=== PATIENT | male | born 1950 | race Caucasian/White ===

== ENCOUNTER → 2016-03-27 | Outpatient (CLI) | payer MEDICARE ==
[~2016-03-27] MED LIST: ASPI1TAB PO; ASPI32ECTA PO; BACL-67 PO; BENA20TA6 PO; BETA2500 PO; BRIM2OPD OU; CENT1TAB PO; CRES20TA PO; HYDR-3713 PO; LATA5OPD OU; LEVE1INJ5 SC; LYRI200C PO; METF750T PO; MIRA33504 PO; OXYC20TA21 PO; PLAV75TA38 PO; TIZA4CAP3 PO; TOUJ1.2I SC; VITA500C10 PO
--- NOTE | 2016-03-27 16:25 | REP ---
Chest x-ray: Two views: History: Hypertension. Comparison chest x-ray: 12/07/2013. Findings: The lungs are hyperinflated but free of infiltrate. Pleural angles are sharp. Heart is not enlarged. The aorta is calcific and slightly tortuous. There are degenerative changes in the thoracic spine. Impression: No active disease. Signed by Jose Luis Andre MD 03/27/2016 04:53 P
[2016-03-27 18:13] LABS: CALCIUM LEVEL 8.4 MG/DL (8.8-10.2); CREATININE FOR GFR 1.5 MG/DL (0.70-1.30); GLOMERULAR FILTRATION RATE 50.2 (>49); POTASSIUM SERUM 3.9 MEQ/L (3.5-5.1)
--- NOTE | 2016-03-28 01:15 | ECGEPIP ---
Stationary ECG Study [facility] Test Date: 2016-03-27 Pat Name: ELSI GONZALEZ Department: Room: - Gender: M Kitchen Porter: DANAE : 1950 Requested By: Saud Rich Order Number: [id number] Reading MD: Flavio Le Measurements Intervals [place] Rate: 68 P: 65 MN: 152 QRS: 24 QRSD: 80 T: 42 QT: 382 QTc: 407 Interpretive Statements SINUS RHYTHM ARTIFACT ON THE BASELINE IN THE LIMB LEADS NO PRIOR TRACING Electronically Signed On 03-28-2016 1:15:37 EST by Flavio Le
== END ==
LOC: M LAB 15:34
PROVIDERS: ATTEND Orthopaedic Surgery
DX: E11.9 Type 2 diabetes mellitus without complications (principal); I10 Essential (primary) hypertension

== ENCOUNTER → 2016-04-09 | Day surgery (SDC) | payer MEDICARE ==
[~2016-04-09] VITALS: Ht 170.2 cm; Wt 77.1 kg
[~2016-04-09] MED LIST changes: +LIDOCAINE 2% INJ 100 MG/5 ML SDV (FOR ANES.) As Ordered ONE; +LR 1,000 ML IV SCH; +METOCLOPRAMIDE INJ 10MG/2ML VIAL (J2765) As Ordered ONE; +MIDAZOLAM INJ 2 MG/2 ML VIAL (J2250) As Ordered ONE; +MORPHINE 4 MG/ML 1ML SYRINGE IV PRN; +NORCO, ANEXSIA 5/325MG TABLET (HYDROcodone/ACETAMINOPHEN) PO PRN; +ONDANSETRON 4MG/2ML VIAL (J2405) IV PRN; +PROPOFOL 200 MG/20 ML VIAL As Ordered ONE; +fentaNYL 100 MCG/2 ML INJECTION (J3010) As Ordered ONE; +fentaNYL 100 MCG/2 ML INJECTION (J3010) IV PRN
--- NOTE | 2016-04-09 12:23 | RO ---
DATE OF PROCEDURE: 04/09/2016 PREOPERATIVE DIAGNOSES: Left carpal tunnel syndrome. 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 POSTOPERATIVE DIAGNOSES: Left carpal tunnel syndrome. 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 PROCEDURE: Left carpal tunnel release. Left ulnar nerve decompression at the wrist. Left ulnar nerve transposition at the elbow. SURGEON: Dr. Saud Rich NIGHT COORDINATOR: Chai Abbasi. ANESTHESIA: General. ESTIMATED BLOOD LOSS: Less than 10. COMPLICATIONS: None. INDICATIONS: This is a 65-year-old gentleman with multiple medical problems who has had ongoing numbness in his hand. EMG nerve conduction study was consistent with carpal tunnel syndrome and ulnar nerve entrapment at the wrist and at the elbow. He had failed conservative management and wished to go ahead with surgical treatment. He understood the nature of the procedure and the risks of bleeding, infection, damage to nerves, vessels, persistent pain, persistent numbness, need for further surgery, recurrence, among others. PROCEDURE: The patient was taken to the operating room and placed in supine position after general anesthesia was induced. The left upper extremity was prepped and draped in the usual sterile fashion. A time-out was performed. I then began at the elbow, making a curvilinear incision along the medial aspect of the elbow and bluntly dissected down through subcutaneous tissue until I identified the ulnar nerve without too much difficulty. This was unroofed and freed up throughout the cubital tunnel and then I dissected around the nerve. I controlled hemostasis with the bipolar cautery and gradually dissected the nerve out of its groove. I created a flap anteriorly on the fascia and I did divide a little bit of the fascia just to take some of the pressure off of the nerve. I gradually transposed the nerve anteriorly. I did take out some of the inner muscular septum proximally and took care not to divide any of the muscular branches. The nerve was easily transposed anteriorly. I put the elbow through a range of motion and then protected the nerve by retracting it anteriorly with a Whitefish. I irrigated. I tacked down subcutaneous tissue to the medial epicondyle with two #2-0 Vicryl sutures and put the elbow through a range of motion. The ulnar nerve was under no tension throughout flexion and extension. Subcutaneous was closed with #2-0 Vicryl, skin with bel. Then I directed attention distally. Incision was made along the proximal ulnar palm. This was curved ulnarly and then along the ulnar aspect of the wrist over the ulnar nerve. Blunt dissection was carried down through subcutaneous tissue until the transverse carpal ligament was encountered. This was incised longitudinally with a 15 blade entering the ulnar border of the carpal tunnel, which I completed the dissection proximally and distally under direct visualization, protecting the median nerve with a Whitefish, and palpating to make sure that the nerve was freed up. The ulnar nerve was then identified through the more ulnar aspect of this incision and blunt dissection was carried down through subcutaneous tissue until the ulnar nerve was identified. I identified the neurovascular bundle proximally and worked my way distally freeing it up. It seemed to be a little bit tight around the midportion. Once I was satisfied with the release of this nerve and the release of the median nerve, I irrigated copiously and closed the skin with #5-0 nylon suture. A sterile dressing was applied. Tourniquet was deflated. I placed the arm in a long-arm posterior splint. Sling was applied. He was taken to recovery room in stable condition. There were no known complications. The plan be routine postoperative. Will take the splint off in about 12 days and take the stitches and bel out and start range of motion.
[2016-04-09 14:05] VITALS: BP 150/76
== END | disposition home or self-care (01) ==
LOC: M SDC 07:36
PROVIDERS: ATTEND Orthopaedic Surgery
DX: G56.02 Carpal tunnel syndrome, left upper limb (principal); G56.22 Lesion of ulnar nerve, left upper limb; G35 Multiple sclerosis; G89.29 Other chronic pain; M54.17 Radiculopathy, lumbosacral region; E11.9 Type 2 diabetes mellitus without complications; I12.9 Hypertensive chronic kidney disease with stage 1 through stage 4 chronic kidney disease, or unspecified chronic kidney disease; E78.00 Pure hypercholesterolemia, unspecified; N18.9 Chronic kidney disease, unspecified; F41.9 Anxiety disorder, unspecified; F32.9 Major depressive disorder, single episode, unspecified; H40.9 Unspecified glaucoma; E78.5 Hyperlipidemia, unspecified; T88.59XD Other complications of anesthesia, subsequent encounter; M12.9 Arthropathy, unspecified; Z79.899 Other long term (current) drug therapy; Z79.82 Long term (current) use of aspirin; Z72.0 Tobacco use
CPT/HCPCS: 64718; 64719; 64721; J0690; J2250; J2765; J3010

== ENCOUNTER 2018-01-06 14:26 | Inpatient (IN) | payer OTHER, MEDICARE ==
[2018-01-06] MEDS: NS 1,000 ML IV ×4 (15:47→23:02)
[2018-01-06 15:48] LABS: BASO # 0.1 10^3/uL (0.0-0.2); BASO % 0.9 % (0.0-1.0); EOS # 0.2 10^3/uL (0.0-0.50); EOS % 1.9 % (0.0-3.0); HEMATOCRIT 43.7 % (42.0-52.0); HEMOGLOBIN 14.2 g/dl (13.5-17.5); IMMATURE GRANULOCYTE % 0.3 % (0-3.0); LYMPH # 2.1 10^3/uL (1.5-4.5); LYMPH % 22.1 % (24.0-44.0); MEAN CORPUSCULAR HEMOGLOBIN 30.1 pg (27.0-33.0); MEAN CORPUSCULAR HGB CONC 32.5 g/dl (32.0-36.5); MEAN CORPUSCULAR VOLUME 92.6 fl (80.0-96.0); MONO # 0.7 10^3/uL (0.0-0.8); MONO % 7.9 % (0.0-5.0); NEUTROPHILS # 6.3 10^3/uL (1.8-7.7); NEUTROPHILS % 66.9 % (36.0-66.0); PLATELET COUNT, AUTOMATED 157 10^3/uL (150-450); RED BLOOD COUNT 4.72 10^6/uL (4.30-6.10); RED CELL DISTRIBUTION WIDTH 14.5 % (11.5-14.5); WHITE BLOOD COUNT 9.4 10^3/uL (4.0-10.0)
[2018-01-06 16:01] LABS: OSMOLALITY SERUM 310 MOSM/KG (280-301)
[2018-01-06 16:08] LABS: INR 1.07
[2018-01-06 16:10] LABS: ALBUMIN 3.5 GM/DL (3.2-5.2); ALBUMIN/GLOBULIN RATIO 1.06 (1.00-1.93); ALKALINE PHOSPHATASE 163 U/L (45-117); ALT/SGPT 22 U/L (12-78); ANION GAP 7 MEQ/L (8-16); AST/SGOT 13 U/L (7-37); BILIRUBIN,DIRECT 0.2 MG/DL (0.0-0.2); BILIRUBIN,TOTAL 0.5 MG/DL (0.2-1.0); BLOOD UREA NITROGEN 52 MG/DL (7-18); CALCIUM LEVEL 8.2 MG/DL (8.8-10.2); CARBON DIOXIDE LEVEL 23 MEQ/L (21-32); CHLORIDE LEVEL 113 MEQ/L (98-107); GLUCOSE, FASTING 111 MG/DL (70-100); LIPASE 354 U/L (73-393); POTASSIUM SERUM 3.5 MEQ/L (3.5-5.1); SODIUM LEVEL 143 MEQ/L (136-145); TOTAL PROTEIN 6.8 GM/DL (6.4-8.2)
[2018-01-06 17:51] LABS: MAGNESIUM LEVEL 3.4 MG/DL (1.8-2.4); PHOSPHORUS LEVEL 4.2 MG/DL (2.5-4.9)
[2018-01-06 18:08] LABS: OSMOLALITY URINE 570 MOSM/KG (500-800)
[2018-01-06 18:18] LABS: APPEARANCE, URINE CLEAR (CLEAR); BACTERIA, URINE AUTO NEGATIVE (NEGATIVE); BILIRUBIN, URINE AUTO NEGATIVE (NEGATIVE); BLOOD, URINE BLOOD NEGATIVE (NEGATIVE); COLOR, URINE YELLOW (YELLOW); GLUCOSE, URINE (UA) AUTO NEGATIVE (NEGATIVE); KETONE, URINE AUTO TRACE mg/dL (NEGATIVE); LEUKOCYTE ESTERASE, URINE AUTO NEGATIVE (NEGATIVE); MUCUS, URINE SMALL (NEGATIVE); NITRITE, URINE AUTO NEGATIVE (NEGATIVE); PROTEIN, URINE AUTO 2+ mg/dL (NEGATIVE); RBC, URINE AUTO 2 /HPF (0-3); SPECIFIC GRAVITY URINE AUTO 1.017 (1.002-1.035); SQUAMOUS EPITHELIAL CELL UR AU 0 /HPF (0-6); WBC, URINE AUTO 2 /HPF (0-3)
[2018-01-06 18:19] LABS: SODIUM,RANDOM URINE 55 MEQ/L
[2018-01-06] MEDS ORDERED: GLUCOSE 4 GM CHEW TABLET PO (19:30)
[2018-01-06] MEDS ORDERED: GLUCAGON FOR INJ 1 MG VIAL (J1610) SC (19:30)
[2018-01-06] MEDS ORDERED: DEXTROSE 50% 50 ML SYRINGE IV (19:30)
[2018-01-06 20:45] LABS: BEDSIDE GLUCOSE 110 MG/DL (80-115)
[2018-01-06] MEDS: HumaLOG INSULIN (NovoLOG) PER UNIT SC (21:00)
[2018-01-06] MEDS: rOPINIRole 1MG TAB PO (21:53)
[2018-01-06] MEDS: oxyCODONE 20 MG CR TAB PO (21:53)
[2018-01-06] MEDS: PREGABALIN 100 MG CAP (LYRICA) PO (21:54)
[2018-01-06] MEDS: HEPARIN SOD (PORCINE) 5000 UNITS/ML VIAL SC (21:54)
[2018-01-06] MEDS: CLOPIDOGREL 75 MG TAB PO (21:54)
[2018-01-07] MEDS: HEPARIN SOD (PORCINE) 5000 UNITS/ML VIAL SC ×3 (05:48→20:51)
[2018-01-07] MEDS: NS 1,000 ML IV ×2 (05:48→16:57)
[2018-01-07 05:56] LABS: HEMATOCRIT 37.7 % (42.0-52.0); MEAN CORPUSCULAR HEMOGLOBIN 29.7 pg (27.0-33.0); MEAN CORPUSCULAR HGB CONC 31.6 g/dl (32.0-36.5); PLATELET COUNT, AUTOMATED 122 10^3/uL (150-450); RED BLOOD COUNT 4.01 10^6/uL (4.30-6.10); RED CELL DISTRIBUTION WIDTH 14.5 % (11.5-14.5); WHITE BLOOD COUNT 6.7 10^3/uL (4.0-10.0)
[2018-01-07 06:13] LABS: ESTIMATED AVERAGE GLUCOSE 128 MG/DL (60-110); HEMOGLOBIN A1c 6.1 %
[2018-01-07 06:22] LABS: HEMOGLOBIN 11.9 g/dl (13.5-17.5)
[2018-01-07 06:36] LABS: ANION GAP 7 MEQ/L (8-16); BLOOD UREA NITROGEN 42 MG/DL (7-18); CALCIUM LEVEL 7.8 MG/DL (8.8-10.2); CARBON DIOXIDE LEVEL 21 MEQ/L (21-32); CHLORIDE LEVEL 118 MEQ/L (98-107); CREATININE FOR GFR 1.95 MG/DL (0.70-1.30); FREE T4 0.76 NG/DL (0.76-1.46); GLOMERULAR FILTRATION RATE 36.8 (>49); GLUCOSE, FASTING 75 MG/DL (70-100); MAGNESIUM LEVEL 3.1 MG/DL (1.8-2.4); POTASSIUM SERUM 3.8 MEQ/L (3.5-5.1); PSA SCREENING 1.02 NG/ML (< 4.0); SODIUM LEVEL 146 MEQ/L (136-145)
[2018-01-07] MEDS: HumaLOG INSULIN (NovoLOG) PER UNIT SC ×4 (07:25→20:31)
[2018-01-07] MEDS: PREGABALIN 100 MG CAP (LYRICA) PO ×2 (09:08→20:49)
[2018-01-07] MEDS: DULoxetine 30 MG CAP (CYMBALTA) PO (09:08)
[2018-01-07] MEDS: ASPIRIN 81 MG ENTERIC TAB PO (09:08)
[2018-01-07] MEDS: ATORVASTATIN 20 MG TAB PO (09:08)
[2018-01-07] MEDS: rOPINIRole 1MG TAB PO ×2 (09:08→20:49)
[2018-01-07] MEDS: oxyCODONE 20 MG CR TAB PO ×2 (09:09→20:50)
[2018-01-07 11:54] LABS: BEDSIDE GLUCOSE 86 MG/DL (80-115)
[2018-01-07 16:50] LABS: BEDSIDE GLUCOSE 180 MG/DL (80-115)
[2018-01-07 19:50] LABS: BEDSIDE GLUCOSE 117 MG/DL (80-115)
[2018-01-07] MEDS: CLOPIDOGREL 75 MG TAB PO (20:50)
[2018-01-08] MEDS: NS 1,000 ML IV ×2 (04:57→16:51)
[2018-01-08] MEDS: HEPARIN SOD (PORCINE) 5000 UNITS/ML VIAL SC ×4 (05:07→23:58)
[2018-01-08 06:30] LABS: HEMATOCRIT 38.2 % (42.0-52.0); HEMOGLOBIN 12.1 g/dl (13.5-17.5); MEAN CORPUSCULAR HEMOGLOBIN 30.4 pg (27.0-33.0); MEAN CORPUSCULAR HGB CONC 31.7 g/dl (32.0-36.5); PLATELET COUNT, AUTOMATED 107 10^3/uL (150-450); RED BLOOD COUNT 3.98 10^6/uL (4.30-6.10); RED CELL DISTRIBUTION WIDTH 14.4 % (11.5-14.5); WHITE BLOOD COUNT 9.3 10^3/uL (4.0-10.0)
[2018-01-08 06:45] LABS: ANION GAP 3 MEQ/L (8-16); BLOOD UREA NITROGEN 34 MG/DL (7-18); C REACTIVE PROTEIN QUANTITATIV 1.04 MG/DL (0.00-0.30); CALCIUM LEVEL 8.3 MG/DL (8.8-10.2); CARBON DIOXIDE LEVEL 24 MEQ/L (21-32); CHLORIDE LEVEL 117 MEQ/L (98-107); GLOMERULAR FILTRATION RATE 37.9 (>49); GLUCOSE, FASTING 89 MG/DL (70-100); MAGNESIUM LEVEL 2.8 MG/DL (1.8-2.4); POTASSIUM SERUM 4.6 MEQ/L (3.5-5.1); SODIUM LEVEL 144 MEQ/L (136-145)
[2018-01-08] MEDS: HumaLOG INSULIN (NovoLOG) PER UNIT SC ×4 (07:30→20:43)
[2018-01-08] MEDS: oxyCODONE 20 MG CR TAB PO ×2 (09:00→21:04)
[2018-01-08] MEDS: ASPIRIN 81 MG ENTERIC TAB PO (09:00)
[2018-01-08] MEDS: rOPINIRole 1MG TAB PO ×2 (09:00→21:04)
[2018-01-08] MEDS: ATORVASTATIN 20 MG TAB PO (09:01)
[2018-01-08] MEDS: DULoxetine 30 MG CAP (CYMBALTA) PO (09:01)
[2018-01-08] MEDS: PREGABALIN 100 MG CAP (LYRICA) PO ×2 (09:01→21:04)
[2018-01-08 12:04] LABS: BEDSIDE GLUCOSE 127 MG/DL (80-115)
[2018-01-08] MEDS: GOLYTELY SOLN 4000 ML BTL PO (13:21)
[2018-01-08 16:48] LABS: BEDSIDE GLUCOSE 118 MG/DL (80-115)
[2018-01-08 20:36] LABS: BEDSIDE GLUCOSE 126 MG/DL (80-115)
[2018-01-08] MEDS: CLOPIDOGREL 75 MG TAB PO (21:05)
[2018-01-09] MEDS: NS 1,000 ML IV ×2 (05:13→16:42)
[2018-01-09 07:07] LABS: HEMOGLOBIN 10.8 g/dl (13.5-17.5); MEAN CORPUSCULAR HEMOGLOBIN 29.8 pg (27.0-33.0); MEAN CORPUSCULAR HGB CONC 31.8 g/dl (32.0-36.5); MEAN CORPUSCULAR VOLUME 93.9 fl (80.0-96.0); RED BLOOD COUNT 3.62 10^6/uL (4.30-6.10); RED CELL DISTRIBUTION WIDTH 14.3 % (11.5-14.5); WHITE BLOOD COUNT 7.8 10^3/uL (4.0-10.0)
[2018-01-09 07:28] LABS: PLATELET COUNT, AUTOMATED 95 10^3/uL (150-450)
[2018-01-09 07:29] LABS: IMMATURE PLATELET FRACTION % 6.4 % (0.0-10.9)
[2018-01-09] MEDS: HumaLOG INSULIN (NovoLOG) PER UNIT SC ×4 (07:30→21:00)
[2018-01-09 07:31] LABS: ANION GAP 5 MEQ/L (8-16); BLOOD UREA NITROGEN 22 MG/DL (7-18); C REACTIVE PROTEIN QUANTITATIV 3.79 MG/DL (0.00-0.30); CALCIUM LEVEL 7.8 MG/DL (8.8-10.2); CARBON DIOXIDE LEVEL 21 MEQ/L (21-32); CHLORIDE LEVEL 119 MEQ/L (98-107); CREATININE FOR GFR 1.42 MG/DL (0.70-1.30); GLOMERULAR FILTRATION RATE 53.1 (>49); GLUCOSE, FASTING 84 MG/DL (70-100); MAGNESIUM LEVEL 2.3 MG/DL (1.8-2.4); POTASSIUM SERUM 4.1 MEQ/L (3.5-5.1); SODIUM LEVEL 145 MEQ/L (136-145)
[2018-01-09] MEDS: ATORVASTATIN 20 MG TAB PO (10:41)
[2018-01-09] MEDS: oxyCODONE 20 MG CR TAB PO ×2 (10:41→21:39)
[2018-01-09] MEDS: rOPINIRole 1MG TAB PO ×2 (10:42→21:39)
[2018-01-09] MEDS: PREGABALIN 100 MG CAP (LYRICA) PO ×2 (10:42→21:38)
[2018-01-09] MEDS: ASPIRIN 81 MG ENTERIC TAB PO (10:42)
[2018-01-09] MEDS: DULoxetine 30 MG CAP (CYMBALTA) PO (10:42)
[2018-01-09] MEDS ORDERED: PROPOFOL 200 MG/20 ML VIAL As Ordered (11:54)
[2018-01-09] MEDS ORDERED: LIDOCAINE 2% INJ 100 MG/5 ML SDV (FOR ANES.) As Ordered (11:54)
[2018-01-09] MEDS ORDERED: ONDANSETRON 4MG/2ML VIAL (J2405) IV (12:15)
[2018-01-09] MEDS: LR 1,000 ML IV (12:15)
[2018-01-09] MEDS: HEPARIN SOD (PORCINE) 5000 UNITS/ML VIAL SC ×2 (13:41→21:40)
[2018-01-09 17:00] LABS: BEDSIDE GLUCOSE 125 MG/DL (80-115)
[2018-01-09 20:18] LABS: BEDSIDE GLUCOSE 119 MG/DL (80-115)
[2018-01-09] MEDS: CLOPIDOGREL 75 MG TAB PO (21:38)
[2018-01-10] MEDS: HEPARIN SOD (PORCINE) 5000 UNITS/ML VIAL SC (05:19)
[2018-01-10 06:23] LABS: HEMATOCRIT 33.8 % (42.0-52.0); HEMOGLOBIN 10.7 g/dl (13.5-17.5); MEAN CORPUSCULAR HGB CONC 31.7 g/dl (32.0-36.5); MEAN CORPUSCULAR VOLUME 94.7 fl (80.0-96.0); RED BLOOD COUNT 3.57 10^6/uL (4.30-6.10); RED CELL DISTRIBUTION WIDTH 14.2 % (11.5-14.5); WHITE BLOOD COUNT 6.7 10^3/uL (4.0-10.0)
[2018-01-10 06:24] LABS: PLATELET COUNT, AUTOMATED 92 10^3/uL (150-450)
[2018-01-10 06:46] LABS: ANION GAP 5 MEQ/L (8-16); BLOOD UREA NITROGEN 21 MG/DL (7-18); C REACTIVE PROTEIN QUANTITATIV 5.33 MG/DL (0.00-0.30); CALCIUM LEVEL 7.6 MG/DL (8.8-10.2); CARBON DIOXIDE LEVEL 20 MEQ/L (21-32); CHLORIDE LEVEL 119 MEQ/L (98-107); CREATININE FOR GFR 1.51 MG/DL (0.70-1.30); GLOMERULAR FILTRATION RATE 49.5 (>49); GLUCOSE, FASTING 87 MG/DL (70-100); POTASSIUM SERUM 4.2 MEQ/L (3.5-5.1); SODIUM LEVEL 144 MEQ/L (136-145)
[2018-01-10] MEDS: HumaLOG INSULIN (NovoLOG) PER UNIT SC (07:30)
[2018-01-10] MEDS: rOPINIRole 1MG TAB PO (09:02)
[2018-01-10] MEDS: ATORVASTATIN 20 MG TAB PO (09:02)
[2018-01-10] MEDS: PREGABALIN 100 MG CAP (LYRICA) PO (09:02)
[2018-01-10] MEDS: oxyCODONE 20 MG CR TAB PO (09:02)
[2018-01-10] MEDS: ASPIRIN 81 MG ENTERIC TAB PO (09:02)
[2018-01-10] MEDS: DULoxetine 30 MG CAP (CYMBALTA) PO (09:02)
[2018-01-10 11:43] LABS: BEDSIDE GLUCOSE 95 MG/DL (80-115)
== END 2018-01-10 12:25 | disposition home or self-care (01) | DRG 394 ==
LOC: M ED 14:26 → M ED INP 18:28 → M MSPAV 20:10
PROC: 0DBK8ZX Excision of Ascending Colon, Via Natural or Artificial Opening Endoscopic, Diagnostic (ICD-10-PCS; principal; 2018-01-09 10:00)
DX: D12.2 Benign neoplasm of ascending colon (principal); N17.9 Acute kidney failure, unspecified; K56.7 Ileus, unspecified; G35 Multiple sclerosis; R63.4 Abnormal weight loss; N18.3 Chronic kidney disease, stage 3 (moderate); I12.9 Hypertensive chronic kidney disease with stage 1 through stage 4 chronic kidney disease, or unspecified chronic kidney disease; Z86.73 Personal history of transient ischemic attack (TIA), and cerebral infarction without residual deficits; E11.40 Type 2 diabetes mellitus with diabetic neuropathy, unspecified; Z79.82 Long term (current) use of aspirin; Z79.899 Other long term (current) drug therapy; E78.00 Pure hypercholesterolemia, unspecified; G25.81 Restless legs syndrome

== ENCOUNTER 2018-02-11 06:49 | Inpatient (IN) | payer OTHER ==
[2018-02-11] VITALS (7 sets, daily range): BP systolic 146–193; BP diastolic 56–81
[~2018-02-11] VITALS: Ht 170.2 cm; Wt 74.4 kg
[~2018-02-11 06:49] MED LIST changes: +ACET250T2; +ACET250T2 PO; +ASPI325T25 PO; -ASPI32ECTA PO; +ATOR1TAB21; +ATOR1TAB21 PO; -BACL-67 PO; +BACL1TAB9 PO; +CLOP75TA2 PO; +DULO1CAP2; +DULO1CAP2 PO; +HYDR-2808 PO; -LIDOCAINE 2% INJ 100 MG/5 ML SDV (FOR ANES.) As Ordered ONE; +LR 1,000 ML IV ONE; -LR 1,000 ML IV SCH; -METOCLOPRAMIDE INJ 10MG/2ML VIAL (J2765) As Ordered ONE; -MIDAZOLAM INJ 2 MG/2 ML VIAL (J2250) As Ordered ONE; -MORPHINE 4 MG/ML 1ML SYRINGE IV PRN; -NORCO, ANEXSIA 5/325MG TABLET (HYDROcodone/ACETAMINOPHEN) PO PRN; -ONDANSETRON 4MG/2ML VIAL (J2405) IV PRN; -OXYC20TA21 PO; +OXYC20TA40 PO; +PLAV1TAB2 PO; -PLAV75TA38 PO; -PROPOFOL 200 MG/20 ML VIAL As Ordered ONE; +RANI150T PO; +ROPI2TAB; +ROPI2TAB PO; +TIZA-208 PO; +TIZA4CAP PO; -TIZA4CAP3 PO; +TRES1INJ SC; +cefoTEtan DISODIUM 2 GM in D5W MINI-BAG PLUS 50 ML IV ONE; -fentaNYL 100 MCG/2 ML INJECTION (J3010) As Ordered ONE; -fentaNYL 100 MCG/2 ML INJECTION (J3010) IV PRN
[2018-02-11] MEDS ORDERED: BUPIVACAINE/EPIN 0.25% 30 ML VIAL As Ordered ONE (07:57)
[2018-02-11] MEDS ORDERED: ROCURONIUM BROMIDE 50 MG/5 ML VIAL As Ordered ONE ×2 (08:00→08:07)
[2018-02-11] MEDS ORDERED: PROPOFOL 200 MG/20 ML VIAL As Ordered ONE ×2 (08:00→08:07)
[2018-02-11] MEDS ORDERED: dexameTHASONE 4 MG/ML 1ML VIAL (J1100) As Ordered ONE (08:00)
[2018-02-11] MEDS ORDERED: ONDANSETRON 4MG/2ML VIAL (J2405) As Ordered ONE (08:00)
[2018-02-11] MEDS ORDERED: LIDOCAINE 2% INJ 100 MG/5 ML SDV (FOR ANES.) As Ordered ONE (08:00)
[2018-02-11] MEDS ORDERED: fentaNYL 250 MCG/5 ML INJECTION (J3010) As Ordered ONE (08:01)
[2018-02-11] MEDS ORDERED: MIDAZOLAM INJ 2 MG/2 ML VIAL (J2250) As Ordered ONE (08:02)
[2018-02-11] MEDS ORDERED: ALBUTEROL SULFATE 2.5 MG/0.5 ML INH NEB SOLN As Ordered ONE (08:21)
[2018-02-11] MEDS ORDERED: ALBUTEROL SULFATE 2.5 MG/0.5 ML INH NEB SOLN NEB ONE (08:45)
[2018-02-11] MEDS ORDERED: NEOSTIGMINE 10 MG/10 ML VIAL (J2710) As Ordered ONE (10:03)
[2018-02-11] MEDS ORDERED: GLYCOPYRROLATE INJ 0.2 MG/ML 2 ML VIAL As Ordered ONE (10:03)
[2018-02-11] MEDS ORDERED: METOCLOPRAMIDE INJ 10MG/2ML VIAL (J2765) As Ordered ONE (10:04)
[2018-02-11] MEDS ORDERED: HYDROmorphone HCL 2 MG/ML 1ML VIAL (J1170) As Ordered ONE (10:04)
[2018-02-11] MEDS ORDERED: LABETALOL HCL 100 MG/20 ML VIAL As Ordered ONE (10:11)
[2018-02-11] MEDS ORDERED: hydrALAZINE INJ 20 MG/ML VIAL As Ordered ONE (11:16)
[2018-02-11] MEDS ORDERED: METOCLOPRAMIDE INJ 10MG/2ML VIAL (J2765) IV PRN (13:00)
[2018-02-11] MEDS ORDERED: NORCO, ANEXSIA 5/325MG TABLET (HYDROcodone/ACETAMINOPHEN) PO PRN (13:00)
[2018-02-11] MEDS ORDERED: MORPHINE 4 MG/ML 1ML VIAL/SYRINGE (J2270) IV PRN (13:00)
[2018-02-11] MEDS ORDERED: MORPHINE 10 MG/ML 1ML VIAL (J2270) IV PRN (13:00)
[2018-02-11] MEDS ORDERED: ONDANSETRON 4MG/2ML VIAL (J2405) IV PRN ×2 (13:00)
[2018-02-11] MEDS ORDERED: KETOROLAC 30 MG/ML VIAL (J1885) IV PRN (13:00)
[2018-02-11] MEDS ORDERED: ACETAMINOPHEN TAB 650MG DOSE (2X325MG) PO PRN (13:00)
[2018-02-11] MEDS ORDERED: PERCOCET 5MG/325MG TAB PO PRN (13:00)
[2018-02-11] MEDS ORDERED: fentaNYL 100 MCG/2 ML INJECTION (J3010) IV PRN (13:00)
[2018-02-11] MEDS ORDERED: LR 1,000 ML IV SCH (13:00)
[2018-02-11] MEDS: KCL 20MEQ IN D5/0.45NS 1000ML 1,000 ML IV SCH ×2 (14:39→23:57)
[2018-02-11] MEDS: ENALAPRIL MALEATE 10 MG TAB PO SCH (14:39)
[2018-02-11] MEDS ORDERED: GLUCOSE 4 GM CHEW TABLET PO PRN (15:15)
[2018-02-11] MEDS ORDERED: GLUCAGON FOR INJ 1 MG VIAL (J1610) SC PRN (15:15)
[2018-02-11] MEDS ORDERED: DEXTROSE 50% 50 ML SYRINGE IV PRN (15:15)
[2018-02-11] MEDS: HumaLOG INSULIN (NovoLOG) PER UNIT SC SCH ×2 (18:25→20:46)
--- NOTE | 2018-02-11 18:50 | RO ---
DATE OF PROCEDURE: 02/11/2018 PREOPERATIVE DIAGNOSIS: Right colon mass. POSTOPERATIVE DIAGNOSIS: Right colon mass. PROCEDURE: Robotic right hemicolectomy. SURGEON: Dr. Amauri Van GEOCHEMICAL MANAGER: Dr. Mas, assisted with retraction of the colon as well as reanastomosis. ANESTHESIA: General. ESTIMATED BLOOD LOSS: 50 mL. COMPLICATIONS: None. INDICATIONS FOR PROCEDURE: The patient is a 67-year-old male who presented to the ER with unexplained weight loss. 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 However, his CEA levels are high and this mass is circumferential, so recommendation was to proceed with colon resection. Risks and benefits of the procedure not limited to but including bleeding, infection, hernia formation, damage to surrounding structures, anastomotic leak and need for further surgery were discussed in detail with the patient. Informed consent was obtained and procedure was planned. DESCRIPTION OF PROCEDURE: The patient was brought back to operating room seven after sufficient sedation, the abdomen was sterilely prepped and draped and a Ahumada catheter was placed. Next, a time-out was done to confirm proper patient, proper procedure. Following that, an 8 mm supraumbilical midline incision was made and the Veress needle was used to gain access to the abdomen. Once the abdomen was entered and was filled to 15 mmHg, the Veress needle was then removed and a 12 mm Optiview port was used to gain access. Two 8 mm robotic ports were then placed, one subxiphoid, one in the lower mid abdomen, and another 15 mm robotic port was placed in the left upper quadrant. The colon was examined. The mass was able to be palpated with graspers near the hepatic flexure and then was able to move the small bowel out of the way and then the robot was docked to the ports. After docking to the ports, the colon was grasped with a third arm, mobilized medially. The lateral peritoneal connections to the colon were taken down using the vessel sealer and scissors. Once this was completed, the colon was mobilized around the hepatic flexure to the proximal transverse colon and the colon continued to be mobilized inferiorly and medially until it was completely dissected free and free from the duodenum. Once this was all completed, the terminal ileum was identified, elevated up in the air and the mesentery of the terminal ileum was opened up and green load of the stapler was used to transect. The mesentery was then dissected through the terminal ileum and into the cecal mesentery until the ileocolic artery was identified. It was then continued to be mobilized proximally, the vessel was then skeletonized and then was able to be clamped and ligated using the vessel sealer. Once the rest of the mesentery was freed up and the entire right colon was free, the robot was undocked, the supraumbilical incision was widened to about 5 cm, and the Klever wound protector was placed. The two ends of the colon were brought out, a [id number] anastomosis was created between the terminal ileum and the proximal transverse colon using a JACKY 75 stapler and a blue load. Once this was completed, I over sewed the corners with #3-0 silk sutures, placed some Tisseel over the anastomosis, tucked it back inside the abdomen. The fascia at the supraumbilical site was then closed with a running #1 Vicryl suture. Subcutaneous tissues were reapproximated with #3-0 Vicryl sutures and then bel. The left upper quadrant 15 mm port site, fascia was then closed with a [id number] #0 Vicryl suture. The rest of the skin incisions were closed with #4-0 Vicryl subcuticular sutures. The abdomen was cleaned and dried. Steri-Strips, 4x4, and tape were applied, thus ending procedure. YAKOV
[2018-02-11] MEDS: cefoTEtan DISODIUM 1 GM in D5W MINI-BAG PLUS 50 ML IV SCH (20:24)
[2018-02-11] MEDS: PREGABALIN 100 MG CAP (LYRICA) PO SCH (20:24)
[2018-02-11] MEDS: CLOPIDOGREL 75 MG TAB PO SCH (20:25)
[2018-02-11] MEDS: ATORVASTATIN 20 MG TAB PO SCH (20:25)
[2018-02-11] MEDS: rOPINIRole 1MG TAB PO SCH (20:25)
[2018-02-11] MEDS: SENOKOT S TAB PO SCH (20:25)
[2018-02-12] VITALS (11 sets, daily range): BP systolic 84–168; BP diastolic 52–84
[2018-02-12] MEDS: KCL 20MEQ IN D5/0.45NS 1000ML 1,000 ML IV SCH ×2 (07:48→15:00)
[2018-02-12] MEDS: HumaLOG INSULIN (NovoLOG) PER UNIT SC SCH ×4 (07:48→21:00)
[2018-02-12] MEDS: cefoTEtan DISODIUM 1 GM in D5W MINI-BAG PLUS 50 ML IV SCH (07:49)
[2018-02-12] MEDS: SENOKOT S TAB PO SCH ×2 (09:27→21:15)
[2018-02-12] MEDS: rOPINIRole 1MG TAB PO SCH ×2 (09:27→21:15)
[2018-02-12] MEDS: PANTOPRAZOLE 40MG TAB (PROTONIX) PO SCH (09:28)
[2018-02-12] MEDS: DULoxetine 30 MG CAP (CYMBALTA) PO SCH (09:28)
[2018-02-12] MEDS: PREGABALIN 100 MG CAP (LYRICA) PO SCH ×2 (09:28→21:15)
[2018-02-12] MEDS: ENALAPRIL MALEATE 10 MG TAB PO SCH (09:31)
[2018-02-12] MEDS: CLOPIDOGREL 75 MG TAB PO SCH (21:15)
[2018-02-12] MEDS: ATORVASTATIN 20 MG TAB PO SCH (21:15)
[2018-02-12 23:02] LABS: BASO # 0.1 10^3/uL (0.0-0.2); BASO % 0.3 % (0.0-1.0); EOS # 0.1 10^3/uL (0.0-0.50); EOS % 0.7 % (0.0-3.0); HEMATOCRIT 27.8 % (42.0-52.0); LYMPH # 2.4 10^3/uL (1.5-4.5); LYMPH % 15.1 % (24.0-44.0); MEAN CORPUSCULAR HEMOGLOBIN 30.9 pg (27.0-33.0); MEAN CORPUSCULAR HGB CONC 32.4 g/dl (32.0-36.5); MEAN CORPUSCULAR VOLUME 95.5 fl (80.0-96.0); MONO # 1.3 10^3/uL (0.0-0.8); MONO % 7.8 % (0.0-5.0); NEUTROPHILS # 12.2 10^3/uL (1.8-7.7); NEUTROPHILS % 75.4 % (36.0-66.0); PLATELET COUNT, AUTOMATED 157 10^3/uL (150-450); RED BLOOD COUNT 2.91 10^6/uL (4.30-6.10); WHITE BLOOD COUNT 16.1 10^3/uL (4.0-10.0)
--- NOTE | 2018-02-12 23:11 | IPNPDOC ---
Subjective Date Seen The patient was seen on 02/12/18. Subjective Chief Complaint/HPI RAPID ASSESSMENT General: Reports: Fatigue Constitutional: Reports: Weakness Pulmonary: Denies: Dyspnea, Cough Cardiovascular: Reports: Lt Headedness; Denies: Chest Pain, Palpitations Gastrointestinal: Denies: Nausea, Vomiting Neurological: Reports: Weakness Objective Physical Examination General Exam: Positive: Alert, Cooperative, Moderate Distress Chest Exam: Positive: Diminished; Negative: Rales, Rhonchi, Wheezing Heart Exam: Positive: Rate Normal, Normal S1, Normal S2; Negative: Gallops, Murmurs Abdomen Exam: Positive: Normal bowel sounds, Soft; Negative: Tenderness Extremity Exam: Negative: Edema Neuro Exam: Positive: Normal Speech Other physical findings david red blood per rectum Assessment /Plan Assessment Rapid assessment called overnight for patient- he was on bedside commode and slipped off, found by nursing staff on the floor of his room with david red blood per rectum on the floor and on his legs-RAT was initiated. The patient upon arrival was awake and laying on the floor but with profound generalized weakness, he denied chest pain nor difficulty breathing nor abdomen pain. Found to be hypotensive and bradycardic as well. Stated when he was using the bathroom commode he became very weak and could not hold himself up and therefore slid off onto the floor, unsure if he hit his head on the way down, did not complain of any extremity pain. Bedside BS was checked and found to be in 170's, upon physical exam he did have david red blood per his rectum on his legs and on the floor around him. He had to be lifted by 3 nurses to be put back into bed, with extreme generalized weakness. Stat CBC and BMP was ordered. STAT CT head pending. Given 1 L fluid bolus with improvement in BP and HR. Will transfer him to ICU for closer monitoring, Dr Alfonso of general surgery was made aware of situation by Dr Reagan, agreed with plan of care by medicine team. If Hg should be less than 8, we will transfuse. Otherwise will maintain his BP with IVF, monitor closely and let day team know of patients events overnight. Plan/VTE VTE Prophylaxis Ordered?: Yes VS, I&O, 24H, Fishbone Vital Signs/I&O Vital Signs Date Time Temp Pulse Resp B/P (MAP) Pulse Ox O2 Delivery O2 Flow Rate FiO2 02/12/18 22:00 98.7 57 18 113/57 (75) 94 Room Air 02/11/18 22:00 2.0 I&O- Last 24 Hours up to 6 AM 02/12/18 06:00 Intake Total 1980 ml Output Total 550 ml Balance 1430 ml Laboratory Data 24H LABS Laboratory Tests 2 02/12/18 07:38: Bedside Glucose (Misc Panel) 218H 02/12/18 11:37: Bedside Glucose (Misc Panel) 119H 02/12/18 16:33: Bedside Glucose (Misc Panel) 108 02/12/18 20:20: Bedside Glucose (Misc Panel) 123H 02/12/18 22:44: Bedside Glucose (Misc Panel) 178H 02/12/18 22:57: CBC/BMP Laboratory Tests 02/12/18 22:57 Red Blood Count 2.91 L, Mean Corpuscular Volume 95.5, Mean Corpuscular Hemoglobin 30.9, Mean Corpuscular Hemoglobin Concent 32.4, Red Cell Distribution Width 15.1 H, Neutrophils (%) (Auto) 75.4 H, Lymphocytes (%) (Auto) 15.1 L, Monocytes (%) (Auto) 7.8 H, Eosinophils (%) (Auto) 0.7, Basophils (%) (Auto) 0.3, Neutrophils # (Auto) 12.2 H, Lymphocytes # (Auto) 2.4, Monocytes # (Auto) 1.3 H, Eosinophils # (Auto) 0.1, Basophils # (Auto) 0.1 GME ATTESTATION GME ATTESTATION My faculty preceptor for this patient encounter was physically present during the encounter and was fully available. All aspects of the patient interview, examination, medical decision making process, and medical care plan development were reviewed and approved by the faculty preceptor. The faculty preceptor is aware and concurs with the plan as stated in the body of this note and will attest to such by his/her cosignature. MAO VOGT DO Feb 12, 2018 23:11
[2018-02-12 23:27] LABS: CALCIUM LEVEL 7.3 MG/DL (8.8-10.2); CREATININE FOR GFR 2.2 MG/DL (0.70-1.30); POTASSIUM SERUM 3.9 MEQ/L (3.5-5.1)
[2018-02-13] VITALS (15 sets, daily range): BP systolic 110–182; BP diastolic 55–92
[2018-02-13] MEDS: KCL 20MEQ IN D5/0.45NS 1000ML 1,000 ML IV SCH ×3 (00:34→16:07)
[2018-02-13] MEDS ORDERED: NS 1,000 ML IV ONE (03:15)
[2018-02-13 05:50] LABS: BASO % 0.3 % (0.0-1.0); EOS # 0.1 10^3/uL (0.0-0.50); EOS % 0.8 % (0.0-3.0); HEMATOCRIT 25.9 % (42.0-52.0); HEMOGLOBIN 8.3 g/dl (13.5-17.5); LYMPH # 1.7 10^3/uL (1.5-4.5); LYMPH % 14.5 % (24.0-44.0); MEAN CORPUSCULAR HEMOGLOBIN 30.4 pg (27.0-33.0); MEAN CORPUSCULAR VOLUME 94.9 fl (80.0-96.0); MONO # 0.8 10^3/uL (0.0-0.8); MONO % 6.9 % (0.0-5.0); NEUTROPHILS # 9.2 10^3/uL (1.8-7.7); NEUTROPHILS % 77.1 % (36.0-66.0); PLATELET COUNT, AUTOMATED 145 10^3/uL (150-450); RED BLOOD COUNT 2.73 10^6/uL (4.30-6.10)
[2018-02-13 06:07] LABS: CALCIUM LEVEL 7.3 MG/DL (8.8-10.2); CREATININE FOR GFR 1.94 MG/DL (0.70-1.30); POTASSIUM SERUM 4.3 MEQ/L (3.5-5.1)
--- NOTE | 2018-02-13 07:42 | REP ---
Emergency noncontrast brain CT: History: Altered mental status. Findings: Preliminary digital intelligence group supervisor radiograph is unremarkable. Bone window settings demonstrate an intact bony calvarium. There is mucosal thickening in the apex of the left maxillary sinus, within the left ethmoid air cells, and in the sphenoid and left frontal sinus consistent with left-sided paranasal sinusitis. No intraorbital abnormality is seen. Vascular calcification is noted. There is mild diffuse atrophy. Quinteros-white differentiation pattern is normal above and below the tentorium. There are small vessel atherosclerotic changes in the periventricular white matter. There is no evidence of hemorrhage. No infarct, mass or midline shift is seen. Impression: Mild diffuse atrophy and vascular calcification. Small vessel changes. No acute intracranial lesion. Electronically Signed by Jose Luis Andre MD 02/13/2018 10:07 A
[2018-02-13] MEDS: HumaLOG INSULIN (NovoLOG) PER UNIT SC SCH ×4 (08:06→20:22)
[2018-02-13] MEDS: PREGABALIN 100 MG CAP (LYRICA) PO SCH ×2 (08:07→20:20)
[2018-02-13] MEDS: PANTOPRAZOLE 40MG TAB (PROTONIX) PO SCH (08:07)
[2018-02-13] MEDS: DULoxetine 30 MG CAP (CYMBALTA) PO SCH (08:07)
[2018-02-13] MEDS: ENALAPRIL MALEATE 10 MG TAB PO SCH (08:07)
[2018-02-13] MEDS: SENOKOT S TAB PO SCH ×2 (08:07→20:22)
[2018-02-13] MEDS: rOPINIRole 1MG TAB PO SCH ×2 (08:07→20:19)
--- NOTE | 2018-02-13 10:58 | IPN ---
DATE OF SERVICE: 02/13/2018 Patient was seen last night after he had his GI bleeding issue and he had stopped and had been stopped for about an hour after he had been transferred to the ICU. His hematocrit was not significantly diminished at that time and he had no further GI bleeding. He was not tachycardiac and overall was not complaining of any significant abnormalities. No shortness of breath. He had what sounds as a vagal response in the bathroom with a bloody bowel movement and now presents for additional evaluation/treatment monitoring here in the ICU. Otherwise his abdomen is soft, mildly tender at the incision but otherwise not significantly tender at this point. I stopped his Toradol last night given he had an elevated creatinine and with some BUN elevation as well. His creatinine is coming down a little bit today. He has been afebrile. His input and output show that he has had some minimal urine output and I anticipate he has been relatively dry. Part of this might of been the bleeding that he had. But fortunately given his improvement of his BUN and he has been voiding, I anticipate this is probably turning around slowly with our resuscitation fluid. Otherwise on his abdominal exam it is otherwise benign. No evidence of erythema, no drainage. No evidence of infection. IMPRESSION AND PLAN: 1. GI bleeding seems to have stabilized. No bleeding since that time last night. It is probably related to Plavix that was restarted on him and since will discontinue that Plavix and unfortunately will take the higher risk of clotting associated with not having Plavix on board, but with his recent bleed and the potential need for reoperative intervention should he ever bleed again, I do feel that that is a risk that we can take at this point. From the standpoint of overall he feels well, he is not having any complaints, he is hungry, I do feel that we can advance his diet. I would like to keep his IV fluids going at this point and recheck his blood work this afternoon to make sure he does not have ongoing bleeding issues. If he has a decreasing hematocrit this afternoon, it may warrant a couple units of blood helping his dehydration issue as well as helping his bleeding (from the anastomosis, probable).
[2018-02-13] MEDS ORDERED: TAMSULOSIN 0.4 MG CAP PO ONE (11:00)
[2018-02-13 15:01] LABS: HEMATOCRIT 27.4 % (42.0-52.0); HEMOGLOBIN 8.8 g/dl (13.5-17.5); MEAN CORPUSCULAR HEMOGLOBIN 30.4 pg (27.0-33.0); MEAN CORPUSCULAR HGB CONC 32.1 g/dl (32.0-36.5); MEAN CORPUSCULAR VOLUME 94.8 fl (80.0-96.0); PLATELET COUNT, AUTOMATED 144 10^3/uL (150-450); RED BLOOD COUNT 2.89 10^6/uL (4.30-6.10); WHITE BLOOD COUNT 13.4 10^3/uL (4.0-10.0)
[2018-02-13 15:21] LABS: CALCIUM LEVEL 7.4 MG/DL (8.8-10.2); CREATININE FOR GFR 1.71 MG/DL (0.70-1.30); GLOMERULAR FILTRATION RATE 42.9 (>49); POTASSIUM SERUM 3.9 MEQ/L (3.5-5.1)
[2018-02-13] MEDS ORDERED: NITROGLYCERIN 2% OINT 1 GM *U/D* PKT TOP ONE (16:45)
[2018-02-13] MEDS: ATORVASTATIN 20 MG TAB PO SCH (20:20)
[2018-02-14] VITALS (14 sets, daily range): BP systolic 113–190; BP diastolic 56–96
[2018-02-14] MEDS: KCL 20MEQ IN D5/0.45NS 1000ML 1,000 ML IV SCH (00:14)
[2018-02-14 04:14] LABS: CREATININE FOR GFR 1.54 MG/DL (0.70-1.30); GLOMERULAR FILTRATION RATE 48.4 (>49); HEMATOCRIT 22.8 % (42.0-52.0); HEMOGLOBIN 7.3 g/dl (13.5-17.5); MEAN CORPUSCULAR HEMOGLOBIN 30.9 pg (27.0-33.0); MEAN CORPUSCULAR VOLUME 96.6 fl (80.0-96.0); PLATELET COUNT, AUTOMATED 125 10^3/uL (150-450); RED BLOOD COUNT 2.36 10^6/uL (4.30-6.10); WHITE BLOOD COUNT 8.7 10^3/uL (4.0-10.0)
[2018-02-14] MEDS: HumaLOG INSULIN (NovoLOG) PER UNIT SC SCH ×4 (07:51→20:07)
[2018-02-14] MEDS: NITROGLYCERIN 2% OINT 1 GM *U/D* PKT TOP SCH ×5 (08:08→23:22)
[2018-02-14] MEDS: PANTOPRAZOLE 40MG TAB (PROTONIX) PO SCH (08:08)
[2018-02-14] MEDS: DULoxetine 30 MG CAP (CYMBALTA) PO SCH (08:08)
[2018-02-14] MEDS: TAMSULOSIN 0.4 MG CAP PO SCH (08:09)
[2018-02-14] MEDS: rOPINIRole 1MG TAB PO SCH ×2 (08:09→20:07)
[2018-02-14] MEDS: PREGABALIN 100 MG CAP (LYRICA) PO SCH ×2 (08:09→20:07)
[2018-02-14] MEDS: ENALAPRIL MALEATE 10 MG TAB PO SCH (08:09)
[2018-02-14] MEDS: SENOKOT S TAB PO SCH ×2 (09:00→20:07)
--- NOTE | 2018-02-14 16:33 | IPN ---
DATE: 02/14/2018 The patient overall states that he is doing relatively well. Still had some bloody bowel movements overnight and his hematocrit is down again this morning. He do feel that he has some symptomatic orthostasis with this decreased hematocrit, although it sounds as though it slowed down if not stopped. I do feel that with this being symptomatic he would benefit for some transfusions at this point. We have had a discussion about transfusions with the patient. He understands and would like to proceed with this. He has been afebrile. His white count is back down to normal at this point. His urine output has been adequate from his description; however when ever he has a bowel movement, he has some diarrhea. He also urinates at the same time and is not "keeping this." His BUN has been relatively stable. His creatinine continues to come down each day. He has been tolerating a regular diet and has no nausea with this, has had no other complaints from a gastrointestinal (GI) standpoint and his pain control has been relatively good at this point with minimal by mouth pain meds. On his physical exam, incisions healing nicely without any erythema, drainage or discharge. He has lungs which are clear to auscultation without crackles, wheezes or rhonchi. IMPRESSION AND PLAN: The patient had a right colectomy. He had some postoperative bleeding most likely secondary to anticoagulation; and at this point, I do feel that we need to keep him off this anticoagulation for now and I would like to see how he is doing over the next 24 hours given that he does have some orthostatic hypotension. Orthostatic symptoms, specifically becoming dizzy when he stands up, etc., I do feel that it is reasonable to give him a couple units of blood. We may need to diurese him later on today depending on how his urine output is, but he seems to be making some good progress at this time. It is also reasonable to get him to a lower level of care, does not need the intensive care unit (ICU) at this point.
[2018-02-14] MEDS: ATORVASTATIN 20 MG TAB PO SCH (20:07)
[2018-02-14 20:15] LABS: HEMATOCRIT 27.2 % (42.0-52.0); HEMOGLOBIN 8.8 g/dl (13.5-17.5); MEAN CORPUSCULAR HEMOGLOBIN 30.8 pg (27.0-33.0); MEAN CORPUSCULAR HGB CONC 32.4 g/dl (32.0-36.5); MEAN CORPUSCULAR VOLUME 95.1 fl (80.0-96.0); PLATELET COUNT, AUTOMATED 109 10^3/uL (150-450); RED BLOOD COUNT 2.86 10^6/uL (4.30-6.10); WHITE BLOOD COUNT 8.3 10^3/uL (4.0-10.0)
[2018-02-15] VITALS (7 sets, daily range): BP systolic 130–190; BP diastolic 62–92
[2018-02-15] MEDS: KCL 20MEQ IN D5/0.45NS 1000ML 1,000 ML IV SCH (02:42)
[2018-02-15 04:02] LABS: HEMATOCRIT 27.6 % (42.0-52.0); HEMOGLOBIN 8.9 g/dl (13.5-17.5); MEAN CORPUSCULAR HEMOGLOBIN 30.3 pg (27.0-33.0); MEAN CORPUSCULAR HGB CONC 32.2 g/dl (32.0-36.5); MEAN CORPUSCULAR VOLUME 93.9 fl (80.0-96.0); PLATELET COUNT, AUTOMATED 100 10^3/uL (150-450); RED BLOOD COUNT 2.94 10^6/uL (4.30-6.10); WHITE BLOOD COUNT 8.5 10^3/uL (4.0-10.0)
[2018-02-15 04:38] LABS: CALCIUM LEVEL 7.5 MG/DL (8.8-10.2); CREATININE FOR GFR 1.48 MG/DL (0.70-1.30); GLOMERULAR FILTRATION RATE 50.6 (>49); POTASSIUM SERUM 4.7 MEQ/L (3.5-5.1)
[2018-02-15] MEDS: NITROGLYCERIN 2% OINT 1 GM *U/D* PKT TOP SCH ×3 (06:20→17:39)
[2018-02-15] MEDS: SENOKOT S TAB PO SCH ×2 (07:56→21:05)
[2018-02-15] MEDS: HumaLOG INSULIN (NovoLOG) PER UNIT SC SCH ×4 (08:20→20:45)
[2018-02-15] MEDS: TAMSULOSIN 0.4 MG CAP PO SCH (08:20)
[2018-02-15] MEDS: PANTOPRAZOLE 40MG TAB (PROTONIX) PO SCH (08:21)
[2018-02-15] MEDS: ENALAPRIL MALEATE 10 MG TAB PO SCH (08:21)
[2018-02-15] MEDS: DULoxetine 30 MG CAP (CYMBALTA) PO SCH (08:21)
[2018-02-15] MEDS: PREGABALIN 100 MG CAP (LYRICA) PO SCH ×2 (08:21→21:05)
[2018-02-15] MEDS: rOPINIRole 1MG TAB PO SCH ×2 (10:37→21:05)
[2018-02-15] MEDS: ATORVASTATIN 20 MG TAB PO SCH (21:05)
[2018-02-16] VITALS: BP 170/60
[2018-02-16] MEDS: NITROGLYCERIN 2% OINT 1 GM *U/D* PKT TOP SCH ×2 (00:07→05:49)
[2018-02-16 06:00] VITALS: BP 160/96
[2018-02-16] MEDS: SENOKOT S TAB PO SCH (08:01)
[2018-02-16 08:02] VITALS: BP 160/96
[2018-02-16] MEDS: DULoxetine 30 MG CAP (CYMBALTA) PO SCH (08:02)
[2018-02-16] MEDS: ENALAPRIL MALEATE 10 MG TAB PO SCH (08:02)
[2018-02-16] MEDS: rOPINIRole 1MG TAB PO SCH (08:02)
[2018-02-16] MEDS: TAMSULOSIN 0.4 MG CAP PO SCH (08:02)
[2018-02-16] MEDS: PANTOPRAZOLE 40MG TAB (PROTONIX) PO SCH (08:02)
[2018-02-16] MEDS: PREGABALIN 100 MG CAP (LYRICA) PO SCH (08:02)
[2018-02-16] MEDS: HumaLOG INSULIN (NovoLOG) PER UNIT SC SCH (08:03)
--- NOTE | 2018-03-11 09:11 | DSES ---
DATE OF ADMISSION: 02/11/2018 DATE OF DISCHARGE: 02/16/2018 ADMISSION DIAGNOSIS: Right colon cancer. DISCHARGE DIAGNOSIS: Right colon cancer. HOSPITAL COURSE: The patient is a 67-year-old male who presented for an elective robotic right hemicolectomy. Surgery was uneventful. Postoperatively, he did have some problems with some bloody bowel movements and weakness. He was transferred to the progressive care unit (PCU) to be monitored and was transfused a couple units of blood. Following that, his symptoms all stabilized and he recovered well from there. No problems with fevers during the stay. He had return of bowel function within the first 48 hours. No problems with any nausea or vomiting. Tolerating a diet. On discharge, his pain was controlled. Incisions were clean, dry and intact. He was tolerating diet. No nausea or vomiting. He was up ambulating in the halls. He was safe and comfortable being discharged home. He was discharged home to follow up me in 2 weeks. No lifting, pushing, or pulling more than20 pounds for 2 weeks. No baths for 5 days and okay to shower. All of his questions were answered. He was discharged home with pain medication and will call the office with any questions.
== END 2018-02-16 10:30 | disposition home or self-care (01) | DRG 330 ==
LOC: M OR 06:49 → M MS5PR 13:55 → M ICU 02-12 23:08 → M MS4PR 02-15 11:00
PROVIDERS: ADMIT Surgery; ATTEND Surgery
PROC: 8E0W4CZ Robotic Assisted Procedure of Trunk Region, Percutaneous Endoscopic Approach (ICD-10-PCS; 2018-02-11)
PROC: 0DTK4ZZ Resection of Ascending Colon, Percutaneous Endoscopic Approach (ICD-10-PCS; principal; 2018-02-11 08:30)
DX: C18.2 Malignant neoplasm of ascending colon (principal); K92.2 Gastrointestinal hemorrhage, unspecified; D68.32 Hemorrhagic disorder due to extrinsic circulating anticoagulants; J44.9 Chronic obstructive pulmonary disease, unspecified; G35 Multiple sclerosis; M54.5 Low back pain; E11.319 Type 2 diabetes mellitus with unspecified diabetic retinopathy without macular edema; H35.30 Unspecified macular degeneration; H40.9 Unspecified glaucoma; M19.90 Unspecified osteoarthritis, unspecified site; F32.9 Major depressive disorder, single episode, unspecified; E78.5 Hyperlipidemia, unspecified; I10 Essential (primary) hypertension; F41.9 Anxiety disorder, unspecified; Z86.73 Personal history of transient ischemic attack (TIA), and cerebral infarction without residual deficits

== ENCOUNTER → 2018-06-22 | Outpatient (REF) | payer MEDICARE ==
[~2018-06-22] MED LIST changes: +ASPI-255 PO; -ASPI1TAB PO; -ASPI325T25 PO; +ASPI81TA26 PO; -CRES20TA PO; +CRES20TA2 PO; +LATA0.0013 OU; -LATA5OPD OU; -LR 1,000 ML IV ONE; -TIZA-208 PO; +TIZA4TAB4 PO; +TOUJ300I2 SC; -cefoTEtan DISODIUM 2 GM in D5W MINI-BAG PLUS 50 ML IV ONE
== END ==
LOC: M LAB REF 13:51
PROVIDERS: ATTEND Podiatrist
DX: L03.031 Cellulitis of right toe (principal); M79.674 Pain in right toe(s)

== ENCOUNTER 2018-11-12 07:45 | Day surgery (SDC) | payer MEDICARE ==
[~2018-11-12] VITALS: Ht 167.6 cm; Wt 59.0 kg
[~2018-11-12 07:45] MED LIST changes: -DULO1CAP2; -DULO1CAP2 PO; +DULO1CAP5; +DULO1CAP5 PO; -METF750T PO; +METF750T36 PO; +NS 1,000 ML IV ONE; +REME15TA2 PO; +VITA500C24 PO
[2018-11-12] MEDS ORDERED: PROPOFOL 200 MG/20 ML VIAL As Ordered ONE ×2 (08:43→09:36)
[2018-11-12] MEDS ORDERED: LIDOCAINE 2% INJ 100 MG/5 ML SDV (FOR ANES.) As Ordered ONE (08:43)
--- NOTE | 2018-11-12 10:14 | ROOR ---
Patient Name: Wolfgang Gomez Procedure Date: 11/12/2018 9:06 AM Date of : 1950 Age: 68 Room: [facility] Gender: Male Note Status: Finalized Procedure: Colonoscopy Indications: Weight loss Providers: Orestes Vigil MD Referring MD: TISHA AMADO DO Requesting Provider: Medicines: Monitored Anesthesia Care Complications: No immediate complications. Procedure: Pre-Anesthesia Assessment: - Prior to the procedure, a History and Physical was performed, and patient medications and allergies were reviewed. The patient is competent. The risks and benefits of the procedure and the sedation options and risks were discussed with the patient. All questions were answered and informed consent was obtained. Patient identification and proposed procedure were verified by the physician, the nurse and the anesthesiologist in the procedure room. Mental Status Examination: alert and oriented. Airway Examination: normal oropharyngeal airway and neck mobility. Respiratory Examination: clear to auscultation. CV Examination: normal. Prophylactic Antibiotics: The patient does not require prophylactic antibiotics. Prior Anticoagulants: The patient has taken Plavix (clopidogrel), last dose was 7 days prior to procedure. ASA Grade Assessment: III - A patient with severe systemic disease. After reviewing the risks and benefits, the patient was deemed in satisfactory condition to undergo the procedure. The anesthesia plan was to use monitored anesthesia care (MAC). Immediately prior to administration of medications, the patient was re-assessed for adequacy to receive sedatives. The heart rate, respiratory rate, oxygen saturations, blood pressure, adequacy of pulmonary ventilation, and response to care were monitored throughout the procedure. The physical status of the patient was re-assessed after the procedure. The Colonoscope was introduced through the anus and advanced to the ileocolonic anastomosis. The colonoscopy was performed without difficulty. The patient tolerated the procedure well. The quality of the bowel preparation was good. The terminal ileum, the appendiceal orifice and the rectum were photographed. Scope insertion time was 3 minutes. Scope withdrawal time was 10 minutes. The total duration of the procedure was 14 minutes. Findings: The perianal and digital rectal examinations were normal. The starla-terminal ileum appeared normal. There was evidence of a prior functional end-to-end ileo-colonic anastomosis in the ascending colon. This was patent and was characterized by healthy appearing mucosa. A localized area of moderately erythematous mucosa was found at the anastomosis. This was biopsied with a cold forceps for histology. Verification of patient identification for the specimen was done by the physician and nurse using the patient's name, date and medical record number. Estimated blood loss was minimal. Three sessile polyps were found in the recto-sigmoid colon. The polyps were 5 to 10 mm in size. These polyps were removed with a cold snare. Resection and retrieval were complete. Verification of patient identification for the specimen was done by the physician and nurse using the patient's name, date and medical record number. Non-bleeding external and internal hemorrhoids were found during retroflexion. The hemorrhoids were medium-sized. Impression: - The examined portion of the ileum was normal. - Patent functional end-to-end ileo-colonic anastomosis, characterized by healthy appearing mucosa. - Erythematous mucosa at the colonic anastomosis. Biopsied. - Three 5 to 10 mm polyps at the recto-sigmoid colon, removed with a cold snare. Resected and retrieved. - Non-bleeding external and internal hemorrhoids. Recommendation: - Patient has a contact number available for emergencies. The signs and symptoms of potential delayed complications were discussed with the patient. Return to normal activities tomorrow. Written discharge instructions were provided to the patient. - Resume Plavix (clopidogrel) at prior dose tomorrow. Refer to primary physician for further adjustment of therapy. - High fiber diet. - Continue present medications. - Await pathology results. - Repeat colonoscopy in 3 years for surveillance based on pathology results. - Telephone GI clinic for pathology results in 2 weeks. - Return to primary care physician. Orestes Vigil MD Orestes Vigil MD 11/12/2018 10:14:28 AM Electronically signed by Orestes Vigil MD Number of Addenda: 0 Note Initiated On: 11/12/2018 9:06 AM Estimated Blood Loss: Estimated blood loss was minimal.
[2018-11-12 10:49] VITALS: BP 168/80
--- NOTE | 2018-11-12 10:52 | ROOR ---
Patient Name: Wolfgang Gomez Procedure Date: 11/12/2018 9:05 AM Date of : 1950 Age: 68 Room: [facility] Gender: Male Note Status: Finalized Procedure: Upper GI endoscopy Indications: Weight loss Providers: Orestes Vigil MD Referring MD: TISHA AMADO DO Requesting Provider: Medicines: Monitored Anesthesia Care Complications: No immediate complications. Procedure: Pre-Anesthesia Assessment: - Prior to the procedure, a History and Physical was performed, and patient medications and allergies were reviewed. The patient is competent. The risks and benefits of the procedure and the sedation options and risks were discussed with the patient. All questions were answered and informed consent was obtained. Patient identification and proposed procedure were verified by the physician, the nurse and the anesthesiologist in the procedure room. Mental Status Examination: normal. Airway Examination: normal oropharyngeal airway and neck mobility. Respiratory Examination: clear to auscultation. CV Examination: normal. Prophylactic Antibiotics: The patient does not require prophylactic antibiotics. Prior Anticoagulants: The patient has taken no previous anticoagulant or antiplatelet agents. ASA Grade Assessment: III - A patient with severe systemic disease. After reviewing the risks and benefits, the patient was deemed in satisfactory condition to undergo the procedure. The anesthesia plan was to use monitored anesthesia care (MAC). Immediately prior to administration of medications, the patient was re-assessed for adequacy to receive sedatives. The heart rate, respiratory rate, oxygen saturations, blood pressure, adequacy of pulmonary ventilation, and response to care were monitored throughout the procedure. The physical status of the patient was re-assessed after the procedure. The Endoscope was introduced through the mouth, and advanced to the second part of duodenum. The upper GI endoscopy was accomplished without difficulty. The patient tolerated the procedure well. Findings: A moderate-sized area of extrinsic compression was found in the upper third of the esophagus. The Z-line was regular and was found in the distal esophagus. Diffuse moderate inflammation characterized by congestion (edema), erythema, friability and granularity was found in the cardia, in the gastric fundus and in the gastric body. Two biopsies were obtained with cold forceps for histology in the gastric fundus, as well as four biopsies in the gastric body. Biopsies were taken with a cold forceps for Helicobacter pylori testing. Verification of patient identification for the specimen was done by the physician and nurse using the patient's name, date and medical record number. Estimated blood loss was minimal. The duodenal bulb and second portion of the duodenum were normal. Biopsies for histology were taken with a cold forceps for evaluation of celiac disease. Impression: - Extrinsic compression in the upper third of the esophagus. - Z-line regular, in the distal esophagus. - Gastritis. Biopsied. - Normal duodenal bulb and second portion of the duodenum. Biopsied. - Biopsies performed in the gastric fundus and in the gastric body. Recommendation: - Patient has a contact number available for emergencies. The signs and symptoms of potential delayed complications were discussed with the patient. Return to normal activities tomorrow. Written discharge instructions were provided to the patient. - Resume previous diet. - Continue present medications. - Await pathology results. - Perform a barium swallow using barium in liquid and tablet form at appointment to be scheduled. - Perform an esophagram at appointment to be scheduled. - Telephone GI clinic for pathology results in 2 weeks. - Return to primary care physician. Orestes Vigil MD Orestes Vigil MD 11/12/2018 10:52:17 AM Electronically signed by Orestes Vigil MD Number of Addenda: 0 Note Initiated On: 11/12/2018 9:05 AM Estimated Blood Loss: Estimated blood loss was minimal.
== END 2018-11-12 10:52 | disposition home or self-care (01) ==
LOC: M OPP 07:45
PROVIDERS: ATTEND Internal Medicine Gastroenterology
DX: K64.8 Other hemorrhoids (principal); Z98.0 Intestinal bypass and anastomosis status; K63.89 Other specified diseases of intestine; D12.7 Benign neoplasm of rectosigmoid junction; R63.4 Abnormal weight loss; K22.2 Esophageal obstruction; K29.70 Gastritis, unspecified, without bleeding; E11.9 Type 2 diabetes mellitus without complications; F17.210 Nicotine dependence, cigarettes, uncomplicated; Z80.0 Family history of malignant neoplasm of digestive organs; Z79.4 Long term (current) use of insulin; Z79.82 Long term (current) use of aspirin; Z79.891 Long term (current) use of opiate analgesic; Z79.899 Other long term (current) drug therapy

== ENCOUNTER → 2019-11-04 | Outpatient (CLI) | payer MEDICARE ==
[~2019-11-04] MED LIST changes: -BETA2500 PO; +BETA250027 PO; +BRIM1OPD; -HYDR-2808 PO; +HYDR-4429 PO; +HYDR-4571 PO; -NS 1,000 ML IV ONE; +OMEP-221 PO; -ROPI2TAB; -ROPI2TAB PO; +ROPI2TAB3; +ROPI2TAB3 PO
[2019-11-04 13:41] LABS: CREATININE FOR GFR 1.61 MG/DL (0.70-1.30); GLOMERULAR FILTRATION RATE 45.7 (>49)
== END ==
LOC: M LAB 11:10
PROVIDERS: ATTEND Psychiatry & Neurology Neurology
DX: I10 Essential (primary) hypertension (principal)

== ENCOUNTER 2019-12-08 14:44 | Emergency (ER) | payer MEDICARE ==
[~2019-12-08] VITALS: Ht 170.2 cm; Wt 64.5 kg
[2019-12-08] MEDS ORDERED: ROPI2TAB3 (14:53)
--- NOTE | 2019-12-08 16:04 | REPVR ---
PROCEDURE INFORMATION: Exam: XR Right Elbow Exam date and time: 12/08/2019 3:29 PM Age: 69 years old Clinical indication: Pain and injury or trauma; Fall; Sprain or strain; Right; Injury details: Best images possible PT unable to straighten out arm and PT states he fell on posterior elbow TECHNIQUE: Imaging protocol: XR Right elbow. Views: 3 or more views. COMPARISON: No relevant prior studies available. FINDINGS: Bones/joints: There appears to be a fracture through ulnar enthesophyte which likely has associated attachment of the triceps tendon. This likely represents an intra-articular fracture. The remainder of the ulna, humerus and radius appear intact. Soft tissues: Moderate to large joint effusion. IMPRESSION: There is a large enthesophyte of the proximal ulna with a fracture through the space which is likely intra-articular with an associated moderate to large joint effusion. Electronically signed by: Sarah Beth Barney On 12/08/2019 16:04:36 PM
[2019-12-08] MEDS ORDERED: NORCO, ANEXSIA 5/325MG TABLET (HYDROcodone/ACETAMINOPHEN) PO ONE (16:15)
[2019-12-08] MEDS ORDERED: BENA20TA6 PO (16:59)
[2019-12-08 17:02] VITALS: BP 210/90
== END 2019-12-08 17:10 | disposition home or self-care (01) ==
LOC: M ED 14:44
DX: S52.001A Unspecified fracture of upper end of right ulna, initial encounter for closed fracture (principal); W19.XXXA Unspecified fall, initial encounter; Y92.099 Unspecified place in other non-institutional residence as the place of occurrence of the external cause; Y93.9 Activity, unspecified; Y99.9 Unspecified external cause status; M77.9 Enthesopathy, unspecified; M25.421 Effusion, right elbow; E11.9 Type 2 diabetes mellitus without complications; I10 Essential (primary) hypertension; G35 Multiple sclerosis; F17.200 Nicotine dependence, unspecified, uncomplicated; Z79.4 Long term (current) use of insulin; Z79.899 Other long term (current) drug therapy

== ENCOUNTER → 2019-12-21 | Outpatient (CLI) | payer MEDICARE ==
--- NOTE | 2019-12-21 10:33 | REPVR ---
PROCEDURE INFORMATION: Exam: CT Maxillofacial Without Contrast, Sinus Exam date and time: 12/21/2019 10:21 AM Age: 69 years old Clinical indication: Nose pain; Additional info: Polyp of nasal cavity TECHNIQUE: Imaging protocol: CT Maxillofacial without contrast. Focus on the sinuses. Radiation optimization: All CT scans at this facility use at least one of these dose optimization techniques: automated exposure control; mA and/or kV adjustment per patient size (includes targeted exams where dose is matched to clinical indication); or iterative reconstruction. COMPARISON: No relevant prior studies available. FINDINGS: Frontal sinuses: There is opacification of the left frontal sinus. Ethmoid air cells: There is opacification of left anterior ethmoid air cells. Sphenoid sinuses: Normal. No air-fluid levels. Maxillary sinuses: Polypoid soft tissue projects over the left maxillary sinus infundibulum and extends into the left nasal cavity. Nasal cavity/Septum: There is polypoid soft tissue within the left nasal cavity. There is rightward nasal septal deviation with a spur. There is hypertrophy of the nasal turbinates. Orbital cavity: Orbits are normal. Globes are unremarkable. Bones/joints: Unremarkable. Soft tissues: Unremarkable. IMPRESSION: Findings worrisome for left-sided sinonasal polyposis. Electronically signed by: Latrice Mendoza On 12/21/2019 10:33:11 AM
== END ==
LOC: M RAD 10:14
PROVIDERS: ATTEND Specialist
DX: J33.0 Polyp of nasal cavity (principal)

== ENCOUNTER → 2019-12-26 | Outpatient (REF) | payer MEDICARE | LOC: M LAB REF 09:13 | PROVIDERS: ATTEND Specialist | DX: J33.0 Polyp of nasal cavity (principal) ==

== ENCOUNTER → 2020-05-02 | Outpatient (CLI) | payer MEDICARE, OTHER ==
[~2020-05-02] MED LIST changes: -BRIM1OPD; +BRIM1OPD OU; +BYST5TAB2 PO
== END ==
LOC: M LABSMTC 12:34
PROVIDERS: ATTEND Anesthesiology
DX: Z01.812 Encounter for preprocedural laboratory examination (principal); Z20.822 Contact with and (suspected) exposure to COVID-19

== ENCOUNTER → 2020-05-07 | Day surgery (SDC) | payer MEDICARE ==
[~2020-05-07] VITALS: Ht 170.2 cm; Wt 61.2 kg
[~2020-05-07] MED LIST changes: +ACETAMINOPHEN 1000MG 100ML IV BTL (OFIRMEV) (J0131 PER 10MG) As Ordered ONE; +EPINEPHrine 1MG/ML INJ 30ML MD-VIAL As Ordered ONE; +IBUPROFEN 800 MG TAB PO PRN; +LIDOCAINE 2% 100MG/5ML SDV (FOR ANES.) As Ordered ONE; +LIDOCAINE W/EPINEPHRINE 1% 20ML VIAL As Ordered ONE; +LR 1,000 ML IV ONE; +LR 1,000 ML IV SCH; +METHYLENE BLUE 0.5% (5MG/ML) 10 ML AMP (PROVAYBLUE) As Ordered ONE; +METOCLOPRAMIDE INJ 10MG/2ML VIAL (J2765 PER 1) IV PRN; +MIDAZOLAM INJ 2MG/2ML VIAL (J2250 PER 1MG) As Ordered ONE; +ONDANSETRON 4MG/2ML VIAL As Ordered ONE; +ONDANSETRON 4MG/2ML VIAL IV PRN; +OXYMETAZOLINE 0.05% NASAL SPRAY (AFRIN) As Ordered ONE; +PERCOCET 5MG/325MG TAB PO PRN; +PHENYLephrine 500MCG 5ML (100MCG/ML) SYRINGE As Ordered ONE; +ROCURONIUM BROMIDE 50 MG/5 ML VIAL As Ordered ONE; +SUGAMMADEX SODIUM 500 MG/5 ML VIAL (BRIDION) As Ordered ONE; +dexameTHASONE 4 MG/ML 1ML VIAL (J1100 PER 1MG) As Ordered ONE; +ePHEDrine SULFATE 25 MG/5 ML(5MG/ML) SYRINGE As Ordered ONE; +fentaNYL 100 MCG/2 ML INJECTION (J3010) As Ordered ONE; +fentaNYL 100 MCG/2 ML INJECTION (J3010) IV PRN; +propofoL 200 MG/20 ML VIAL As Ordered ONE
--- NOTE | 2020-05-07 12:25 | RO ---
OPERATIVE NOTE DATE OF OPERATION: 05/07/2020 PREOPERATIVE DIAGNOSIS: Left maxillary sinusitis and ethmoiditis with nasal polyposis. POSTOPERATIVE DIAGNOSIS: Left maxillary sinusitis and ethmoiditis with nasal polyposis. PROCEDURE: Left-sided endoscopic nasal polypectomy, ethmoidectomy and maxillary antrostomy. SURGEON: Elías Arnold MD MANAGER PHILOSOPHY: ANESTHESIA: INDICATIONS: This is a 69-year-old who presents with left-sided nasal obstruction, polyp disease filling the left middle meatus into the nasal cavity. DESCRIPTION OF PROCEDURE: Satisfactory general endotracheal anesthesia was administered, oropharyngeal pack placed, nose prepared for surgery by placing Cottonoid pledgets with Afrin solution in nasal cavities bilaterally mostly on the left side. They were removed from the right. Examination revealed teardrop polyp emerging from the middle meatus falling anteriorly and obstructing the nose. 1% Xylocaine with 1:100,000 Epinephrine was used to inject the nasal polyp as well as the lateral nasal wall. 0-degree telescope and micro debrider was the primary instrument, the gross polyp disease was resected away back to the landmarks of the middle turbinate and lateral nasal wall which were quite identifiable. The uncinate process was then resected with micro debrider, the ethmoidal bulla was identified and then entered and resected away resecting more polyp disease here. The ground lamella was resected and entered in medial inferior quadrant and posterior ethmoid cells entered and working posteriorly to anteriorly the lamella bone and hyperplastic mucosa was resected. Superiorly the nasofrontal recess, uncinate processes down, the superior ethmoid cell was opened and large polyp mass was pulled from the nasofrontal recess. Finally natural maxillary sinus ostia was identified, it was enlarged using combination of side-biting and upbiting forceps and polyp disease was resected from the area of the natural sinus ostia. Adrenalin pledgets were placed for 2 minutes and removed with no significant bleeding. Sinu-Foam was placed in nasal cavity. The patient was awakened after throat pack was removed and sent to recovery in satisfactory condition.
[2020-05-07 13:15] VITALS: BP 179/63
== END | disposition home or self-care (01) ==
LOC: M SDC 08:54
PROVIDERS: ATTEND Specialist
DX: J32.2 Chronic ethmoidal sinusitis (principal); J33.9 Nasal polyp, unspecified; I12.9 Hypertensive chronic kidney disease with stage 1 through stage 4 chronic kidney disease, or unspecified chronic kidney disease; E11.40 Type 2 diabetes mellitus with diabetic neuropathy, unspecified; J44.9 Chronic obstructive pulmonary disease, unspecified; K21.9 Gastro-esophageal reflux disease without esophagitis; G35 Multiple sclerosis; Z86.73 Personal history of transient ischemic attack (TIA), and cerebral infarction without residual deficits; Z79.4 Long term (current) use of insulin; Z85.038 Personal history of other malignant neoplasm of large intestine; N18.30 Chronic kidney disease, stage 3 unspecified; Z79.02 Long term (current) use of antithrombotics/antiplatelets; Z79.899 Other long term (current) drug therapy; F17.218 Nicotine dependence, cigarettes, with other nicotine-induced disorders; F41.9 Anxiety disorder, unspecified; F32.9 Major depressive disorder, single episode, unspecified
CPT/HCPCS: 31237; 88304; J0131; J1100; J2250; J2370; J2405; J3010; Q9968

== ENCOUNTER → 2020-06-13 | Outpatient (REF) | payer MEDICARE ==
[~2020-06-13] MED LIST changes: -ACETAMINOPHEN 1000MG 100ML IV BTL (OFIRMEV) (J0131 PER 10MG) As Ordered ONE; -EPINEPHrine 1MG/ML INJ 30ML MD-VIAL As Ordered ONE; -IBUPROFEN 800 MG TAB PO PRN; -LIDOCAINE 2% 100MG/5ML SDV (FOR ANES.) As Ordered ONE; -LIDOCAINE W/EPINEPHRINE 1% 20ML VIAL As Ordered ONE; -LR 1,000 ML IV ONE; -LR 1,000 ML IV SCH; -METHYLENE BLUE 0.5% (5MG/ML) 10 ML AMP (PROVAYBLUE) As Ordered ONE; -METOCLOPRAMIDE INJ 10MG/2ML VIAL (J2765 PER 1) IV PRN; -MIDAZOLAM INJ 2MG/2ML VIAL (J2250 PER 1MG) As Ordered ONE; -ONDANSETRON 4MG/2ML VIAL As Ordered ONE; -ONDANSETRON 4MG/2ML VIAL IV PRN; -OXYMETAZOLINE 0.05% NASAL SPRAY (AFRIN) As Ordered ONE; -PERCOCET 5MG/325MG TAB PO PRN; -PHENYLephrine 500MCG 5ML (100MCG/ML) SYRINGE As Ordered ONE; -ROCURONIUM BROMIDE 50 MG/5 ML VIAL As Ordered ONE; -SUGAMMADEX SODIUM 500 MG/5 ML VIAL (BRIDION) As Ordered ONE; -dexameTHASONE 4 MG/ML 1ML VIAL (J1100 PER 1MG) As Ordered ONE; -ePHEDrine SULFATE 25 MG/5 ML(5MG/ML) SYRINGE As Ordered ONE; -fentaNYL 100 MCG/2 ML INJECTION (J3010) As Ordered ONE; -fentaNYL 100 MCG/2 ML INJECTION (J3010) IV PRN; -propofoL 200 MG/20 ML VIAL As Ordered ONE
[2020-06-13 19:43] LABS: TOTAL PROTEIN,RANDOM URINE 317.1 MG/DL (0.0-12.0)
[2020-06-14 07:45] LABS: COMPLEMENT C3 86 MG/DL (90-180); COMPLEMENT C4 25 MG/DL (10-40); FERRITIN 116 NG/ML (26-388); IRON (FE) 60 UG/DL (65-175); PERCENT SATURATION 31.9 % (19.7-50.0); TOTAL IRON BINDING CAPACITY 188 UG/DL (250-450); TOTAL PROTEIN 6.1 GM/DL (6.4-8.2)
[2020-06-14 10:37] LABS: ALBUMIN % 57.4 % (55.8-66.1); ALPHA-1-GLOBULIN % 5.1 % (2.9-4.9); ALPHA-1-GLOBULINS 0.31 GM/DL (0.17-0.41); ALPHA-2-GLOBULINS % 11.4 % (7.1-11.8); BETA-1-GLOBULINS 0.42 GM/DL (0.28-0.60); BETA-1-GLOBULINS % 6.9 % (4.7-7.2); BETA-2-GLOBULINS 0.46 GM/DL (0.19-0.55)
[2020-06-14 10:38] LABS: BETA-2-GLOBULINS % 7.6 % (3.2-6.5); GAMMA GLOBULIN % 11.6 % (11.1-18.8); GAMMA GLOBULINS 0.71 GM/DL (0.65-1.58)
[2020-06-14 13:22] LABS: FOLATE 6.9 NG/ML; HEPATITIS B SURFACE ANTIBODY NEGATIVE (POSITIVE); VITAMIN B12 LEVEL 321 PG/ML
[2020-06-14 13:32] LABS: HEPATITIS B SURFACE ANTIGEN NEGATIVE (NEGATIVE)
[2020-06-14 14:01] LABS: HEPATITIS B CORE ANTIBODY IGM NEGATIVE (NEGATIVE); HEPATITIS C VIRUS ABY INDEX < 0.0 INDEX (<0.8)
[2020-06-18 16:11] LABS: ANCA-ATYPICAL <1:20 titer (Neg:<1:20); ANTI DS-DNA AB Negative (Negative); ANTINUCLEAR ANTIBODIES DIRECT Negative (Negative); CYTOPLASMIC NEUTROP AB ANCA-C <1:20 titer (Neg:<1:20); FREE KAPPA LIGHT CHAINS SERUM 66.9 mg/L (3.3-19.4); FREE LAMBDA LIGHT CHAINS SERUM 53.3 mg/L (5.7-26.3); KAPPA/LAMBDA RATIO SERUM 1.26 (0.26-1.65); PERINUCLEAR AB ANCA-P <1:20 titer (Neg:<1:20); SJOGREN'S ANTI SS-A <0.2 AI (0.0-0.9); SJOGREN'S ANTI SS-B <0.2 AI (0.0-0.9)
== END ==
LOC: M LAB REF 17:18
PROVIDERS: ATTEND Internal Medicine Nephrology
DX: D64.9 Anemia, unspecified (principal); R80.9 Proteinuria, unspecified

== ENCOUNTER → 2020-12-12 | Outpatient (REF) | payer MEDICARE, OTHER | LOC: M LAB REF 11:16 | PROVIDERS: ATTEND Internal Medicine Gastroenterology | DX: A04.8 Other specified bacterial intestinal infections (principal); B96.81 Helicobacter pylori [H. pylori] as the cause of diseases classified elsewhere ==

== ENCOUNTER → 2021-01-11 | Outpatient (REF) | payer MEDICARE, OTHER ==
[2021-01-11 20:28] LABS: TOTAL PROTEIN 24 HOUR URINE 2277.8 MG/24HR (50-150); URINE TOTAL PROTEIN 276.1 MG/DL (0-12)
== END ==
LOC: M LAB REF 12:29
PROVIDERS: ATTEND Nurse Practitioner Family
DX: R80.9 Proteinuria, unspecified (principal); N18.32 Chronic kidney disease, stage 3b

== ENCOUNTER → 2021-01-28 | Outpatient (CLI) | payer MEDICARE ==
[~2021-01-28] MED LIST changes: +AMLO25TA PO; +BRIM1OPD OP; +FERA1TAB PO; -OMEP-221 PO; +OMEP40CA5 PO; +TIZA10TA PO; -TIZA4TAB4 PO
== END ==
LOC: M RAD 08:13
PROVIDERS: ATTEND Nurse Practitioner Family
DX: N18.32 Chronic kidney disease, stage 3b (principal); I12.9 Hypertensive chronic kidney disease with stage 1 through stage 4 chronic kidney disease, or unspecified chronic kidney disease; R33.9 Retention of urine, unspecified; R39.198 Other difficulties with micturition

== ENCOUNTER 2021-02-08 19:04 | Emergency (ER) | payer MEDICARE ==
[~2021-02-08] VITALS: Ht 170.2 cm; Wt 63.6 kg
[~2021-02-08 19:04] MED LIST changes: -AMLO25TA PO; -BRIM1OPD OP; -FERA1TAB PO; +OMEP-221 PO; -OMEP40CA5 PO; -TIZA10TA PO; +TIZA4TAB4 PO
[2021-02-08 19:05] VITALS: BP 183/91
--- OUTSIDE RECORDS SUMMARY | 2021-02-08 19:12 | CCD | Continuity of Care Document ---
Author Author Wolfgang DAVIS DPM Organization Unknown Address [address] [place] [address], [facility] [address] [place] [address] Phone [phone] Care Team Providers Care Vice President Sales Name Role Phone Nba Rich M.D. [phone] Problems Active Problems Provider Date Hammer toe Ricco Davis DPM Onset: 12/15/2019 Type 2 diabetes mellitus with diabetic polyneuropathy Ricco Davis DPM Onset: 12/15/2019 Onychomycosis Ricco Davis DPM Onset: 12/15/2019 Corns and callosities Ricco Davis DPM Onset: 12/15/2019 Plantar fascial fibromatosis Ricco Davis DPM Onset: Social History Type Date Description Comments Sex Unknown ETOH Use Denies alcohol use Tobacco Use Start: Unknown Patient is a current smoker, smo kes every day smokes 1ppd for 42 years Allergies and adverse reactions Description No Known Drug Allergies Medications Active Medications SIG Qnty Indications Ordering Provide r Date Ammonium Lactate 12% Cream apply to feet daily 140gm Ricco Davis DPM 05/09/2020 Oxycontin 20mg Tab ER 12H Abuse-Det Unknown Acetazolamide 250mg Tablets Unknown Omeprazole 40mg Capsules DR Hilario Gatica, [place] Hydrocodone-Acetaminophen 5-325mg Tablets Unknown Ropinirole HCL 2mg Tablets Hilario Gatica, Nba Alphagan P 0.1% Solution Unknown Clopidogrel Bisulfate 75mg Tablets Hilario Gatica, Nba Onetouch Delica Plus Lancets Extra Fine 33G Plus 33G Misc U Utd bid Unknown Duloxetine HCL 30mg Caps DR Kirt Rich M.D., [place] Atorvastatin Calcium 20mg Tablets Hilario Gatica, [place] Brimonidine Tartrate 0.2% Solution Unknown Ranitidine HCL 150mg Tablets Hilario Gatica, [place] Mirtazapine 15mg Tablets Lauren Barker Immunizations Description No Information Available Vital Signs Date Vital Result Comment 12/05/2019 10:21am Height 67 inches 5'7" Weight 140.00 lb BP Systolic 180 mmHg BP Diastolic 82 mmHg Heart Rate 51 /min BMI (Body Mass Index) 21.9 kg/m2 Results Description No Information Available Procedures Date Code Description Status 10/19/2020 82525 Debridement 6-10 Nails Electric Completed 07/17/2020 24796 Debridement 6-10 Nails Electric Completed Medical Devices Description No Information Available Encounters Description No Information Available Assessments Date Code Description Provider 11/28/2020 E11.42 Type 2 diabetes mellitus with di abetic polyneuropathy Ricco Davis DPM 10/19/2020 B35.1 Tinea unguium Ricco Davis DPM 10/19/2020 E11.42 Type 2 diabetes mellitus with di abetic polyneuropathy Ricco Davis DPM 07/17/2020 B35.1 Tinea unguium Ricco Davis DPM 07/17/2020 E11.42 Type 2 diabetes mellitus with di abetic polyneuropathy Ricco Davis DPM Plan of Treatment Future Appointment(s):* 12/28/2020 2:45 pm - Ricco Davis DPM at [place] [facility] Functional Status Description No Information Available Mental Status Description No Information Available Referrals Description No Information Available
--- OUTSIDE RECORDS SUMMARY | 2021-02-08 19:12 | CCD | Continuity of Care Document ---
Author Author Wolfgang DAVIS DPM Organization Unknown Address [address] [place] [address], [facility] [address] [place] [address] Phone [phone] Care Team Providers Care Research Center Director Name Role Phone Nba Rich M.D. [phone] Problems Active Problems Provider Date Hammer toe [...] HCL 30mg Caps DR Kirt Rich M.D., [place] Atorvastatin Calcium 20mg Tablets Hilario Gatica, N[place] Brimonidine Tartrate 0.2% Solution Unknown Ranitidine HCL 150mg Tablets Hilario Gatica, [place] Mirtazapine 15mg Tablets Lauren Barker Immunizations Description No Information Available Vital Signs Date Vital Result Comment 12/05/2019 10:21am Height 67 inches 5'7" Weight 140.00 lb BP Systolic 180 mmHg BP Diastolic 82 mmHg Heart Rate 51 /min BMI (Body Mass Index) 21.9 kg/m2 Results Description No Information Available Procedures Date Code Description Status 10/19/2020 37528 Debridement 6-10 Nails [employer] Completed 07/17/2020 25674 Debridement 6-10 Nails Electric Completed Medical Devices [...] Davis DPM Plan of Treatment Future Appointment(s):* 03/15/2021 2:45 pm - Ricco Davis DPM at [place] [facility] Functional Status Description No Information Available Mental Status Description No Information Available Referrals Description No Information Available
--- OUTSIDE RECORDS SUMMARY | 2021-02-08 19:12 | CCD ---
Continuity of Care Document (CCD) Created on: 01/01/2021 Wolfgang Gomez External Reference #: [id number] : 1950 Sex: Male Author Author Wolgfang DAVIS DPM Organization Unknown Address [address] [place] [address], [facility] [address] [place] [address] Phone [phone] Care Team Providers Care Database Administrator Name Role Phone Nba Rich M.D. [phone] Problems Active Problems Provider Date Hammer toe [...] HCL 30mg Caps DR Kirt Rich M.D., [place] Atorvastatin Calcium 20mg Tablets Hilario Gatica, [place] Brimonidine Tartrate 0.2% Solution Unknown Ranitidine HCL 150mg Tablets Hilario Gatica, [place] Mirtazapine 15mg Tablets Lauren Barker Immunizations Description No Information Available Vital Signs Date Vital Result Comment 12/05/2019 10:21am Height 67 inches 5'7" Weight 140.00 lb BP Systolic 180 mmHg BP Diastolic 82 mmHg Heart Rate 51 /min BMI (Body Mass Index) 21.9 kg/m2 Results Description No Information Available Procedures Date Code Description Status 12/28/2020 57649 Debridement 6-10 Nails Electric Completed 10/19/2020 73835 Debridement 6-10 Nails Electric Completed 07/17/2020 06467 Debridement 6-10 Nails Electric Completed Medical Devices Description No Information Available Encounters Description No Information Available Assessments Date Code Description Provider 12/28/2020 B35.1 Tinea unguium Ricco Davis, [place] 12/28/2020 E11.42 Type 2 diabetes mellitus with di abetic polyneuropathy Ricco Davis, MARY 11/28/2020 E11.42 Type 2 diabetes mellitus with di abetic polyneuropathy Ricco Davis, FORREST 10/19/2020 B35.1 Tinea unguium Ricco Davis, FORREST 10/19/2020 E11.42 Type 2 diabetes mellitus with di abetic polyneuropathy Ricco Davis, MARY 07/17/2020 B35.1 Tinea unguium Ricco Davis, FORREST 07/17/2020 E11.42 Type 2 diabetes mellitus with di abetic polyneuropathy Ricco Davis DPM Plan of Treatment Future Appointment(s):* 03/15/2021 2:45 pm - Ricco Davis DPM at [place] [facility] Functional Status Description No Information Available Mental Status Description No Information Available Referrals Description No Information Available
--- OUTSIDE RECORDS SUMMARY | 2021-02-08 19:12 | CCD ---
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 Active confirmed 663078817 Stable in his brace, using a cane Problem Intervertebral disc disease M51.9 Active confirmed 59530905 We will continue his pain medications without change (oxycodone and hydrocodone, Lyrica, tizanidine) Problem 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 Acti ve confirmed 408376361 Problem Multiple sclerosis G35 Active confirmed 2 1266866 Problem Controlled type 2 diabetes m ellitus without complication, without long- term current use of insulin E11.9 Active confirmed 31 3422754 Problem Mixed hyperlipidemia E78.2 Active confirmed 139113932 Problem Bilateral carotid artery stenosis I65.23 Active confirmed 56216658 Problem Current use of snf anticoagulation Z79.01 Active confirmed 268447371 Problem Essential hypertension I10 Active confirmed 59483304 Problem Smoker F17.200 Active confirmed 42154763 ALLERGIES No Known Allergies ENCOUNTERS from 1950 to 2020-12-07 Encounter Location Date Provider Diagnosis [facility] [address] [place] [address] [place] [address] 08 Nov, 2020 Vasquez Klein Left peroneal nerve palsy G5 7.32 IMMUNIZATIONS No Information SOCIAL HISTORY Tobacco Use: Social History Observation Description Date Details (start date - stop date) Current Smoker Sex Assigned At : Social History Observation Description Sex Assigned At Unknown Congregation: Question Answer Notes Congregation No cheondoism beliefs that would impact health care. Alcohol Screening: Question Answer Notes Did you have a drink containing alcohol in the past year? No Points 0 Interpretation Negative Tobacco Use: Question Answer Notes Are you a: current smoker started smoking at [age] years old Patient counseled on the dangers of tobacco use and urged to quit: 06/28/2020 How many cigarettes a day do you smoke? 11-20 Are you interested in quitting? Not ready to quit Counseled the patient on smoking effects, education provided 06/28/2020 REASON FOR REFERRAL No Information VITAL SIGNS No information MEDICATIONS Medication SIG (Take, Route, Frequency, Duration) Notes Start Da te End Date Status Atorvastatin Calcium 20 MG 1 tablet Orally Once a day Active Omeprazole 40 MG 1 capsule 30 minutes before morning meal Orally Once a day for 30 day(s) Active Brace as directed for left lower leg, dx=G57.32 daily for 99 months May, Active Mirtazapine 15 MG 1 tablet Orally for Worker's Comp Once a day at bedtime for 30 days Aug, Active HYDROcodone-Acetaminophen 5-325 MG 1 tablet as needed Orally Every 8 hours, mdd=3 for 30 Days Please do not fill until 06/18/2020 Nov, Active rOPINIRole HCl 2 MG 1 tablet before bedtime Orally twice a day Active Toujeo SoloStar 300 UNIT/ML 40 units Subcutaneous once a day Active acetaZOLAMIDE 250 MG 1/2 tablet Orally twice a day one in AM and on e in PM Active Alphagan P 0.1 % 1 drop into affected eye Ophthalmic every 8 hrs Active Clopidogrel Bisulfate 75 MG 1 tablet Orally Once a day Active tiZANidine HCl 4 1 tablet as needed Orally Three times a day Active iron Active DULoxetine HCl 30 MG 1 capsule Orally Once a day Active HYDROcodone-Acetaminophen 5-325 MG 1 tablet as needed, Worker's Compensation Orally 3 times a day, mdd=3 for 30 Days Jul, Active oxyCODONE HCl ER 20 MG 1 tablet Orally every 12 hrs, mdd=2 f or 30 Days Please do not fill until due Nov, Active PROCEDURES No Information RESULTS No Results REASON FOR VISIT meds refill MEDICAL (GENERAL) HISTORY Type Description Date Medical History Multiple sclerosis Medical History Hypertension Medical History Hyperlipidemia Medical History Diabetes Medical History posterior carotid stenosis Medical History multiple TIAs Medical History snf anticoagulation Medical History smoker Medical History lumbar intervertebral disc disease (Work er's Compensation) Surgical History 2 lipomas removed 01/[address] Orta, Lumbar spinal surgery - ?discs 01/2003 Surgical History Left carpal tunnel release, ulnar releas e 04/2016 Surgical History colectomy of ascending colon due to canc er 01/2018 Surgical History cataracts both eyes & 12/28/19 Hospitalization History surgeries as above Goals Section No Information Health Concerns No Information MEDICAL EQUIPMENT No Information MENTAL STATUS No Information FUNCTIONAL STATUS No Information ASSESSMENTS Encounter Date Diagnosis Assessment Notes Treatment Notes Treatm ent Clinical Notes Nov, Left peroneal nerve palsy (ICD-10 - G57.32) PLAN OF TREATMENT Medication Medication Name Sig Start Date Stop Date HYDROcodone-Acetaminophen 5-325 MG 1 tablet as needed, Worker's Compensation Orally 3 times a day, mdd=3 for 30 Days Jul, HYDROcodone-Acetaminophen 5-325 MG 1 tablet as needed Orally Every 8 hours, mdd=3 for 30 Days Nov, oxyCODONE HCl ER 20 MG 1 tablet Orally every 12 hrs, mdd=2 f or 30 Days Nov, Next Appt Details Provider Name:Lauren Clarke, 2020-10-2 8 02:00:00 PM, [address] [facility], , [place], [address], Insurance Providers Payer Name Payer Address Payer Phone Insured Name Patient Relati onship to Insured Coverage Start Date Coverage End Date [facility] [address] [place] [id number] [phone] ELSI GONZALEZ self
--- OUTSIDE RECORDS SUMMARY | 2021-02-08 19:13 | CCD | Continuity of Care Document ---
Author Author Wolfgang DAVIS DPM Organization Unknown Address [address] [place] [address], [facility] 2 [place] [address] Phone [phone] Care Team Providers Care Registered Safety Engineer Name Role Phone Nba Rich M.D. [phone] Problems Active Problems Provider Date Hammer toe Ricco Davis DPM Onset: 12/15/2019 Type 2 diabetes mellitus with diabetic polyneuropathy Ricco Davis DPM Onset: 12/15/2019 Onychomycosis iRcco Davis DPM Onset: 12/15/2019 Corns and callosities [...] HCL 30mg Caps DR Kirt Rich M.D., [place] Atorvastatin Calcium 20mg Tablets Hilario Gatica, [place] Brimonidine Tartrate 0.2% Solution Unknown Ranitidine HCL 150mg Tablets Hilario Gatica, [place] Mirtazapine 15mg Tablets Lauren Barker Immunizations Description No Information Available Vital Signs Date Vital Result Comment 12/05/2019 10:21am Height 67 inches 5'7" Weight 140.00 lb BP Systolic 180 mmHg BP Diastolic 82 mmHg Heart Rate 51 /min BMI (Body Mass Index) 21.9 kg/m2 Results Description No Information Available Procedures Date Code Description Status 10/19/2020 72157 Debridement 6-10 Nails Electric Completed 07/17/2020 23323 Debridement 6-10 Nails Electric Completed Medical Devices Description No Information Available Encounters Description No Information Available Assessments Date Code Description Provider 10/19/2020 B35.1 Tinea unguium Ricco Davis, MARY 10/19/2020 E11.42 Type 2 diabetes mellitus with di abetic polyneuropathy Ricco Davis DPM 07/17/2020 B35.1 Tinea unguium Ricco Davis, MARY 07/17/2020 E11.42 Type 2 diabetes mellitus with di abetic polyneuropathy Ricco Davis DPM Plan of Treatment Future Appointment(s):* 12/28/2020 2:45 pm - Ricco Davis DPM at [place] [facility] Functional Status Description No Information Available Mental Status Description No Information Available Referrals Description No Information Available
--- OUTSIDE RECORDS SUMMARY | 2021-02-08 19:13 | CCD | Continuity of Care Document ---
Author Author Wolfgang MCGOVERN M.D. Organization Unknown Address [address] [facility] [address], [address] [place] [address] Phone [phone] Care Team Providers Care Studio Sales Associate Name Role Phone Nba Rich Melany Coates AUTM [phone] Martita Royal AUTM [phone] [facility] So - Medical Records AUTM Noam Lazcano AUTM [phone] AUTM Unavailable Central Scheduling AUTM [phone] Sdio AUTM [phone] Problems Active Problems Provider Date Chronic nasopharyngitis Mega Lugo MD Onset: 5 Deviated nasal septum Mega Lugo MD Onset: 04/19/2014 Head and neck swelling Mega Lugo MD Onset: 07/11/2014 Essential hypertension Michelle Morocho M.D. Onset: 04/25/2015 Social History Type Date Description Comments Sex Unknown Smokeless Tobacco Never Used Smokeless Tobacco ETOH Use Denies alcohol use Tobacco Use Start: Unknown Smokes 1 Pack A Day 51 YEAR HX O F SMOKING Recreational Drug Use Denies Drug Use Allergies, Adverse Reactions, Alerts Description No Known Drug Allergies Medications Active Medications SIG Qnty Indications Ordering Provide r Date Benazepril HCL/Hydrochlorothiazide 20-12.5mg Tablets 1t/d Unknown Oxycontin 20mg Tab ER 12H Abuse-De t 1t/q12h Unknown Atorvastatin Calcium 20mg Tablets 1t/d Unknown Clopidogrel Bisulfate 75mg Tablets 1t/d Unknown Duloxetine HCL 30mg Caps DR Part 1t/d Unknown Ropinirole HCL 2mg Tablets 1t /bid Unknown Amlodipine Besylate 2.5mg Tablets 1t/d Unknown Bioastin 12MG-OTC 1t/d Unknown 000 Calcium 600MG-Vit D3 10mcg 1t/d Unknown Ferate 240(27Fe) mg Tablets 1 t/d Unknown Omeprazole 40mg Capsules DR 1 t/d Unknown Hydrocodone Bitartrate/Acetaminophen 5-325mg Tablets 1t/tid Unknown Alphagan P 0.1% Solution bid Unknown Insulin Glaring Injection 40u/prn Unknown Immunizations Description No Information Available Vital Signs Date Vital Result Comment 11/27/2020 11:23am BP Systolic 136 mmHg BP Diastolic 74 mmHg Height 67 inches 5'7" Weight 145.00 lb BMI (Body Mass Index) 22.7 kg/m2 Stephan Body Weight 148 lb Weight 65.772 kg BSA (Body Surface Area) 1.76 m2 05/24/2020 9:56am Height 67 inches 5'7" Weight 140.00 lb BMI (Body Mass Index) 21.9 kg/m2 Stephan Body Weight 148 lb Weight 63.504 kg BSA (Body Surface Area) 1.74 m2 Results Description No Information Available Procedures Date Code Description Status 11/27/2020 00848 Office/Outpatient Established Mo d MDM 30-39 Min Completed Medical Devices Description No Information Available Encounters Type Date Location Provider Dx Diagnosis Office Visit 11/27/2020 10:30a [facility] Gastroenterology [facility] Orestes Mcgovern M.D. 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 pylori] as the cause of diseases classified elsewhere Orestes Mcgovern M.D. 11/27/2020 K63.5 Polyp of colon Orestes Lopez ala, M.D. 11/27/2020 D37.4 Neoplasm of uncertain behavior o f colon Orestes Mcgovern M.D. 11/27/2020 K59.00 Constipation, unspecified Melaniaita chelsie Mcgovern M.D. Plan of Treatment No Information Available Functional Status Description No Information Available Mental Status Description No Information Available Referrals Refer to Dr Reason for Referral Status Appt Date Orestes Mcgovern M.D. COLO SCREEN Scheduled 11/23 [facility] [address], [address] [address] [phone]
--- OUTSIDE RECORDS SUMMARY | 2021-02-08 19:13 | CCD ---
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 Active confirmed 606706494 Stable in his brace, using a cane Problem Intervertebral disc disease M51.9 Active confirmed 83657546 We will continue his pain medications without change (oxycodone and hydrocodone, Lyrica, tizanidine) Problem 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 Acti ve confirmed [id number] Problem Multiple sclerosis G35 Active confirmed 2 0260370 Problem Controlled type 2 diabetes m ellitus without complication, without long- term current use of insulin E11.9 Active confirmed 31 2354163 Problem Mixed hyperlipidemia E78.2 Active confirmed 317860268 Problem Bilateral carotid artery stenosis I65.23 Active confirmed 80366673 Problem Current use of usp anticoagulation Z79.01 Active confirmed 605836505 Problem Essential hypertension I10 Active confirmed 05869505 Problem Smoker F17.200 Active confirmed 03339148 ALLERGIES No Known Allergies ENCOUNTERS from 1950 to 2020-11-09 Encounter Location Date Provider Diagnosis [facility] [address] [facility] [facility] [facility] [phone] [place] [address] Oct, Lauren Clarke Left peroneal nerve palsy G5 7.32 IMMUNIZATIONS No Information SOCIAL HISTORY Tobacco Use: Social History Observation Description Date Details (start date - stop date) Current Smoker Sex Assigned At : Social History Observation Description Sex Assigned At Unknown Latter-Day: Question Answer Notes Latter-Day No baptist beliefs that would impact health care. Alcohol [...] Notes Start Da te End Date Status HYDROcodone-Acetaminophen 5-325 MG 1 tablet as needed Orally Every 8 hours, mdd=3 for 30 Days Please do not fill until 06/18/2020 Oct, Active Omeprazole 40 MG 1 capsule 30 minutes before morning meal Orally Once a day for 30 day(s) Active Brace as directed for left lower leg, dx=G57.32 daily for 99 months May, Active Mirtazapine 15 MG 1 tablet Orally for Worker's Comp Once a day at bedtime for 30 days Aug, Active oxyCODONE HCl ER 20 MG 1 tablet Orally every 12 hrs, mdd=2 f or 30 Days Please do not fill until due Oct, Active rOPINIRole HCl 2 MG 1 tablet [...] day, mdd=3 for 30 Days Jul, Active Atorvastatin Calcium 20 MG 1 tablet Orally Once a day Active PROCEDURES No Information RESULTS No Results REASON FOR VISIT med refills MEDICAL (GENERAL) HISTORY Type Description Date Medical History Multiple sclerosis Medical History Hypertension Medical History Hyperlipidemia Medical History Diabetes Medical History posterior carotid stenosis Medical History multiple 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 Medical History smoker Medical History lumbar [...] Notes Treatment Notes Treatm ent Clinical Notes Oct, Left peroneal nerve palsy (ICD-10 - G57.32) PLAN OF TREATMENT Medication Medication Name Sig Start Date Stop Date HYDROcodone-Acetaminophen 5-325 MG 1 tablet as needed, Worker's Compensation Orally 3 times a day, mdd=3 for 30 Days Jul, oxyCODONE HCl ER 20 MG 1 tablet Orally every 12 hrs, mdd=2 f or 30 Days Oct, HYDROcodone-Acetaminophen 5-325 MG 1 tablet as needed Orally Every 8 hours, mdd=3 for 30 Days Oct, Next Appt Details Provider Name:Lauren Clarke, 2020-10-2 8 02:00:00 PM, [address] [facility] [facility], , [place], [address], Insurance Providers Payer Name Payer Address Payer Phone Insured Name Patient Relati onship to Insured Coverage Start Date Coverage End Date [facility] [address] [place] [phone] ELSI GONZALEZ self
--- OUTSIDE RECORDS SUMMARY | 2021-02-08 19:13 | CCD | Continuity of Care Document ---
Author Author Wolfgang MCGOVERN M.D. Organization Unknown Address [address], [address] [place] [address] Phone [phone] Care Team Providers Care Pathology Laboratory Aide Name Role Phone Nba Rich Melany Coates AUTM [phone] Martita Royal AUTM [phone] [facility] AUTM Noam Lazcano AUTM [phone] AUTM Unavailable Central Scheduling AUTM [phone] Sdio AUTM [phone] Problems Active Problems Provider Date Chronic nasopharyngitis [...] Signs Date Vital Result Comment 11/27/2020 11:23am Height 67 inches 5'7" 05/24/2020 9:56am Height 67 inches 5'7" Weight 140.00 lb BMI (Body Mass Index) 21.9 kg/m2 [place] Body Weight 148 lb Weight 63.504 kg BSA (Body Surface Area) 1.74 m2 Results Description No Information Available Procedures Description No Information Available Medical Devices Description No Information Available Encounters Description No Information Available Assessments Date Code Description Provider 11/27/2020 B96.81 Helicobacter pylori [H. pylori] as the cause of diseases classified elsewhere Orestes Mcgovern M.D. 11/27/2020 K63.5 Polyp of colon Orestes Lopez ala, M.D. 11/27/2020 D37.4 Neoplasm of uncertain behavior o f colon Orestes Mcgovern M.D. 11/27/2020 K59.00 Constipation, unspecified Mer Mcgovern M.D. Plan of Treatment No Information Available Functional Status Description No Information Available Mental Status Description No Information Available Referrals Refer to Reason for Referral Status Appt Date Orestes Mcgovern M.D. COLO SCREEN Scheduled 11/23 [facility] [address], [address] [place] [address] [phone]
--- OUTSIDE RECORDS SUMMARY | 2021-02-08 19:14 | CCD ---
Author Author [facility] Organization [facility] Address Unknown Phone Unavailable Care Team Providers Care Crester Name Role Phone Pollo Arnold MD Unavailable Unavailable Abriss B Elías PERAZA Unavailable Unavailable Abriss B Elías PERAZA Unavailable Unavailable AbrissPollo MD Unavailable Unavailable Abriss B Elías PERAZA Unavailable Unavailable Abriss B Elías PERAZA Unavailable Unavailable AbrissPollo MD Unavailable Unavailable Abriss B Elías PERAZA Unavailable Unavailable Abriss B Elías PERAZA Unavailable Unavailable Abriss B Elías PERAZA Unavailable Unavailable Abriss B Elías PERAZA Unavailable Unavailable Abriss B Elías PERAZA Unavailable Unavailable Abriss B Elías PERAZA Unavailable Unavailable Abriss B Elías PERAZA Unavailable Unavailable Abriss B Elías PERAZA Unavailable Unavailable Abriss B Elías PERAZA Unavailable Unavailable Abrdejah B Elías PERAZA Unavailable Unavailable AbrPollo pond MD Unavailable Unavailable Abrdejah B Elías PERAZA Unavailable Unavailable Shannon Burnett MD Unavailable Unavailable Shannon Burnett MD Unavailable Unavailable Shannon Burnett MD Unavailable Unavailable Koloms, Shannon MD Unavailable Unavailable Koloms, Shannon MD Unavailable Unavailable Koloms, Shannon MD Unavailable Unavailable Koloms, Shannon MD Unavailable Unavailable Koloms, Shannon MD Unavailable Unavailable Koloms, Shannon MD Unavailable Unavailable Koloms, Shannon MD Unavailable Unavailable Koloms, Shannon MD Unavailable Unavailable Koloms, Shannon MD Unavailable Unavailable Koloms, Shannon MD Unavailable Unavailable Koloms, Shannon MD Unavailable Unavailable Koloms, Shannon MD Unavailable Unavailable Koloms, Shannon MD Unavailable Unavailable Koloms, Shannon MD Unavailable Unavailable Koloms, Shannon MD Unavailable Unavailable Koloms, Shannon MD Unavailable Unavailable Koloms, Shannon MD Unavailable Unavailable Koloms, Shannon MD Unavailable Unavailable Koloms, Shannon MD Unavailable Unavailable Koloms, Shannon MD Unavailable Unavailable Koloms, Shannon MD Unavailable Unavailable Koloms, Shannon MD Unavailable Unavailable Koloms, Shannon MD Unavailable Unavailable Koloms, Shannon MD Unavailable Unavailable Koloms, Shannon MD Unavailable Unavailable Koloms, Shannon MD Unavailable Unavailable Koloms, Shannon MD Unavailable Unavailable Koloms, Shannon MD Unavailable Unavailable Koloms, Shannon MD Unavailable Unavailable Koloms, Shannon MD Unavailable Unavailable Barraclough, M Jud PA Unavailable Unavailable Barraclough, M Jud PA Unavailable Unavailable Barraclough, M Jud PA Unavailable Unavailable Barraclough, M Jud PA Unavailable Unavailable Barraclough, M Jud PA Unavailable Unavailable Barraclough, M Jud PA Unavailable Unavailable Barraclough, M Jud PA Unavailable Unavailable Lilly, D Mega PA Unavailable Unavailable Lilly, D Mega PA Unavailable Unavailable Lilly, D Mega PA Unavailable Unavailable Lilly, D Mega PA Unavailable Unavailable Lilly, D Mega PA Unavailable Unavailable Lilly, D Mega PA Unavailable Unavailable Lilly, D Mega PA Unavailable Unavailable Lilly, D Mega PA Unavailable Unavailable Lilly, D Mega PA Unavailable Unavailable Lilly, D Mega PA Unavailable Unavailable Lilly, D Mega PA Unavailable Unavailable Lilly, D Mega PA Unavailable Unavailable Lilly, D Mega PA Unavailable Unavailable Lilly, D Mega PA Unavailable Unavailable Lilly, D Mega PA Unavailable Unavailable Lilly, D Mega PA Unavailable Unavailable Lilly, D Mega PA Unavailable Unavailable Lilly, D Mega PA Unavailable Unavailable Lilly, D Mega PA Unavailable Unavailable Lilly, D Mega PA Unavailable Unavailable Lilly, D Mega PA Unavailable Unavailable Lilly, D Mega PA Unavailable Unavailable Lilly, D Mega PA Unavailable Unavailable Lilly, D Mega PA Unavailable Unavailable Lilly, D Mega PA Unavailable Unavailable Lilly, D Mega PA Unavailable Unavailable Lilly, D Mega PA Unavailable Unavailable Lilly, D Mega PA Unavailable Unavailable Lilly, D Mega PA Unavailable Unavailable Lilly, D Mega PA Unavailable Unavailable Lilly, D Mega PA Unavailable Unavailable Lilly, D Mega PA Unavailable Unavailable Lilly, D Mega PA Unavailable Unavailable Lilly, D Mega PA Unavailable Unavailable Lilly, D Mega PA Unavailable Unavailable Lilly, D Mega PA Unavailable Unavailable Lilly, D Mega PA Unavailable Unavailable Lilly, D Mega PA Unavailable Unavailable Lilly, D Mega PA Unavailable Unavailable Lilly, D Mega PA Unavailable Unavailable Lilly, D Mega PA Unavailable Unavailable Lilly, D Mega PA Unavailable Unavailable Lilly, D Mega PA Unavailable Unavailable Lilly, D Mega PA Unavailable Unavailable Lilly, D Mega PA Unavailable Unavailable Lilly, D Mega PA Unavailable Unavailable Lilly, D Mega PA Unavailable Unavailable Lilly, D Mega PA Unavailable Unavailable Lilly, D Mega PA Unavailable Unavailable Lilly, D Mega PA Unavailable Unavailable Lilly, D Mega PA Unavailable Unavailable Lilly, D Mega PA Unavailable Unavailable Lilly, D Mega PA Unavailable Unavailable Lilly, D Mega PA Unavailable Unavailable Lilly, D Mega PA Unavailable Unavailable Lilly, D Mega PA Unavailable Unavailable Lilly, D Mega PA Unavailable Unavailable Lilly, D Mega PA Unavailable Unavailable Lilly, D Mega PA Unavailable Unavailable Lilly, D Mega PA Unavailable Unavailable Lilly, D Mega PA Unavailable Unavailable Lilly, D Mega PA Unavailable Unavailable Lilly, D Mega PA Unavailable Unavailable Lilly, D Mega PA Unavailable Unavailable Lilly, D Mega PA Unavailable Unavailable Lilly, D Mega PA Unavailable Unavailable Lilly, D Mega PA Unavailable Unavailable Lilly, D Mega PA Unavailable Unavailable Taisha DAVIS DPM Unavailable Unavailable Taisha DAVIS DPM Unavailable Unavailable Taisha DAVIS DPM Unavailable Unavailable Taisha DAVIS DPM Unavailable Unavailable Taisha DAVIS DPM Unavailable Unavailable Taisha DAVIS DPM Unavailable Unavailable Taisha DAVIS DPM Unavailable Unavailable MAJAK, R CIRO DPM Unavailable Unavailable MAJAK, R CIRO DPM Unavailable Unavailable MAJAK, R CIRO DPM Unavailable Unavailable MAJAK, R CIRO DPM Unavailable Unavailable MAJAK, R CIRO DPM Unavailable Unavailable MAJAK, R CIRO DPM Unavailable Unavailable MAJAK, R CIRO DPM Unavailable Unavailable MAJAK, R CIRO DPM Unavailable Unavailable MAJAK, R CIRO DPM Unavailable Unavailable MAJAK, R CIRO DPM Unavailable Unavailable MAJAK, R CIRO DPM Unavailable Unavailable MAJAK, R CIRO DPM Unavailable Unavailable MAJAK, R CIRO DPM Unavailable Unavailable MAJAK, R CIRO DPM Unavailable Unavailable MAJAK, R CIOR DPM Unavailable Unavailable MAJAK, R CIRO DPM Unavailable Unavailable MAJAK, R CIRO DPM Unavailable Unavailable MAJAK, R CIRO DPM Unavailable Unavailable MAJAK, R CIRO DPM Unavailable Unavailable MAJAK, R CIRO DPM Unavailable Unavailable MAJAK, R CIRO DPM Unavailable Unavailable MAJAK, R CIRO DPM Unavailable Unavailable MAJAK, R CIRO DPM Unavailable Unavailable MAJAK, R CIRO DPM Unavailable Unavailable MAJAK, R CIRO DPM Unavailable Unavailable MAJAK, R CIRO DPM Unavailable Unavailable Fish, J Tisha Unavailable Unavailable Fish, J Tisha Unavailable Unavailable Fish, J Tisha Unavailable Unavailable Fish, J Tisha Unavailable Unavailable Fish, J Tisha Unavailable Unavailable Fish, J Tisha Unavailable Unavailable Fish, J Tisha Unavailable Unavailable Fish, J Tisha Unavailable Unavailable Fish, J Tisha Unavailable Unavailable Fish, J Tisha Unavailable Unavailable Fish, J Tisha Unavailable Unavailable Fish, J Tisha Unavailable Unavailable Fish, J Tisha Unavailable Unavailable Fish, J Tisha Unavailable Unavailable Fish, J Tisha Unavailable Unavailable Fish, J Tisha Unavailable Unavailable Fish, J Tisha Unavailable Unavailable Fish, J Tisha Unavailable Unavailable Fish, J Tisha Unavailable Unavailable Fish, J Tisha Unavailable Unavailable Fish, J Tisha Unavailable Unavailable Fish, J Tisha Unavailable Unavailable Fish, J Tisha Unavailable Unavailable Fish, J Tisha Unavailable Unavailable Fish, J Tisha Unavailable Unavailable Fish, J Tisha Unavailable Unavailable Fish, J Tisha Unavailable Unavailable Fish, J Tisha Unavailable Unavailable Fish, J Tisha Unavailable Unavailable Fish, J Tisha Unavailable Unavailable Fish, J Tisha Unavailable Unavailable Fish, J Tisha Unavailable Unavailable Fish, J Tisha Unavailable Unavailable Fish, J Tisha Unavailable Unavailable Fish, J Tisha Unavailable Unavailable Fish, J Tisha Unavailable Unavailable Fish, J Tisha Unavailable Unavailable Fish, J Tisha Unavailable Unavailable Fish, J Tisha Unavailable Unavailable Fish, J Tisha Unavailable Unavailable Fish, J Tisha Unavailable Unavailable Fish, J Tisha Unavailable Unavailable Fish, J Tisha Unavailable Unavailable Fish, J Tisha Unavailable Unavailable Fish, J Tisha Unavailable Unavailable Fish, J Tisha Unavailable Unavailable Fish, J Tisha Unavailable Unavailable Fish, J Tisha Unavailable Unavailable Fish, J Tisha Unavailable Unavailable Fish, J Tisha Unavailable Unavailable Fish, J Tisha Unavailable Unavailable Fish, J Tisha Unavailable Unavailable Fish, J Tisha Unavailable Unavailable Fish, J Tisha Unavailable Unavailable Fish, J Tisha Unavailable Unavailable Fish, J Tisha Unavailable Unavailable Fish, J Tisha Unavailable Unavailable Fish, J Tisha Unavailable Unavailable Fish, J Tisha Unavailable Unavailable Fish, J Tisha Unavailable Unavailable Fish, J Tisha Unavailable Unavailable Fish, J Tisha Unavailable Unavailable Fish, J Tisha Unavailable Unavailable Fish, J Tisha Unavailable Unavailable Fish, J Tisha Unavailable Unavailable Fish, J Tisha Unavailable Unavailable Fish, J Tisha Unavailable Unavailable Fish, J Tisha Unavailable Unavailable Fish, J Tisha Unavailable Unavailable Fish, J Tisha Unavailable Unavailable Fish, J Tisha Unavailable Unavailable Fish, J Tisha Unavailable Unavailable Fish, J Tisha Unavailable Unavailable Fish, J Tisha Unavailable Unavailable Fish, J Tisha Unavailable Unavailable Fish, J Tisha Unavailable Unavailable Fish, J Tisha Unavailable Unavailable Fish, J Tisha Unavailable Unavailable Fish, J Tisha Unavailable Unavailable Fish, J Tisha Unavailable Unavailable Fish, J Tisha Unavailable Unavailable Fish, J Tisha Unavailable Unavailable Fish, J Tisha Unavailable Unavailable Fish, J Tisha Unavailable Unavailable Fish, J Tisha Unavailable Unavailable Fish, J Tisha Unavailable Unavailable Lilly, D Mega PA Unavailable Unavailable Lilly, D Mega PA Unavailable Unavailable Lilly, D Mega PA Unavailable Unavailable Lilly, D Mega PA Unavailable Unavailable Lilly, D Mega PA Unavailable Unavailable Lilly, D Mega PA Unavailable Unavailable Lilly, D Mega PA Unavailable Unavailable Lilly, D Mega PA Unavailable Unavailable Lilly, D Mega PA Unavailable Unavailable Lilly, D Mega PA Unavailable Unavailable Lilly, D Mega PA Unavailable Unavailable Lilly, D Mega PA Unavailable Unavailable Lilly, D Mega PA Unavailable Unavailable Lilly, D Mega PA Unavailable Unavailable Lilly, D Mega PA Unavailable Unavailable Lilly, D Mega PA Unavailable Unavailable Lilly, D Mega PA Unavailable Unavailable Lilly, D Mega PA Unavailable Unavailable Lilly, D Mega PA Unavailable Unavailable Lilly, D Mega PA Unavailable Unavailable Lilly, D Mega PA Unavailable Unavailable Lilly, D Mega PA Unavailable Unavailable Lilly, D Mega PA Unavailable Unavailable Lilly, D Mega PA Unavailable Unavailable Lilly, D Mega PA Unavailable Unavailable Lilly, D Mega PA Unavailable Unavailable Lilly, D Mega PA Unavailable Unavailable Lilly, D Mega PA Unavailable Unavailable Lilly, D Mega PA Unavailable Unavailable Lilly, D Mega PA Unavailable Unavailable Lilly, D Mega PA Unavailable Unavailable Lilly, D Mega PA Unavailable Unavailable Lilly, D Mega PA Unavailable Unavailable Lilly, D Mega PA Unavailable Unavailable Lilly, D Mega PA Unavailable Unavailable Lilly, D Mega PA Unavailable Unavailable Lilly, D Mega PA Unavailable Unavailable Lilly, D Mega PA Unavailable Unavailable Lilly, D Mega PA Unavailable Unavailable Lilly, D Mega PA Unavailable Unavailable Lilly, D Mega PA Unavailable Unavailable Lilly, D Mega PA Unavailable Unavailable Lilly, D Mega PA Unavailable Unavailable Lilly, D Mega PA Unavailable Unavailable Lilly, D Mega PA Unavailable Unavailable Lilly, D Mega PA Unavailable Unavailable Lilly, D Mega PA Unavailable Unavailable Lilly, D Mega PA Unavailable Unavailable Lilly, D Mega PA Unavailable Unavailable Lilly, D Mega PA Unavailable Unavailable Lilly, D Mega PA Unavailable Unavailable Lilly, D Mega PA Unavailable Unavailable Lilly, D Mega PA Unavailable Unavailable Lilly, D Mega PA Unavailable Unavailable Lilly, D Mega PA Unavailable Unavailable Lilly, D Mega PA Unavailable Unavailable Lilly, D Mega PA Unavailable Unavailable Lilly, D Mega PA Unavailable Unavailable Lilly, D Mega PA Unavailable Unavailable Lilly, D Mega PA Unavailable Unavailable Lilly, D Mega PA Unavailable Unavailable Lilly, D Mega PA Unavailable Unavailable Lilly, D Mega PA Unavailable Unavailable Lilly, D Mega PA Unavailable Unavailable Lilly, D Mega PA Unavailable Unavailable Lilly, D Mega PA Unavailable Unavailable Lilly, D Mega PA Unavailable Unavailable Lilly, D Mega PA Unavailable Unavailable DRAZEK, I ARIANA PA Unavailable Unavailable DRAZEK, I ARIANA PA Unavailable Unavailable DRAZEK, I ARIANA PA Unavailable Unavailable DRAZEK, I ARIANA PA Unavailable Unavailable DRAZEK, I ARIANA PA Unavailable Unavailable DRAZEK, I ARIANA PA Unavailable Unavailable DRAZEK, I ARIANA PA Unavailable Unavailable DRAZEK, I ARIANA PA Unavailable Unavailable DRAZEK, I ARIANA PA Unavailable Unavailable DRAZEK, I ARIANA PA Unavailable Unavailable DRAZEK, I ARIANA PA Unavailable Unavailable DRAZEK, I ARIANA PA Unavailable Unavailable DRAZEK, I ARIANA PA Unavailable Unavailable DRAZEK, I ARIANA PA Unavailable Unavailable DRAZEK, I ARIANA PA Unavailable Unavailable DRAZEK, I ARIANA PA Unavailable Unavailable DRAZEK, I ARIANA PA Unavailable Unavailable DRAZEK, I ARIANA PA Unavailable Unavailable DRAZEK, I ARIANA PA Unavailable Unavailable DRAZEK, I ARIANA PA Unavailable Unavailable DRAZEK, I ARIANA PA Unavailable Unavailable DRAZEK, I ARIANA PA Unavailable Unavailable DRAZEK, I ARIANA PA Unavailable Unavailable DRAZEK, I ARIANA PA Unavailable Unavailable DRAZEK, I ARIANA PA Unavailable Unavailable DRAZEK, I ARIANA PA Unavailable Unavailable DRAZEK, I ARIANA PA Unavailable Unavailable DRAZEK, I ARIANA PA Unavailable Unavailable DRAZEK, I ARIANA PA Unavailable Unavailable DRAZEK, I ARIANA PA Unavailable Unavailable Mateo MCGOVERN MD Unavailable Unavailable Mateo MCGOVERN MD Unavailable Unavailable Mateo MCGOVERN MD Unavailable Unavailable Mateo MCGOVERN MD Unavailable Unavailable Mateo MCGOVERN MD Unavailable Unavailable Mateo MCGOVERN MD Unavailable Unavailable Mateo MCGOVERN MD Unavailable Unavailable Mateo MCGOVERN MD Unavailable Unavailable Mateo MCGOVERN MD Unavailable Unavailable Mateo MCGOVERN MD Unavailable Unavailable Mateo MCGOVERN MD Unavailable Unavailable Mateo MCGOVERN MD Unavailable Unavailable Mateo MCGOVERN MD Unavailable Unavailable Mateo MCGOVERN MD Unavailable Unavailable Mateo MCGOVERN MD Unavailable Unavailable Mateo MCGOVERN MD Unavailable Unavailable Mateo MCGOVERN MD Unavailable Unavailable Mateo MCGOVERN MD Unavailable Unavailable Mateo MCGOVERN MD Unavailable Unavailable Mateo MCGOVERN MD Unavailable Unavailable Mateo MCGOVERN MD Unavailable Unavailable Mateo MCGOVERN MD Unavailable Unavailable Mateo MCGOVERN MD Unavailable Unavailable Mateo MCGOVERN MD Unavailable Unavailable Mateo MCGOVERN MD Unavailable Unavailable Mateo MCGOVERN MD Unavailable Unavailable Mateo MCGOVERN MD Unavailable Unavailable Mateo MCGOVERN MD Unavailable Unavailable Mateo MCGOVERN MD Unavailable Unavailable Mateo MCGOVERN MD Unavailable Unavailable Mateo MCGOVERN MD Unavailable Unavailable Mateo MCGOVERN MD Unavailable Unavailable Mateo MCGOVERN MD Unavailable Unavailable Mateo MCGOVERN MD Unavailable Unavailable Fish, J Tisha Unavailable Unavailable Fish, J Tisha Unavailable Unavailable Fish, J Tisha Unavailable Unavailable Fish, J Tisha Unavailable Unavailable Fish, J Tisha Unavailable Unavailable Fish, J Tisha Unavailable Unavailable Fish, J Tisha Unavailable Unavailable Fish, J Tisha Unavailable Unavailable Fish, J Tisha Unavailable Unavailable Fish, J Tisha Unavailable Unavailable Fish, J Tisha Unavailable Unavailable Fish, J Tisha Unavailable Unavailable Fish, J Tisha Unavailable Unavailable Fish, J Tisha Unavailable Unavailable Fish, J Tisha Unavailable Unavailable Fish, J Tisha Unavailable Unavailable Fish, J Tisha Unavailable Unavailable Fish, J Tisha Unavailable Unavailable Fish, J Tisha Unavailable Unavailable Fish, J Tisha Unavailable Unavailable Fish, J Tisha Unavailable Unavailable Fish, J Tisha Unavailable Unavailable Fish, J Tisha Unavailable Unavailable Fish, J Tisha Unavailable Unavailable Fish, J Tisha Unavailable Unavailable Fish, J Tisha Unavailable Unavailable Fish, J Tisha Unavailable Unavailable Fish, J Tisha Unavailable Unavailable Fish, J Tisha Unavailable Unavailable Fish, J Tisha Unavailable Unavailable Fish, J Tisha Unavailable Unavailable Fish, J Tisha Unavailable Unavailable Fish, J Tisha Unavailable Unavailable Fish, J Tisha Unavailable Unavailable Fish, J Tisha Unavailable Unavailable Fish, J Tisha Unavailable Unavailable Fish, J Tisha Unavailable Unavailable Fish, J Tisha Unavailable Unavailable Fish, J Tisha Unavailable Unavailable Fish, J Tisha Unavailable Unavailable Fish, J Tisha Unavailable Unavailable Fish, J Tisha Unavailable Unavailable Fish, J Tisha Unavailable Unavailable Fish, J Tisha Unavailable Unavailable Fish, J Tisha Unavailable Unavailable Fish, J Tisha Unavailable Unavailable Fish, J Tisha Unavailable Unavailable Fish, J Tisha Unavailable Unavailable Fish, J Tisha Unavailable Unavailable Fish, J Tisha Unavailable Unavailable Fish, J Tisha Unavailable Unavailable Fish, J Tisha Unavailable Unavailable Fish, J Tisha Unavailable Unavailable Fish, J Tisha Unavailable Unavailable Fish, J Tisha Unavailable Unavailable Fish, J Tisha Unavailable Unavailable Fish, J Tisha Unavailable Unavailable Fish, J Tisha Unavailable Unavailable Fish, J Tisha Unavailable Unavailable Fish, J Tisha Unavailable Unavailable Fish, J Tisha Unavailable Unavailable Fish, J Tisha Unavailable Unavailable Fish, J Tisha Unavailable Unavailable Fish, J Tisha Unavailable Unavailable Fish, J Tisha Unavailable Unavailable Fish, J Tisha Unavailable Unavailable Fish, J Tisha Unavailable Unavailable Fish, J Tisha Unavailable Unavailable Fish, J Tisha Unavailable Unavailable Fish, J Tisha Unavailable Unavailable Fish, J Tisha Unavailable Unavailable Fish, J Tisha Unavailable Unavailable Fish, J Tisha Unavailable Unavailable Fish, J Tisha Unavailable Unavailable Fish, J Tisha Unavailable Unavailable Fish, J Tisha Unavailable Unavailable Fish, J Tisha Unavailable Unavailable Fish, J Tisha Unavailable Unavailable Fish, J Tisha Unavailable Unavailable Fish, J Tisha Unavailable Unavailable Fish, J Tisha Unavailable Unavailable Fish, J Tisha Unavailable Unavailable Fish, J Tisha Unavailable Unavailable Fish, J Tisha Unavailable Unavailable Fish, J Tisha Unavailable Unavailable Fish, J Tisha Unavailable Unavailable Re-disclosure Warning The records that you are about to access may contain information from federally-assisted alcohol or drug abuse programs. If such information is present, then the following federally mandated warning applies: This information has been disclosed to you from records protected by federal confidentiality rules (42 CFR part 2). The federal rules prohibit you from making any further disclosure of this information unless further disclosure is expressly permitted by the written consent of the person to whom it pertains or as otherwise permitted by 42 CFR part 2. A general authorization for the release of medical or other information is NOT sufficient for this purpose. The Federal rules restrict any use of the information to criminally investigate or prosecute any alcohol or drug abuse patient.The records that you are about to access may contain highly sensitive health information, the redisclosure of which is protected by Article 27-F of the [facility] Public Health law. If you continue you may have access to information: Regarding HIV / AIDS; Provided by facilities licensed or operated by the [facility] of Mental Health; or Provided by the [facility] for People With Developmental Disabilities. If such information is present, then the following [facility] mandated warning applies: This information has been disclosed to you from confidential records which are protected by state law. State law prohibits you from making any further disclosure of this information without the specific written consent of the person to whom it pertains, or as otherwise permitted by law. Any unauthorized further disclosure in violation of state law may result in a fine or prison sentence or both. A general authorization for the release of medical or other information is NOT sufficient authorization for further disc losure. Allergies and Adverse Reactions Type Description Substance Reaction Status Data Source(s ) No Known Environmental Allergies No Known Environmental Al lergies [facility] No Known Food Allergies No Known Food Allergies [facility] Propensity to adverse reactions NSAID NSAID [facility] No Known Drug Allergies No Known Drug Allergies [facility] Family History Family Member Name Family Member Gender Family Member Status Date o f Status Description Data Source(s) Unknown Unknown Problem MEDENT ([facility] grandmother Unknown Male Problem MED[facility] ([facility] Unknown Unknown Problem MEDENT ([facility] Unknown Female Problem MEDENT ([facility]) Unknown Female Problem MED[facility] ([facility]) Unknown Female Problem MEDENT ([facility]) Encounters Encounter Providers Location Date Indications Data Source(s ) [place] [address] [facility] [facility] [address] 02/05/2021 12:00:00 AM EST eCW1 ([facility]) [place] [address] [facility] [address] 12/27/2020 12:00:00 AM EDT eCW1 ([facility]) Unknown [address] [facility] [place] [address] 12/07/2020 12:00:00 AM EDT eCW1 ([facility]) Outpatient Attender: SHERRON Banks/Dora/Oneil jara/Jose 11/27/2020 10:30:00 AM EDT MEDENT ([facility]) [place] [address] [facility] [address] 11/08/2020 12:00:00 AM EDT eCW1 [facility] Outpatient Attender: [facility] 11/01/2020 01:30:0 0 PM EDT MEDENT ([facility] [place] [address] [facility] [place] [address] 10/10/2020 12:00:00 AM EDT eCW1 ([facility] [place] [address] [facility] [address] 09/04/2020 12:00:00 AM EDT eCW1 ([facility]) Unknown [address] [facility] [place] [address] 08/15/2020 12:00:00 AM EDT eCW1 ([facility]) Unknown [address] [facility] [place] [address] 08/06/2020 12:00:00 AM EDT eCW1 ([facility] [place] [address] [facility] [address] 08/06/2020 12:00:00 AM EDT eCW1 ([facility] Unknown [address] [facility] [place] [address] 08/02/2020 12:00:00 AM EDT eCW1 ([facility] Outpatient Attender: [facility] 07/26/2020 01:30:0 0 PM EDT MED[facility] ([facility] [place] [address] [facility] [address] 07/17/2020 12:00:00 AM EDT [facility] [place] [address] [facility] [address] 06/28/2020 12:00:00 AM EDT eCW1 ([facility]) Unknown [address] [facility] [address] 06/27/2020 12:00:00 AM EDT [facility]CW1 [facility] [place] [address] [facility] [address] 06/13/2020 12:00:00 AM EDT eCW1 ([facility]) Outpatient Attender: Elías Banks/Dora/Parish/Re indl 05/24/2020 10:00:00 AM EDT MEDENT ([facility] [place] [address] [facility] [address] 05/16/2020 12:00:00 AM EDT [facility]CW1 [facility] Outpatient Attender: Elías Banks/Dora/Parish/Re indl 05/14/2020 03:00:00 PM EDT MEDENT ([facility]) Outpatient Attender: CIRO DAVIS [facility] Office 04/30 09:00:00 AM EST MEDENT ([facility] Outpatient Attender: Mega Carr PAConsultant: Tisha laws 05/02/2020 07:19:00 AM EST - 05/02/2020 08:19:00 AM EST [facility] Patient discharged. Unknown [address] [facility] [address] 05/02/2020 12:00:00 AM EST [facility]CW1 [facility] Outpatient Attender: Mega Carr [facility] Office 04/2020 10:15:00 AM EST MEDENT ([facility] Outpatient Attender: Elías Banks/Dora/Parish/Re indl 04/27/2020 12:00:00 PM EST MEDENT ([facility]) Unknown [address] [facility] [address] 04/20/2020 12:00:00 AM EST eCW1 [facility] Unknown [address] [facility] [place] [address] 04/20/2020 12:00:00 AM EST [facility]CW1 [facility] Outpatient Attender: [facility] Office 04/19/2020 12:15:0 0 PM EST MEDENT ([facility] Unknown [address] [facility] [place] [address] 04/18/2020 12:00:00 AM EST [facility]CW1 [facility] Outpatient [address] [facility] [place] [address] 04/05/2020 12:00:00 AM EST eCW1 [facility] Unknown [address] [facility] [place] [address] 04/04/2020 12:00:00 AM EST [facility]CW1 [facility] Outpatient Attender: [facility] Office 03/22/2020 01:00:0 0 PM EST MEDENT ([facility] Unknown [address] [facility] [place] [address] 03/19/2020 12:00:00 AM EST eCW1 [facility] Unknown [address] [facility] [place] [address] 03/15/2020 12:00:00 AM EST eCW1 [facility] Unknown [address] [facility] [place] [address] 03/12/2020 12:00:00 AM EST eCW1 [facility]) Outpatient Attender: Elías Banks/Dora/Parish/Re indl 03/06/2020 12:00:00 PM EST MEDENT ([facility] Unknown [address] [facility] [address] 03/01/2020 12:00:00 AM EST eCW1 ([facility]) Unknown [address] [facility] [address] 02/09/2020 12:00:00 AM EST eCW1 ([facility]) Unknown [address] [facility] [address] 01/30/2020 12:00:00 AM EST eCW1 ([facility]) Outpatient Attender: Tisha Rich [place] Office 01/12/2020 02:20:0 0 PM EST MEDENT ([facility] Outpatient Attender: ARIANA WATKINS Physical [facility] 01/11/2020 0 3:30:00 PM EST MEDENT ([facility]) Outpatient [address] [facility] [place] [address] 01/05/2020 12:00:00 AM EST eCW1 ([facility]) Office Visit Attender: Elías Banks/Dora/Parish/Re indl 01/04/2020 10:15:00 AM EST MEDENT ([facility] Unknown [address] [facility] [address] 12/30/2019 12:00:00 AM EDT eCW1 ([facility]) Outpatient Attender: ARIANA WATKINS Physical Therapy 12/29/2019 0 5:15:00 PM EDT MEDENT ([facility]) Outpatient Attender: Shannon Burnett MDConsultant: Tisha [facility] 12/28/2019 08:00:00 AM EDT - 12/28/2019 11:58:00 AM EDT [facility] Patient discharged. Outpatient Attender: Jud WATKINS [place] [facility] 12/27/2019 11:15:00 AM EDT MEDENT ([facility] Outpatient Attender: Elías Banks/Dora/Parish/Re indl 12/23/2019 11:15:00 AM EDT MEDENT ([facility]) Outpatient Attender: Shannon Burnett MDConsultant: Tisha [facility] 12/14/2019 06:45:00 AM EDT - 12/14/2019 09:44:00 AM EDT [facility] Patient discharged. Unknown [address] [facility] [address] 12/13/2019 12:00:00 AM EDT eCW1 ([facility]) OFFICE OUTPATIENT NEW 30 MINUTES Attender: ARIANA WATKINS Physic al Therapy 12/12/2019 11:15:00 AM EDT MEDENT ([facility]) Immunizations Vaccine Date Status Description Data Source(s) New in 2012. IIV4 11/01/2020 01:32:00 PM EDT completed MEDENT ([facility] COVID-19 VACCINE, MRNA-1273, LNP-S (MODERNA)/PF 05/26/2020 1 2:00:00 AM EDT completed [facility] COVID-19 VACCINE Moderna 05/22/2020 12:00:00 AM EDT completed [facility] Vaccine Series Complete: YESThis Data wa s Submitted to [facility] Via [employer]. COVID-19 VACCINE Moderna 04/27/2020 12:00:00 AM EST completed [facility] Vaccine Series Complete: NOThis Data was Submitted to [facility] Via [employer]. COVID-19 VACCINE, MRNA-1273, LNP-S (MODERNA)/PF 04/27/2020 1 2:00:00 AM EST completed [facility] Medications Medication Brand Name Start Date Product Form Dose Route Admi nistrative Instructions Pharmacy Instructions Status Indications Reaction Description Data Source(s) oxyCODONE HCl ER 20 MG oxyCODONE HCl ER 20 MG 02/07/2021 12:00:00 A M EST 1.0 {tablet} active oxyCODONE HCl ER 20 MG eCW1 ([facility]) Acetaminophen 325 MG / Hydrocodone Kalia trate 5 MG Oral Tablet HYDROcodone- Acetaminophen 5-325 MG HYDROcodone-Acetaminophen 5-325 MG 02/07/2021 12:00:00 AM EST 1.0 {tablet_as_needed} active HYDROcodone-Acetaminophen 5-325 MG eCW1 ([facility]) Acetaminophen 325 MG / Hydrocodone Kalia trate 5 MG Oral Tablet HYDROcodone- Acetaminophen 5-325 MG HYDROcodone-Acetaminophen 5-325 MG 12/27/2020 12:00:00 AM EDT 1.0 {tablet_as_needed} active HYDROcodone-Acetaminophen 5-325 MG eCW1 ([facility]) oxyCODONE HCl ER 20 MG oxyCODONE HCl ER 20 MG 12/27/2020 12:00:00 A M EDT 1.0 {tablet} active oxyCODONE HCl ER 20 MG eCW1 ([facility]) oxyCODONE HCl ER 20 MG oxyCODONE HCl ER 20 MG 12/07/2020 12:00:00 A M EDT 1.0 {tablet} active oxyCODONE HCl ER 20 MG eCW1 ([facility]) Acetaminophen 325 MG / Hydrocodone Kalia trate 5 MG Oral Tablet HYDROcodone- Acetaminophen 5-325 MG HYDROcodone-Acetaminophen 5-325 MG 12/07/2020 12:00:00 AM EDT 1.0 {tablet_as_needed} active HYDROcodone-Acetaminophen 5-325 MG eCW1 ([facility]) oxyCODONE HCl ER 20 MG oxyCODONE HCl ER 20 MG 11/09/2020 12:00:00 A M EDT 1.0 {tablet} active oxyCODONE HCl ER 20 MG eCW1 ([facility]) Acetaminophen 325 MG / Hydrocodone Kalia trate 5 MG Oral Tablet HYDROcodone- Acetaminophen 5-325 MG HYDROcodone-Acetaminophen 5-325 MG 11/09/2020 12:00:00 AM EDT 1.0 {tablet_as_needed} active HYDROcodone-Acetaminophen 5-325 MG eCW1 ([facility]) oxyCODONE HCl ER 20 MG oxyCODONE HCl ER 20 MG 10/11/2020 12:00:00 A M EDT 1.0 {tablet} active oxyCODONE HCl ER 20 MG eCW1 ([facility]) Acetaminophen 325 MG / Hydrocodone Kalia trate 5 MG Oral Tablet HYDROcodone- Acetaminophen 5-325 MG HYDROcodone-Acetaminophen 5-325 MG 10/11/2020 12:00:00 AM EDT 1.0 {tablet_as_needed} active HYDROcodone-Acetaminophen 5-325 MG eCW1 ([facility]) Benazepril hydrochloride 20 MG / Hydrochlorothiazide 1 2.5 MG Oral Tablet Benazepril HCL/Hydrochlorothiazide 09/13/2020 12:00:00 AM EDT active MEDENT ([facility] oxyCODONE HCl ER 20 MG oxyCODONE HCl ER 20 MG 09/06/2020 12:00:00 A M EDT 1.0 {tablet} active oxyCODONE HCl ER 20 MG eCW1 ([facility]) Acetaminophen 325 MG / Hydrocodone Kalia trate 5 MG Oral Tablet HYDROcodone- Acetaminophen 5-325 MG HYDROcodone-Acetaminophen 5-325 MG 09/06/2020 12:00:00 AM EDT 1.0 {tablet_as_needed} active HYDROcodone-Acetaminophen 5-325 MG eCW1 ([facility]) Acetaminophen 325 MG / Hydrocodone Kalia trate 5 MG Oral Tablet HYDROcodone- Acetaminophen 5-325 MG HYDROcodone-Acetaminophen 5-325 MG 08/16/2020 12:00:00 AM EDT 1.0 {tablet_as_needed} active HYDROcodone-Acetaminophen 5-325 MG eCW1 ([facility]) Acetaminophen 325 MG / Hydrocodone Kalia trate 5 MG Oral Tablet Hydrocodone- Acetaminophen 5-325 MG Hydrocodone-Acetaminophen 5-325 MG 08/06/2020 12:00:00 AM EDT active Hydrocodone-Aceta minophen 5-325 MG eCW1 ([facility]) Acetaminophen 325 MG / Hydrocodone Kalia trate 5 MG Oral Tablet HYDROcodone- Acetaminophen 5-325 MG HYDROcodone-Acetaminophen 5-325 MG 08/06/2020 12:00:00 AM EDT active HYDROcodone-Aceta minophen 5-325 MG eCW1 ([facility]) Acetaminophen 325 MG / Hydrocodone Kalia trate 5 MG Oral Tablet HYDROcodone- Acetaminophen 5-325 MG HYDROcodone-Acetaminophen 5-325 MG 08/06/2020 12:00:00 AM EDT active HYDROcodone-Aceta minophen 5-325 MG eCW1 ([facility]) oxyCODONE HCl ER 20 MG oxyCODONE HCl ER 20 MG 08/06/2020 12:00:00 A M EDT 1.0 {tablet} active oxyCODONE HCl ER 20 MG eCW1 ([facility]) Acetaminophen 325 MG / Hydrocodone Kalia trate 5 MG Oral Tablet HYDROcodone- Acetaminophen 5-325 MG HYDROcodone-Acetaminophen 5-325 MG 08/06/2020 12:00:00 AM EDT active HYDROcodone-Aceta minophen 5-325 MG eCW1 ([facility]) OxyCODONE HCl ER 20 MG OxyCODONE HCl ER 20 MG 08/06/2020 12:00:00 A M EDT 1.0 {tablet} active OxyCODONE HCl ER 20 MG eCW1 ([facility]) Acetaminophen 325 MG / Hydrocodone Kalia trate 5 MG Oral Tablet HYDROcodone- Acetaminophen 5-325 MG HYDROcodone-Acetaminophen 5-325 MG 08/06/2020 12:00:00 AM EDT active HYDROcodone-Aceta minophen 5-325 MG eCW1 ([facility]) Acetaminophen 325 MG / Hydrocodone Kalia trate 5 MG Oral Tablet Hydrocodone- Acetaminophen 5-325 MG Hydrocodone-Acetaminophen 5-325 MG 08/06/2020 12:00:00 AM EDT active Hydrocodone-Aceta minophen 5-325 MG eCW1 ([facility]) OxyCODONE HCl ER 20 MG OxyCODONE HCl ER 20 MG 08/06/2020 12:00:00 A M EDT 1.0 {tablet} active OxyCODONE HCl ER 20 MG eCW1 ([facility]) Acetaminophen 325 MG / Hydrocodone Kalia trate 5 MG Oral Tablet Hydrocodone- Acetaminophen 5-325 MG Hydrocodone-Acetaminophen 5-325 MG 08/06/2020 12:00:00 AM EDT active Hydrocodone-Aceta minophen 5-325 MG eCW1 ([facility]) Acetaminophen 325 MG / Hydrocodone Kalia trate 5 MG Oral Tablet HYDROcodone- Acetaminophen 5-325 MG HYDROcodone-Acetaminophen 5-325 MG 08/06/2020 12:00:00 AM EDT active HYDROcodone-Aceta minophen 5-325 MG eCW1 ([facility]) OxyCODONE HCl ER 20 MG OxyCODONE HCl ER 20 MG 08/06/2020 12:00:00 A M EDT 1.0 {tablet} active OxyCODONE HCl ER 20 MG eCW1 ([facility]) Acetaminophen 325 MG / Hydrocodone Kalia trate 5 MG Oral Tablet Hydrocodone- Acetaminophen 5-325 MG Hydrocodone-Acetaminophen 5-325 MG 07/17/2020 12:00:00 AM EDT 1.0 {tablet_as_needed} active Hydrocodone-Acetaminophen 5-325 MG eCW1 ([facility]) Acetaminophen 325 MG / Hydrocodone Kalia trate 5 MG Oral Tablet Hydrocodone- Acetaminophen 5-325 MG Hydrocodone-Acetaminophen 5-325 MG 07/17/2020 12:00:00 AM EDT 1.0 {tablet_as_needed} active Hydrocodone-Acetaminophen 5-325 MG eCW1 ([facility]) Acetaminophen 325 MG / Hydrocodone Kalia trate 5 MG Oral Tablet Hydrocodone- Acetaminophen 5-325 MG Hydrocodone-Acetaminophen 5-325 MG 07/17/2020 12:00:00 AM EDT 1.0 {tablet_as_needed} active eCW1 ([facility]) Acetaminophen 325 MG / Hydrocodone Kalia trate 5 MG Oral Tablet Hydrocodone- Acetaminophen 5-325 MG Hydrocodone-Acetaminophen 5-325 MG 07/17/2020 12:00:00 AM EDT 1.0 {tablet_as_needed} active Hydrocodone-Acetaminophen 5-325 MG eCW1 ([facility]) OxyCODONE HCl ER 20 MG OxyCODONE HCl ER 20 MG 06/28/2020 12:00:00 A M EDT 1.0 {tablet} active eCW1 ([facility]) OxyCODONE HCl ER 20 MG OxyCODONE HCl ER 20 MG 06/28/2020 12:00:00 A M EDT 1.0 {tablet} active OxyCODONE HCl ER 20 MG eCW1 ([facility]) OxyCODONE HCl ER 20 MG OxyCODONE HCl ER 20 MG 06/28/2020 12:00:00 A M EDT 1.0 {tablet} active OxyCODONE HCl ER 20 MG eCW1 ([facility]) Acetaminophen 325 MG / Hydrocodone Kalia trate 5 MG Oral Tablet Hydrocodone- Acetaminophen 5-325 MG Hydrocodone-Acetaminophen 5-325 MG 06/13/2020 12:00:00 AM EDT 1.0 {tablet_as_needed} active Hydrocodone-Acetaminophen 5-325 MG eCW1 ([facility]) Acetaminophen 325 MG / Hydrocodone Kalia trate 5 MG Oral Tablet Hydrocodone- Acetaminophen 5-325 MG Hydrocodone-Acetaminophen 5-325 MG 06/13/2020 12:00:00 AM EDT 1.0 {tablet_as_needed} active Hydrocodone-Acetaminophen 5-325 MG eCW1 ([facility]) Acetaminophen 325 MG / Hydrocodone Kalia trate 5 MG Oral Tablet Hydrocodone- Acetaminophen 5-325 MG Hydrocodone-Acetaminophen 5-325 MG 06/13/2020 12:00:00 AM EDT 1.0 {tablet_as_needed} active Hydrocodone-Acetaminophen 5-325 MG eCW1 ([facility]) OxyCODONE HCl ER 20 MG OxyCODONE HCl ER 20 MG 05/31/2020 12:00:00 A M EDT 1.0 {tablet} active OxyCODONE HCl ER 20 MG eCW1 ([facility]) Acetaminophen 325 MG / Hydrocodone Kalia trate 5 MG Oral Tablet Hydrocodone- Acetaminophen 5-325 MG Hydrocodone-Acetaminophen 5-325 MG 05/16/2020 12:00:00 AM EDT 1.0 {tablet_as_needed} active Hydrocodone-Acetaminophen 5-325 MG eCW1 ([facility]) ammonium lactate 120 MG/ML Topical Cream Ammonium Lactate 05/09/2020 12:00:00 AM EST active MEDENT ([facility] Doxycycline Monohydrate 100 MG Oral Capsule Doxycycline [place] hydrate 05/07/2020 12:00:00 AM EST ORAL active M EDENT ([facility], ) Ibuprofen 800 MG Oral Tablet [Ibu] Ibu 05/07/2020 12:00:00 AM EST ORAL active MEDENT ([facility], ) OxyCODONE HCl ER 20 MG OxyCODONE HCl ER 20 MG 05/02/2020 12:00:00 A M EST 1.0 {tablet} active OxyCODONE HCl ER 20 MG eCW1 ([facility]) OxyCODONE HCl ER 20 MG OxyCODONE HCl ER 20 MG 05/02/2020 12:00:00 A M EST 1.0 {tablet} active OxyCODONE HCl ER 20 MG eCW1 ([facility]) Acetaminophen 325 MG / Hydrocodone Kalia trate 5 MG Oral Tablet Hydrocodone- Acetaminophen 5-325 MG Hydrocodone-Acetaminophen 5-325 MG 04/20/2020 12:00:00 AM EST 1.0 {tablet_as_needed} active Hydrocodone-Acetaminophen 5-325 MG eCW1 ([facility]) [place] 5-325 MG UNK 04/20/2020 12:00:00 AM EST active [place] 5-325 MG eCW1 ([facility]) [place] 5-325 MG UNK 04/20/2020 12:00:00 AM EST active [place] 5-325 MG eCW1 ([facility]) [place] 5-325 MG UNK 04/20/2020 12:00:00 AM EST active [place] 5-325 MG eCW1 ([facility]) [place] 5-325 MG UNK 04/20/2020 12:00:00 AM EST active [place] 5-325 MG eCW1 ([facility]) Acetaminophen 325 MG / Hydrocodone Kalia trate 5 MG Oral Tablet Hydrocodone- Acetaminophen 5-325 MG Hydrocodone-Acetaminophen 5-325 MG 04/20/2020 12:00:00 AM EST 1.0 {tablet_as_needed} active Hydrocodone-Acetaminophen 5-325 MG eCW1 ([facility]) Acetaminophen 325 MG / Hydrocodone Kalia trate 5 MG Oral Tablet Hydrocodone- Acetaminophen 5-325 MG Hydrocodone-Acetaminophen 5-325 MG 04/20/2020 12:00:00 AM EST 1.0 {tablet_as_needed} active Hydrocodone-Acetaminophen 5-325 MG eCW1 ([facility]) [place] 5-325 MG UNK 04/20/2020 12:00:00 AM EST active [place] 5-325 MG eCW1 ([facility]) [place] 5-325 MG UNK 04/20/2020 12:00:00 AM EST act carlita eCW1 ([facility]) [place] 5-325 MG UNK 04/20/2020 12:00:00 AM EST active [place] 5-325 MG eCW1 ([facility]) Acetaminophen 325 MG / Hydrocodone Kalia trate 5 MG Oral Tablet Hydrocodone- Acetaminophen 5-325 MG Hydrocodone-Acetaminophen 5-325 MG 04/20/2020 12:00:00 AM EST 1.0 {tablet_as_needed} active Hydrocodone-Acetaminophen 5-325 MG eCW1 ([facility]) [place] 5-325 MG UNK 04/20/2020 12:00:00 AM EST active [place] 5-325 MG eCW1 ([facility]) [place] 5-325 MG UNK 04/20/2020 12:00:00 AM EST active [place] 5-325 MG eCW1 ([facility]) OxyCODONE HCl ER 20 MG OxyCODONE HCl ER 20 MG 04/19/2020 12:00:00 A M EST 1.0 {tablet} active OxyCODONE HCl ER 20 MG eCW1 ([facility]) OxyCODONE HCl ER 20 MG OxyCODONE HCl ER 20 MG 04/19/2020 12:00:00 A M EST 1.0 {tablet} active OxyCODONE HCl ER 20 MG eCW1 ([facility]) OxyCODONE HCl ER 20 MG OxyCODONE HCl ER 20 MG 04/19/2020 12:00:00 A M EST 1.0 {tablet} active OxyCODONE HCl ER 20 MG eCW1 ([facility]) OxyCODONE HCl ER 20 MG OxyCODONE HCl ER 20 MG 04/04/2020 12:00:00 A M EST 1.0 {tablet} active OxyCODONE HCl ER 20 MG eCW1 ([facility]) OxyCODONE HCl ER 20 MG OxyCODONE HCl ER 20 MG 04/04/2020 12:00:00 A M EST 1.0 {tablet} active OxyCODONE HCl ER 20 MG eCW1 ([facility]) Acetaminophen 325 MG / Hydrocodone Kalia trate 5 MG Oral Tablet [[place]] [place] 5- 325 MG [place] 5-325 MG 03/19/2020 12:00:00 AM EST a ctive [place] 5- 325 MG eCW1 ([facility]) Acetaminophen 325 MG / Hydrocodone Kalia trate 5 MG Oral Tablet [[place]] [place] 5- 325 MG [place] 5-325 MG 03/19/2020 12:00:00 AM EST a ctive [place] 5- 325 MG eCW1 ([facility]) Acetaminophen 325 MG / Hydrocodone Kalia trate 5 MG Oral Tablet [[place]] [place] 5- 325 MG [place] 5-325 MG 03/19/2020 12:00:00 AM EST a ctive [place] 5- 325 MG eCW1 ([facility]) OxyCODONE HCl ER 20 MG OxyCODONE HCl ER 20 MG 03/16/2020 12:00:00 A M EST 1.0 {tablet} active OxyCODONE HCl ER 20 MG eCW1 ([facility]) OxyCODONE HCl ER 20 MG OxyCODONE HCl ER 20 MG 03/16/2020 12:00:00 A M EST 1.0 {tablet} active OxyCODONE HCl ER 20 MG eCW1 ([facility]) OxyCODONE HCl ER 20 MG OxyCODONE HCl ER 20 MG 03/01/2020 12:00:00 A M EST 1.0 {tablet} active OxyCODONE HCl ER 20 MG eCW1 ([facility]) OxyCODONE HCl ER 20 MG OxyCODONE HCl ER 20 MG 03/01/2020 12:00:00 A M EST 1.0 {tablet} active OxyCODONE HCl ER 20 MG eCW1 ([facility]) Acetaminophen 325 MG / Hydrocodone Kalia trate 5 MG Oral Tablet [[place]] [place] 5- 325 MG [place] 5-325 MG 02/10/2020 12:00:00 AM EST a ctive [place] 5- 325 MG eCW1 ([facility]) Acetaminophen 325 MG / Hydrocodone Kalia trate 5 MG Oral Tablet [[place]] [place] 5- 325 MG [place] 5-325 MG 02/10/2020 12:00:00 AM EST a ctive [place] 5- 325 MG eCW1 ([facility]) Acetaminophen 325 MG / Hydrocodone Kalia trate 5 MG Oral Tablet [[place]] [place] 5- 325 MG [place] 5-325 MG 02/10/2020 12:00:00 AM EST a ctive [place] 5- 325 MG eCW1 ([facility]) Acetaminophen 325 MG / Hydrocodone Kalia trate 5 MG Oral Tablet [[place]] [place] 5- 325 MG [place] 5-325 MG 02/10/2020 12:00:00 AM EST a ctive [place] 5- 325 MG eCW1 ([facility]) OxyCODONE HCl ER 20 MG OxyCODONE HCl ER 20 MG 01/31/2020 12:00:00 A M EST 1.0 {tablet} active OxyCODONE HCl ER 20 MG eCW1 ([facility]) OxyCODONE HCl ER 20 MG OxyCODONE HCl ER 20 MG 01/31/2020 12:00:00 A M EST 1.0 {tablet} active OxyCODONE HCl ER 20 MG eCW1 ([facility]) Acetaminophen 325 MG / Hydrocodone Kalia trate 5 MG Oral Tablet [[place]] [place] 5- 325 MG [place] 5-325 MG 01/05/2020 12:00:00 AM EST a ctive [place] 5- 325 MG eCW1 ([facility]) Acetaminophen 325 MG / Hydrocodone Kalia trate 5 MG Oral Tablet [[place]] [place] 5- 325 MG [place] 5-325 MG 01/05/2020 12:00:00 AM EST a ctive [place] 5- 325 MG eCW1 ([facility]) OxyCODONE HCl ER 20 MG OxyCODONE HCl ER 20 MG 12/30/2019 12:00:00 A M EDT 1.0 {tablet} active OxyCODONE HCl ER 20 MG eCW1 ([facility]) Cephalexin 500 MG Oral Capsule [Keflex] Keflex 12/29/2019 12:00:0 0 AM EDT ORAL active [facility] ([facility] Benazepril hydrochloride 20 MG / Hydrochlorothiazide 1 2.5 MG Oral Tablet Benazepril Hydrochloride/Hydrochlorothiazide 12/27/2019 12:00:00 AM EDT ORAL active MEDENT ([facility] Acetaminophen 325 MG / Hydrocodone Kalia trate 5 MG Oral Tablet [[place]] [place] 5- 325 MG [place] 5-325 MG 12/13/2019 12:00:00 AM EDT a ctive [place] 5- 325 MG eCW1 ([facility]) Acetaminophen 325 MG / Hydrocodone Kalia trate 5 MG Oral Tablet [[place]] [place] 5- 325 MG [place] 5-325 MG 12/13/2019 12:00:00 AM EDT a ctive [place] 5- 325 MG eCW1 ([facility]) Insurance Providers Payer name Policy type / Coverage type Policy ID Covered green party ID Covered green party's relationship to pickering Policy Pickering Plan Information [employer] Compensation [id number] Self [employer] [id number] Self [id number] Medicare Medicare Primary [id number] Self [id number] MEDICARE COMPLETE [id number] SP [id number] MEDICARE [id number] SP [id number] A MEDICARE [id number] Domonique [id number] A [employer] [id number] Self [id number] Medicare [place] Med[place] Part B [id number] Self 1 [id number] Medicare [place] Med[place]ap Part [id number] Self Medicare [place] Med[place]ap [place] B [id number] Self 1 [id number] [facility] Commercial [id number] Self [id number] [facility]) Commercial [id number] Self [facility]) Commercial [id number] Self [id number] [employer] Commercial [id number] Se lf [id number] COMMERCIAL GENERIC [id number] Self [id number] TODAYS OPTIONS [id number] SP [id number] [employer]LLCARE MEDICARE HMO G [id number] Self [id number] [employer] Medical[employer] MEDICARE HMO G [id number] Self [id number] [employer] Commercial [id number] Self [id number] ANSI-Not a Secondary Insurance [id number] ANSI-Not a Secondary Insurance [id number] ANSI-Not a Secondary Insurance [id number] [employer] Commercial [id number] Self [id number] ANSI-Not a Secondary Insurance [id number] [employer] Medicare Commercial [id number] Self [id number] ANSI-Not a Secondary Insurance [id number] cxe34ht [id number] ANSI-Not a Secondary Insurance [id number]-[id number]-[id number] 5j1l77c [id number]-[id number]-l5aa-[id number] ANSI-Not a Secondary Insurance [id number] [id number] [id number]-[id number] ANSI-Not a Secondary Insurance [id number]-[id number] w7ya3p0 [id number] ANSI-Not a Secondary Insurance [id number]-[id number] [id number] [id number]-[id number] Today[employer] Options Medicare Commercial [id number] Self [id number] [facility] [id number] ANSI-Not a Secondary Insurance [id number] ANSI-Not a Secondary Insurance [id number]-[id number]-8m3q3 [id number] [id number]-f8n9-5w0m-[id number] ANSI-Not a Secondary Insurance [id number]-b36f2 m42xmv7 [id number] Today[employer] Options Ppo Commercial [id number] Self [id number] Today's Options Ppo Commercial [id number] Self [id number] Today's Options Medicare Commercial [id number] Self [id number] TODAYS OPTION -O/P [id number] 18 [id number] ANSI-Not a Secondary Insurance [id number] ANSI-Not a Secondary Insurance [id number] Today's Options Commercial [id number] Self [id number] ANSI-Not a Secondary Insurance [id number] [facility] [id number] ANSI-Not a Secondary Insurance [id number] AETNA MEDICARE -O/P [id number] ANSI-Not a Secondary Insurance [id number] ANSI-Not a Secondary Insurance [id number] ANSI-Not a Secondary Insurance [id number] AETNA -O/P [id number] MEDICARE PART A-O/P [id number] 18 [id number] MEDICARE PART A-O/P [id number] 18 [id number] [employer] [id number] Self 1 [id number] [employer] Compensation [id number] Self 1 [id number] [employer] [id number] Self MEDICARE COMPLETE-[facility] O [id number] S [id number] MEDICARE COMPLETE-[facility] O [id number] S [id number] MEDICARE C [id number] S [id number] A Medicare Medicare Primary [id number] Self ONE CALL CARE MANAGEMENT O [id number] S [id number] MEDICARE -O/P [id number] 18 [id number] ANSI-Not a Secondary Insurance [id number] WELLCARE [id number] SP [id number] WELLCARE [id number] SP [id number] [facility] [employer] [id number] SP [id number] [employer] [id number] SP [id number] WELLCARE [id number] SP [id number] WELLCARE -O/P [id number] 18 [id number] WELLCARE [id number] SP [id number] WELLCARE -O/P [id number] 18 [id number] MEDICARE [id number] SP [id number] TODAYS OPTIONS [id number] SP [id number] ANSI-Not a Secondary Insurance [id number] ANSI-Not a Secondary Insurance [id number] ANSI-Not a Secondary Insurance [id number] ANSI-Not a Secondary Insurance [id number] ANSI-Not a Secondary Insurance [id number] ANSI-Not a Secondary Insurance [id number] ANSI-Not a Secondary Insurance [id number] ANSI-Not a Secondary Insurance [id number] Problems, Conditions, and Diagnoses Code Display Name Description Problem Type Effective Dates Data Source(s) U27152 Abdominal aortic ectasia Abdominal aortic ectasia Diag nosis 05/02/2020 07:19:00 AM EST [facility] H2511 Age-related nuclear cataract, right eye Age-related nuclear cataract, right eye Diagnosis 12/28/2019 08:00:00 AM EDT [facility] H2512 Age-related nuclear cataract, left eye A ge-related nuclear cataract, left eye Diagnosis 12/14/2019 06:45:00 AM EDT [facility] M72.2 Plantar fascial fibromatosis Plantar fascial fibromato sis Problem 05/21/2020 12:00:00 AM EDT [facility] ([facility] I73.9 Peripheral vascular disease Peripheral vascular diseas e Problem 05/01/2020 12:00:00 AM EST [facility] ([facility] ) Z79.4 Long-term current use of insulin Long-term current use of insulin Problem 05/01/2020 12:00:00 AM EST [facility] ([facility] ) [id number] Chronic kidney disease stage 3 Chronic kidney disease stage 3 Problem 04/01/2020 12:00:00 AM EST [facility] ([facility] 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 Problem 12/15/2019 12:00:00 AM EDT [facility] ([facility] M20.40 Hammer toe Hammer toe Problem 12/15/2019 12:00:00 AM ED T [facility] ([facility] Surgeries/Procedures Procedure Description Date Indications Data Source(s) DEBRIDEMENT NAIL ANY METHOD 6/> 12/28/2020 12:00:00 AM EDT [facility] ([facility] OFFICE OUTPATIENT VISIT 25 MINUTES 11/27/2020 12:00:00 AM EDT [facility] ([facility]) OFFICE OUTPATIENT VISIT 25 MINUTES 11/01/2020 12:00:00 AM EDT [facility] ([facility] DEBRIDEMENT NAIL ANY METHOD 10/19/2020 12:00:00 AM EDT [facility] ([facility] OFFICE OUTPATIENT VISIT 25 MINUTES 07/26/2020 12:00:00 AM EDT [facility] ([facility] DEBRIDEMENT NAIL ANY METHOD 07/17/2020 12:00:00 AM EDT [facility] ([facility] OFFICE OUTPATIENT VISIT 15 MINUTES 05/24/2020 12:00:00 AM EDT [facility] ([facility]) OFFICE OUTPATIENT VISIT 10 MINUTES 05/14/2020 12:00:00 AM EDT [facility] ([facility]) PARING/CUTTING BENIGN HYPERKERATOTIC LESION 2-4 2020 12:00:00 AM EST [facility] ([facility] DEBRIDEMENT NAIL ANY METHOD 05/09/2020 12:00:00 AM EST [facility] ([facility] OFFICE OUTPATIENT VISIT 15 MINUTES 05/09/2020 12:00:00 AM EST [facility] ([facility] Endoscopy Nasal/Sinus Surgical W/ Ethmoidectomy Total 05/07/2020 12:00:00 AM EST [facility] ([facility]) Endoscopy Nasal/Sinus Surgical Remove Tissue From Maxillary Sinus 05/07/2020 12:00:00 AM EST [facility] ([facility]) Electrocardiogram Complete 03/22/2020 12:00:00 AM EST [facility] ([facility] DEBRIDEMENT NAIL ANY METHOD 6/> 03/06/2020 12:00:00 AM EST [facility] ([facility] EXCISION NASAL POLYP SIMPLE 12/26/2019 12:00:00 AM EDT [facility] ([facility] ) MRI Upper Extremity Any Joint 12/16/2019 12:00:00 AM E DT [facility] ([facility] ) MRI Upper Extremity Any Joint 12/16/2019 12:00:00 AM E DT [facility] ([facility] ) FX Ulna Proximal End (eg:Olecranon or Coronoid Proc) W/O Man ipula 12/12/2019 12:00:00 AM EDT [facility] ([facility] ) Results ID Date Data Source [id number] 10/05/2020 10:14:00 AM EDT [facility] ([facility]) Name Value Range Interpretation Code Description Data Tammi rce(s) Supporting Document(s) Uric Acid 5.6 2.6-6 [facility]) ID Date Data Source [id number] 10/05/2020 10:14:00 AM EDT [facility] ([facility]) Name Value Range Interpretation Code Description Data Tammi rce(s) Supporting Document(s) White Blood Count 8.1 5.0-10.0 [facility] ([facility]) Platelets 159 172-450 [facility] ([facility]) Red Blood Count 4.09 4.70-6.10 [facility] ([facility]) Hemoglobin 13.3 14.0-18.0 [facility] ([facility]) Hematocrit 39.2 42.0-52.0 [facility] ([facility]) ID Date Data Source [id number] 10/05/2020 10:14:00 AM EDT [facility] ([facility]) Name Value Range Interpretation Code Description Data Tammi rce(s) Supporting Document(s) Glucose 165 70-106 [facility] ([facility]) Blood Urea Nitrogen 30.1 7-18 [facility] ([facility]) Creatinine 1.6 0.55-1.3 [facility] Sodium 139.5 135-145 [facility] Glomerular filtration rate/1.73 sq M.pre dicted [Volume Rate/Area] in Serum or Plasma by Creatinine-based formula (MDRD) 43 [facility] ([facility]) Chloride 109.3 94-110 [facility] [place] Potassium 4.04 3.5-5.5 [facility] [place] Calcium 8.1 8.5-10.1 [facility] [place] Carbon Dioxide 28.0 21-32 [facility] ([facility]) Phosphorus 3.3 2.5-4.9 [facility] ([facility]) Albumin 3.4 3.2-5.2 [facility] [place] ID Date Data Source [id number] 07/24/2020 10:40:00 AM EDT [facility] ([facility]) Name Value Range Interpretation Code Description Data Tammi rce(s) Supporting Document(s) Magnesium Level 2.02 1.6-2.6 [facility] ID Date Data Source [id number] 07/24/2020 10:40:00 AM EDT [facility] ([facility]) Name Value Range Interpretation Code Description Data Tammi rce(s) Supporting Document(s) White Blood Count 7.9 5.0-10.0 [facility] Red Blood Count 3.61 4.70-6.10 [facility] [place] Hemoglobin 11.7 14.0-18.0 [facility] ([facility]) Platelets 168 172-450 [facility] [place] Hematocrit 35.6 42.0-52.0 [facility] ([facility]) ID Date Data Source [id number] 07/24/2020 10:40:00 AM EDT [facility] ([facility]) Name Value Range Interpretation Code Description Data Tammi rce(s) Supporting Document(s) Glucose 157 70-106 [facility] [place] Creatinine 1.8 0.55-1.3 [facility] ([facility]) Blood Urea Nitrogen 23.5 7-18 [facility] ([facility]) Sodium 145.3 135-145 [facility] [place] Glomerular filtration rate/1.73 sq M.pre dicted [Volume Rate/Area] in Serum or Plasma by Creatinine-based formula (MDRD) 38 [facility] ([facility]) Chloride 110.2 94-110 [facility]) Potassium 4.44 3.5-5.3 [facility] ([facility]) Carbon Dioxide 24.3 20-32 [facility] ([facility]) Phosphorus 3.6 [facility] ([facility]) Calcium 8.3 8.5-10.1 [facility] ([facility]) Albumin 3.4 3.2-5.2 [facility] ([facility]) ID Date Data Source [id number] 06/13/2020 01:04:00 PM EDT [facility] ([facility]) Name Value Range Interpretation Code Description Data Tammi rce(s) Supporting Document(s) Magnesium Level 2.00 [facility] ([facility]) ID Date Data Source [id number] 06/13/2020 01:04:00 PM EDT [facility] ([facility]) Name Value Range Interpretation Code Description Data Tammi rce(s) Supporting Document(s) White Blood Count 10.1 4.3-10.9 [facility] ([facility]) Platelets 215 130-400 [facility]) Red Blood Count 3.95 4.70-6.20 [facility] ([facility]) Hemoglobin 12.9 13.0-17.0 [facility] ([facility]) Hematocrit 39.0 39.0-50.0 [facility] ([facility]) ID Date Data Source [id number] 06/13/2020 01:04:00 PM EDT [facility] ([facility]) Name Value Range Interpretation Code Description Data Tammi rce(s) Supporting Document(s) Blood Urea Nitrogen 27.0 5-21 [facility] ([facility] [place] Glucose 129 70-100 [facility] [place] Glomerular filtration rate/1.73 sq M.pre dicted [Volume Rate/Area] in Serum or Plasma by Creatinine-based formula (MDRD) 50 [facility] ([facility]) Creatinine 1.4 0.6-1.5 [facility] ([facility]) Sodium 138.6 136-146 [facility] [place] Potassium 4.28 3.5-5.3 [facility] [place] Carbon Dioxide 29.1 20-32 [facility] [place] Chloride 106.2 98-110 [facility] [place] Phosphorus 3.4 [facility] ([facility]) Calcium 8.3 8.4-10.4 [facility] [place] Albumin 3.6 3.5-4.7 [facility] [place] ID Date Data Source [id number] 05/08/2020 11:33:00 AM [facility] [address] [place] [address] PHONE: [phone] FAX: [phone] Name .................. : LISA Stanford Acct Number.................. : [id number] ROOM. ................. : Number ................... : [id number] Stay type ............. : O/P Discharge Date......... ... : 05/02/20 Admit Date ....... .. : 05/02/20 Admit Phys .................... : [facility] Date of ....... : 1950 Family Phys ................... : INGRIS THOMSON Phone .................. : [phone] Age ................................ : 69 Film# .................. .:[id number] Sex ................................. : M Unsigned transcriptions are preliminary reports and do not represent a medical or legal document US ABD COMPLETE [id number] COMPLETE:05/02/20 07:59 KNB 5457 (REASON FOR ABDOMEN: Abdominal aortic ectasia, check kidneys as well ABDOMINAL ULTRASOUND, 05/02/20: FINDINGS: Cystic foci are noted in bilateral kidneys measuring up to 1.2 cm. Solid renal mass, hydronephrosis, or calculus is not identified. The right and left kidneys measure 9.5 cm and 10.0 cm, respectively. The proximal most abdominal aorta was obscured by bowel gas. The visualized mid and distal abdominal aorta are normal in caliber with maximal diameter of 2.2 cm. The spleen is homogeneous and not enlarged measuring 10.0 x 5.9 x 10.5 cm. Hepatic mass, intrahepatic biliary dilatation, or fatty infiltrate of the liver is not seen. The common bile duct has a maximal diameter of 6.7 mm, which is along the upper limits of normal. Gallstone, gallbladder, sludge, gallbladder wall thickening, or pericholecystic fluid is not seen. There is no ascites. Evaluation of the pancreas is limited by underlying bowel gas. Pancreatic pathology is not identified. IMPRESSION: Incomplete visualization of the abdominal aorta due to underlying bowel gas. Vi sualized aorta is normal in caliber. Aortic aneurysm not seen, but not definitively excluded based on current examination. Small cystic foci bilateral kidneys. Otherwise, unremarkable examination. _ Electronically Reviewed and Signed By Liz Nice MD , 05/08/20 11:33, MIRELLA Transcribe Initials: SSR, Transcribe Date: 05/02/20 10:47, Dictation Date: Copy for: LILLY JACQUES via fax [address] [facility] [address] [place] [address] PHONE: [phone] FAX: [phone] Name .................. : LISA Stanford Acct Number.................. : [id number] ROOM. ................. : MR Number ................... : [id number] Stay type ............. : O/P Discharge Date......... ... : 05/02/20 Admit Date ......... : 05/02/20 Admit Phys .................... : [facility] Date of ....... : 1950 Family Phys ................... : INGRIS JONESKHALIF Phone .................. : [phone] Age .... ............................ : 69 Film# .................. .:[id number] Sex ................................. : M Unsigned transcriptions are preliminary reports and do not represent a medical or legal document US ABD COMPLETE [id number] COMPLETE:05/02/20 07:59 KNB 5457 (REASON FOR ABDOMEN: Abdominal aortic ectasia, check kidneys as well Copy for: INGRIS TISHA via fax Copy for: 710 MED REC Page 2 of 2 Name Value Range Interpretation Code Description Data Tammi rce(s) Supporting Document(s) ID Date Data Source [id number] 05/07/2020 12:15:00 PM EST [facility] ([facility] Name Value Range Interpretation Code Description Data Tammi rce(s) Supporting Document(s) Glucose [Mass/volume] in Capillary blood by Glucometer 97 mg/dL 80-115 Normal (applies to non-numeric results) [facility] ID Date Data Source [id number] 05/07/2020 12:15:00 PM EST [facility] ([facility]) Name Value Range Interpretation Code Description Data Tammi rce(s) Supporting Document(s) Glucose [Mass/volume] in Capillary blood by Glucometer 97 mg/dL 80-115 Normal (applies to non-numeric results) [facility] ID Date Data Source [id number] 05/07/2020 11:52:00 AM EST [facility] ([facility]) Name Value Range Interpretation Code Description Data Tammi rce(s) Supporting Document(s) Surgical pathology study Laboratory test result [facility] ([facility]) FINAL DIAGNOSIS Submitted as "ethmoid polyp", excision: Inflamed edematous sinonasal mucosa with plasma cells, lymphocytes, neutrophils and fragments of bone. Negative for malignancy. 05/08/2020 - 1017 CLINICAL DIAGNOSIS Chronic sinusitis 05/07/2020 - 1513 GROSS DIAGNOSIS Received in formalin labeled "ethmoid polyp" and consists of fragments of tissue, 4 x 3 x 1 cm in aggregate. Percussion Tuner sections submitted in one. -OA 05/08/2020 - 1017 Signed ÁLVARO MILES MD 05/08/2020 1018 ID Date Data Source [id number] 05/07/2020 09:25:00 AM EST [facility] ([facility] Name Value Range Interpretation Code Description Data Tammi rce(s) Supporting Document(s) Glucose [Mass/volume] in Capillary blood by Glucometer 94 mg/dL 80-115 Normal (applies to non-numeric results) [facility] ID Date Data Source [id number] 05/07/2020 09:25:00 AM EST [facility] Name Value Range Interpretation Code Description Data Tammi rce(s) Supporting Document(s) Glucose [Mass/volume] in Capillary blood by Glucometer 94 mg/dL 80-115 Normal (applies to non-numeric results) [facility] ([facility], ) ID Date Data Source [id number] 05/02/2020 02:00:00 PM EST [facility] Name Value Range Interpretation Code Description Data Tammi rce(s) Supporting Document(s) SARS coronavirus 2 RNA Not Detected [facility] [place] This lab was ordered by [facility] and reported by [facility]. ID Date Data Source [id number] 04/19/2020 01:43:00 PM EST [facility] Name Value Range Interpretation Code Description Data Tammi rce(s) Supporting Document(s) Hemoglobin A1c/Hemoglobin.total in Blood 6.3 % 4.50-6.20 Above high normal [facility] ([facility] ID Date Data Source [id number] 04/19/2020 01:43:00 PM EST [facility] ([facility] Name Value Range Interpretation Code Description Data Tammi rce(s) Supporting Document(s) BUN 30 mg/dL 8-23 Above high normal [facility] ([facility] CHRONIC KIDNEY DISEASE STAGING PER NKF: MALE GFR INTERPRETATION: 20-49 YRS: >60 mL/min Normal 50-59 YRS: >56 mL/min Normal 60-69 YRS: >49 mL/min Normal 70-79 YRS: >42 mL/min Normal 80 and above >35 mL/min Normal FEMALE GRF INTERPRETATION: 20-39 YRS: >60 mL/min Normal 40-49 YRS: >58 mL/min Normal 50-59 YRS: >51 mL/min Normal 60-69 YRS: >45 mL/min Normal 70-79 YRS: >39 mL/min Normal 80 and above >32 mL/min NormalCLASSIFICATION CHOLESTEROL FOR ADULTS CHILDREN/ADOLESCENTS* DESIRABLE: <200 MG/DL <170 MG/DL BORDER-LINE HIGH RISK: 200-239 MG/DL 170-199 MG/DL HIGH RISK: >240 MG/DL >200 MG/DL CLASS. FOR PRIMARY LDL CHOL PREVENTION: LDL CHOL-CHILD/ADOLESCENTS* DESIRABLE: <130 MG/DL <110 MG/DL BORDERLINE-HIGH RISK: 130- 159 MG/DL 110-129 MG/DL HIGH RISK: >160 MG/DL >130 MG/DL *CHILDREN AND ADOLESCENTS REPRESENTS INDIVIDUALA AGED 2-19 YEARS EXCLUSIVE. Glu 113 mg/dL 70-110 Above high normal [facility] ([facility] CHRONIC KIDNEY DISEASE STAGING PER NKF: MALE GFR INTERPRETATION: 20-49 YRS: >60 mL/min Normal 50-59 YRS: >56 mL/min Normal 60-69 YRS: >49 mL/min Normal 70-79 YRS: >42 mL/min Normal 80 and above >35 mL/min Normal FEMALE GRF INTERPRETATION: 20-39 YRS: >60 mL/min Normal 40-49 YRS: >58 mL/min Normal 50-59 YRS: >51 mL/min Normal 60-69 YRS: >45 mL/min Normal 70-79 YRS: >39 mL/min Normal 80 and above >32 mL/min NormalCLASSIFICATION CHOLESTEROL FOR ADULTS CHILDREN/ADOLESCENTS* DESIRABLE: <200 MG/DL <170 MG/DL BORDER-LINE HIGH RISK: 200-239 MG/DL 170-199 MG/DL HIGH RISK: >240 MG/DL >200 MG/DL CLASS. FOR PRIMARY LDL CHOL PREVENTION: LDL CHOL-CHILD/ADOLESCENTS* DESIRABLE: <130 MG/DL <110 MG/DL BORDERLINE-HIGH RISK: 130- 159 MG/DL 110-129 MG/DL HIGH RISK: >160 MG/DL >130 MG/DL *CHILDREN AND ADOLESCENTS REPRESENTS INDIVIDUALA AGED 2-19 YEARS EXCLUSIVE. Creat 2.0 mg/dL 0.7-1.2 Above high normal [facility] ([facility] CHRONIC KIDNEY DISEASE STAGING PER NKF: MALE GFR INTERPRETATION: 20-49 YRS: >60 mL/min Normal 50-59 YRS: >56 mL/min Normal 60-69 YRS: >49 mL/min Normal 70-79 YRS: >42 mL/min Normal 80 and above >35 mL/min Normal FEMALE GRF INTERPRETATION: 20-39 YRS: >60 mL/min Normal 40-49 YRS: >58 mL/min Normal 50-59 YRS: >51 mL/min Normal 60-69 YRS: >45 mL/min Normal 70-79 YRS: >39 mL/min Normal 80 and above >32 mL/min NormalCLASSIFICATION CHOLESTEROL FOR ADULTS CHILDREN/ADOLESCENTS* DESIRABLE: <200 MG/DL <170 MG/DL BORDER-LINE HIGH RISK: 200-239 MG/DL 170-199 MG/DL HIGH RISK: >240 MG/DL >200 MG/DL CLASS. FOR PRIMARY LDL CHOL PREVENTION: LDL CHOL-CHILD/ADOLESCENTS* DESIRABLE: <130 MG/DL <110 MG/DL BORDERLINE-HIGH RISK: 130- 159 MG/DL 110-129 MG/DL HIGH RISK: >160 MG/DL >130 MG/DL *CHILDREN AND ADOLESCENTS REPRESENTS INDIVIDUALA AGED 2-19 YEARS EXCLUSIVE. BUN/Creatinine Ratio 14.7 CALC [facility] ([facility] CHRONIC KIDNEY DISEASE STAGING PER NKF: MALE GFR INTERPRETATION: 20-49 YRS: >60 mL/min Normal 50-59 YRS: >56 mL/min Normal 60-69 YRS: >49 mL/min Normal 70-79 YRS: >42 mL/min Normal 80 and above >35 mL/min Normal FEMALE GRF INTERPRETATION: 20-39 YRS: >60 mL/min Normal 40-49 YRS: >58 mL/min Normal 50-59 YRS: >51 mL/min Normal 60-69 YRS: >45 mL/min Normal 70-79 YRS: >39 mL/min Normal 80 and above >32 mL/min NormalCLASSIFICATION CHOLESTEROL FOR ADULTS CHILDREN/ADOLESCENTS* DESIRABLE: <200 MG/DL <170 MG/DL BORDER-LINE HIGH RISK: 200-239 MG/DL 170-199 MG/DL HIGH RISK: >240 MG/DL >200 MG/DL CLASS. FOR PRIMARY LDL CHOL PREVENTION: LDL CHOL-CHILD/ADOLESCENTS* DESIRABLE: <130 MG/DL <110 MG/DL BORDERLINE-HIGH RISK: 130- 159 MG/DL 110-129 MG/DL HIGH RISK: >160 MG/DL >130 MG/DL *CHILDREN AND ADOLESCENTS REPRESENTS INDIVIDUALA AGED 2-19 YEARS EXCLUSIVE. Co2 19.7 mmol/L 22.0-29.0 Below low normal [facility] ([facility] CHRONIC KIDNEY DISEASE STAGING PER NKF: MALE GFR INTERPRETATION: 20-49 YRS: >60 mL/min Normal 50-59 YRS: >56 mL/min Normal 60-69 YRS: >49 mL/min Normal 70-79 YRS: >42 mL/min Normal 80 and above >35 mL/min Normal FEMALE GRF INTERPRETATION: 20-39 YRS: >60 mL/min Normal 40-49 YRS: >58 mL/min Normal 50-59 YRS: >51 mL/min Normal 60-69 YRS: >45 mL/min Normal 70-79 YRS: >39 mL/min Normal 80 and above >32 mL/min NormalCLASSIFICATION CHOLESTEROL FOR ADULTS CHILDREN/ADOLESCENTS* DESIRABLE: <200 MG/DL <170 MG/DL BORDER-LINE HIGH RISK: 200-239 MG/DL 170-199 MG/DL HIGH RISK: >240 MG/DL >200 MG/DL CLASS. FOR PRIMARY LDL CHOL PREVENTION: LDL CHOL-CHILD/ADOLESCENTS* DESIRABLE: <130 MG/DL <110 MG/DL BORDERLINE-HIGH RISK: 130- 159 MG/DL 110-129 MG/DL HIGH RISK: >160 MG/DL >130 MG/DL *CHILDREN AND ADOLESCENTS REPRESENTS INDIVIDUALA AGED 2-19 YEARS EXCLUSIVE. CA 8.7 mg/dL 8.6-10.2 [facility] ([facility] CHRONIC KIDNEY DISEASE STAGING PER NKF: MALE GFR INTERPRETATION: 20-49 YRS: >60 mL/min Normal 50-59 YRS: >56 mL/min Normal 60-69 YRS: >49 mL/min Normal 70-79 YRS: >42 mL/min Normal 80 and above >35 mL/min Normal FEMALE GRF INTERPRETATION: 20-39 YRS: >60 mL/min Normal 40-49 YRS: >58 mL/min Normal 50-59 YRS: >51 mL/min Normal 60-69 YRS: >45 mL/min Normal 70-79 YRS: >39 mL/min Normal 80 and above >32 mL/min NormalCLASSIFICATION CHOLESTEROL FOR ADULTS CHILDREN/ADOLESCENTS* DESIRABLE: <200 MG/DL <170 MG/DL BORDER-LINE HIGH RISK: 200-239 MG/DL 170-199 MG/DL HIGH RISK: >240 MG/DL >200 MG/DL CLASS. FOR PRIMARY LDL CHOL PREVENTION: LDL CHOL-CHILD/ADOLESCENTS* DESIRABLE: <130 MG/DL <110 MG/DL BORDERLINE-HIGH RISK: 130- 159 MG/DL 110-129 MG/DL HIGH RISK: >160 MG/DL >130 MG/DL *CHILDREN AND ADOLESCENTS REPRESENTS INDIVIDUALA AGED 2-19 YEARS EXCLUSIVE. Na 142 mmol/L 136-145 [facility] ([facility] CHRONIC KIDNEY DISEASE STAGING PER NKF: MALE GFR INTERPRETATION: 20-49 YRS: >60 mL/min Normal 50-59 YRS: >56 mL/min Normal 60-69 YRS: >49 mL/min Normal 70-79 YRS: >42 mL/min Normal 80 and above >35 mL/min Normal FEMALE GRF INTERPRETATION: 20-39 YRS: >60 mL/min Normal 40-49 YRS: >58 mL/min Normal 50-59 YRS: >51 mL/min Normal 60-69 YRS: >45 mL/min Normal 70-79 YRS: >39 mL/min Normal 80 and above >32 mL/min NormalCLASSIFICATION CHOLESTEROL FOR ADULTS CHILDREN/ADOLESCENTS* DESIRABLE: <200 MG/DL <170 MG/DL BORDER-LINE HIGH RISK: 200-239 MG/DL 170-199 MG/DL HIGH RISK: >240 MG/DL >200 MG/DL CLASS. FOR PRIMARY LDL CHOL PREVENTION: LDL CHOL-CHILD/ADOLESCENTS* DESIRABLE: <130 MG/DL <110 MG/DL BORDERLINE-HIGH RISK: 130- 159 MG/DL 110-129 MG/DL HIGH RISK: >160 MG/DL >130 MG/DL *CHILDREN AND ADOLESCENTS REPRESENTS INDIVIDUALA AGED 2-19 YEARS EXCLUSIVE. CL 110.9 mmol/L 98.0-107.0 Above high normal [facility] ([facility] CHRONIC KIDNEY DISEASE STAGING PER NKF: MALE GFR INTERPRETATION: 20-49 YRS: >60 mL/min Normal 50-59 YRS: >56 mL/min Normal 60-69 YRS: >49 mL/min Normal 70-79 YRS: >42 mL/min Normal 80 and above >35 mL/min Normal FEMALE GRF INTERPRETATION: 20-39 YRS: >60 mL/min Normal 40-49 YRS: >58 mL/min Normal 50-59 YRS: >51 mL/min Normal 60-69 YRS: >45 mL/min Normal 70-79 YRS: >39 mL/min Normal 80 and above >32 mL/min NormalCLASSIFICATION CHOLESTEROL FOR ADULTS CHILDREN/ADOLESCENTS* DESIRABLE: <200 MG/DL <170 MG/DL BORDER-LINE HIGH RISK: 200-239 MG/DL 170-199 MG/DL HIGH RISK: >240 MG/DL >200 MG/DL CLASS. FOR PRIMARY LDL CHOL PREVENTION: LDL CHOL-CHILD/ADOLESCENTS* DESIRABLE: <130 MG/DL <110 MG/DL BORDERLINE-HIGH RISK: 130- 159 MG/DL 110-129 MG/DL HIGH RISK: >160 MG/DL >130 MG/DL *CHILDREN AND ADOLESCENTS REPRESENTS INDIVIDUALA AGED 2-19 YEARS EXCLUSIVE. Anion Gap 14 mmol/L [facility] CHRONIC KIDNEY DISEASE STAGING PER NKF: MALE GFR INTERPRETATION: 20-49 YRS: >60 mL/min Normal 50-59 YRS: >56 mL/min Normal 60-69 YRS: >49 mL/min Normal 70-79 YRS: >42 mL/min Normal 80 and above >35 mL/min Normal FEMALE GRF INTERPRETATION: 20-39 YRS: >60 mL/min Normal 40-49 YRS: >58 mL/min Normal 50-59 YRS: >51 mL/min Normal 60-69 YRS: >45 mL/min Normal 70-79 YRS: >39 mL/min Normal 80 and above >32 mL/min NormalCLASSIFICATION CHOLESTEROL FOR ADULTS CHILDREN/ADOLESCENTS* DESIRABLE: <200 MG/DL <170 MG/DL BORDER-LINE HIGH RISK: 200-239 MG/DL 170-199 MG/DL HIGH RISK: >240 MG/DL >200 MG/DL CLASS. FOR PRIMARY LDL CHOL PREVENTION: LDL CHOL-CHILD/ADOLESCENTS* DESIRABLE: <130 MG/DL <110 MG/DL BORDERLINE-HIGH RISK: 130- 159 MG/DL 110-129 MG/DL HIGH RISK: >160 MG/DL >130 MG/DL *CHILDREN AND ADOLESCENTS REPRESENTS INDIVIDUALA AGED 2-19 YEARS EXCLUSIVE. K 3.6 mmol/L 3.5-5.1 [facility] ([facility] CHRONIC KIDNEY DISEASE STAGING PER NKF: MALE GFR INTERPRETATION: 20-49 YRS: >60 mL/min Normal 50-59 YRS: >56 mL/min Normal 60-69 YRS: >49 mL/min Normal 70-79 YRS: >42 mL/min Normal 80 and above >35 mL/min Normal FEMALE GRF INTERPRETATION: 20-39 YRS: >60 mL/min Normal 40-49 YRS: >58 mL/min Normal 50-59 YRS: >51 mL/min Normal 60-69 YRS: >45 mL/min Normal 70-79 YRS: >39 mL/min Normal 80 and above >32 mL/min NormalCLASSIFICATION CHOLESTEROL FOR ADULTS CHILDREN/ADOLESCENTS* DESIRABLE: <200 MG/DL <170 MG/DL BORDER-LINE HIGH RISK: 200-239 MG/DL 170-199 MG/DL HIGH RISK: >240 MG/DL >200 MG/DL CLASS. FOR PRIMARY LDL CHOL PREVENTION: LDL CHOL-CHILD/ADOLESCENTS* DESIRABLE: <130 MG/DL <110 MG/DL BORDERLINE-HIGH RISK: 130- 159 MG/DL 110-129 MG/DL HIGH RISK: >160 MG/DL >130 MG/DL *CHILDREN AND ADOLESCENTS REPRESENTS INDIVIDUALA AGED 2-19 YEARS EXCLUSIVE. eGFR Non-Afr. Romanian 33 # [facility] ([facility] CHRONIC KIDNEY DISEASE STAGING PER NKF: MALE GFR INTERPRETATION: 20-49 YRS: >60 mL/min Normal 50-59 YRS: >56 mL/min Normal 60-69 YRS: >49 mL/min Normal 70-79 YRS: >42 mL/min Normal 80 and above >35 mL/min Normal FEMALE GRF INTERPRETATION: 20-39 YRS: >60 mL/min Normal 40-49 YRS: >58 mL/min Normal 50-59 YRS: >51 mL/min Normal 60-69 YRS: >45 mL/min Normal 70-79 YRS: >39 mL/min Normal 80 and above >32 mL/min NormalCLASSIFICATION CHOLESTEROL FOR ADULTS CHILDREN/ADOLESCENTS* DESIRABLE: <200 MG/DL <170 MG/DL BORDER-LINE HIGH RISK: 200-239 MG/DL 170-199 MG/DL HIGH RISK: >240 MG/DL >200 MG/DL CLASS. FOR PRIMARY LDL CHOL PREVENTION: LDL CHOL-CHILD/ADOLESCENTS* DESIRABLE: <130 MG/DL <110 MG/DL BORDERLINE-HIGH RISK: 130- 159 MG/DL 110-129 MG/DL HIGH RISK: >160 MG/DL >130 MG/DL *CHILDREN AND ADOLESCENTS REPRESENTS INDIVIDUALA AGED 2-19 YEARS EXCLUSIVE. eGFR 38 # [facility] ( [facility] CHRONIC KIDNEY DISEASE STAGING PER NKF: MALE GFR INTERPRETATION: 20-49 YRS: >60 mL/min Normal 50-59 YRS: >56 mL/min Normal 60-69 YRS: >49 mL/min Normal 70-79 YRS: >42 mL/min Normal 80 and above >35 mL/min Normal FEMALE GRF INTERPRETATION: 20-39 YRS: >60 mL/min Normal 40-49 YRS: >58 mL/min Normal 50-59 YRS: >51 mL/min Normal 60-69 YRS: >45 mL/min Normal 70-79 YRS: >39 mL/min Normal 80 and above >32 mL/min NormalCLASSIFICATION CHOLESTEROL FOR ADULTS CHILDREN/ADOLESCENTS* DESIRABLE: <200 MG/DL <170 MG/DL BORDER-LINE HIGH RISK: 200-239 MG/DL 170-199 MG/DL HIGH RISK: >240 MG/DL >200 MG/DL CLASS. FOR PRIMARY LDL CHOL PREVENTION: LDL CHOL-CHILD/ADOLESCENTS* DESIRABLE: <130 MG/DL <110 MG/DL BORDERLINE-HIGH RISK: 130- 159 MG/DL 110-129 MG/DL HIGH RISK: >160 MG/DL >130 MG/DL *CHILDREN AND ADOLESCENTS REPRESENTS INDIVIDUALA AGED 2-19 YEARS EXCLUSIVE. ID Date Data Source [id number] 04/19/2020 01:43:00 PM EST [facility] ([facility] Name Value Range Interpretation Code Description Data Tammi rce(s) Supporting Document(s) Chol 116 mg/dL 0-200 [facility] ([facility] CHRONIC KIDNEY DISEASE STAGING PER NKF: MALE GFR INTERPRETATION: 20-49 YRS: >60 mL/min Normal 50-59 YRS: >56 mL/min Normal 60-69 YRS: >49 mL/min Normal 70-79 YRS: >42 mL/min Normal 80 and above >35 mL/min Normal FEMALE GRF INTERPRETATION: 20-39 YRS: >60 mL/min Normal 40-49 YRS: >58 mL/min Normal 50-59 YRS: >51 mL/min Normal 60-69 YRS: >45 mL/min Normal 70-79 YRS: >39 mL/min Normal 80 and above >32 mL/min NormalCLASSIFICATION CHOLESTEROL FOR ADULTS CHILDREN/ADOLESCENTS* DESIRABLE: <200 MG/DL <170 MG/DL BORDER-LINE HIGH RISK: 200-239 MG/DL 170-199 MG/DL HIGH RISK: >240 MG/DL >200 MG/DL CLASS. FOR PRIMARY LDL CHOL PREVENTION: LDL CHOL-CHILD/ADOLESCENTS* DESIRABLE: <130 MG/DL <110 MG/DL BORDERLINE-HIGH RISK: 130- 159 MG/DL 110-129 MG/DL HIGH RISK: >160 MG/DL >130 MG/DL *CHILDREN AND ADOLESCENTS REPRESENTS INDIVIDUALA AGED 2-19 YEARS EXCLUSIVE. Trig 140 mg/dL 35-200 [facility] ([facility] CHRONIC KIDNEY DISEASE STAGING PER NKF: MALE GFR INTERPRETATION: 20-49 YRS: >60 mL/min Normal 50-59 YRS: >56 mL/min Normal 60-69 YRS: >49 mL/min Normal 70-79 YRS: >42 mL/min Normal 80 and above >35 mL/min Normal FEMALE GRF INTERPRETATION: 20-39 YRS: >60 mL/min Normal 40-49 YRS: >58 mL/min Normal 50-59 YRS: >51 mL/min Normal 60-69 YRS: >45 mL/min Normal 70-79 YRS: >39 mL/min Normal 80 and above >32 mL/min NormalCLASSIFICATION CHOLESTEROL FOR ADULTS CHILDREN/ADOLESCENTS* DESIRABLE: <200 MG/DL <170 MG/DL BORDER-LINE HIGH RISK: 200-239 MG/DL 170-199 MG/DL HIGH RISK: >240 MG/DL >200 MG/DL CLASS. FOR PRIMARY LDL CHOL PREVENTION: LDL CHOL-CHILD/ADOLESCENTS* DESIRABLE: <130 MG/DL <110 MG/DL BORDERLINE-HIGH RISK: 130- 159 MG/DL 110-129 MG/DL HIGH RISK: >160 MG/DL >130 MG/DL *CHILDREN AND ADOLESCENTS REPRESENTS INDIVIDUALA AGED 2-19 YEARS EXCLUSIVE. Cho/HDL Ratio 3.0 CALC [facility] ([facility] CHRONIC KIDNEY DISEASE STAGING PER NKF: MALE GFR INTERPRETATION: 20-49 YRS: >60 mL/min Normal 50-59 YRS: >56 mL/min Normal 60-69 YRS: >49 mL/min Normal 70-79 YRS: >42 mL/min Normal 80 and above >35 mL/min Normal FEMALE GRF INTERPRETATION: 20-39 YRS: >60 mL/min Normal 40-49 YRS: >58 mL/min Normal 50-59 YRS: >51 mL/min Normal 60-69 YRS: >45 mL/min Normal 70-79 YRS: >39 mL/min Normal 80 and above >32 mL/min NormalCLASSIFICATION CHOLESTEROL FOR ADULTS CHILDREN/ADOLESCENTS* DESIRABLE: <200 MG/DL <170 MG/DL BORDER-LINE HIGH RISK: 200-239 MG/DL 170-199 MG/DL HIGH RISK: >240 MG/DL >200 MG/DL CLASS. FOR PRIMARY LDL CHOL PREVENTION: LDL CHOL-CHILD/ADOLESCENTS* DESIRABLE: <130 MG/DL <110 MG/DL BORDERLINE-HIGH RISK: 130- 159 MG/DL 110-129 MG/DL HIGH RISK: >160 MG/DL >130 MG/DL *CHILDREN AND ADOLESCENTS REPRESENTS INDIVIDUALA AGED 2-19 YEARS EXCLUSIVE. LDL_C 49 Calc 75-129 Below low normal [facility] ( [facility] CHRONIC KIDNEY DISEASE STAGING PER NKF: MALE GFR INTERPRETATION: 20-49 YRS: >60 mL/min Normal 50-59 YRS: >56 mL/min Normal 60-69 YRS: >49 mL/min Normal 70-79 YRS: >42 mL/min Normal 80 and above >35 mL/min Normal FEMALE GRF INTERPRETATION: 20-39 YRS: >60 mL/min Normal 40-49 YRS: >58 mL/min Normal 50-59 YRS: >51 mL/min Normal 60-69 YRS: >45 mL/min Normal 70-79 YRS: >39 mL/min Normal 80 and above >32 mL/min NormalCLASSIFICATION CHOLESTEROL FOR ADULTS CHILDREN/ADOLESCENTS* DESIRABLE: <200 MG/DL <170 MG/DL BORDER-LINE HIGH RISK: 200-239 MG/DL 170-199 MG/DL HIGH RISK: >240 MG/DL >200 MG/DL CLASS. FOR PRIMARY LDL CHOL PREVENTION: LDL CHOL-CHILD/ADOLESCENTS* DESIRABLE: <130 MG/DL <110 MG/DL BORDERLINE-HIGH RISK: 130- 159 MG/DL 110-129 MG/DL HIGH RISK: >160 MG/DL >130 MG/DL *CHILDREN AND ADOLESCENTS REPRESENTS INDIVIDUALA AGED 2-19 YEARS EXCLUSIVE. Cholesterol in HDL [Mass/volume] in Serum or Plasma 39 mg/dL 35-55 [facility] ([facility] CHRONIC KIDNEY DISEASE STAGING PER NKF: MALE GFR INTERPRETATION: 20-49 YRS: >60 mL/min Normal 50-59 YRS: >56 mL/min Normal 60-69 YRS: >49 mL/min Normal 70-79 YRS: >42 mL/min Normal 80 and above >35 mL/min Normal FEMALE GRF INTERPRETATION: 20-39 YRS: >60 mL/min Normal 40-49 YRS: >58 mL/min Normal 50-59 YRS: >51 mL/min Normal 60-69 YRS: >45 mL/min Normal 70-79 YRS: >39 mL/min Normal 80 and above >32 mL/min NormalCLASSIFICATION CHOLESTEROL FOR ADULTS CHILDREN/ADOLESCENTS* DESIRABLE: <200 MG/DL <170 MG/DL BORDER-LINE HIGH RISK: 200-239 MG/DL 170-199 MG/DL HIGH RISK: >240 MG/DL >200 MG/DL CLASS. FOR PRIMARY LDL CHOL PREVENTION: LDL CHOL-CHILD/ADOLESCENTS* DESIRABLE: <130 MG/DL <110 MG/DL BORDERLINE-HIGH RISK: 130- 159 MG/DL 110-129 MG/DL HIGH RISK: >160 MG/DL >130 MG/DL *CHILDREN AND ADOLESCENTS REPRESENTS INDIVIDUALA AGED 2-19 YEARS EXCLUSIVE. ID Date Data Source [id number] 03/22/2020 02:40:00 PM EST [facility] ([facility] Name Value Range Interpretation Code Description Data Tammi rce(s) Supporting Document(s) Glu 160 mg/dL 70-110 Above high normal [facility] ([facility] NORMAL RANGES Age WBC RBC HGB HCT MCV PLT Adult M 4.1-10.9 4.20-6.30 12.0-18.0 37.0-51.0 80-97 140-440 Adult F 4.1-10.9 4.04-5.48 12.0-18.0 37.0-51.0 80-97 140-440 0 -1 Yr 5.0-20.0 3.9-5.9 15-18 MV: 44 MV: 91 MV: 277 2-9 Yr. 6.0-17.0 3.8-5.4 11-13 MV: 37 MV: 78 MV: 300 10 Yrs. 5.0-13.0 3.8-5.4 12-15 MV: 39 MV: 80 MV: 250 NOTE: * FOR ADULT BLACK MALES AND FEMALES, NORMAL WBC IS 2.9-7.7 K/ML * FOR ADULT BLACK MALES AND FEMALES, NORMAL RBC,HGB, AND HCT IS 5% LESS SOURCE FOR DATA: [employer] 1800 OPERATION MANUAL( AUTOMATED BLOOD COUNTS AND DIFF.) APPENDIX B-3 CHRONIC KIDNEY DISEASE STAGING PER NKF: MALE GFR INTERPRETATION: 20-49 YRS: >60 mL/min Normal 50-59 YRS: >56 mL/min Normal 60-69 YRS: >49 mL/min Normal 70-79 YRS: >42 mL/min Normal 80 and above >35 mL/min Normal FEMALE GRF INTERPRETATION: 20-39 YRS: >60 mL/min Normal 40-49 YRS: >58 mL/min Normal 50-59 YRS: >51 mL/min Normal 60-69 YRS: >45 mL/min Normal 70-79 YRS: >39 mL/min Normal 80 and above >32 mL/min Normal BUN/Creatinine Ratio 19.6 Calc [facility] NORMAL RANGES Age WBC RBC HGB HCT MCV PLT Adult M 4.1-10.9 4.20-6.30 12.0-18.0 37.0-51.0 80-97 140-440 Adult F 4.1-10.9 4.04-5.48 12.0-18.0 37.0-51.0 80-97 140-440 0 -1 Yr 5.0-20.0 3.9-5.9 15-18 MV: 44 MV: 91 MV: 277 2-9 Yr. 6.0-17.0 3.8-5.4 11-13 MV: 37 MV: 78 MV: 300 10 Yrs. 5.0-13.0 3.8-5.4 12-15 MV: 39 MV: 80 MV: 250 NOTE: * FOR ADULT BLACK MALES AND FEMALES, NORMAL WBC IS 2.9-7.7 K/ML * FOR ADULT BLACK MALES AND FEMALES, NORMAL RBC,HGB, AND HCT IS 5% LESS SOURCE FOR DATA: [employer] 1800 OPERATION MANUAL( AUTOMATED BLOOD COUNTS AND DIFF.) APPENDIX B-3 CHRONIC KIDNEY DISEASE STAGING PER NKF: MALE GFR INTERPRETATION: 20-49 YRS: >60 mL/min Normal 50-59 YRS: >56 mL/min Normal 60-69 YRS: >49 mL/min Normal 70-79 YRS: >42 mL/min Normal 80 and above >35 mL/min Normal FEMALE GRF INTERPRETATION: 20-39 YRS: >60 mL/min Normal 40-49 YRS: >58 mL/min Normal 50-59 YRS: >51 mL/min Normal 60-69 YRS: >45 mL/min Normal 70-79 YRS: >39 mL/min Normal 80 and above >32 mL/min Normal BUN 41 mg/dL 8-23 Above high normal [facility] NORMAL RANGES Age WBC RBC HGB HCT MCV PLT Adult M 4.1-10.9 4.20-6.30 12.0-18.0 37.0-51.0 80-97 140-440 Adult F 4.1-10.9 4.04-5.48 12.0-18.0 37.0-51.0 80-97 140-440 0 -1 Yr 5.0-20.0 3.9-5.9 15-18 MV: 44 MV: 91 MV: 277 2-9 Yr. 6.0-17.0 3.8-5.4 11-13 MV: 37 MV: 78 MV: 300 10 Yrs. 5.0-13.0 3.8-5.4 12-15 MV: 39 MV: 80 MV: 250 NOTE: * FOR ADULT BLACK MALES AND FEMALES, NORMAL WBC IS 2.9-7.7 K/ML * FOR ADULT BLACK MALES AND FEMALES, NORMAL RBC,HGB, AND HCT IS 5% LESS SOURCE FOR DATA: [employer] 1800 OPERATION MANUAL( AUTOMATED BLOOD COUNTS AND DIFF.) APPENDIX B-3 CHRONIC KIDNEY DISEASE STAGING PER NKF: MALE GFR INTERPRETATION: 20-49 YRS: >60 mL/min Normal 50-59 YRS: >56 mL/min Normal 60-69 YRS: >49 mL/min Normal 70-79 YRS: >42 mL/min Normal 80 and above >35 mL/min Normal FEMALE GRF INTERPRETATION: 20-39 YRS: >60 mL/min Normal 40-49 YRS: >58 mL/min Normal 50-59 YRS: >51 mL/min Normal 60-69 YRS: >45 mL/min Normal 70-79 YRS: >39 mL/min Normal 80 and above >32 mL/min Normal Creat 2.1 mg/dL 0.7-1.2 Above high normal [facility] ([facility] NORMAL RANGES Age WBC RBC HGB HCT MCV PLT Adult M 4.1-10.9 4.20-6.30 12.0-18.0 37.0-51.0 80-97 140-440 Adult F 4.1-10.9 4.04-5.48 12.0-18.0 37.0-51.0 80-97 140-440 0 -1 Yr 5.0-20.0 3.9-5.9 15-18 MV: 44 MV: 91 MV: 277 2-9 Yr. 6.0-17.0 3.8-5.4 11-13 MV: 37 MV: 78 MV: 300 10 Yrs. 5.0-13.0 3.8-5.4 12-15 MV: 39 MV: 80 MV: 250 NOTE: * FOR ADULT BLACK MALES AND FEMALES, NORMAL WBC IS 2.9-7.7 K/ML * FOR ADULT BLACK MALES AND FEMALES, NORMAL RBC,HGB, AND HCT IS 5% LESS SOURCE FOR DATA: [employer] 1800 OPERATION MANUAL( AUTOMATED BLOOD COUNTS AND DIFF.) APPENDIX B-3 CHRONIC KIDNEY DISEASE STAGING PER NKF: MALE GFR INTERPRETATION: 20-49 YRS: >60 mL/min Normal 50-59 YRS: >56 mL/min Normal 60-69 YRS: >49 mL/min Normal 70-79 YRS: >42 mL/min Normal 80 and above >35 mL/min Normal FEMALE GRF INTERPRETATION: 20-39 YRS: >60 mL/min Normal 40-49 YRS: >58 mL/min Normal 50-59 YRS: >51 mL/min Normal 60-69 YRS: >45 mL/min Normal 70-79 YRS: >39 mL/min Normal 80 and above >32 mL/min Normal Na 140 mmol/L 136-145 [facility] ([facility] NORMAL RANGES Age WBC RBC HGB HCT MCV PLT Adult M 4.1-10.9 4.20-6.30 12.0-18.0 37.0-51.0 80-97 140-440 Adult F 4.1-10.9 4.04-5.48 12.0-18.0 37.0-51.0 80-97 140-440 0 -1 Yr 5.0-20.0 3.9-5.9 15-18 MV: 44 MV: 91 MV: 277 2-9 Yr. 6.0-17.0 3.8-5.4 11-13 MV: 37 MV: 78 MV: 300 10 Yrs. 5.0-13.0 3.8-5.4 12-15 MV: 39 MV: 80 MV: 250 NOTE: * FOR ADULT BLACK MALES AND FEMALES, NORMAL WBC IS 2.9-7.7 K/ML * FOR ADULT BLACK MALES AND FEMALES, NORMAL RBC,HGB, AND HCT IS 5% LESS SOURCE FOR DATA: [employer] 1800 OPERATION MANUAL( AUTOMATED BLOOD COUNTS AND DIFF.) APPENDIX B-3 CHRONIC KIDNEY DISEASE STAGING PER NKF: MALE GFR INTERPRETATION: 20-49 YRS: >60 mL/min Normal 50-59 YRS: >56 mL/min Normal 60-69 YRS: >49 mL/min Normal 70-79 YRS: >42 mL/min Normal 80 and above >35 mL/min Normal FEMALE GRF INTERPRETATION: 20-39 YRS: >60 mL/min Normal 40-49 YRS: >58 mL/min Normal 50-59 YRS: >51 mL/min Normal 60-69 YRS: >45 mL/min Normal 70-79 YRS: >39 mL/min Normal 80 and above >32 mL/min Normal K 4.0 mmol/L 3.5-5.1 [facility] NORMAL RANGES Age WBC RBC HGB HCT MCV PLT Adult M 4.1-10.9 4.20-6.30 12.0-18.0 37.0-51.0 80-97 140-440 Adult F 4.1-10.9 4.04-5.48 12.0-18.0 37.0-51.0 80-97 140-440 0 -1 Yr 5.0-20.0 3.9-5.9 15-18 MV: 44 MV: 91 MV: 277 2-9 Yr. 6.0-17.0 3.8-5.4 11-13 MV: 37 MV: 78 MV: 300 10 Yrs. 5.0-13.0 3.8-5.4 12-15 MV: 39 MV: 80 MV: 250 NOTE: * FOR ADULT BLACK MALES AND FEMALES, NORMAL WBC IS 2.9-7.7 K/ML * FOR ADULT BLACK MALES AND FEMALES, NORMAL RBC,HGB, AND HCT IS 5% LESS SOURCE FOR DATA: [employer] 1800 OPERATION MANUAL( AUTOMATED BLOOD COUNTS AND DIFF.) APPENDIX B-3 CHRONIC KIDNEY DISEASE STAGING PER NKF: MALE GFR INTERPRETATION: 20-49 YRS: >60 mL/min Normal 50-59 YRS: >56 mL/min Normal 60-69 YRS: >49 mL/min Normal 70-79 YRS: >42 mL/min Normal 80 and above >35 mL/min Normal FEMALE GRF INTERPRETATION: 20-39 YRS: >60 mL/min Normal 40-49 YRS: >58 mL/min Normal 50-59 YRS: >51 mL/min Normal 60-69 YRS: >45 mL/min Normal 70-79 YRS: >39 mL/min Normal 80 and above >32 mL/min Normal Co2 15.9 mmol/L 22.0-29.0 Below low normal [facility] NORMAL RANGES Age WBC RBC HGB HCT MCV PLT Adult M 4.1-10.9 4.20-6.30 12.0-18.0 37.0-51.0 80-97 140-440 Adult F 4.1-10.9 4.04-5.48 12.0-18.0 37.0-51.0 80-97 140-440 0 -1 Yr 5.0-20.0 3.9-5.9 15-18 MV: 44 MV: 91 MV: 277 2-9 Yr. 6.0-17.0 3.8-5.4 11-13 MV: 37 MV: 78 MV: 300 10 Yrs. 5.0-13.0 3.8-5.4 12-15 MV: 39 MV: 80 MV: 250 NOTE: * FOR ADULT BLACK MALES AND FEMALES, NORMAL WBC IS 2.9-7.7 K/ML * FOR ADULT BLACK MALES AND FEMALES, NORMAL RBC,HGB, AND HCT IS 5% LESS SOURCE FOR DATA: [employer] 1800 OPERATION MANUAL( AUTOMATED BLOOD COUNTS AND DIFF.) APPENDIX B-3 CHRONIC KIDNEY DISEASE STAGING PER NKF: MALE GFR INTERPRETATION: 20-49 YRS: >60 mL/min Normal 50-59 YRS: >56 mL/min Normal 60-69 YRS: >49 mL/min Normal 70-79 YRS: >42 mL/min Normal 80 and above >35 mL/min Normal FEMALE GRF INTERPRETATION: 20-39 YRS: >60 mL/min Normal 40-49 YRS: >58 mL/min Normal 50-59 YRS: >51 mL/min Normal 60-69 YRS: >45 mL/min Normal 70-79 YRS: >39 mL/min Normal 80 and above >32 mL/min Normal CL 114.0 mmol/L 98.0-107.0 Above high normal [facility] ([facility] NORMAL RANGES Age WBC RBC HGB HCT MCV PLT Adult M 4.1-10.9 4.20-6.30 12.0-18.0 37.0-51.0 80-97 140-440 Adult F 4.1-10.9 4.04-5.48 12.0-18.0 37.0-51.0 80-97 140-440 0 -1 Yr 5.0-20.0 3.9-5.9 15-18 MV: 44 MV: 91 MV: 277 2-9 Yr. 6.0-17.0 3.8-5.4 11-13 MV: 37 MV: 78 MV: 300 10 Yrs. 5.0-13.0 3.8-5.4 12-15 MV: 39 MV: 80 MV: 250 NOTE: * FOR ADULT BLACK MALES AND FEMALES, NORMAL WBC IS 2.9-7.7 K/ML * FOR ADULT BLACK MALES AND FEMALES, NORMAL RBC,HGB, AND HCT IS 5% LESS SOURCE FOR DATA: [employer] 1800 OPERATION MANUAL( AUTOMATED BLOOD COUNTS AND DIFF.) APPENDIX B-3 CHRONIC KIDNEY DISEASE STAGING PER NKF: MALE GFR INTERPRETATION: 20-49 YRS: >60 mL/min Normal 50-59 YRS: >56 mL/min Normal 60-69 YRS: >49 mL/min Normal 70-79 YRS: >42 mL/min Normal 80 and above >35 mL/min Normal FEMALE GRF INTERPRETATION: 20-39 YRS: >60 mL/min Normal 40-49 YRS: >58 mL/min Normal 50-59 YRS: >51 mL/min Normal 60-69 YRS: >45 mL/min Normal 70-79 YRS: >39 mL/min Normal 80 and above >32 mL/min Normal CA 8.8 mg/dL 8.6-10.2 [facility] NORMAL RANGES Age WBC RBC HGB HCT MCV PLT Adult M 4.1-10.9 4.20-6.30 12.0-18.0 37.0-51.0 80-97 140-440 Adult F 4.1-10.9 4.04-5.48 12.0-18.0 37.0-51.0 80-97 140-440 0 -1 Yr 5.0-20.0 3.9-5.9 15-18 MV: 44 MV: 91 MV: 277 2-9 Yr. 6.0-17.0 3.8-5.4 11-13 MV: 37 MV: 78 MV: 300 10 Yrs. 5.0-13.0 3.8-5.4 12-15 MV: 39 MV: 80 MV: 250 NOTE: * FOR ADULT BLACK MALES AND FEMALES, NORMAL WBC IS 2.9-7.7 K/ML * FOR ADULT BLACK MALES AND FEMALES, NORMAL RBC,HGB, AND HCT IS 5% LESS SOURCE FOR DATA: [employer] 1800 OPERATION MANUAL( AUTOMATED BLOOD COUNTS AND DIFF.) APPENDIX B-3 CHRONIC KIDNEY DISEASE STAGING PER NKF: MALE GFR INTERPRETATION: 20-49 YRS: >60 mL/min Normal 50-59 YRS: >56 mL/min Normal 60-69 YRS: >49 mL/min Normal 70-79 YRS: >42 mL/min Normal 80 and above >35 mL/min Normal FEMALE GRF INTERPRETATION: 20-39 YRS: >60 mL/min Normal 40-49 YRS: >58 mL/min Normal 50-59 YRS: >51 mL/min Normal 60-69 YRS: >45 mL/min Normal 70-79 YRS: >39 mL/min Normal 80 and above >32 mL/min Normal TP 6.1 g/dL 6.6-8.7 Below low normal [facility] ( [facility] NORMAL RANGES Age WBC RBC HGB HCT MCV PLT Adult M 4.1-10.9 4.20-6.30 12.0-18.0 37.0-51.0 80-97 140-440 Adult F 4.1-10.9 4.04-5.48 12.0-18.0 37.0-51.0 80-97 140-440 0 -1 Yr 5.0-20.0 3.9-5.9 15-18 MV: 44 MV: 91 MV: 277 2-9 Yr. 6.0-17.0 3.8-5.4 11-13 MV: 37 MV: 78 MV: 300 10 Yrs. 5.0-13.0 3.8-5.4 12-15 MV: 39 MV: 80 MV: 250 NOTE: * FOR ADULT BLACK MALES AND FEMALES, NORMAL WBC IS 2.9-7.7 K/ML * FOR ADULT BLACK MALES AND FEMALES, NORMAL RBC,HGB, AND HCT IS 5% LESS SOURCE FOR DATA: [employer] 1800 OPERATION MANUAL( AUTOMATED BLOOD COUNTS AND DIFF.) APPENDIX B-3 CHRONIC KIDNEY DISEASE STAGING PER NKF: MALE GFR INTERPRETATION: 20-49 YRS: >60 mL/min Normal 50-59 YRS: >56 mL/min Normal 60-69 YRS: >49 mL/min Normal 70-79 YRS: >42 mL/min Normal 80 and above >35 mL/min Normal FEMALE GRF INTERPRETATION: 20-39 YRS: >60 mL/min Normal 40-49 YRS: >58 mL/min Normal 50-59 YRS: >51 mL/min Normal 60-69 YRS: >45 mL/min Normal 70-79 YRS: >39 mL/min Normal 80 and above >32 mL/min Normal Alb 4.0 g/dL 3.5-5.2 [facility] ([facility] NORMAL RANGES Age WBC RBC HGB HCT MCV PLT Adult M 4.1-10.9 4.20-6.30 12.0-18.0 37.0-51.0 80-97 140-440 Adult F 4.1-10.9 4.04-5.48 12.0-18.0 37.0-51.0 80-97 140-440 0 -1 Yr 5.0-20.0 3.9-5.9 15-18 MV: 44 MV: 91 MV: 277 2-9 Yr. 6.0-17.0 3.8-5.4 11-13 MV: 37 MV: 78 MV: 300 10 Yrs. 5.0-13.0 3.8-5.4 12-15 MV: 39 MV: 80 MV: 250 NOTE: * FOR ADULT BLACK MALES AND FEMALES, NORMAL WBC IS 2.9-7.7 K/ML * FOR ADULT BLACK MALES AND FEMALES, NORMAL RBC,HGB, AND HCT IS 5% LESS SOURCE FOR DATA: [employer] 1800 OPERATION MANUAL( AUTOMATED BLOOD COUNTS AND DIFF.) APPENDIX B-3 CHRONIC KIDNEY DISEASE STAGING PER NKF: MALE GFR INTERPRETATION: 20-49 YRS: >60 mL/min Normal 50-59 YRS: >56 mL/min Normal 60-69 YRS: >49 mL/min Normal 70-79 YRS: >42 mL/min Normal 80 and above >35 mL/min Normal FEMALE GRF INTERPRETATION: 20-39 YRS: >60 mL/min Normal 40-49 YRS: >58 mL/min Normal 50-59 YRS: >51 mL/min Normal 60-69 YRS: >45 mL/min Normal 70-79 YRS: >39 mL/min Normal 80 and above >32 mL/min Normal A/G Ratio 1.9 Calc [facility] ([facility] NORMAL RANGES Age WBC RBC HGB HCT MCV PLT Adult M 4.1-10.9 4.20-6.30 12.0-18.0 37.0-51.0 80-97 140-440 Adult F 4.1-10.9 4.04-5.48 12.0-18.0 37.0-51.0 80-97 140-440 0 -1 Yr 5.0-20.0 3.9-5.9 15-18 MV: 44 MV: 91 MV: 277 2-9 Yr. 6.0-17.0 3.8-5.4 11-13 MV: 37 MV: 78 MV: 300 10 Yrs. 5.0-13.0 3.8-5.4 12-15 MV: 39 MV: 80 MV: 250 NOTE: * FOR ADULT BLACK MALES AND FEMALES, NORMAL WBC IS 2.9-7.7 K/ML * FOR ADULT BLACK MALES AND FEMALES, NORMAL RBC,HGB, AND HCT IS 5% LESS SOURCE FOR DATA: [employer] 1800 OPERATION MANUAL( AUTOMATED BLOOD COUNTS AND DIFF.) APPENDIX B-3 CHRONIC KIDNEY DISEASE STAGING PER NKF: MALE GFR INTERPRETATION: 20-49 YRS: >60 mL/min Normal 50-59 YRS: >56 mL/min Normal 60-69 YRS: >49 mL/min Normal 70-79 YRS: >42 mL/min Normal 80 and above >35 mL/min Normal FEMALE GRF INTERPRETATION: 20-39 YRS: >60 mL/min Normal 40-49 YRS: >58 mL/min Normal 50-59 YRS: >51 mL/min Normal 60-69 YRS: >45 mL/min Normal 70-79 YRS: >39 mL/min Normal 80 and above >32 mL/min Normal Alp 112.6 U/L 40-129 [facility] NORMAL RANGES Age WBC RBC HGB HCT MCV PLT Adult M 4.1-10.9 4.20-6.30 12.0-18.0 37.0-51.0 80-97 140-440 Adult F 4.1-10.9 4.04-5.48 12.0-18.0 37.0-51.0 80-97 140-440 0 -1 Yr 5.0-20.0 3.9-5.9 15-18 MV: 44 MV: 91 MV: 277 2-9 Yr. 6.0-17.0 3.8-5.4 11-13 MV: 37 MV: 78 MV: 300 10 Yrs. 5.0-13.0 3.8-5.4 12-15 MV: 39 MV: 80 MV: 250 NOTE: * FOR ADULT BLACK MALES AND FEMALES, NORMAL WBC IS 2.9-7.7 K/ML * FOR ADULT BLACK MALES AND FEMALES, NORMAL RBC,HGB, AND HCT IS 5% LESS SOURCE FOR DATA: [employer] 1800 OPERATION MANUAL( AUTOMATED BLOOD COUNTS AND DIFF.) APPENDIX B-3 CHRONIC KIDNEY DISEASE STAGING PER NKF: MALE GFR INTERPRETATION: 20-49 YRS: >60 mL/min Normal 50-59 YRS: >56 mL/min Normal 60-69 YRS: >49 mL/min Normal 70-79 YRS: >42 mL/min Normal 80 and above >35 mL/min Normal FEMALE GRF INTERPRETATION: 20-39 YRS: >60 mL/min Normal 40-49 YRS: >58 mL/min Normal 50-59 YRS: >51 mL/min Normal 60-69 YRS: >45 mL/min Normal 70-79 YRS: >39 mL/min Normal 80 and above >32 mL/min Normal Globulin 2.1 Calc [facility] ([facility] NORMAL RANGES Age WBC RBC HGB HCT MCV PLT Adult M 4.1-10.9 4.20-6.30 12.0-18.0 37.0-51.0 80-97 140-440 Adult F 4.1-10.9 4.04-5.48 12.0-18.0 37.0-51.0 80-97 140-440 0 -1 Yr 5.0-20.0 3.9-5.9 15-18 MV: 44 MV: 91 MV: 277 2-9 Yr. 6.0-17.0 3.8-5.4 11-13 MV: 37 MV: 78 MV: 300 10 Yrs. 5.0-13.0 3.8-5.4 12-15 MV: 39 MV: 80 MV: 250 NOTE: * FOR ADULT BLACK MALES AND FEMALES, NORMAL WBC IS 2.9-7.7 K/ML * FOR ADULT BLACK MALES AND FEMALES, NORMAL RBC,HGB, AND HCT IS 5% LESS SOURCE FOR DATA: [employer] 1800 OPERATION MANUAL( AUTOMATED BLOOD COUNTS AND DIFF.) APPENDIX B-3 CHRONIC KIDNEY DISEASE STAGING PER NKF: MALE GFR INTERPRETATION: 20-49 YRS: >60 mL/min Normal 50-59 YRS: >56 mL/min Normal 60-69 YRS: >49 mL/min Normal 70-79 YRS: >42 mL/min Normal 80 and above >35 mL/min Normal FEMALE GRF INTERPRETATION: 20-39 YRS: >60 mL/min Normal 40-49 YRS: >58 mL/min Normal 50-59 YRS: >51 mL/min Normal 60-69 YRS: >45 mL/min Normal 70-79 YRS: >39 mL/min Normal 80 and above >32 mL/min Normal Alt (SGPT) 10 U/L 0-41 [facility] NORMAL RANGES Age WBC RBC HGB HCT MCV PLT Adult M 4.1-10.9 4.20-6.30 12.0-18.0 37.0-51.0 80-97 140-440 Adult F 4.1-10.9 4.04-5.48 12.0-18.0 37.0-51.0 80-97 140-440 0 -1 Yr 5.0-20.0 3.9-5.9 15-18 MV: 44 MV: 91 MV: 277 2-9 Yr. 6.0-17.0 3.8-5.4 11-13 MV: 37 MV: 78 MV: 300 10 Yrs. 5.0-13.0 3.8-5.4 12-15 MV: 39 MV: 80 MV: 250 NOTE: * FOR ADULT BLACK MALES AND FEMALES, NORMAL WBC IS 2.9-7.7 K/ML * FOR ADULT BLACK MALES AND FEMALES, NORMAL RBC,HGB, AND HCT IS 5% LESS SOURCE FOR DATA: [employer] 1800 OPERATION MANUAL( AUTOMATED BLOOD COUNTS AND DIFF.) APPENDIX B-3 CHRONIC KIDNEY DISEASE STAGING PER NKF: MALE GFR INTERPRETATION: 20-49 YRS: >60 mL/min Normal 50-59 YRS: >56 mL/min Normal 60-69 YRS: >49 mL/min Normal 70-79 YRS: >42 mL/min Normal 80 and above >35 mL/min Normal FEMALE GRF INTERPRETATION: 20-39 YRS: >60 mL/min Normal 40-49 YRS: >58 mL/min Normal 50-59 YRS: >51 mL/min Normal 60-69 YRS: >45 mL/min Normal 70-79 YRS: >39 mL/min Normal 80 and above >32 mL/min Normal Ast (Sgot) 10 U/L 0-40 [facility] NORMAL RANGES Age WBC RBC HGB HCT MCV PLT Adult M 4.1-10.9 4.20-6.30 12.0-18.0 37.0-51.0 80-97 140-440 Adult F 4.1-10.9 4.04-5.48 12.0-18.0 37.0-51.0 80-97 140-440 0 -1 Yr 5.0-20.0 3.9-5.9 15-18 MV: 44 MV: 91 MV: 277 2-9 Yr. 6.0-17.0 3.8-5.4 11-13 MV: 37 MV: 78 MV: 300 10 Yrs. 5.0-13.0 3.8-5.4 12-15 MV: 39 MV: 80 MV: 250 NOTE: * FOR ADULT BLACK MALES AND FEMALES, NORMAL WBC IS 2.9-7.7 K/ML * FOR ADULT BLACK MALES AND FEMALES, NORMAL RBC,HGB, AND HCT IS 5% LESS SOURCE FOR DATA: [employer] 1800 OPERATION MANUAL( AUTOMATED BLOOD COUNTS AND DIFF.) APPENDIX B-3 CHRONIC KIDNEY DISEASE STAGING PER NKF: MALE GFR INTERPRETATION: 20-49 YRS: >60 mL/min Normal 50-59 YRS: >56 mL/min Normal 60-69 YRS: >49 mL/min Normal 70-79 YRS: >42 mL/min Normal 80 and above >35 mL/min Normal FEMALE GRF INTERPRETATION: 20-39 YRS: >60 mL/min Normal 40-49 YRS: >58 mL/min Normal 50-59 YRS: >51 mL/min Normal 60-69 YRS: >45 mL/min Normal 70-79 YRS: >39 mL/min Normal 80 and above >32 mL/min Normal Anion Gap 14 mmol/L [facility] NORMAL RANGES Age WBC RBC HGB HCT MCV PLT Adult M 4.1-10.9 4.20-6.30 12.0-18.0 37.0-51.0 80-97 140-440 Adult F 4.1-10.9 4.04-5.48 12.0-18.0 37.0-51.0 80-97 140-440 0 -1 Yr 5.0-20.0 3.9-5.9 15-18 MV: 44 MV: 91 MV: 277 2-9 Yr. 6.0-17.0 3.8-5.4 11-13 MV: 37 MV: 78 MV: 300 10 Yrs. 5.0-13.0 3.8-5.4 12-15 MV: 39 MV: 80 MV: 250 NOTE: * FOR ADULT BLACK MALES AND FEMALES, NORMAL WBC IS 2.9-7.7 K/ML * FOR ADULT BLACK MALES AND FEMALES, NORMAL RBC,HGB, AND HCT IS 5% LESS SOURCE FOR DATA: [employer] 1800 OPERATION MANUAL( AUTOMATED BLOOD COUNTS AND DIFF.) APPENDIX B-3 CHRONIC KIDNEY DISEASE STAGING PER NKF: MALE GFR INTERPRETATION: 20-49 YRS: >60 mL/min Normal 50-59 YRS: >56 mL/min Normal 60-69 YRS: >49 mL/min Normal 70-79 YRS: >42 mL/min Normal 80 and above >35 mL/min Normal FEMALE GRF INTERPRETATION: 20-39 YRS: >60 mL/min Normal 40-49 YRS: >58 mL/min Normal 50-59 YRS: >51 mL/min Normal 60-69 YRS: >45 mL/min Normal 70-79 YRS: >39 mL/min Normal 80 and above >32 mL/min Normal Osmolality-Calculated 292.3 Calc [facility] ([facility] NORMAL RANGES Age WBC RBC HGB HCT MCV PLT Adult M 4.1-10.9 4.20-6.30 12.0-18.0 37.0-51.0 80-97 140-440 Adult F 4.1-10.9 4.04-5.48 12.0-18.0 37.0-51.0 80-97 140-440 0 -1 Yr 5.0-20.0 3.9-5.9 15-18 MV: 44 MV: 91 MV: 277 2-9 Yr. 6.0-17.0 3.8-5.4 11-13 MV: 37 MV: 78 MV: 300 10 Yrs. 5.0-13.0 3.8-5.4 12-15 MV: 39 MV: 80 MV: 250 NOTE: * FOR ADULT BLACK MALES AND FEMALES, NORMAL WBC IS 2.9-7.7 K/ML * FOR ADULT BLACK MALES AND FEMALES, NORMAL RBC,HGB, AND HCT IS 5% LESS SOURCE FOR DATA: [employer] 1800 OPERATION MANUAL( AUTOMATED BLOOD COUNTS AND DIFF.) APPENDIX B-3 CHRONIC KIDNEY DISEASE STAGING PER NKF: MALE GFR INTERPRETATION: 20-49 YRS: >60 mL/min Normal 50-59 YRS: >56 mL/min Normal 60-69 YRS: >49 mL/min Normal 70-79 YRS: >42 mL/min Normal 80 and above >35 mL/min Normal FEMALE GRF INTERPRETATION: 20-39 YRS: >60 mL/min Normal 40-49 YRS: >58 mL/min Normal 50-59 YRS: >51 mL/min Normal 60-69 YRS: >45 mL/min Normal 70-79 YRS: >39 mL/min Normal 80 and above >32 mL/min Normal Tbili 0.26 mg/dL 0.0-1.2 [facility] ([facility] NORMAL RANGES Age WBC RBC HGB HCT MCV PLT Adult M 4.1-10.9 4.20-6.30 12.0-18.0 37.0-51.0 80-97 140-440 Adult F 4.1-10.9 4.04-5.48 12.0-18.0 37.0-51.0 80-97 140-440 0 -1 Yr 5.0-20.0 3.9-5.9 15-18 MV: 44 MV: 91 MV: 277 2-9 Yr. 6.0-17.0 3.8-5.4 11-13 MV: 37 MV: 78 MV: 300 10 Yrs. 5.0-13.0 3.8-5.4 12-15 MV: 39 MV: 80 MV: 250 NOTE: * FOR ADULT BLACK MALES AND FEMALES, NORMAL WBC IS 2.9-7.7 K/ML * FOR ADULT BLACK MALES AND FEMALES, NORMAL RBC,HGB, AND HCT IS 5% LESS SOURCE FOR DATA: [employer] 1800 OPERATION MANUAL( AUTOMATED BLOOD COUNTS AND DIFF.) APPENDIX B-3 CHRONIC KIDNEY DISEASE STAGING PER NKF: MALE GFR INTERPRETATION: 20-49 YRS: >60 mL/min Normal 50-59 YRS: >56 mL/min Normal 60-69 YRS: >49 mL/min Normal 70-79 YRS: >42 mL/min Normal 80 and above >35 mL/min Normal FEMALE GRF INTERPRETATION: 20-39 YRS: >60 mL/min Normal 40-49 YRS: >58 mL/min Normal 50-59 YRS: >51 mL/min Normal 60-69 YRS: >45 mL/min Normal 70-79 YRS: >39 mL/min Normal 80 and above >32 mL/min Normal eGFR 36 # [facility] ( [facility] NORMAL RANGES Age WBC RBC HGB HCT MCV PLT Adult M 4.1-10.9 4.20-6.30 12.0-18.0 37.0-51.0 80-97 140-440 Adult F 4.1-10.9 4.04-5.48 12.0-18.0 37.0-51.0 80-97 140-440 0 -1 Yr 5.0-20.0 3.9-5.9 15-18 MV: 44 MV: 91 MV: 277 2-9 Yr. 6.0-17.0 3.8-5.4 11-13 MV: 37 MV: 78 MV: 300 10 Yrs. 5.0-13.0 3.8-5.4 12-15 MV: 39 MV: 80 MV: 250 NOTE: * FOR ADULT BLACK MALES AND FEMALES, NORMAL WBC IS 2.9-7.7 K/ML * FOR ADULT BLACK MALES AND FEMALES, NORMAL RBC,HGB, AND HCT IS 5% LESS SOURCE FOR DATA: [employer] 1800 OPERATION MANUAL( AUTOMATED BLOOD COUNTS AND DIFF.) APPENDIX B-3 CHRONIC KIDNEY DISEASE STAGING PER NKF: MALE GFR INTERPRETATION: 20-49 YRS: >60 mL/min Normal 50-59 YRS: >56 mL/min Normal 60-69 YRS: >49 mL/min Normal 70-79 YRS: >42 mL/min Normal 80 and above >35 mL/min Normal FEMALE GRF INTERPRETATION: 20-39 YRS: >60 mL/min Normal 40-49 YRS: >58 mL/min Normal 50-59 YRS: >51 mL/min Normal 60-69 YRS: >45 mL/min Normal 70-79 YRS: >39 mL/min Normal 80 and above >32 mL/min Normal eGFR Non-Afr. Romanian 31 # [facility] ([facility] NORMAL RANGES Age WBC RBC HGB HCT MCV PLT Adult M 4.1-10.9 4.20-6.30 12.0-18.0 37.0-51.0 80-97 140-440 Adult F 4.1-10.9 4.04-5.48 12.0-18.0 37.0-51.0 80-97 140-440 0 -1 Yr 5.0-20.0 3.9-5.9 15-18 MV: 44 MV: 91 MV: 277 2-9 Yr. 6.0-17.0 3.8-5.4 11-13 MV: 37 MV: 78 MV: 300 10 Yrs. 5.0-13.0 3.8-5.4 12-15 MV: 39 MV: 80 MV: 250 NOTE: * FOR ADULT BLACK MALES AND FEMALES, NORMAL WBC IS 2.9-7.7 K/ML * FOR ADULT BLACK MALES AND FEMALES, NORMAL RBC,HGB, AND HCT IS 5% LESS SOURCE FOR DATA: [employer] 1800 OPERATION MANUAL( AUTOMATED BLOOD COUNTS AND DIFF.) APPENDIX B-3 CHRONIC KIDNEY DISEASE STAGING PER NKF: MALE GFR INTERPRETATION: 20-49 YRS: >60 mL/min Normal 50-59 YRS: >56 mL/min Normal 60-69 YRS: >49 mL/min Normal 70-79 YRS: >42 mL/min Normal 80 and above >35 mL/min Normal FEMALE GRF INTERPRETATION: 20-39 YRS: >60 mL/min Normal 40-49 YRS: >58 mL/min Normal 50-59 YRS: >51 mL/min Normal 60-69 YRS: >45 mL/min Normal 70-79 YRS: >39 mL/min Normal 80 and above >32 mL/min Normal ID Date Data Source [id number] 03/22/2020 02:40:00 PM EST [facility] ([facility] Name Value Range Interpretation Code Description Data Tammi rce(s) Supporting Document(s) WBC 10.6 10E3/uL 4.1-10.9 [facility] ([facility] NORMAL RANGES Age WBC RBC HGB HCT MCV PLT Adult M 4.1-10.9 4.20-6.30 12.0-18.0 37.0-51.0 80-97 140-440 Adult F 4.1-10.9 4.04-5.48 12.0-18.0 37.0-51.0 80-97 140-440 0 -1 Yr 5.0-20.0 3.9-5.9 15-18 MV: 44 MV: 91 MV: 277 2-9 Yr. 6.0-17.0 3.8-5.4 11-13 MV: 37 MV: 78 MV: 300 10 Yrs. 5.0-13.0 3.8-5.4 12-15 MV: 39 MV: 80 MV: 250 NOTE: * FOR ADULT BLACK MALES AND FEMALES, NORMAL WBC IS 2.9-7.7 K/ML * FOR ADULT BLACK MALES AND FEMALES, NORMAL RBC,HGB, AND HCT IS 5% LESS SOURCE FOR DATA: [employer] 1800 OPERATION MANUAL( AUTOMATED BLOOD COUNTS AND DIFF.) APPENDIX B-3 CHRONIC KIDNEY DISEASE STAGING PER NKF: MALE GFR INTERPRETATION: 20-49 YRS: >60 mL/min Normal 50-59 YRS: >56 mL/min Normal 60-69 YRS: >49 mL/min Normal 70-79 YRS: >42 mL/min Normal 80 and above >35 mL/min Normal FEMALE GRF INTERPRETATION: 20-39 YRS: >60 mL/min Normal 40-49 YRS: >58 mL/min Normal 50-59 YRS: >51 mL/min Normal 60-69 YRS: >45 mL/min Normal 70-79 YRS: >39 mL/min Normal 80 and above >32 mL/min Normal HGB 13.2 g/dL 12.0-18.0 [facility] ([facility] NORMAL RANGES Age WBC RBC HGB HCT MCV PLT Adult M 4.1-10.9 4.20-6.30 12.0-18.0 37.0-51.0 80-97 140-440 Adult F 4.1-10.9 4.04-5.48 12.0-18.0 37.0-51.0 80-97 140-440 0 -1 Yr 5.0-20.0 3.9-5.9 15-18 MV: 44 MV: 91 MV: 277 2-9 Yr. 6.0-17.0 3.8-5.4 11-13 MV: 37 MV: 78 MV: 300 10 Yrs. 5.0-13.0 3.8-5.4 12-15 MV: 39 MV: 80 MV: 250 NOTE: * FOR ADULT BLACK MALES AND FEMALES, NORMAL WBC IS 2.9-7.7 K/ML * FOR ADULT BLACK MALES AND FEMALES, NORMAL RBC,HGB, AND HCT IS 5% LESS SOURCE FOR DATA: [employer] 1800 OPERATION MANUAL( AUTOMATED BLOOD COUNTS AND DIFF.) APPENDIX B-3 CHRONIC KIDNEY DISEASE STAGING PER NKF: MALE GFR INTERPRETATION: 20-49 YRS: >60 mL/min Normal 50-59 YRS: >56 mL/min Normal 60-69 YRS: >49 mL/min Normal 70-79 YRS: >42 mL/min Normal 80 and above >35 mL/min Normal FEMALE GRF INTERPRETATION: 20-39 YRS: >60 mL/min Normal 40-49 YRS: >58 mL/min Normal 50-59 YRS: >51 mL/min Normal 60-69 YRS: >45 mL/min Normal 70-79 YRS: >39 mL/min Normal 80 and above >32 mL/min Normal RBC 4.04 10E6/uL 4.20-6.30 Below low normal [facility] ([facility] NORMAL RANGES Age WBC RBC HGB HCT MCV PLT Adult M 4.1-10.9 4.20-6.30 12.0-18.0 37.0-51.0 80-97 140-440 Adult F 4.1-10.9 4.04-5.48 12.0-18.0 37.0-51.0 80-97 140-440 0 -1 Yr 5.0-20.0 3.9-5.9 15-18 MV: 44 MV: 91 MV: 277 2-9 Yr. 6.0-17.0 3.8-5.4 11-13 MV: 37 MV: 78 MV: 300 10 Yrs. 5.0-13.0 3.8-5.4 12-15 MV: 39 MV: 80 MV: 250 NOTE: * FOR ADULT BLACK MALES AND FEMALES, NORMAL WBC IS 2.9-7.7 K/ML * FOR ADULT BLACK MALES AND FEMALES, NORMAL RBC,HGB, AND HCT IS 5% LESS SOURCE FOR DATA: [employer] 1800 OPERATION MANUAL( AUTOMATED BLOOD COUNTS AND DIFF.) APPENDIX B-3 CHRONIC KIDNEY DISEASE STAGING PER NKF: MALE GFR INTERPRETATION: 20-49 YRS: >60 mL/min Normal 50-59 YRS: >56 mL/min Normal 60-69 YRS: >49 mL/min Normal 70-79 YRS: >42 mL/min Normal 80 and above >35 mL/min Normal FEMALE GRF INTERPRETATION: 20-39 YRS: >60 mL/min Normal 40-49 YRS: >58 mL/min Normal 50-59 YRS: >51 mL/min Normal 60-69 YRS: >45 mL/min Normal 70-79 YRS: >39 mL/min Normal 80 and above >32 mL/min Normal HCT 39.5 % 37.0-51.0 [facility] NORMAL RANGES Age WBC RBC HGB HCT MCV PLT Adult M 4.1-10.9 4.20-6.30 12.0-18.0 37.0-51.0 80-97 140-440 Adult F 4.1-10.9 4.04-5.48 12.0-18.0 37.0-51.0 80-97 140-440 0 -1 Yr 5.0-20.0 3.9-5.9 15-18 MV: 44 MV: 91 MV: 277 2-9 Yr. 6.0-17.0 3.8-5.4 11-13 MV: 37 MV: 78 MV: 300 10 Yrs. 5.0-13.0 3.8-5.4 12-15 MV: 39 MV: 80 MV: 250 NOTE: * FOR ADULT BLACK MALES AND FEMALES, NORMAL WBC IS 2.9-7.7 K/ML * FOR ADULT BLACK MALES AND FEMALES, NORMAL RBC,HGB, AND HCT IS 5% LESS SOURCE FOR DATA: [employer] 1800 OPERATION MANUAL( AUTOMATED BLOOD COUNTS AND DIFF.) APPENDIX B-3 CHRONIC KIDNEY DISEASE STAGING PER NKF: MALE GFR INTERPRETATION: 20-49 YRS: >60 mL/min Normal 50-59 YRS: >56 mL/min Normal 60-69 YRS: >49 mL/min Normal 70-79 YRS: >42 mL/min Normal 80 and above >35 mL/min Normal FEMALE GRF INTERPRETATION: 20-39 YRS: >60 mL/min Normal 40-49 YRS: >58 mL/min Normal 50-59 YRS: >51 mL/min Normal 60-69 YRS: >45 mL/min Normal 70-79 YRS: >39 mL/min Normal 80 and above >32 mL/min Normal MCV 97.8 fL 80.0-97.0 Above high normal [facility] ([facility] NORMAL RANGES Age WBC RBC HGB HCT MCV PLT Adult M 4.1-10.9 4.20-6.30 12.0-18.0 37.0-51.0 80-97 140-440 Adult F 4.1-10.9 4.04-5.48 12.0-18.0 37.0-51.0 80-97 140-440 0 -1 Yr 5.0-20.0 3.9-5.9 15-18 MV: 44 MV: 91 MV: 277 2-9 Yr. 6.0-17.0 3.8-5.4 11-13 MV: 37 MV: 78 MV: 300 10 Yrs. 5.0-13.0 3.8-5.4 12-15 MV: 39 MV: 80 MV: 250 NOTE: * FOR ADULT BLACK MALES AND FEMALES, NORMAL WBC IS 2.9-7.7 K/ML * FOR ADULT BLACK MALES AND FEMALES, NORMAL RBC,HGB, AND HCT IS 5% LESS SOURCE FOR DATA: [employer] 1800 OPERATION MANUAL( AUTOMATED BLOOD COUNTS AND DIFF.) APPENDIX B-3 CHRONIC KIDNEY DISEASE STAGING PER NKF: MALE GFR INTERPRETATION: 20-49 YRS: >60 mL/min Normal 50-59 YRS: >56 mL/min Normal 60-69 YRS: >49 mL/min Normal 70-79 YRS: >42 mL/min Normal 80 and above >35 mL/min Normal FEMALE GRF INTERPRETATION: 20-39 YRS: >60 mL/min Normal 40-49 YRS: >58 mL/min Normal 50-59 YRS: >51 mL/min Normal 60-69 YRS: >45 mL/min Normal 70-79 YRS: >39 mL/min Normal 80 and above >32 mL/min Normal PLT 153 10E3/uL 140-440 [facility] ([facility] NORMAL RANGES Age WBC RBC HGB HCT MCV PLT Adult M 4.1-10.9 4.20-6.30 12.0-18.0 37.0-51.0 80-97 140-440 Adult F 4.1-10.9 4.04-5.48 12.0-18.0 37.0-51.0 80-97 140-440 0 -1 Yr 5.0-20.0 3.9-5.9 15-18 MV: 44 MV: 91 MV: 277 2-9 Yr. 6.0-17.0 3.8-5.4 11-13 MV: 37 MV: 78 MV: 300 10 Yrs. 5.0-13.0 3.8-5.4 12-15 MV: 39 MV: 80 MV: 250 NOTE: * FOR ADULT BLACK MALES AND FEMALES, NORMAL WBC IS 2.9-7.7 K/ML * FOR ADULT BLACK MALES AND FEMALES, NORMAL RBC,HGB, AND HCT IS 5% LESS SOURCE FOR DATA: [employer] 1800 [employer]PERATION MANUAL( AUTOMATED BLOOD COUNTS AND DIFF.) APPENDIX B-3 CHRONIC KIDNEY DISEASE STAGING PER NKF: MALE GFR INTERPRETATION: 20-49 YRS: >60 mL/min Normal 50-59 YRS: >56 mL/min Normal 60-69 YRS: >49 mL/min Normal 70-79 YRS: >42 mL/min Normal 80 and above >35 mL/min Normal FEMALE GRF INTERPRETATION: 20-39 YRS: >60 mL/min Normal 40-49 YRS: >58 mL/min Normal 50-59 YRS: >51 mL/min Normal 60-69 YRS: >45 mL/min Normal 70-79 YRS: >39 mL/min Normal 80 and above >32 mL/min Normal MCH 32.7 pg 26.0-32.0 Above high normal [facility] ([facility] NORMAL RANGES Age WBC RBC HGB HCT MCV PLT Adult M 4.1-10.9 4.20-6.30 12.0-18.0 37.0-51.0 80-97 140-440 Adult F 4.1-10.9 4.04-5.48 12.0-18.0 37.0-51.0 80-97 140-440 0 -1 Yr 5.0-20.0 3.9-5.9 15-18 MV: 44 MV: 91 MV: 277 2-9 Yr. 6.0-17.0 3.8-5.4 11-13 MV: 37 MV: 78 MV: 300 10 Yrs. 5.0-13.0 3.8-5.4 12-15 MV: 39 MV: 80 MV: 250 NOTE: * FOR ADULT BLACK MALES AND FEMALES, NORMAL WBC IS 2.9-7.7 K/ML * FOR ADULT BLACK MALES AND FEMALES, NORMAL RBC,HGB, AND HCT IS 5% LESS SOURCE FOR DATA: [employer] 1800 [employer]( AUTOMATED BLOOD COUNTS AND DIFF.) APPENDIX B-3 CHRONIC KIDNEY DISEASE STAGING PER NKF: MALE GFR INTERPRETATION: 20-49 YRS: >60 mL/min Normal 50-59 YRS: >56 mL/min Normal 60-69 YRS: >49 mL/min Normal 70-79 YRS: >42 mL/min Normal 80 and above >35 mL/min Normal FEMALE GRF INTERPRETATION: 20-39 YRS: >60 mL/min Normal 40-49 YRS: >58 mL/min Normal 50-59 YRS: >51 mL/min Normal 60-69 YRS: >45 mL/min Normal 70-79 YRS: >39 mL/min Normal 80 and above >32 mL/min Normal MCHC 33.4 g/dL 31.0-36.0 [facility] NORMAL RANGES Age WBC RBC HGB HCT MCV PLT Adult M 4.1-10.9 4.20-6.30 12.0-18.0 37.0-51.0 80-97 140-440 Adult F 4.1-10.9 4.04-5.48 12.0-18.0 37.0-51.0 80-97 140-440 0 -1 Yr 5.0-20.0 3.9-5.9 15-18 MV: 44 MV: 91 MV: 277 2-9 Yr. 6.0-17.0 3.8-5.4 11-13 MV: 37 MV: 78 MV: 300 10 Yrs. 5.0-13.0 3.8-5.4 12-15 MV: 39 MV: 80 MV: 250 NOTE: * FOR ADULT BLACK MALES AND FEMALES, NORMAL WBC IS 2.9-7.7 K/ML * FOR ADULT BLACK MALES AND FEMALES, NORMAL RBC,HGB, AND HCT IS 5% LESS SOURCE FOR DATA: [employer] 1800 OPERATION MANUAL( AUTOMATED BLOOD COUNTS AND DIFF.) APPENDIX B-3 CHRONIC KIDNEY DISEASE STAGING PER NKF: MALE GFR INTERPRETATION: 20-49 YRS: >60 mL/min Normal 50-59 YRS: >56 mL/min Normal 60-69 YRS: >49 mL/min Normal 70-79 YRS: >42 mL/min Normal 80 and above >35 mL/min Normal FEMALE GRF INTERPRETATION: 20-39 YRS: >60 mL/min Normal 40-49 YRS: >58 mL/min Normal 50-59 YRS: >51 mL/min Normal 60-69 YRS: >45 mL/min Normal 70-79 YRS: >39 mL/min Normal 80 and above >32 mL/min Normal Lym% 11.3 % 10.0-58.5 [facility] NORMAL RANGES Age WBC RBC HGB HCT MCV PLT Adult M 4.1-10.9 4.20-6.30 12.0-18.0 37.0-51.0 80-97 140-440 Adult F 4.1-10.9 4.04-5.48 12.0-18.0 37.0-51.0 80-97 140-440 0 -1 Yr 5.0-20.0 3.9-5.9 15-18 MV: 44 MV: 91 MV: 277 2-9 Yr. 6.0-17.0 3.8-5.4 11-13 MV: 37 MV: 78 MV: 300 10 Yrs. 5.0-13.0 3.8-5.4 12-15 MV: 39 MV: 80 MV: 250 NOTE: * FOR ADULT BLACK MALES AND FEMALES, NORMAL WBC IS 2.9-7.7 K/ML * FOR ADULT BLACK MALES AND FEMALES, NORMAL RBC,HGB, AND HCT IS 5% LESS SOURCE FOR DATA: [employer] 1800 OPERATION MANUAL( AUTOMATED BLOOD COUNTS AND DIFF.) APPENDIX B-3 CHRONIC KIDNEY DISEASE STAGING PER NKF: MALE GFR INTERPRETATION: 20-49 YRS: >60 mL/min Normal 50-59 YRS: >56 mL/min Normal 60-69 YRS: >49 mL/min Normal 70-79 YRS: >42 mL/min Normal 80 and above >35 mL/min Normal FEMALE GRF INTERPRETATION: 20-39 YRS: >60 mL/min Normal 40-49 YRS: >58 mL/min Normal 50-59 YRS: >51 mL/min Normal 60-69 YRS: >45 mL/min Normal 70-79 YRS: >39 mL/min Normal 80 and above >32 mL/min Normal RDW-CV 13.6 % 11.5-14.5 [facility] NORMAL RANGES Age WBC RBC HGB HCT MCV PLT Adult M 4.1-10.9 4.20-6.30 12.0-18.0 37.0-51.0 80-97 140-440 Adult F 4.1-10.9 4.04-5.48 12.0-18.0 37.0-51.0 80-97 140-440 0 -1 Yr 5.0-20.0 3.9-5.9 15-18 MV: 44 MV: 91 MV: 277 2-9 Yr. 6.0-17.0 3.8-5.4 11-13 MV: 37 MV: 78 MV: 300 10 Yrs. 5.0-13.0 3.8-5.4 12-15 MV: 39 MV: 80 MV: 250 NOTE: * FOR ADULT BLACK MALES AND FEMALES, NORMAL WBC IS 2.9-7.7 K/ML * FOR ADULT BLACK MALES AND FEMALES, NORMAL RBC,HGB, AND HCT IS 5% LESS SOURCE FOR DATA: [employer] 1800 OPERATION MANUAL( AUTOMATED BLOOD COUNTS AND DIFF.) APPENDIX B-3 CHRONIC KIDNEY DISEASE STAGING PER NKF: MALE GFR INTERPRETATION: 20-49 YRS: >60 mL/min Normal 50-59 YRS: >56 mL/min Normal 60-69 YRS: >49 mL/min Normal 70-79 YRS: >42 mL/min Normal 80 and above >35 mL/min Normal FEMALE GRF INTERPRETATION: 20-39 YRS: >60 mL/min Normal 40-49 YRS: >58 mL/min Normal 50-59 YRS: >51 mL/min Normal 60-69 YRS: >45 mL/min Normal 70-79 YRS: >39 mL/min Normal 80 and above >32 mL/min Normal Lym# 1.2 10E3/uL 0.6-4.1 [facility] ([facility] NORMAL RANGES Age WBC RBC HGB HCT MCV PLT Adult M 4.1-10.9 4.20-6.30 12.0-18.0 37.0-51.0 80-97 140-440 Adult F 4.1-10.9 4.04-5.48 12.0-18.0 37.0-51.0 80-97 140-440 0 -1 Yr 5.0-20.0 3.9-5.9 15-18 MV: 44 MV: 91 MV: 277 2-9 Yr. 6.0-17.0 3.8-5.4 11-13 MV: 37 MV: 78 MV: 300 10 Yrs. 5.0-13.0 3.8-5.4 12-15 MV: 39 MV: 80 MV: 250 NOTE: * FOR ADULT BLACK MALES AND FEMALES, NORMAL WBC IS 2.9-7.7 K/ML * FOR ADULT BLACK MALES AND FEMALES, NORMAL RBC,HGB, AND HCT IS 5% LESS SOURCE FOR DATA: [employer] 1800 OPERATION MANUAL( AUTOMATED BLOOD COUNTS AND DIFF.) APPENDIX B-3 CHRONIC KIDNEY DISEASE STAGING PER NKF: MALE GFR INTERPRETATION: 20-49 YRS: >60 mL/min Normal 50-59 YRS: >56 mL/min Normal 60-69 YRS: >49 mL/min Normal 70-79 YRS: >42 mL/min Normal 80 and above >35 mL/min Normal FEMALE GRF INTERPRETATION: 20-39 YRS: >60 mL/min Normal 40-49 YRS: >58 mL/min Normal 50-59 YRS: >51 mL/min Normal 60-69 YRS: >45 mL/min Normal 70-79 YRS: >39 mL/min Normal 80 and above >32 mL/min Normal Neut% 81.8 % 37.0-92.0 [facility] ([facility] NORMAL RANGES Age WBC RBC HGB HCT MCV PLT Adult M 4.1-10.9 4.20-6.30 12.0-18.0 37.0-51.0 80-97 140-440 Adult F 4.1-10.9 4.04-5.48 12.0-18.0 37.0-51.0 80-97 140-440 0 -1 Yr 5.0-20.0 3.9-5.9 15-18 MV: 44 MV: 91 MV: 277 2-9 Yr. 6.0-17.0 3.8-5.4 11-13 MV: 37 MV: 78 MV: 300 10 Yrs. 5.0-13.0 3.8-5.4 12-15 MV: 39 MV: 80 MV: 250 NOTE: * FOR ADULT BLACK MALES AND FEMALES, NORMAL WBC IS 2.9-7.7 K/ML * FOR ADULT BLACK MALES AND FEMALES, NORMAL RBC,HGB, AND HCT IS 5% LESS SOURCE FOR DATA: [employer] 1800 OPERATION MANUAL( AUTOMATED BLOOD COUNTS AND DIFF.) APPENDIX B-3 CHRONIC KIDNEY DISEASE STAGING PER NKF: MALE GFR INTERPRETATION: 20-49 YRS: >60 mL/min Normal 50-59 YRS: >56 mL/min Normal 60-69 YRS: >49 mL/min Normal 70-79 YRS: >42 mL/min Normal 80 and above >35 mL/min Normal FEMALE GRF INTERPRETATION: 20-39 YRS: >60 mL/min Normal 40-49 YRS: >58 mL/min Normal 50-59 YRS: >51 mL/min Normal 60-69 YRS: >45 mL/min Normal 70-79 YRS: >39 mL/min Normal 80 and above >32 mL/min Normal MXD% 6.9 % 0.1-24.0 [facility] ([facility] NORMAL RANGES Age WBC RBC HGB HCT MCV PLT Adult M 4.1-10.9 4.20-6.30 12.0-18.0 37.0-51.0 80-97 140-440 Adult F 4.1-10.9 4.04-5.48 12.0-18.0 37.0-51.0 80-97 140-440 0 -1 Yr 5.0-20.0 3.9-5.9 15-18 MV: 44 MV: 91 MV: 277 2-9 Yr. 6.0-17.0 3.8-5.4 11-13 MV: 37 MV: 78 MV: 300 10 Yrs. 5.0-13.0 3.8-5.4 12-15 MV: 39 MV: 80 MV: 250 NOTE: * FOR ADULT BLACK MALES AND FEMALES, NORMAL WBC IS 2.9-7.7 K/ML * FOR ADULT BLACK MALES AND FEMALES, NORMAL RBC,HGB, AND HCT IS 5% LESS SOURCE FOR DATA: [employer] 1800 OPERATION MANUAL( AUTOMATED BLOOD COUNTS AND DIFF.) APPENDIX B-3 CHRONIC KIDNEY DISEASE STAGING PER NKF: MALE GFR INTERPRETATION: 20-49 YRS: >60 mL/min Normal 50-59 YRS: >56 mL/min Normal 60-69 YRS: >49 mL/min Normal 70-79 YRS: >42 mL/min Normal 80 and above >35 mL/min Normal FEMALE GRF INTERPRETATION: 20-39 YRS: >60 mL/min Normal 40-49 YRS: >58 mL/min Normal 50-59 YRS: >51 mL/min Normal 60-69 YRS: >45 mL/min Normal 70-79 YRS: >39 mL/min Normal 80 and above >32 mL/min Normal MXD# 0.7 10E3/uL 0.0-1.8 [facility]UP[facility]DR[facility] ([facility] NORMAL RANGES Age WBC RBC HGB HCT MCV PLT Adult M 4.1-10.9 4.20-6.30 12.0-18.0 37.0-51.0 80-97 140-440 Adult F 4.1-10.9 4.04-5.48 12.0-18.0 37.0-51.0 80-97 140-440 0 -1 Yr 5.0-20.0 3.9-5.9 15-18 MV: 44 MV: 91 MV: 277 2-9 Yr. 6.0-17.0 3.8-5.4 11-13 MV: 37 MV: 78 MV: 300 10 Yrs. 5.0-13.0 3.8-5.4 12-15 MV: 39 MV: 80 MV: 250 NOTE: * FOR ADULT BLACK MALES AND FEMALES, NORMAL WBC IS 2.9-7.7 K/ML * FOR ADULT BLACK MALES AND FEMALES, NORMAL RBC,HGB, AND HCT IS 5% LESS SOURCE FOR DATA: [employer] 1800 OPERATION MANUAL( AUTOMATED BLOOD COUNTS AND DIFF.) APPENDIX B-3 CHRONIC KIDNEY DISEASE STAGING PER NKF: MALE GFR INTERPRETATION: 20-49 YRS: >60 mL/min Normal 50-59 YRS: >56 mL/min Normal 60-69 YRS: >49 mL/min Normal 70-79 YRS: >42 mL/min Normal 80 and above >35 mL/min Normal FEMALE GRF INTERPRETATION: 20-39 YRS: >60 mL/min Normal 40-49 YRS: >58 mL/min Normal 50-59 YRS: >51 mL/min Normal 60-69 YRS: >45 mL/min Normal 70-79 YRS: >39 mL/min Normal 80 and above >32 mL/min Normal Neut# 8.7 % 2.0-7.8 Above high normal [facility] ([facility] NORMAL RANGES Age WBC RBC HGB HCT MCV PLT Adult M 4.1-10.9 4.20-6.30 12.0-18.0 37.0-51.0 80-97 140-440 Adult F 4.1-10.9 4.04-5.48 12.0-18.0 37.0-51.0 80-97 140-440 0 -1 Yr 5.0-20.0 3.9-5.9 15-18 MV: 44 MV: 91 MV: 277 2-9 Yr. 6.0-17.0 3.8-5.4 11-13 MV: 37 MV: 78 MV: 300 10 Yrs. 5.0-13.0 3.8-5.4 12-15 MV: 39 MV: 80 MV: 250 NOTE: * FOR ADULT BLACK MALES AND FEMALES, NORMAL WBC IS 2.9-7.7 K/ML * FOR ADULT BLACK MALES AND FEMALES, NORMAL RBC,HGB, AND HCT IS 5% LESS SOURCE FOR DATA: [employer] 1800 OPERATION MANUAL( AUTOMATED BLOOD COUNTS AND DIFF.) APPENDIX B-3 CHRONIC KIDNEY DISEASE STAGING PER NKF: MALE GFR INTERPRETATION: 20-49 YRS: >60 mL/min Normal 50-59 YRS: >56 mL/min Normal 60-69 YRS: >49 mL/min Normal 70-79 YRS: >42 mL/min Normal 80 and above >35 mL/min Normal FEMALE GRF INTERPRETATION: 20-39 YRS: >60 mL/min Normal 40-49 YRS: >58 mL/min Normal 50-59 YRS: >51 mL/min Normal 60-69 YRS: >45 mL/min Normal 70-79 YRS: >39 mL/min Normal 80 and above >32 mL/min Normal MPV 11.2 fL 9.0-13.0 [facility] ([facility] NORMAL RANGES Age WBC RBC HGB HCT MCV PLT Adult M 4.1-10.9 4.20-6.30 12.0-18.0 37.0-51.0 80-97 140-440 Adult F 4.1-10.9 4.04-5.48 12.0-18.0 37.0-51.0 80-97 140-440 0 -1 Yr 5.0-20.0 3.9-5.9 15-18 MV: 44 MV: 91 MV: 277 2-9 Yr. 6.0-17.0 3.8-5.4 11-13 MV: 37 MV: 78 MV: 300 10 Yrs. 5.0-13.0 3.8-5.4 12-15 MV: 39 MV: 80 MV: 250 NOTE: * FOR ADULT BLACK MALES AND FEMALES, NORMAL WBC IS 2.9-7.7 K/ML * FOR ADULT BLACK MALES AND FEMALES, NORMAL RBC,HGB, AND HCT IS 5% LESS SOURCE FOR DATA: [employer] 1800 OPERATION MANUAL( AUTOMATED BLOOD COUNTS AND DIFF.) APPENDIX B-3 CHRONIC KIDNEY DISEASE STAGING PER NKF: MALE GFR INTERPRETATION: 20-49 YRS: >60 mL/min Normal 50-59 YRS: >56 mL/min Normal 60-69 YRS: >49 mL/min Normal 70-79 YRS: >42 mL/min Normal 80 and above >35 mL/min Normal FEMALE GRF INTERPRETATION: 20-39 YRS: >60 mL/min Normal 40-49 YRS: >58 mL/min Normal 50-59 YRS: >51 mL/min Normal 60-69 YRS: >45 mL/min Normal 70-79 YRS: >39 mL/min Normal 80 and above >32 mL/min Normal ID Date Data Source [id number] 01/19/2020 12:46:00 PM EST [facility] ([facility] Name Value Range Interpretation Code Description Data Tammi rce(s) Supporting Document(s) Blood Urea Nitrogen 31 mg/dL 7-18 Above high normal [facility] ([facility] Creatinine For GFR 1.69 mg/dL 0.70-1.30 Above high normal [facility] ([facility] Glucose, Fasting 103 mg/dL 70-100 Above high normal [facility] ([facility] Potassium Serum 4.7 meq/L 3.5-5.1 Normal (applies to non-numeric results) [facility] ([facility] Sodium Level 148 meq/L 136-145 Above high normal [facility] ([facility] Glomerular Filtration Rate 43.2 Below low normal [facility] ([facility] <content>Units are mL/min/1.73 m2</content>
<content></content>
<content>Chronic Kidney Disease Staging per NKF:</content>
<content></content>
<content>Stage I & II GFR >=60 Normal to Mildly Decreased</content>
<content>Stage III GFR 30- 59 Moderately Decreased</content>
<content>Stage IV GFR 15-29 Severely Decreased</content>
<content>Stage V GFR <15 Very Little GFR Left</content>
<content>ESRD GFR <15 on LAND LEASING EXAMINER</content>
<content></content> Carbon Dioxide Level 20 meq/L 21-32 Below low normal [facility] ([facility] Anion Gap 8 meq/L 8-16 Normal (applies to non-numeric resul ts) [facility] ([facility] Chloride Level 120 meq/L 98-107 Above high normal [facility] ([facility] Ast/Sgot 17 U/L 7-37 Normal (applies to non-numeric resul ts) [facility] ([facility] Calcium Level 8.6 mg/dL 8.8-10.2 Below low normal [facility] ([facility] Alkaline Phosphatase 131 U/L 45-117 Above high normal [facility] ([facility] Bilirubin,Total 0.5 mg/dL 0.2-1.0 Normal (applies to non-numeric results) [facility] ([facility] Alt/SGPT 18 U/L 12-78 Normal (applies to non-numeric resul ts) [facility] ([facility] Total Protein 6.4 GM/DL 6.4-8.2 Normal (applies to non-numeric re sults) [facility] ([facility] Albumin 3.4 GM/DL 3.2-5.2 Normal (applies to non-numeric resul ts) [facility] ([facility] Albumin/Globulin Ratio 1.1 Normal (applies to non-n umeric results) [facility] ([facility] ID Date Data Source [id number] 01/19/2020 12:46:00 PM EST [facility] ([facility] Name Value Range Interpretation Code Description Data Tammi rce(s) Supporting Document(s) Carcinoembryonic Ag [Mass/volume] in Serum or Plasma 6.3 ng/mL Above high normal [facility] ([facility] ) THE CEA ASSAY IS PERFORMED ON THE [facility] BY CHEMILUMINESCENCE AND SHOULD NOT BE COMPARED INTERCHANGEABLY WITH OTHER METHODS. IT SHOULD NOT BE USED ALONE A SCREENING TEST OR DIAGNOSIS FOR THE PRESENCE OR ABSENCE OF MALIGNANT DISEASE. PREDICTIONS OF DISEASE RECURRENCE SHOULD NOT BE BASED SOLELY ON VALUES OBTAINED FROM SERIAL PATIENT SERUM VALUES. Transferrin receptor.soluble [Mass/volume] in Serum or Plasm a 14.1 nmol/L 12.2-27.3 Normal (applies to non-numeric results) [facility] ([facility] Performed at: [address] [id number] Facilities Locator: Zoie Bergman MD, Phone: [phone] ID Date Data Source [id number] 01/19/2020 11:14:00 AM EST [facility] ([facility] Name Value Range Interpretation Code Description Data Tammi rce(s) Supporting Document(s) White Blood Count 9.1 10 4.0-10.0 Normal (applies to non-numeri c results) [facility] ([facility] Red Blood Count 4.29 10 4.30-6.10 Below low normal [facility] ([facility] Hematocrit 42.6 % 42.0-52.0 Normal (applies to non-numeric resul ts) [facility] ([facility] Hemoglobin 13.5 g/dL 13.5-17.5 Normal (applies to non-numeric resul ts) [facility] ([facility] Mean Corpuscular Hemoglobin 31.5 pg 27.0-33.0 Norm al (applies to non-numeric results) [facility] ([facility] ) Mean Corpuscular HGB Conc 31.7 g/dL 32.0-36.5 Below low normal [facility] ([facility] Mean Corpuscular Volume 99.3 fl 80.0-96.0 Above high normal [facility] ([facility] Platelet Count, Automated 147 10 150-450 Below low normal [facility] ([facility] Red Cell Distribution Width 13.2 % 11.5-14.5 Norm al (applies to non-numeric results) [facility] ([facility] ) Neutrophils % 70.5 % 36.0-66.0 Above high normal [facility] ([facility] Lymph % 19.1 % 24.0-44.0 Below low normal [facility] ( [facility] Eos % 1.8 % 0.0-3.0 Normal (applies to non-numeric resul ts) [facility] ([facility] [place] % 7.3 % 0.0-5.0 Above high normal [facility] ([facility] Baso % 1.0 % 0.0-1.0 Normal (applies to non-numeric resul ts) [facility] ([facility] Immature Granulocyte % 0.3 % 0-3.0 Normal (applies to non-n umeric results) [facility] ([facility] Nucleated Red Blood Cell % 0.0 % 0-0 Normal (applies to n on-numeric results) [facility] ([facility] Neutrophils # 6.4 10 1.5-8.5 Normal (applies to non-numeric re sults) [facility] ([facility] Lymph # 1.7 10 1.5-5.0 Normal (applies to non-numeric resul ts) [facility] ([facility] [place] # 0.7 10 0.0-0.8 Normal (applies to non-numeric resul ts) [facility] ([facility] Eos # 0.2 10 0.0-0.5 Normal (applies to non-numeric resul ts) [facility] ([facility] Baso # 0.1 10 0.0-0.2 Normal (applies to non-numeric resul ts) [facility] ([facility] ID Date Data Source [id number] 01/19/2020 11:14:00 AM EST [facility] ([facility] Name Value Range Interpretation Code Description Data Tammi rce(s) Supporting Document(s) Total Iron Binding Capacity 272 ug/dL 250-450 Norm al (applies to non-numeric results) [facility] ([facility] ) Iron (Fe) 66 ug/dL 65-175 Normal (applies to non-numeric resul ts) [facility] ([facility] Percent Saturation 24.3 % 19.7-50.0 Normal (applies to non-numer ic results) [facility] ([facility] ID Date Data Source [id number] 01/19/2020 11:14:00 AM EST [facility] ([facility] Name Value Range Interpretation Code Description Data Tammi rce(s) Supporting Document(s) Ferritin [Mass/volume] in Serum or Plasma 88 ng/mL 26-388 Normal (applies to non-numeric results) [facility] ([facility]) <content>note:<nlbl:[email or web address]> </content>
<content></content> ID Date Data Source [id number] 01/12/2020 04:31:00 PM EST [facility] ([facility] Name Value Range Interpretation Code Description Data Tammi rce(s) Supporting Document(s) Hemoglobin A1c/Hemoglobin.total in Blood 6.3 % 4.50-6.20 Above high normal [facility] ([facility] ID Date Data Source [id number] 01/12/2020 04:00:00 PM EST [facility] ([facility] Name Value Range Interpretation Code Description Data Tammi rce(s) Supporting Document(s) Creatine kinase [Enzymatic activity/volume] in Serum or Plasma 64 U /L 39-308 [facility] ([facility] NORMAL RANGES Age WBC RBC HGB HCT MCV PLT Adult M 4.1-10.9 4.20-6.30 12.0-18.0 37.0-51.0 80-97 140-440 Adult F 4.1-10.9 4.04-5.48 12.0-18.0 37.0-51.0 80-97 140-440 0 -1 Yr 5.0-20.0 3.9-5.9 15-18 MV: 44 MV: 91 MV: 277 2-9 Yr. 6.0-17.0 3.8-5.4 11-13 MV: 37 MV: 78 MV: 300 10 Yrs. 5.0-13.0 3.8-5.4 12-15 MV: 39 MV: 80 MV: 250 NOTE: * FOR ADULT BLACK MALES AND FEMALES, NORMAL WBC IS 2.9-7.7 K/ML * FOR ADULT BLACK MALES AND FEMALES, NORMAL RBC,HGB, AND HCT IS 5% LESS SOURCE FOR DATA: [employer] 1800 OPERATION MANUAL( AUTOMATED BLOOD COUNTS AND DIFF.) APPENDIX B-3 CHRONIC KIDNEY DISEASE STAGING PER NKF: MALE GFR INTERPRETATION: 20-49 YRS: >60 mL/min Normal 50-59 YRS: >56 mL/min Normal 60-69 YRS: >49 mL/min Normal 70-79 YRS: >42 mL/min Normal 80 and above >35 mL/min Normal FEMALE GRF INTERPRETATION: 20-39 YRS: >60 mL/min Normal 40-49 YRS: >58 mL/min Normal 50-59 YRS: >51 mL/min Normal 60-69 YRS: >45 mL/min Normal 70-79 YRS: >39 mL/min Normal 80 and above >32 mL/min NormalCLASSIFICATION CHOLESTEROL FOR ADULTS CHILDREN/ADOLESCENTS* DESIRABLE: <200 MG/DL <170 MG/DL BORDER-LINE HIGH RISK: 200-239 MG/DL 170-199 MG/DL HIGH RISK: >240 MG/DL >200 MG/DL CLASS. FOR PRIMARY LDL CHOL PREVENTION: LDL CHOL-CHILD/ADOLESCENTS* DESIRABLE: <130 MG/DL <110 MG/DL BORDERLINE-HIGH RISK: 130-159 MG/DL 110-129 MG/DL HIGH RISK: >160 MG/DL >130 MG/DL *CHILDREN AND ADOLESCENTS REPRESENTS INDIVIDUALA AGED 2-19 YEARS EXCLUSIVE. ID Date Data Source [id number] 01/12/2020 04:00:00 PM EST [facility] ([facility] Name Value Range Interpretation Code Description Data Tammi rce(s) Supporting Document(s) Chol 104 mg/dL 0-200 [facility] NORMAL RANGES Age WBC RBC HGB HCT MCV PLT Adult M 4.1-10.9 4.20-6.30 12.0-18.0 37.0-51.0 80-97 140-440 Adult F 4.1-10.9 4.04-5.48 12.0-18.0 37.0-51.0 80-97 140-440 0 -1 Yr 5.0-20.0 3.9-5.9 15-18 MV: 44 MV: 91 MV: 277 2-9 Yr. 6.0-17.0 3.8-5.4 11-13 MV: 37 MV: 78 MV: 300 10 Yrs. 5.0-13.0 3.8-5.4 12-15 MV: 39 MV: 80 MV: 250 NOTE: * FOR ADULT BLACK MALES AND FEMALES, NORMAL WBC IS 2.9-7.7 K/ML * FOR ADULT BLACK MALES AND FEMALES, NORMAL RBC,HGB, AND HCT IS 5% LESS SOURCE FOR DATA: [employer] 1800 OPERATION MANUAL( AUTOMATED BLOOD COUNTS AND DIFF.) APPENDIX B-3 CHRONIC KIDNEY DISEASE STAGING PER NKF: MALE GFR INTERPRETATION: 20-49 YRS: >60 mL/min Normal 50-59 YRS: >56 mL/min Normal 60-69 YRS: >49 mL/min Normal 70-79 YRS: >42 mL/min Normal 80 and above >35 mL/min Normal FEMALE GRF INTERPRETATION: 20-39 YRS: >60 mL/min Normal 40-49 YRS: >58 mL/min Normal 50-59 YRS: >51 mL/min Normal 60-69 YRS: >45 mL/min Normal 70-79 YRS: >39 mL/min Normal 80 and above >32 mL/min NormalCLASSIFICATION CHOLESTEROL FOR ADULTS CHILDREN/ADOLESCENTS* DESIRABLE: <200 MG/DL <170 MG/DL BORDER-LINE HIGH RISK: 200-239 MG/DL 170-199 MG/DL HIGH RISK: >240 MG/DL >200 MG/DL CLASS. FOR PRIMARY LDL CHOL PREVENTION: LDL CHOL-CHILD/ADOLESCENTS* DESIRABLE: <130 MG/DL <110 MG/DL BORDERLINE-HIGH RISK: 130-159 MG/DL 110-129 MG/DL HIGH RISK: >160 MG/DL >130 MG/DL *CHILDREN AND ADOLESCENTS REPRESENTS INDIVIDUALA AGED 2-19 YEARS EXCLUSIVE. Cholesterol in HDL [Mass/volume] in Serum or Plasma 35 mg/dL 35-55 [facility] ([facility] NORMAL RANGES Age WBC RBC HGB HCT MCV PLT Adult M 4.1-10.9 4.20-6.30 12.0-18.0 37.0-51.0 80-97 140-440 Adult F 4.1-10.9 4.04-5.48 12.0-18.0 37.0-51.0 80-97 140-440 0 -1 Yr 5.0-20.0 3.9-5.9 15-18 MV: 44 MV: 91 MV: 277 2-9 Yr. 6.0-17.0 3.8-5.4 11-13 MV: 37 MV: 78 MV: 300 10 Yrs. 5.0-13.0 3.8-5.4 12-15 MV: 39 MV: 80 MV: 250 NOTE: * FOR ADULT BLACK MALES AND FEMALES, NORMAL WBC IS 2.9-7.7 K/ML * FOR ADULT BLACK MALES AND FEMALES, NORMAL RBC,HGB, AND HCT IS 5% LESS SOURCE FOR DATA: [employer] 1800 OPERATION MANUAL( AUTOMATED BLOOD COUNTS AND DIFF.) APPENDIX B-3 CHRONIC KIDNEY DISEASE STAGING PER NKF: MALE GFR INTERPRETATION: 20-49 YRS: >60 mL/min Normal 50-59 YRS: >56 mL/min Normal 60-69 YRS: >49 mL/min Normal 70-79 YRS: >42 mL/min Normal 80 and above >35 mL/min Normal FEMALE GRF INTERPRETATION: 20-39 YRS: >60 mL/min Normal 40-49 YRS: >58 mL/min Normal 50-59 YRS: >51 mL/min Normal 60-69 YRS: >45 mL/min Normal 70-79 YRS: >39 mL/min Normal 80 and above >32 mL/min NormalCLASSIFICATION CHOLESTEROL FOR ADULTS CHILDREN/ADOLESCENTS* DESIRABLE: <200 MG/DL <170 MG/DL BORDER-LINE HIGH RISK: 200-239 MG/DL 170-199 MG/DL HIGH RISK: >240 MG/DL >200 MG/DL CLASS. FOR PRIMARY LDL CHOL PREVENTION: LDL CHOL-CHILD/ADOLESCENTS* DESIRABLE: <130 MG/DL <110 MG/DL BORDERLINE-HIGH RISK: 130- 159 MG/DL 110-129 MG/DL HIGH RISK: >160 MG/DL >130 MG/DL *CHILDREN AND ADOLESCENTS REPRESENTS INDIVIDUALA AGED 2-19 YEARS EXCLUSIVE. Trig 80 mg/dL 35-200 [facility] ([facility] NORMAL RANGES Age WBC RBC HGB HCT MCV PLT Adult M 4.1-10.9 4.20-6.30 12.0-18.0 37.0-51.0 80-97 140-440 Adult F 4.1-10.9 4.04-5.48 12.0-18.0 37.0-51.0 80-97 140-440 0 -1 Yr 5.0-20.0 3.9-5.9 15-18 MV: 44 MV: 91 MV: 277 2-9 Yr. 6.0-17.0 3.8-5.4 11-13 MV: 37 MV: 78 MV: 300 10 Yrs. 5.0-13.0 3.8-5.4 12-15 MV: 39 MV: 80 MV: 250 NOTE: * FOR ADULT BLACK MALES AND FEMALES, NORMAL WBC IS 2.9-7.7 K/ML * FOR ADULT BLACK MALES AND FEMALES, NORMAL RBC,HGB, AND HCT IS 5% LESS SOURCE FOR DATA: [employer] 1800 [employer]PERATION MANUAL( AUTOMATED BLOOD COUNTS AND DIFF.) APPENDIX B-3 CHRONIC KIDNEY DISEASE STAGING PER NKF: MALE GFR INTERPRETATION: 20-49 YRS: >60 mL/min Normal 50-59 YRS: >56 mL/min Normal 60-69 YRS: >49 mL/min Normal 70-79 YRS: >42 mL/min Normal 80 and above >35 mL/min Normal FEMALE GRF INTERPRETATION: 20-39 YRS: >60 mL/min Normal 40-49 YRS: >58 mL/min Normal 50-59 YRS: >51 mL/min Normal 60-69 YRS: >45 mL/min Normal 70-79 YRS: >39 mL/min Normal 80 and above >32 mL/min NormalCLASSIFICATION CHOLESTEROL FOR ADULTS CHILDREN/ADOLESCENTS* DESIRABLE: <200 MG/DL <170 MG/DL BORDER-LINE HIGH RISK: 200-239 MG/DL 170-199 MG/DL HIGH RISK: >240 MG/DL >200 MG/DL CLASS. FOR PRIMARY LDL CHOL PREVENTION: LDL CHOL-CHILD/ADOLESCENTS* DESIRABLE: <130 MG/DL <110 MG/DL BORDERLINE-HIGH RISK: 130- 159 MG/DL 110-129 MG/DL HIGH RISK: >160 MG/DL >130 MG/DL *CHILDREN AND ADOLESCENTS REPRESENTS INDIVIDUALA AGED 2-19 YEARS EXCLUSIVE. LDL_C 53 Calc 75-129 Below low normal [facility] ( [facility] NORMAL RANGES Age WBC RBC HGB HCT MCV PLT Adult M 4.1-10.9 4.20-6.30 12.0-18.0 37.0-51.0 80-97 140-440 Adult F 4.1-10.9 4.04-5.48 12.0-18.0 37.0-51.0 80-97 140-440 0 -1 Yr 5.0-20.0 3.9-5.9 15-18 MV: 44 MV: 91 MV: 277 2-9 Yr. 6.0-17.0 3.8-5.4 11-13 MV: 37 MV: 78 MV: 300 10 Yrs. 5.0-13.0 3.8-5.4 12-15 MV: 39 MV: 80 MV: 250 NOTE: * FOR ADULT BLACK MALES AND FEMALES, NORMAL WBC IS 2.9-7.7 K/ML * FOR ADULT BLACK MALES AND FEMALES, NORMAL RBC,HGB, AND HCT IS 5% LESS SOURCE FOR DATA: [employer] 1800 [employer]PERATION MANUAL( AUTOMATED BLOOD COUNTS AND DIFF.) APPENDIX B-3 CHRONIC KIDNEY DISEASE STAGING PER NKF: MALE GFR INTERPRETATION: 20-49 YRS: >60 mL/min Normal 50-59 YRS: >56 mL/min Normal 60-69 YRS: >49 mL/min Normal 70-79 YRS: >42 mL/min Normal 80 and above >35 mL/min Normal FEMALE GRF INTERPRETATION: 20-39 YRS: >60 mL/min Normal 40-49 YRS: >58 mL/min Normal 50-59 YRS: >51 mL/min Normal 60-69 YRS: >45 mL/min Normal 70-79 YRS: >39 mL/min Normal 80 and above >32 mL/min NormalCLASSIFICATION CHOLESTEROL FOR ADULTS CHILDREN/ADOLESCENTS* DESIRABLE: <200 MG/DL <170 MG/DL BORDER-LINE HIGH RISK: 200-239 MG/DL 170-199 MG/DL HIGH RISK: >240 MG/DL >200 MG/DL CLASS. FOR PRIMARY LDL CHOL PREVENTION: LDL CHOL-CHILD/ADOLESCENTS* DESIRABLE: <130 MG/DL <110 MG/DL BORDERLINE-HIGH RISK: 130- 159 MG/DL 110-129 MG/DL HIGH RISK: >160 MG/DL >130 MG/DL *CHILDREN AND ADOLESCENTS REPRESENTS INDIVIDUALA AGED 2-19 YEARS EXCLUSIVE. Cho/HDL Ratio 3.0 CALC [employer] ([facility] [employer] NORMAL RANGES Age WBC RBC HGB HCT MCV PLT Adult M 4.1-10.9 4.20-6.30 12.0-18.0 37.0-51.0 80-97 140-440 Adult F 4.1-10.9 4.04-5.48 12.0-18.0 37.0-51.0 80-97 140-440 0 -1 Yr 5.0-20.0 3.9-5.9 15-18 MV: 44 MV: 91 MV: 277 2-9 Yr. 6.0-17.0 3.8-5.4 11-13 MV: 37 MV: 78 MV: 300 10 Yrs. 5.0-13.0 3.8-5.4 12-15 MV: 39 MV: 80 MV: 250 NOTE: * FOR ADULT BLACK MALES AND FEMALES, NORMAL WBC IS 2.9-7.7 K/ML * FOR ADULT BLACK MALES AND FEMALES, NORMAL RBC,HGB, AND HCT IS 5% LESS SOURCE FOR DATA: [employer] 1800 [employer]PERATION MANUAL( AUTOMATED BLOOD COUNTS AND DIFF.) APPENDIX B-3 CHRONIC KIDNEY DISEASE STAGING PER NKF: MALE GFR INTERPRETATION: 20-49 YRS: >60 mL/min Normal 50-59 YRS: >56 mL/min Normal 60-69 YRS: >49 mL/min Normal 70-79 YRS: >42 mL/min Normal 80 and above >35 mL/min Normal FEMALE GRF INTERPRETATION: 20-39 YRS: >60 mL/min Normal 40-49 YRS: >58 mL/min Normal 50-59 YRS: >51 mL/min Normal 60-69 YRS: >45 mL/min Normal 70-79 YRS: >39 mL/min Normal 80 and above >32 mL/min NormalCLASSIFICATION CHOLESTEROL FOR ADULTS CHILDREN/ADOLESCENTS* DESIRABLE: <200 MG/DL <170 MG/DL BORDER-LINE HIGH RISK: 200-239 MG/DL 170-199 MG/DL HIGH RISK: >240 MG/DL >200 MG/DL CLASS. FOR PRIMARY LDL CHOL PREVENTION: LDL CHOL-CHILD/ADOLESCENTS* DESIRABLE: <130 MG/DL <110 MG/DL BORDERLINE-HIGH RISK: 130- 159 MG/DL 110-129 MG/DL HIGH RISK: >160 MG/DL >130 MG/DL *CHILDREN AND ADOLESCENTS REPRESENTS INDIVIDUALA AGED 2-19 YEARS EXCLUSIVE. ID Date Data Source [id number] 01/12/2020 04:00:00 PM EST [facility] ([facility] Name Value Range Interpretation Code Description Data Tammi rce(s) Supporting Document(s) Glu 166 mg/dL 70-110 Above high normal [facility] ([facility] NORMAL RANGES Age WBC RBC HGB HCT MCV PLT Adult M 4.1-10.9 4.20-6.30 12.0-18.0 37.0-51.0 80-97 140-440 Adult F 4.1-10.9 4.04-5.48 12.0-18.0 37.0-51.0 80-97 140-440 0 -1 Yr 5.0-20.0 3.9-5.9 15-18 MV: 44 MV: 91 MV: 277 2-9 Yr. 6.0-17.0 3.8-5.4 11-13 MV: 37 MV: 78 MV: 300 10 Yrs. 5.0-13.0 3.8-5.4 12-15 MV: 39 MV: 80 MV: 250 NOTE: * FOR ADULT BLACK MALES AND FEMALES, NORMAL WBC IS 2.9-7.7 K/ML * FOR ADULT BLACK MALES AND FEMALES, NORMAL RBC,HGB, AND HCT IS 5% LESS SOURCE FOR DATA: [employer] 1800 OPERATION MANUAL( AUTOMATED BLOOD COUNTS AND DIFF.) APPENDIX B-3 CHRONIC KIDNEY DISEASE STAGING PER NKF: MALE GFR INTERPRETATION: 20-49 YRS: >60 mL/min Normal 50-59 YRS: >56 mL/min Normal 60-69 YRS: >49 mL/min Normal 70-79 YRS: >42 mL/min Normal 80 and above >35 mL/min Normal FEMALE GRF INTERPRETATION: 20-39 YRS: >60 mL/min Normal 40-49 YRS: >58 mL/min Normal 50-59 YRS: >51 mL/min Normal 60-69 YRS: >45 mL/min Normal 70-79 YRS: >39 mL/min Normal 80 and above >32 mL/min NormalCLASSIFICATION CHOLESTEROL FOR ADULTS CHILDREN/ADOLESCENTS* DESIRABLE: <200 MG/DL <170 MG/DL BORDER-LINE HIGH RISK: 200-239 MG/DL 170-199 MG/DL HIGH RISK: >240 MG/DL >200 MG/DL CLASS. FOR PRIMARY LDL CHOL PREVENTION: LDL CHOL-CHILD/ADOLESCENTS* DESIRABLE: <130 MG/DL <110 MG/DL BORDERLINE-HIGH RISK: 130- 159 MG/DL 110-129 MG/DL HIGH RISK: >160 MG/DL >130 MG/DL *CHILDREN AND ADOLESCENTS REPRESENTS INDIVIDUALA AGED 2-19 YEARS EXCLUSIVE. BUN 38 mg/dL 8-23 Above high normal [facility] ([facility] NORMAL RANGES Age WBC RBC HGB HCT MCV PLT Adult M 4.1-10.9 4.20-6.30 12.0-18.0 37.0-51.0 80-97 140-440 Adult F 4.1-10.9 4.04-5.48 12.0-18.0 37.0-51.0 80-97 140-440 0 -1 Yr 5.0-20.0 3.9-5.9 15-18 MV: 44 MV: 91 MV: 277 2-9 Yr. 6.0-17.0 3.8-5.4 11-13 MV: 37 MV: 78 MV: 300 10 Yrs. 5.0-13.0 3.8-5.4 12-15 MV: 39 MV: 80 MV: 250 NOTE: * FOR ADULT BLACK MALES AND FEMALES, NORMAL WBC IS 2.9-7.7 K/ML * FOR ADULT BLACK MALES AND FEMALES, NORMAL RBC,HGB, AND HCT IS 5% LESS SOURCE FOR DATA: [employer] 1800 OPERATION MANUAL( AUTOMATED BLOOD COUNTS AND DIFF.) APPENDIX B-3 CHRONIC KIDNEY DISEASE STAGING PER NKF: MALE GFR INTERPRETATION: 20-49 YRS: >60 mL/min Normal 50-59 YRS: >56 mL/min Normal 60-69 YRS: >49 mL/min Normal 70-79 YRS: >42 mL/min Normal 80 and above >35 mL/min Normal FEMALE GRF INTERPRETATION: 20-39 YRS: >60 mL/min Normal 40-49 YRS: >58 mL/min Normal 50-59 YRS: >51 mL/min Normal 60-69 YRS: >45 mL/min Normal 70-79 YRS: >39 mL/min Normal 80 and above >32 mL/min NormalCLASSIFICATION CHOLESTEROL FOR ADULTS CHILDREN/ADOLESCENTS* DESIRABLE: <200 MG/DL <170 MG/DL BORDER-LINE HIGH RISK: 200-239 MG/DL 170-199 MG/DL HIGH RISK: >240 MG/DL >200 MG/DL CLASS. FOR PRIMARY LDL CHOL PREVENTION: LDL CHOL-CHILD/ADOLESCENTS* DESIRABLE: <130 MG/DL <110 MG/DL BORDERLINE-HIGH RISK: 130- 159 MG/DL 110-129 MG/DL HIGH RISK: >160 MG/DL >130 MG/DL *CHILDREN AND ADOLESCENTS REPRESENTS INDIVIDUALA AGED 2-19 YEARS EXCLUSIVE. Creat 1.9 mg/dL 0.7-1.2 Above high normal [facility] ([facility] NORMAL RANGES Age WBC RBC HGB HCT MCV PLT Adult M 4.1-10.9 4.20-6.30 12.0-18.0 37.0-51.0 80-97 140-440 Adult F 4.1-10.9 4.04-5.48 12.0-18.0 37.0-51.0 80-97 140-440 0 -1 Yr 5.0-20.0 3.9-5.9 15-18 MV: 44 MV: 91 MV: 277 2-9 Yr. 6.0-17.0 3.8-5.4 11-13 MV: 37 MV: 78 MV: 300 10 Yrs. 5.0-13.0 3.8-5.4 12-15 MV: 39 MV: 80 MV: 250 NOTE: * FOR ADULT BLACK MALES AND FEMALES, NORMAL WBC IS 2.9-7.7 K/ML * FOR ADULT BLACK MALES AND FEMALES, NORMAL RBC,HGB, AND HCT IS 5% LESS SOURCE FOR DATA: [employer] 1800 OPERATION MANUAL( AUTOMATED BLOOD COUNTS AND DIFF.) APPENDIX B-3 CHRONIC KIDNEY DISEASE STAGING PER NKF: MALE GFR INTERPRETATION: 20-49 YRS: >60 mL/min Normal 50-59 YRS: >56 mL/min Normal 60-69 YRS: >49 mL/min Normal 70-79 YRS: >42 mL/min Normal 80 and above >35 mL/min Normal FEMALE GRF INTERPRETATION: 20-39 YRS: >60 mL/min Normal 40-49 YRS: >58 mL/min Normal 50-59 YRS: >51 mL/min Normal 60-69 YRS: >45 mL/min Normal 70-79 YRS: >39 mL/min Normal 80 and above >32 mL/min NormalCLASSIFICATION CHOLESTEROL FOR ADULTS CHILDREN/ADOLESCENTS* DESIRABLE: <200 MG/DL <170 MG/DL BORDER-LINE HIGH RISK: 200-239 MG/DL 170-199 MG/DL HIGH RISK: >240 MG/DL >200 MG/DL CLASS. FOR PRIMARY LDL CHOL PREVENTION: LDL CHOL-CHILD/ADOLESCENTS* DESIRABLE: <130 MG/DL <110 MG/DL BORDERLINE-HIGH RISK: 130- 159 MG/DL 110-129 MG/DL HIGH RISK: >160 MG/DL >130 MG/DL *CHILDREN AND ADOLESCENTS REPRESENTS INDIVIDUALA AGED 2-19 YEARS EXCLUSIVE. BUN/Creatinine Ratio 19.5 CALC [facility] ([facility] NORMAL RANGES Age WBC RBC HGB HCT MCV PLT Adult M 4.1-10.9 4.20-6.30 12.0-18.0 37.0-51.0 80-97 140-440 Adult F 4.1-10.9 4.04-5.48 12.0-18.0 37.0-51.0 80-97 140-440 0 -1 Yr 5.0-20.0 3.9-5.9 15-18 MV: 44 MV: 91 MV: 277 2-9 Yr. 6.0-17.0 3.8-5.4 11-13 MV: 37 MV: 78 MV: 300 10 Yrs. 5.0-13.0 3.8-5.4 12-15 MV: 39 MV: 80 MV: 250 NOTE: * FOR ADULT BLACK MALES AND FEMALES, NORMAL WBC IS 2.9-7.7 K/ML * FOR ADULT BLACK MALES AND FEMALES, NORMAL RBC,HGB, AND HCT IS 5% LESS SOURCE FOR DATA: [employer] 1800 OPERATION MANUAL( AUTOMATED BLOOD COUNTS AND DIFF.) APPENDIX B-3 CHRONIC KIDNEY DISEASE STAGING PER NKF: MALE GFR INTERPRETATION: 20-49 YRS: >60 mL/min Normal 50-59 YRS: >56 mL/min Normal 60-69 YRS: >49 mL/min Normal 70-79 YRS: >42 mL/min Normal 80 and above >35 mL/min Normal FEMALE GRF INTERPRETATION: 20-39 YRS: >60 mL/min Normal 40-49 YRS: >58 mL/min Normal 50-59 YRS: >51 mL/min Normal 60-69 YRS: >45 mL/min Normal 70-79 YRS: >39 mL/min Normal 80 and above >32 mL/min NormalCLASSIFICATION CHOLESTEROL FOR ADULTS CHILDREN/ADOLESCENTS* DESIRABLE: <200 MG/DL <170 MG/DL BORDER-LINE HIGH RISK: 200-239 MG/DL 170-199 MG/DL HIGH RISK: >240 MG/DL >200 MG/DL CLASS. FOR PRIMARY LDL CHOL PREVENTION: LDL CHOL-CHILD/ADOLESCENTS* DESIRABLE: <130 MG/DL <110 MG/DL BORDERLINE-HIGH RISK: 130- 159 MG/DL 110-129 MG/DL HIGH RISK: >160 MG/DL >130 MG/DL *CHILDREN AND ADOLESCENTS REPRESENTS INDIVIDUALA AGED 2-19 YEARS EXCLUSIVE. K 3.7 mmol/L 3.5-5.1 [facility] NORMAL RANGES Age WBC RBC HGB HCT MCV PLT Adult M 4.1-10.9 4.20-6.30 12.0-18.0 37.0-51.0 80-97 140-440 Adult F 4.1-10.9 4.04-5.48 12.0-18.0 37.0-51.0 80-97 140-440 0 -1 Yr 5.0-20.0 3.9-5.9 15-18 MV: 44 MV: 91 MV: 277 2-9 Yr. 6.0-17.0 3.8-5.4 11-13 MV: 37 MV: 78 MV: 300 10 Yrs. 5.0-13.0 3.8-5.4 12-15 MV: 39 MV: 80 MV: 250 NOTE: * FOR ADULT BLACK MALES AND FEMALES, NORMAL WBC IS 2.9-7.7 K/ML * FOR ADULT BLACK MALES AND FEMALES, NORMAL RBC,HGB, AND HCT IS 5% LESS SOURCE FOR DATA: [employer] 1800 OPERATION MANUAL( AUTOMATED BLOOD COUNTS AND DIFF.) APPENDIX B-3 CHRONIC KIDNEY DISEASE STAGING PER NKF: MALE GFR INTERPRETATION: 20-49 YRS: >60 mL/min Normal 50-59 YRS: >56 mL/min Normal 60-69 YRS: >49 mL/min Normal 70-79 YRS: >42 mL/min Normal 80 and above >35 mL/min Normal FEMALE GRF INTERPRETATION: 20-39 YRS: >60 mL/min Normal 40-49 YRS: >58 mL/min Normal 50-59 YRS: >51 mL/min Normal 60-69 YRS: >45 mL/min Normal 70-79 YRS: >39 mL/min Normal 80 and above >32 mL/min NormalCLASSIFICATION CHOLESTEROL FOR ADULTS CHILDREN/ADOLESCENTS* DESIRABLE: <200 MG/DL <170 MG/DL BORDER-LINE HIGH RISK: 200-239 MG/DL 170-199 MG/DL HIGH RISK: >240 MG/DL >200 MG/DL CLASS. FOR PRIMARY LDL CHOL PREVENTION: LDL CHOL-CHILD/ADOLESCENTS* DESIRABLE: <130 MG/DL <110 MG/DL BORDERLINE-HIGH RISK: 130- 159 MG/DL 110-129 MG/DL HIGH RISK: >160 MG/DL >130 MG/DL *CHILDREN AND ADOLESCENTS REPRESENTS INDIVIDUALA AGED 2-19 YEARS EXCLUSIVE. Na 143 mmol/L 136-145 [facility] NORMAL RANGES Age WBC RBC HGB HCT MCV PLT Adult M 4.1-10.9 4.20-6.30 12.0-18.0 37.0-51.0 80-97 140-440 Adult F 4.1-10.9 4.04-5.48 12.0-18.0 37.0-51.0 80-97 140-440 0 -1 Yr 5.0-20.0 3.9-5.9 15-18 MV: 44 MV: 91 MV: 277 2-9 Yr. 6.0-17.0 3.8-5.4 11-13 MV: 37 MV: 78 MV: 300 10 Yrs. 5.0-13.0 3.8-5.4 12-15 MV: 39 MV: 80 MV: 250 NOTE: * FOR ADULT BLACK MALES AND FEMALES, NORMAL WBC IS 2.9-7.7 K/ML * FOR ADULT BLACK MALES AND FEMALES, NORMAL RBC,HGB, AND HCT IS 5% LESS SOURCE FOR DATA: [employer] 1800 OPERATION MANUAL( AUTOMATED BLOOD COUNTS AND DIFF.) APPENDIX B-3 CHRONIC KIDNEY DISEASE STAGING PER NKF: MALE GFR INTERPRETATION: 20-49 YRS: >60 mL/min Normal 50-59 YRS: >56 mL/min Normal 60-69 YRS: >49 mL/min Normal 70-79 YRS: >42 mL/min Normal 80 and above >35 mL/min Normal FEMALE GRF INTERPRETATION: 20-39 YRS: >60 mL/min Normal 40-49 YRS: >58 mL/min Normal 50-59 YRS: >51 mL/min Normal 60-69 YRS: >45 mL/min Normal 70-79 YRS: >39 mL/min Normal 80 and above >32 mL/min NormalCLASSIFICATION CHOLESTEROL FOR ADULTS CHILDREN/ADOLESCENTS* DESIRABLE: <200 MG/DL <170 MG/DL BORDER-LINE HIGH RISK: 200-239 MG/DL 170-199 MG/DL HIGH RISK: >240 MG/DL >200 MG/DL CLASS. FOR PRIMARY LDL CHOL PREVENTION: LDL CHOL-CHILD/ADOLESCENTS* DESIRABLE: <130 MG/DL <110 MG/DL BORDERLINE-HIGH RISK: 130- 159 MG/DL 110-129 MG/DL HIGH RISK: >160 MG/DL >130 MG/DL *CHILDREN AND ADOLESCENTS REPRESENTS INDIVIDUALA AGED 2-19 YEARS EXCLUSIVE. Co2 18.9 mmol/L 22.0-29.0 Below low normal [facility] ([facility] NORMAL RANGES Age WBC RBC HGB HCT MCV PLT Adult M 4.1-10.9 4.20-6.30 12.0-18.0 37.0-51.0 80-97 140-440 Adult F 4.1-10.9 4.04-5.48 12.0-18.0 37.0-51.0 80-97 140-440 0 -1 Yr 5.0-20.0 3.9-5.9 15-18 MV: 44 MV: 91 MV: 277 2-9 Yr. 6.0-17.0 3.8-5.4 11-13 MV: 37 MV: 78 MV: 300 10 Yrs. 5.0-13.0 3.8-5.4 12-15 MV: 39 MV: 80 MV: 250 NOTE: * FOR ADULT BLACK MALES AND FEMALES, NORMAL WBC IS 2.9-7.7 K/ML * FOR ADULT BLACK MALES AND FEMALES, NORMAL RBC,HGB, AND HCT IS 5% LESS SOURCE FOR DATA: [employer] 1800 OPERATION MANUAL( AUTOMATED BLOOD COUNTS AND DIFF.) APPENDIX B-3 CHRONIC KIDNEY DISEASE STAGING PER NKF: MALE GFR INTERPRETATION: 20-49 YRS: >60 mL/min Normal 50-59 YRS: >56 mL/min Normal 60-69 YRS: >49 mL/min Normal 70-79 YRS: >42 mL/min Normal 80 and above >35 mL/min Normal FEMALE GRF INTERPRETATION: 20-39 YRS: >60 mL/min Normal 40-49 YRS: >58 mL/min Normal 50-59 YRS: >51 mL/min Normal 60-69 YRS: >45 mL/min Normal 70-79 YRS: >39 mL/min Normal 80 and above >32 mL/min NormalCLASSIFICATION CHOLESTEROL FOR ADULTS CHILDREN/ADOLESCENTS* DESIRABLE: <200 MG/DL <170 MG/DL BORDER-LINE HIGH RISK: 200-239 MG/DL 170-199 MG/DL HIGH RISK: >240 MG/DL >200 MG/DL CLASS. FOR PRIMARY LDL CHOL PREVENTION: LDL CHOL-CHILD/ADOLESCENTS* DESIRABLE: <130 MG/DL <110 MG/DL BORDERLINE-HIGH RISK: 130- 159 MG/DL 110-129 MG/DL HIGH RISK: >160 MG/DL >130 MG/DL *CHILDREN AND ADOLESCENTS REPRESENTS INDIVIDUALA AGED 2-19 YEARS EXCLUSIVE. CL 111.4 mmol/L 98.0-107.0 Above high normal [facility] ([facility] NORMAL RANGES Age WBC RBC HGB HCT MCV PLT Adult M 4.1-10.9 4.20-6.30 12.0-18.0 37.0-51.0 80-97 140-440 Adult F 4.1-10.9 4.04-5.48 12.0-18.0 37.0-51.0 80-97 140-440 0 -1 Yr 5.0-20.0 3.9-5.9 15-18 MV: 44 MV: 91 MV: 277 2-9 Yr. 6.0-17.0 3.8-5.4 11-13 MV: 37 MV: 78 MV: 300 10 Yrs. 5.0-13.0 3.8-5.4 12-15 MV: 39 MV: 80 MV: 250 NOTE: * FOR ADULT BLACK MALES AND FEMALES, NORMAL WBC IS 2.9-7.7 K/ML * FOR ADULT BLACK MALES AND FEMALES, NORMAL RBC,HGB, AND HCT IS 5% LESS SOURCE FOR DATA: [employer] 1800 OPERATION MANUAL( AUTOMATED BLOOD COUNTS AND DIFF.) APPENDIX B-3 CHRONIC KIDNEY DISEASE STAGING PER NKF: MALE GFR INTERPRETATION: 20-49 YRS: >60 mL/min Normal 50-59 YRS: >56 mL/min Normal 60-69 YRS: >49 mL/min Normal 70-79 YRS: >42 mL/min Normal 80 and above >35 mL/min Normal FEMALE GRF INTERPRETATION: 20-39 YRS: >60 mL/min Normal 40-49 YRS: >58 mL/min Normal 50-59 YRS: >51 mL/min Normal 60-69 YRS: >45 mL/min Normal 70-79 YRS: >39 mL/min Normal 80 and above >32 mL/min NormalCLASSIFICATION CHOLESTEROL FOR ADULTS CHILDREN/ADOLESCENTS* DESIRABLE: <200 MG/DL <170 MG/DL BORDER-LINE HIGH RISK: 200-239 MG/DL 170-199 MG/DL HIGH RISK: >240 MG/DL >200 MG/DL CLASS. FOR PRIMARY LDL CHOL PREVENTION: LDL CHOL-CHILD/ADOLESCENTS* DESIRABLE: <130 MG/DL <110 MG/DL BORDERLINE-HIGH RISK: 130- 159 MG/DL 110-129 MG/DL HIGH RISK: >160 MG/DL >130 MG/DL *CHILDREN AND ADOLESCENTS REPRESENTS INDIVIDUALA AGED 2-19 YEARS EXCLUSIVE. TP 6.0 g/dL 6.6-8.7 Below low normal [facility] ( [facility] NORMAL RANGES Age WBC RBC HGB HCT MCV PLT Adult M 4.1-10.9 4.20-6.30 12.0-18.0 37.0-51.0 80-97 140-440 Adult F 4.1-10.9 4.04-5.48 12.0-18.0 37.0-51.0 80-97 140-440 0 -1 Yr 5.0-20.0 3.9-5.9 15-18 MV: 44 MV: 91 MV: 277 2-9 Yr. 6.0-17.0 3.8-5.4 11-13 MV: 37 MV: 78 MV: 300 10 Yrs. 5.0-13.0 3.8-5.4 12-15 MV: 39 MV: 80 MV: 250 NOTE: * FOR ADULT BLACK MALES AND FEMALES, NORMAL WBC IS 2.9-7.7 K/ML * FOR ADULT BLACK MALES AND FEMALES, NORMAL RBC,HGB, AND HCT IS 5% LESS SOURCE FOR DATA: [employer] 1800 OPERATION MANUAL( AUTOMATED BLOOD COUNTS AND DIFF.) APPENDIX B-3 CHRONIC KIDNEY DISEASE STAGING PER NKF: MALE GFR INTERPRETATION: 20-49 YRS: >60 mL/min Normal 50-59 YRS: >56 mL/min Normal 60-69 YRS: >49 mL/min Normal 70-79 YRS: >42 mL/min Normal 80 and above >35 mL/min Normal FEMALE GRF INTERPRETATION: 20-39 YRS: >60 mL/min Normal 40-49 YRS: >58 mL/min Normal 50-59 YRS: >51 mL/min Normal 60-69 YRS: >45 mL/min Normal 70-79 YRS: >39 mL/min Normal 80 and above >32 mL/min NormalCLASSIFICATION CHOLESTEROL FOR ADULTS CHILDREN/ADOLESCENTS* DESIRABLE: <200 MG/DL <170 MG/DL BORDER-LINE HIGH RISK: 200-239 MG/DL 170-199 MG/DL HIGH RISK: >240 MG/DL >200 MG/DL CLASS. FOR PRIMARY LDL CHOL PREVENTION: LDL CHOL-CHILD/ADOLESCENTS* DESIRABLE: <130 MG/DL <110 MG/DL BORDERLINE-HIGH RISK: 130- 159 MG/DL 110-129 MG/DL HIGH RISK: >160 MG/DL >130 MG/DL *CHILDREN AND ADOLESCENTS REPRESENTS INDIVIDUALA AGED 2-19 YEARS EXCLUSIVE. CA 8.9 mg/dL 8.6-10.2 [facility] ([facility] NORMAL RANGES Age WBC RBC HGB HCT MCV PLT Adult M 4.1-10.9 4.20-6.30 12.0-18.0 37.0-51.0 80-97 140-440 Adult F 4.1-10.9 4.04-5.48 12.0-18.0 37.0-51.0 80-97 140-440 0 -1 Yr 5.0-20.0 3.9-5.9 15-18 MV: 44 MV: 91 MV: 277 2-9 Yr. 6.0-17.0 3.8-5.4 11-13 MV: 37 MV: 78 MV: 300 10 Yrs. 5.0-13.0 3.8-5.4 12-15 MV: 39 MV: 80 MV: 250 NOTE: * FOR ADULT BLACK MALES AND FEMALES, NORMAL WBC IS 2.9-7.7 K/ML * FOR ADULT BLACK MALES AND FEMALES, NORMAL RBC,HGB, AND HCT IS 5% LESS SOURCE FOR DATA: [employer] 1800 OPERATION MANUAL( AUTOMATED BLOOD COUNTS AND DIFF.) APPENDIX B-3 CHRONIC KIDNEY DISEASE STAGING PER NKF: MALE GFR INTERPRETATION: 20-49 YRS: >60 mL/min Normal 50-59 YRS: >56 mL/min Normal 60-69 YRS: >49 mL/min Normal 70-79 YRS: >42 mL/min Normal 80 and above >35 mL/min Normal FEMALE GRF INTERPRETATION: 20-39 YRS: >60 mL/min Normal 40-49 YRS: >58 mL/min Normal 50-59 YRS: >51 mL/min Normal 60-69 YRS: >45 mL/min Normal 70-79 YRS: >39 mL/min Normal 80 and above >32 mL/min NormalCLASSIFICATION CHOLESTEROL FOR ADULTS CHILDREN/ADOLESCENTS* DESIRABLE: <200 MG/DL <170 MG/DL BORDER-LINE HIGH RISK: 200-239 MG/DL 170-199 MG/DL HIGH RISK: >240 MG/DL >200 MG/DL CLASS. FOR PRIMARY LDL CHOL PREVENTION: LDL CHOL-CHILD/ADOLESCENTS* DESIRABLE: <130 MG/DL <110 MG/DL BORDERLINE-HIGH RISK: 130- 159 MG/DL 110-129 MG/DL HIGH RISK: >160 MG/DL >130 MG/DL *CHILDREN AND ADOLESCENTS REPRESENTS INDIVIDUALA AGED 2-19 YEARS EXCLUSIVE. Alb 4.0 g/dL 3.5-5.2 [facility] NORMAL RANGES Age WBC RBC HGB HCT MCV PLT Adult M 4.1-10.9 4.20-6.30 12.0-18.0 37.0-51.0 80-97 140-440 Adult F 4.1-10.9 4.04-5.48 12.0-18.0 37.0-51.0 80-97 140-440 0 -1 Yr 5.0-20.0 3.9-5.9 15-18 MV: 44 MV: 91 MV: 277 2-9 Yr. 6.0-17.0 3.8-5.4 11-13 MV: 37 MV: 78 MV: 300 10 Yrs. 5.0-13.0 3.8-5.4 12-15 MV: 39 MV: 80 MV: 250 NOTE: * FOR ADULT BLACK MALES AND FEMALES, NORMAL WBC IS 2.9-7.7 K/ML * FOR ADULT BLACK MALES AND FEMALES, NORMAL RBC,HGB, AND HCT IS 5% LESS SOURCE FOR DATA: [employer] 1800 OPERATION MANUAL( AUTOMATED BLOOD COUNTS AND DIFF.) APPENDIX B-3 CHRONIC KIDNEY DISEASE STAGING PER NKF: MALE GFR INTERPRETATION: 20-49 YRS: >60 mL/min Normal 50-59 YRS: >56 mL/min Normal 60-69 YRS: >49 mL/min Normal 70-79 YRS: >42 mL/min Normal 80 and above >35 mL/min Normal FEMALE GRF INTERPRETATION: 20-39 YRS: >60 mL/min Normal 40-49 YRS: >58 mL/min Normal 50-59 YRS: >51 mL/min Normal 60-69 YRS: >45 mL/min Normal 70-79 YRS: >39 mL/min Normal 80 and above >32 mL/min NormalCLASSIFICATION CHOLESTEROL FOR ADULTS CHILDREN/ADOLESCENTS* DESIRABLE: <200 MG/DL <170 MG/DL BORDER-LINE HIGH RISK: 200-239 MG/DL 170-199 MG/DL HIGH RISK: >240 MG/DL >200 MG/DL CLASS. FOR PRIMARY LDL CHOL PREVENTION: LDL CHOL-CHILD/ADOLESCENTS* DESIRABLE: <130 MG/DL <110 MG/DL BORDERLINE-HIGH RISK: 130- 159 MG/DL 110-129 MG/DL HIGH RISK: >160 MG/DL >130 MG/DL *CHILDREN AND ADOLESCENTS REPRESENTS INDIVIDUALA AGED 2-19 YEARS EXCLUSIVE. A/G Ratio 2.0 [facility]C [facility] NORMAL RANGES Age WBC RBC HGB HCT MCV PLT Adult M 4.1-10.9 4.20-6.30 12.0-18.0 37.0-51.0 80-97 140-440 Adult F 4.1-10.9 4.04-5.48 12.0-18.0 37.0-51.0 80-97 140-440 0 -1 Yr 5.0-20.0 3.9-5.9 15-18 MV: 44 MV: 91 MV: 277 2-9 Yr. 6.0-17.0 3.8-5.4 11-13 MV: 37 MV: 78 MV: 300 10 Yrs. 5.0-13.0 3.8-5.4 12-15 MV: 39 MV: 80 MV: 250 NOTE: * FOR ADULT BLACK MALES AND FEMALES, NORMAL WBC IS 2.9-7.7 K/ML * FOR ADULT BLACK MALES AND FEMALES, NORMAL RBC,HGB, AND HCT IS 5% LESS SOURCE FOR DATA: [employer] 1800 [employer]PERATION MANUAL( AUTOMATED BLOOD COUNTS AND DIFF.) APPENDIX B-3 CHRONIC KIDNEY DISEASE STAGING PER NKF: MALE GFR INTERPRETATION: 20-49 YRS: >60 mL/min Normal 50-59 YRS: >56 mL/min Normal 60-69 YRS: >49 mL/min Normal 70-79 YRS: >42 mL/min Normal 80 and above >35 mL/min Normal FEMALE GRF INTERPRETATION: 20-39 YRS: >60 mL/min Normal 40-49 YRS: >58 mL/min Normal 50-59 YRS: >51 mL/min Normal 60-69 YRS: >45 mL/min Normal 70-79 YRS: >39 mL/min Normal 80 and above >32 mL/min NormalCLASSIFICATION CHOLESTEROL FOR ADULTS CHILDREN/ADOLESCENTS* DESIRABLE: <200 MG/DL <170 MG/DL BORDER-LINE HIGH RISK: 200-239 MG/DL 170-199 MG/DL HIGH RISK: >240 MG/DL >200 MG/DL CLASS. FOR PRIMARY LDL CHOL PREVENTION: LDL CHOL-CHILD/ADOLESCENTS* DESIRABLE: <130 MG/DL <110 MG/DL BORDERLINE-HIGH RISK: 130- 159 MG/DL 110-129 MG/DL HIGH RISK: >160 MG/DL >130 MG/DL *CHILDREN AND ADOLESCENTS REPRESENTS INDIVIDUALA AGED 2-19 YEARS EXCLUSIVE. Alp 135.0 U/L 40-129 Above high normal [facility] ([facility] NORMAL RANGES Age WBC RBC HGB HCT MCV PLT Adult M 4.1-10.9 4.20-6.30 12.0-18.0 37.0-51.0 80-97 140-440 Adult F 4.1-10.9 4.04-5.48 12.0-18.0 37.0-51.0 80-97 140-440 0 -1 Yr 5.0-20.0 3.9-5.9 15-18 MV: 44 MV: 91 MV: 277 2-9 Yr. 6.0-17.0 3.8-5.4 11-13 MV: 37 MV: 78 MV: 300 10 Yrs. 5.0-13.0 3.8-5.4 12-15 MV: 39 MV: 80 MV: 250 NOTE: * FOR ADULT BLACK MALES AND FEMALES, NORMAL WBC IS 2.9-7.7 K/ML * FOR ADULT BLACK MALES AND FEMALES, NORMAL RBC,HGB, AND HCT IS 5% LESS SOURCE FOR DATA: [employer] 1800 OPERATION MANUAL( AUTOMATED BLOOD COUNTS AND DIFF.) APPENDIX B-3 CHRONIC KIDNEY DISEASE STAGING PER NKF: MALE GFR INTERPRETATION: 20-49 YRS: >60 mL/min Normal 50-59 YRS: >56 mL/min Normal 60-69 YRS: >49 mL/min Normal 70-79 YRS: >42 mL/min Normal 80 and above >35 mL/min Normal FEMALE GRF INTERPRETATION: 20-39 YRS: >60 mL/min Normal 40-49 YRS: >58 mL/min Normal 50-59 YRS: >51 mL/min Normal 60-69 YRS: >45 mL/min Normal 70-79 YRS: >39 mL/min Normal 80 and above >32 mL/min NormalCLASSIFICATION CHOLESTEROL FOR ADULTS CHILDREN/ADOLESCENTS* DESIRABLE: <200 MG/DL <170 MG/DL BORDER-LINE HIGH RISK: 200-239 MG/DL 170-199 MG/DL HIGH RISK: >240 MG/DL >200 MG/DL CLASS. FOR PRIMARY LDL CHOL PREVENTION: LDL CHOL-CHILD/ADOLESCENTS* DESIRABLE: <130 MG/DL <110 MG/DL BORDERLINE-HIGH RISK: 130- 159 MG/DL 110-129 MG/DL HIGH RISK: >160 MG/DL >130 MG/DL *CHILDREN AND ADOLESCENTS REPRESENTS INDIVIDUALA AGED 2-19 YEARS EXCLUSIVE. Globulin 2.0 [facility] NORMAL RANGES Age WBC RBC HGB HCT MCV PLT Adult M 4.1-10.9 4.20-6.30 12.0-18.0 37.0-51.0 80-97 140-440 Adult F 4.1-10.9 4.04-5.48 12.0-18.0 37.0-51.0 80-97 140-440 0 -1 Yr 5.0-20.0 3.9-5.9 15-18 MV: 44 MV: 91 MV: 277 2-9 Yr. 6.0-17.0 3.8-5.4 11-13 MV: 37 MV: 78 MV: 300 10 Yrs. 5.0-13.0 3.8-5.4 12-15 MV: 39 MV: 80 MV: 250 NOTE: * FOR ADULT BLACK MALES AND FEMALES, NORMAL WBC IS 2.9-7.7 K/ML * FOR ADULT BLACK MALES AND FEMALES, NORMAL RBC,HGB, AND HCT IS 5% LESS SOURCE FOR DATA: [employer] 1800 [employer] MANUAL( AUTOMATED BLOOD COUNTS AND DIFF.) APPENDIX B-3 CHRONIC KIDNEY DISEASE STAGING PER NKF: MALE GFR INTERPRETATION: 20-49 YRS: >60 mL/min Normal 50-59 YRS: >56 mL/min Normal 60-69 YRS: >49 mL/min Normal 70-79 YRS: >42 mL/min Normal 80 and above >35 mL/min Normal FEMALE GRF INTERPRETATION: 20-39 YRS: >60 mL/min Normal 40-49 YRS: >58 mL/min Normal 50-59 YRS: >51 mL/min Normal 60-69 YRS: >45 mL/min Normal 70-79 YRS: >39 mL/min Normal 80 and above >32 mL/min NormalCLASSIFICATION CHOLESTEROL FOR ADULTS CHILDREN/ADOLESCENTS* DESIRABLE: <200 MG/DL <170 MG/DL BORDER-LINE HIGH RISK: 200-239 MG/DL 170-199 MG/DL HIGH RISK: >240 MG/DL >200 MG/DL CLASS. FOR PRIMARY LDL CHOL PREVENTION: LDL CHOL-CHILD/ADOLESCENTS* DESIRABLE: <130 MG/DL <110 MG/DL BORDERLINE-HIGH RISK: 130- 159 MG/DL 110-129 MG/DL HIGH RISK: >160 MG/DL >130 MG/DL *CHILDREN AND ADOLESCENTS REPRESENTS INDIVIDUALA AGED 2-19 YEARS EXCLUSIVE. Ast (Sgot) 18 U/L 0-40 [facility] NORMAL RANGES Age WBC RBC HGB HCT MCV PLT Adult M 4.1-10.9 4.20-6.30 12.0-18.0 37.0-51.0 80-97 140-440 Adult F 4.1-10.9 4.04-5.48 12.0-18.0 37.0-51.0 80-97 140-440 0 -1 Yr 5.0-20.0 3.9-5.9 15-18 MV: 44 MV: 91 MV: 277 2-9 Yr. 6.0-17.0 3.8-5.4 11-13 MV: 37 MV: 78 MV: 300 10 Yrs. 5.0-13.0 3.8-5.4 12-15 MV: 39 MV: 80 MV: 250 NOTE: * FOR ADULT BLACK MALES AND FEMALES, NORMAL WBC IS 2.9-7.7 K/ML * FOR ADULT BLACK MALES AND FEMALES, NORMAL RBC,HGB, AND HCT IS 5% LESS SOURCE FOR DATA: [employer] 1800 OPERATION MANUAL( AUTOMATED BLOOD COUNTS AND DIFF.) APPENDIX B-3 CHRONIC KIDNEY DISEASE STAGING PER NKF: MALE GFR INTERPRETATION: 20-49 YRS: >60 mL/min Normal 50-59 YRS: >56 mL/min Normal 60-69 YRS: >49 mL/min Normal 70-79 YRS: >42 mL/min Normal 80 and above >35 mL/min Normal FEMALE GRF INTERPRETATION: 20-39 YRS: >60 mL/min Normal 40-49 YRS: >58 mL/min Normal 50-59 YRS: >51 mL/min Normal 60-69 YRS: >45 mL/min Normal 70-79 YRS: >39 mL/min Normal 80 and above >32 mL/min NormalCLASSIFICATION CHOLESTEROL FOR ADULTS CHILDREN/ADOLESCENTS* DESIRABLE: <200 MG/DL <170 MG/DL BORDER-LINE HIGH RISK: 200-239 MG/DL 170-199 MG/DL HIGH RISK: >240 MG/DL >200 MG/DL CLASS. FOR PRIMARY LDL CHOL PREVENTION: LDL CHOL-CHILD/ADOLESCENTS* DESIRABLE: <130 MG/DL <110 MG/DL BORDERLINE-HIGH RISK: 130- 159 MG/DL 110-129 MG/DL HIGH RISK: >160 MG/DL >130 MG/DL *CHILDREN AND ADOLESCENTS REPRESENTS INDIVIDUALA AGED 2-19 YEARS EXCLUSIVE. Alt (SGPT) 21 U/L 0-41 [facility] ([facility] NORMAL RANGES Age WBC RBC HGB HCT MCV PLT Adult M 4.1-10.9 4.20-6.30 12.0-18.0 37.0-51.0 80-97 140-440 Adult F 4.1-10.9 4.04-5.48 12.0-18.0 37.0-51.0 80-97 140-440 0 -1 Yr 5.0-20.0 3.9-5.9 15-18 MV: 44 MV: 91 MV: 277 2-9 Yr. 6.0-17.0 3.8-5.4 11-13 MV: 37 MV: 78 MV: 300 10 Yrs. 5.0-13.0 3.8-5.4 12-15 MV: 39 MV: 80 MV: 250 NOTE: * FOR ADULT BLACK MALES AND FEMALES, NORMAL WBC IS 2.9-7.7 K/ML * FOR ADULT BLACK MALES AND FEMALES, NORMAL RBC,HGB, AND HCT IS 5% LESS SOURCE FOR DATA: [employer] 1800 OPERATION MANUAL( AUTOMATED BLOOD COUNTS AND DIFF.) APPENDIX B-3 CHRONIC KIDNEY DISEASE STAGING PER NKF: MALE GFR INTERPRETATION: 20-49 YRS: >60 mL/min Normal 50-59 YRS: >56 mL/min Normal 60-69 YRS: >49 mL/min Normal 70-79 YRS: >42 mL/min Normal 80 and above >35 mL/min Normal FEMALE GRF INTERPRETATION: 20-39 YRS: >60 mL/min Normal 40-49 YRS: >58 mL/min Normal 50-59 YRS: >51 mL/min Normal 60-69 YRS: >45 mL/min Normal 70-79 YRS: >39 mL/min Normal 80 and above >32 mL/min NormalCLASSIFICATION CHOLESTEROL FOR ADULTS CHILDREN/ADOLESCENTS* DESIRABLE: <200 MG/DL <170 MG/DL BORDER-LINE HIGH RISK: 200-239 MG/DL 170-199 MG/DL HIGH RISK: >240 MG/DL >200 MG/DL CLASS. FOR PRIMARY LDL CHOL PREVENTION: LDL CHOL-CHILD/ADOLESCENTS* DESIRABLE: <130 MG/DL <110 MG/DL BORDERLINE-HIGH RISK: 130- 159 MG/DL 110-129 MG/DL HIGH RISK: >160 MG/DL >130 MG/DL *CHILDREN AND ADOLESCENTS REPRESENTS INDIVIDUALA AGED 2-19 YEARS EXCLUSIVE. Osmolality-Calculated 297.5 [facility] ([facility] NORMAL RANGES Age WBC RBC HGB HCT MCV PLT Adult M 4.1-10.9 4.20-6.30 12.0-18.0 37.0-51.0 80-97 140-440 Adult F 4.1-10.9 4.04-5.48 12.0-18.0 37.0-51.0 80-97 140-440 0 -1 Yr 5.0-20.0 3.9-5.9 15-18 MV: 44 MV: 91 MV: 277 2-9 Yr. 6.0-17.0 3.8-5.4 11-13 MV: 37 MV: 78 MV: 300 10 Yrs. 5.0-13.0 3.8-5.4 12-15 MV: 39 MV: 80 MV: 250 NOTE: * FOR ADULT BLACK MALES AND FEMALES, NORMAL WBC IS 2.9-7.7 K/ML * FOR ADULT BLACK MALES AND FEMALES, NORMAL RBC,HGB, AND HCT IS 5% LESS SOURCE FOR DATA: [employer] 1800 OPERATION MANUAL( AUTOMATED BLOOD COUNTS AND DIFF.) APPENDIX B-3 CHRONIC KIDNEY DISEASE STAGING PER NKF: MALE GFR INTERPRETATION: 20-49 YRS: >60 mL/min Normal 50-59 YRS: >56 mL/min Normal 60-69 YRS: >49 mL/min Normal 70-79 YRS: >42 mL/min Normal 80 and above >35 mL/min Normal FEMALE GRF INTERPRETATION: 20-39 YRS: >60 mL/min Normal 40-49 YRS: >58 mL/min Normal 50-59 YRS: >51 mL/min Normal 60-69 YRS: >45 mL/min Normal 70-79 YRS: >39 mL/min Normal 80 and above >32 mL/min NormalCLASSIFICATION CHOLESTEROL FOR ADULTS CHILDREN/ADOLESCENTS* DESIRABLE: <200 MG/DL <170 MG/DL BORDER-LINE HIGH RISK: 200-239 MG/DL 170-199 MG/DL HIGH RISK: >240 MG/DL >200 MG/DL CLASS. FOR PRIMARY LDL CHOL PREVENTION: LDL CHOL-CHILD/ADOLESCENTS* DESIRABLE: <130 MG/DL <110 MG/DL BORDERLINE-HIGH RISK: 130- 159 MG/DL 110-129 MG/DL HIGH RISK: >160 MG/DL >130 MG/DL *CHILDREN AND ADOLESCENTS REPRESENTS INDIVIDUALA AGED 2-19 YEARS EXCLUSIVE. Anion Gap 16 mmol/L [facility] ([facility] NORMAL RANGES Age WBC RBC HGB HCT MCV PLT Adult M 4.1-10.9 4.20-6.30 12.0-18.0 37.0-51.0 80-97 140-440 Adult F 4.1-10.9 4.04-5.48 12.0-18.0 37.0-51.0 80-97 140-440 0 -1 Yr 5.0-20.0 3.9-5.9 15-18 MV: 44 MV: 91 MV: 277 2-9 Yr. 6.0-17.0 3.8-5.4 11-13 MV: 37 MV: 78 MV: 300 10 Yrs. 5.0-13.0 3.8-5.4 12-15 MV: 39 MV: 80 MV: 250 NOTE: * FOR ADULT BLACK MALES AND FEMALES, NORMAL WBC IS 2.9-7.7 K/ML * FOR ADULT BLACK MALES AND FEMALES, NORMAL RBC,HGB, AND HCT IS 5% LESS SOURCE FOR DATA: [employer] 1800 OPERATION MANUAL( AUTOMATED BLOOD COUNTS AND DIFF.) APPENDIX B-3 CHRONIC KIDNEY DISEASE STAGING PER NKF: MALE GFR INTERPRETATION: 20-49 YRS: >60 mL/min Normal 50-59 YRS: >56 mL/min Normal 60-69 YRS: >49 mL/min Normal 70-79 YRS: >42 mL/min Normal 80 and above >35 mL/min Normal FEMALE GRF INTERPRETATION: 20-39 YRS: >60 mL/min Normal 40-49 YRS: >58 mL/min Normal 50-59 YRS: >51 mL/min Normal 60-69 YRS: >45 mL/min Normal 70-79 YRS: >39 mL/min Normal 80 and above >32 mL/min NormalCLASSIFICATION CHOLESTEROL FOR ADULTS CHILDREN/ADOLESCENTS* DESIRABLE: <200 MG/DL <170 MG/DL BORDER-LINE HIGH RISK: 200-239 MG/DL 170-199 MG/DL HIGH RISK: >240 MG/DL >200 MG/DL CLASS. FOR PRIMARY LDL CHOL PREVENTION: LDL CHOL-CHILD/ADOLESCENTS* DESIRABLE: <130 MG/DL <110 MG/DL BORDERLINE-HIGH RISK: 130- 159 MG/DL 110-129 MG/DL HIGH RISK: >160 MG/DL >130 MG/DL *CHILDREN AND ADOLESCENTS REPRESENTS INDIVIDUALA AGED 2-19 YEARS EXCLUSIVE. Tbili 0.24 mg/dL 0.0-1.2 [facility] ([facility] NORMAL RANGES Age WBC RBC HGB HCT MCV PLT Adult M 4.1-10.9 4.20-6.30 12.0-18.0 37.0-51.0 80-97 140-440 Adult F 4.1-10.9 4.04-5.48 12.0-18.0 37.0-51.0 80-97 140-440 0 -1 Yr 5.0-20.0 3.9-5.9 15-18 MV: 44 MV: 91 MV: 277 2-9 Yr. 6.0-17.0 3.8-5.4 11-13 MV: 37 MV: 78 MV: 300 10 Yrs. 5.0-13.0 3.8-5.4 12-15 MV: 39 MV: 80 MV: 250 NOTE: * FOR ADULT BLACK MALES AND FEMALES, NORMAL WBC IS 2.9-7.7 K/ML * FOR ADULT BLACK MALES AND FEMALES, NORMAL RBC,HGB, AND HCT IS 5% LESS SOURCE FOR DATA: [employer] 1800 OPERATION MANUAL( AUTOMATED BLOOD COUNTS AND DIFF.) APPENDIX B-3 CHRONIC KIDNEY DISEASE STAGING PER NKF: MALE GFR INTERPRETATION: 20-49 YRS: >60 mL/min Normal 50-59 YRS: >56 mL/min Normal 60-69 YRS: >49 mL/min Normal 70-79 YRS: >42 mL/min Normal 80 and above >35 mL/min Normal FEMALE GRF INTERPRETATION: 20-39 YRS: >60 mL/min Normal 40-49 YRS: >58 mL/min Normal 50-59 YRS: >51 mL/min Normal 60-69 YRS: >45 mL/min Normal 70-79 YRS: >39 mL/min Normal 80 and above >32 mL/min NormalCLASSIFICATION CHOLESTEROL FOR ADULTS CHILDREN/ADOLESCENTS* DESIRABLE: <200 MG/DL <170 MG/DL BORDER-LINE HIGH RISK: 200-239 MG/DL 170-199 MG/DL HIGH RISK: >240 MG/DL >200 MG/DL CLASS. FOR PRIMARY LDL CHOL PREVENTION: LDL CHOL-CHILD/ADOLESCENTS* DESIRABLE: <130 MG/DL <110 MG/DL BORDERLINE-HIGH RISK: 130- 159 MG/DL 110-129 MG/DL HIGH RISK: >160 MG/DL >130 MG/DL *CHILDREN AND ADOLESCENTS REPRESENTS INDIVIDUALA AGED 2-19 YEARS EXCLUSIVE. eGFR Non-Afr. Romanian 35 # [facility] ([facility] NORMAL RANGES Age WBC RBC HGB HCT MCV PLT Adult M 4.1-10.9 4.20-6.30 12.0-18.0 37.0-51.0 80-97 140-440 Adult F 4.1-10.9 4.04-5.48 12.0-18.0 37.0-51.0 80-97 140-440 0 -1 Yr 5.0-20.0 3.9-5.9 15-18 MV: 44 MV: 91 MV: 277 2-9 Yr. 6.0-17.0 3.8-5.4 11-13 MV: 37 MV: 78 MV: 300 10 Yrs. 5.0-13.0 3.8-5.4 12-15 MV: 39 MV: 80 MV: 250 NOTE: * FOR ADULT BLACK MALES AND FEMALES, NORMAL WBC IS 2.9-7.7 K/ML * FOR ADULT BLACK MALES AND FEMALES, NORMAL RBC,HGB, AND HCT IS 5% LESS SOURCE FOR DATA: [employer] 1800 OPERATION MANUAL( AUTOMATED BLOOD COUNTS AND DIFF.) APPENDIX B-3 CHRONIC KIDNEY DISEASE STAGING PER NKF: MALE GFR INTERPRETATION: 20-49 YRS: >60 mL/min Normal 50-59 YRS: >56 mL/min Normal 60-69 YRS: >49 mL/min Normal 70-79 YRS: >42 mL/min Normal 80 and above >35 mL/min Normal FEMALE GRF INTERPRETATION: 20-39 YRS: >60 mL/min Normal 40-49 YRS: >58 mL/min Normal 50-59 YRS: >51 mL/min Normal 60-69 YRS: >45 mL/min Normal 70-79 YRS: >39 mL/min Normal 80 and above >32 mL/min NormalCLASSIFICATION CHOLESTEROL FOR ADULTS CHILDREN/ADOLESCENTS* DESIRABLE: <200 MG/DL <170 MG/DL BORDER-LINE HIGH RISK: 200-239 MG/DL 170-199 MG/DL HIGH RISK: >240 MG/DL >200 MG/DL CLASS. FOR PRIMARY LDL CHOL PREVENTION: LDL CHOL-CHILD/ADOLESCENTS* DESIRABLE: <130 MG/DL <110 MG/DL BORDERLINE-HIGH RISK: 130- 159 MG/DL 110-129 MG/DL HIGH RISK: >160 MG/DL >130 MG/DL *CHILDREN AND ADOLESCENTS REPRESENTS INDIVIDUALA AGED 2-19 YEARS EXCLUSIVE. eGFR 41 # [facility] ( [facility] NORMAL RANGES Age WBC RBC HGB HCT MCV PLT Adult M 4.1-10.9 4.20-6.30 12.0-18.0 37.0-51.0 80-97 140-440 Adult F 4.1-10.9 4.04-5.48 12.0-18.0 37.0-51.0 80-97 140-440 0 -1 Yr 5.0-20.0 3.9-5.9 15-18 MV: 44 MV: 91 MV: 277 2-9 Yr. 6.0-17.0 3.8-5.4 11-13 MV: 37 MV: 78 MV: 300 10 Yrs. 5.0-13.0 3.8-5.4 12-15 MV: 39 MV: 80 MV: 250 NOTE: * FOR ADULT BLACK MALES AND FEMALES, NORMAL WBC IS 2.9-7.7 K/ML * FOR ADULT BLACK MALES AND FEMALES, NORMAL RBC,HGB, AND HCT IS 5% LESS SOURCE FOR DATA: [employer] 1800 OPERATION MANUAL( AUTOMATED BLOOD COUNTS AND DIFF.) APPENDIX B-3 CHRONIC KIDNEY DISEASE STAGING PER NKF: MALE GFR INTERPRETATION: 20-49 YRS: >60 mL/min Normal 50-59 YRS: >56 mL/min Normal 60-69 YRS: >49 mL/min Normal 70-79 YRS: >42 mL/min Normal 80 and above >35 mL/min Normal FEMALE GRF INTERPRETATION: 20-39 YRS: >60 mL/min Normal 40-49 YRS: >58 mL/min Normal 50-59 YRS: >51 mL/min Normal 60-69 YRS: >45 mL/min Normal 70-79 YRS: >39 mL/min Normal 80 and above >32 mL/min NormalCLASSIFICATION CHOLESTEROL FOR ADULTS CHILDREN/ADOLESCENTS* DESIRABLE: <200 MG/DL <170 MG/DL BORDER-LINE HIGH RISK: 200-239 MG/DL 170-199 MG/DL HIGH RISK: >240 MG/DL >200 MG/DL CLASS. FOR PRIMARY LDL CHOL PREVENTION: LDL CHOL-CHILD/ADOLESCENTS* DESIRABLE: <130 MG/DL <110 MG/DL BORDERLINE-HIGH RISK: 130- 159 MG/DL 110-129 MG/DL HIGH RISK: >160 MG/DL >130 MG/DL *CHILDREN AND ADOLESCENTS REPRESENTS INDIVIDUALA AGED 2-19 YEARS EXCLUSIVE. ID Date Data Source [id number] 01/12/2020 04:00:00 PM EST [facility] ([facility] Name Value Range Interpretation Code Description Data Tammi rce(s) Supporting Document(s) WBC 7.8 10E3/uL 4.1-10.9 [facility] ([facility] NORMAL RANGES Age WBC RBC HGB HCT MCV PLT Adult M 4.1-10.9 4.20-6.30 12.0-18.0 37.0-51.0 80-97 140-440 Adult F 4.1-10.9 4.04-5.48 12.0-18.0 37.0-51.0 80-97 140-440 0 -1 Yr 5.0-20.0 3.9-5.9 15-18 MV: 44 MV: 91 MV: 277 2-9 Yr. 6.0-17.0 3.8-5.4 11-13 MV: 37 MV: 78 MV: 300 10 Yrs. 5.0-13.0 3.8-5.4 12-15 MV: 39 MV: 80 MV: 250 NOTE: * FOR ADULT BLACK MALES AND FEMALES, NORMAL WBC IS 2.9-7.7 K/ML * FOR ADULT BLACK MALES AND FEMALES, NORMAL RBC,HGB, AND HCT IS 5% LESS SOURCE FOR DATA: [employer] 1800 OPERATION MANUAL( AUTOMATED BLOOD COUNTS AND DIFF.) APPENDIX B-3 CHRONIC KIDNEY DISEASE STAGING PER NKF: MALE GFR INTERPRETATION: 20-49 YRS: >60 mL/min Normal 50-59 YRS: >56 mL/min Normal 60-69 YRS: >49 mL/min Normal 70-79 YRS: >42 mL/min Normal 80 and above >35 mL/min Normal FEMALE GRF INTERPRETATION: 20-39 YRS: >60 mL/min Normal 40-49 YRS: >58 mL/min Normal 50-59 YRS: >51 mL/min Normal 60-69 YRS: >45 mL/min Normal 70-79 YRS: >39 mL/min Normal 80 and above >32 mL/min NormalCLASSIFICATION CHOLESTEROL FOR ADULTS CHILDREN/ADOLESCENTS* DESIRABLE: <200 MG/DL <170 MG/DL BORDER-LINE HIGH RISK: 200-239 MG/DL 170-199 MG/DL HIGH RISK: >240 MG/DL >200 MG/DL CLASS. FOR PRIMARY LDL CHOL PREVENTION: LDL CHOL-CHILD/ADOLESCENTS* DESIRABLE: <130 MG/DL <110 MG/DL BORDERLINE-HIGH RISK: 130- 159 MG/DL 110-129 MG/DL HIGH RISK: >160 MG/DL >130 MG/DL *CHILDREN AND ADOLESCENTS REPRESENTS INDIVIDUALA AGED 2-19 YEARS EXCLUSIVE. RBC 4.19 10E6/uL 4.20-6.30 Below low normal [facility] ([facility] NORMAL RANGES Age WBC RBC HGB HCT MCV PLT Adult M 4.1-10.9 4.20-6.30 12.0-18.0 37.0-51.0 80-97 140-440 Adult F 4.1-10.9 4.04-5.48 12.0-18.0 37.0-51.0 80-97 140-440 0 -1 Yr 5.0-20.0 3.9-5.9 15-18 MV: 44 MV: 91 MV: 277 2-9 Yr. 6.0-17.0 3.8-5.4 11-13 MV: 37 MV: 78 MV: 300 10 Yrs. 5.0-13.0 3.8-5.4 12-15 MV: 39 MV: 80 MV: 250 NOTE: * FOR ADULT BLACK MALES AND FEMALES, NORMAL WBC IS 2.9-7.7 K/ML * FOR ADULT BLACK MALES AND FEMALES, NORMAL RBC,HGB, AND HCT IS 5% LESS SOURCE FOR DATA: [employer] 1800 OPERATION MANUAL( AUTOMATED BLOOD COUNTS AND DIFF.) APPENDIX B-3 CHRONIC KIDNEY DISEASE STAGING PER NKF: MALE GFR INTERPRETATION: 20-49 YRS: >60 mL/min Normal 50-59 YRS: >56 mL/min Normal 60-69 YRS: >49 mL/min Normal 70-79 YRS: >42 mL/min Normal 80 and above >35 mL/min Normal FEMALE GRF INTERPRETATION: 20-39 YRS: >60 mL/min Normal 40-49 YRS: >58 mL/min Normal 50-59 YRS: >51 mL/min Normal 60-69 YRS: >45 mL/min Normal 70-79 YRS: >39 mL/min Normal 80 and above >32 mL/min NormalCLASSIFICATION CHOLESTEROL FOR ADULTS CHILDREN/ADOLESCENTS* DESIRABLE: <200 MG/DL <170 MG/DL BORDER-LINE HIGH RISK: 200-239 MG/DL 170-199 MG/DL HIGH RISK: >240 MG/DL >200 MG/DL CLASS. FOR PRIMARY LDL CHOL PREVENTION: LDL CHOL-CHILD/ADOLESCENTS* DESIRABLE: <130 MG/DL <110 MG/DL BORDERLINE-HIGH RISK: 130- 159 MG/DL 110-129 MG/DL HIGH RISK: >160 MG/DL >130 MG/DL *CHILDREN AND ADOLESCENTS REPRESENTS INDIVIDUALA AGED 2-19 YEARS EXCLUSIVE. HGB 13.6 g/dL 12.0-18.0 [facility] ([facility] NORMAL RANGES Age WBC RBC HGB HCT MCV PLT Adult M 4.1-10.9 4.20-6.30 12.0-18.0 37.0-51.0 80-97 140-440 Adult F 4.1-10.9 4.04-5.48 12.0-18.0 37.0-51.0 80-97 140-440 0 -1 Yr 5.0-20.0 3.9-5.9 15-18 MV: 44 MV: 91 MV: 277 2-9 Yr. 6.0-17.0 3.8-5.4 11-13 MV: 37 MV: 78 MV: 300 10 Yrs. 5.0-13.0 3.8-5.4 12-15 MV: 39 MV: 80 MV: 250 NOTE: * FOR ADULT BLACK MALES AND FEMALES, NORMAL WBC IS 2.9-7.7 K/ML * FOR ADULT BLACK MALES AND FEMALES, NORMAL RBC,HGB, AND HCT IS 5% LESS SOURCE FOR DATA: [employer] 1800 OPERATION MANUAL( AUTOMATED BLOOD COUNTS AND DIFF.) APPENDIX B-3 CHRONIC KIDNEY DISEASE STAGING PER NKF: MALE GFR INTERPRETATION: 20-49 YRS: >60 mL/min Normal 50-59 YRS: >56 mL/min Normal 60-69 YRS: >49 mL/min Normal 70-79 YRS: >42 mL/min Normal 80 and above >35 mL/min Normal FEMALE GRF INTERPRETATION: 20-39 YRS: >60 mL/min Normal 40-49 YRS: >58 mL/min Normal 50-59 YRS: >51 mL/min Normal 60-69 YRS: >45 mL/min Normal 70-79 YRS: >39 mL/min Normal 80 and above >32 mL/min NormalCLASSIFICATION CHOLESTEROL FOR ADULTS CHILDREN/ADOLESCENTS* DESIRABLE: <200 MG/DL <170 MG/DL BORDER-LINE HIGH RISK: 200-239 MG/DL 170-199 MG/DL HIGH RISK: >240 MG/DL >200 MG/DL CLASS. FOR PRIMARY LDL CHOL PREVENTION: LDL CHOL-CHILD/ADOLESCENTS* DESIRABLE: <130 MG/DL <110 MG/DL BORDERLINE-HIGH RISK: 130- 159 MG/DL 110-129 MG/DL HIGH RISK: >160 MG/DL >130 MG/DL *CHILDREN AND ADOLESCENTS REPRESENTS INDIVIDUALA AGED 2-19 YEARS EXCLUSIVE. MCH 32.5 pg 26.0-32.0 Above high normal [facility] ([facility] NORMAL RANGES Age WBC RBC HGB HCT MCV PLT Adult M 4.1-10.9 4.20-6.30 12.0-18.0 37.0-51.0 80-97 140-440 Adult F 4.1-10.9 4.04-5.48 12.0-18.0 37.0-51.0 80-97 140-440 0 -1 Yr 5.0-20.0 3.9-5.9 15-18 MV: 44 MV: 91 MV: 277 2-9 Yr. 6.0-17.0 3.8-5.4 11-13 MV: 37 MV: 78 MV: 300 10 Yrs. 5.0-13.0 3.8-5.4 12-15 MV: 39 MV: 80 MV: 250 NOTE: * FOR ADULT BLACK MALES AND FEMALES, NORMAL WBC IS 2.9-7.7 K/ML * FOR ADULT BLACK MALES AND FEMALES, NORMAL RBC,HGB, AND HCT IS 5% LESS SOURCE FOR DATA: [employer] 1800 OPERATION MANUAL( AUTOMATED BLOOD COUNTS AND DIFF.) APPENDIX B-3 CHRONIC KIDNEY DISEASE STAGING PER NKF: MALE GFR INTERPRETATION: 20-49 YRS: >60 mL/min Normal 50-59 YRS: >56 mL/min Normal 60-69 YRS: >49 mL/min Normal 70-79 YRS: >42 mL/min Normal 80 and above >35 mL/min Normal FEMALE GRF INTERPRETATION: 20-39 YRS: >60 mL/min Normal 40-49 YRS: >58 mL/min Normal 50-59 YRS: >51 mL/min Normal 60-69 YRS: >45 mL/min Normal 70-79 YRS: >39 mL/min Normal 80 and above >32 mL/min NormalCLASSIFICATION CHOLESTEROL FOR ADULTS CHILDREN/ADOLESCENTS* DESIRABLE: <200 MG/DL <170 MG/DL BORDER-LINE HIGH RISK: 200-239 MG/DL 170-199 MG/DL HIGH RISK: >240 MG/DL >200 MG/DL CLASS. FOR PRIMARY LDL CHOL PREVENTION: LDL CHOL-CHILD/ADOLESCENTS* DESIRABLE: <130 MG/DL <110 MG/DL BORDERLINE-HIGH RISK: 130- 159 MG/DL 110-129 MG/DL HIGH RISK: >160 MG/DL >130 MG/DL *CHILDREN AND ADOLESCENTS REPRESENTS INDIVIDUALA AGED 2-19 YEARS EXCLUSIVE. MCV 98.1 fL 80.0-97.0 Above high normal [facility] ([facility] NORMAL RANGES Age WBC RBC HGB HCT MCV PLT Adult M 4.1-10.9 4.20-6.30 12.0-18.0 37.0-51.0 80-97 140-440 Adult F 4.1-10.9 4.04-5.48 12.0-18.0 37.0-51.0 80-97 140-440 0 -1 Yr 5.0-20.0 3.9-5.9 15-18 MV: 44 MV: 91 MV: 277 2-9 Yr. 6.0-17.0 3.8-5.4 11-13 MV: 37 MV: 78 MV: 300 10 Yrs. 5.0-13.0 3.8-5.4 12-15 MV: 39 MV: 80 MV: 250 NOTE: * FOR ADULT BLACK MALES AND FEMALES, NORMAL WBC IS 2.9-7.7 K/ML * FOR ADULT BLACK MALES AND FEMALES, NORMAL RBC,HGB, AND HCT IS 5% LESS SOURCE FOR DATA: [employer] 1800 OPERATION MANUAL( AUTOMATED BLOOD COUNTS AND DIFF.) APPENDIX B-3 CHRONIC KIDNEY DISEASE STAGING PER NKF: MALE GFR INTERPRETATION: 20-49 YRS: >60 mL/min Normal 50-59 YRS: >56 mL/min Normal 60-69 YRS: >49 mL/min Normal 70-79 YRS: >42 mL/min Normal 80 and above >35 mL/min Normal FEMALE GRF INTERPRETATION: 20-39 YRS: >60 mL/min Normal 40-49 YRS: >58 mL/min Normal 50-59 YRS: >51 mL/min Normal 60-69 YRS: >45 mL/min Normal 70-79 YRS: >39 mL/min Normal 80 and above >32 mL/min NormalCLASSIFICATION CHOLESTEROL FOR ADULTS CHILDREN/ADOLESCENTS* DESIRABLE: <200 MG/DL <170 MG/DL BORDER-LINE HIGH RISK: 200-239 MG/DL 170-199 MG/DL HIGH RISK: >240 MG/DL >200 MG/DL CLASS. FOR PRIMARY LDL CHOL PREVENTION: LDL CHOL-CHILD/ADOLESCENTS* DESIRABLE: <130 MG/DL <110 MG/DL BORDERLINE-HIGH RISK: 130- 159 MG/DL 110-129 MG/DL HIGH RISK: >160 MG/DL >130 MG/DL *CHILDREN AND ADOLESCENTS REPRESENTS INDIVIDUALA AGED 2-19 YEARS EXCLUSIVE. HCT 41.1 % 37.0-51.0 [facility] ([facility] NORMAL RANGES Age WBC RBC HGB HCT MCV PLT Adult M 4.1-10.9 4.20-6.30 12.0-18.0 37.0-51.0 80-97 140-440 Adult F 4.1-10.9 4.04-5.48 12.0-18.0 37.0-51.0 80-97 140-440 0 -1 Yr 5.0-20.0 3.9-5.9 15-18 MV: 44 MV: 91 MV: 277 2-9 Yr. 6.0-17.0 3.8-5.4 11-13 MV: 37 MV: 78 MV: 300 10 Yrs. 5.0-13.0 3.8-5.4 12-15 MV: 39 MV: 80 MV: 250 NOTE: * FOR ADULT BLACK MALES AND FEMALES, NORMAL WBC IS 2.9-7.7 K/ML * FOR ADULT BLACK MALES AND FEMALES, NORMAL RBC,HGB, AND HCT IS 5% LESS SOURCE FOR DATA: [employer] 1800 OPERATION MANUAL( AUTOMATED BLOOD COUNTS AND DIFF.) APPENDIX B-3 CHRONIC KIDNEY DISEASE STAGING PER NKF: MALE GFR INTERPRETATION: 20-49 YRS: >60 mL/min Normal 50-59 YRS: >56 mL/min Normal 60-69 YRS: >49 mL/min Normal 70-79 YRS: >42 mL/min Normal 80 and above >35 mL/min Normal FEMALE GRF INTERPRETATION: 20-39 YRS: >60 mL/min Normal 40-49 YRS: >58 mL/min Normal 50-59 YRS: >51 mL/min Normal 60-69 YRS: >45 mL/min Normal 70-79 YRS: >39 mL/min Normal 80 and above >32 mL/min NormalCLASSIFICATION CHOLESTEROL FOR ADULTS CHILDREN/ADOLESCENTS* DESIRABLE: <200 MG/DL <170 MG/DL BORDER-LINE HIGH RISK: 200-239 MG/DL 170-199 MG/DL HIGH RISK: >240 MG/DL >200 MG/DL CLASS. FOR PRIMARY LDL CHOL PREVENTION: LDL CHOL-CHILD/ADOLESCENTS* DESIRABLE: <130 MG/DL <110 MG/DL BORDERLINE-HIGH RISK: 130- 159 MG/DL 110-129 MG/DL HIGH RISK: >160 MG/DL >130 MG/DL *CHILDREN AND ADOLESCENTS REPRESENTS INDIVIDUALA AGED 2-19 YEARS EXCLUSIVE. MCHC 33.1 g/dL 31.0-36.0 [facility] NORMAL RANGES Age WBC RBC HGB HCT MCV PLT Adult M 4.1-10.9 4.20-6.30 12.0-18.0 37.0-51.0 80-97 140-440 Adult F 4.1-10.9 4.04-5.48 12.0-18.0 37.0-51.0 80-97 140-440 0 -1 Yr 5.0-20.0 3.9-5.9 15-18 MV: 44 MV: 91 MV: 277 2-9 Yr. 6.0-17.0 3.8-5.4 11-13 MV: 37 MV: 78 MV: 300 10 Yrs. 5.0-13.0 3.8-5.4 12-15 MV: 39 MV: 80 MV: 250 NOTE: * FOR ADULT BLACK MALES AND FEMALES, NORMAL WBC IS 2.9-7.7 K/ML * FOR ADULT BLACK MALES AND FEMALES, NORMAL RBC,HGB, AND HCT IS 5% LESS SOURCE FOR DATA: [employer] 1800 OPERATION MANUAL( AUTOMATED BLOOD COUNTS AND DIFF.) APPENDIX B-3 CHRONIC KIDNEY DISEASE STAGING PER NKF: MALE GFR INTERPRETATION: 20-49 YRS: >60 mL/min Normal 50-59 YRS: >56 mL/min Normal 60-69 YRS: >49 mL/min Normal 70-79 YRS: >42 mL/min Normal 80 and above >35 mL/min Normal FEMALE GRF INTERPRETATION: 20-39 YRS: >60 mL/min Normal 40-49 YRS: >58 mL/min Normal 50-59 YRS: >51 mL/min Normal 60-69 YRS: >45 mL/min Normal 70-79 YRS: >39 mL/min Normal 80 and above >32 mL/min NormalCLASSIFICATION CHOLESTEROL FOR ADULTS CHILDREN/ADOLESCENTS* DESIRABLE: <200 MG/DL <170 MG/DL BORDER-LINE HIGH RISK: 200-239 MG/DL 170-199 MG/DL HIGH RISK: >240 MG/DL >200 MG/DL CLASS. FOR PRIMARY LDL CHOL PREVENTION: LDL CHOL-CHILD/ADOLESCENTS* DESIRABLE: <130 MG/DL <110 MG/DL BORDERLINE-HIGH RISK: 130- 159 MG/DL 110-129 MG/DL HIGH RISK: >160 MG/DL >130 MG/DL *CHILDREN AND ADOLESCENTS REPRESENTS INDIVIDUALA AGED 2-19 YEARS EXCLUSIVE. RDW-CV 12.9 % 11.5-14.5 [facility] ([facility] NORMAL RANGES Age WBC RBC HGB HCT MCV PLT Adult M 4.1-10.9 4.20-6.30 12.0-18.0 37.0-51.0 80-97 140-440 Adult F 4.1-10.9 4.04-5.48 12.0-18.0 37.0-51.0 80-97 140-440 0 -1 Yr 5.0-20.0 3.9-5.9 15-18 MV: 44 MV: 91 MV: 277 2-9 Yr. 6.0-17.0 3.8-5.4 11-13 MV: 37 MV: 78 MV: 300 10 Yrs. 5.0-13.0 3.8-5.4 12-15 MV: 39 MV: 80 MV: 250 NOTE: * FOR ADULT BLACK MALES AND FEMALES, NORMAL WBC IS 2.9-7.7 K/ML * FOR ADULT BLACK MALES AND FEMALES, NORMAL RBC,HGB, AND HCT IS 5% LESS SOURCE FOR DATA: [employer] 1800 OPERATION MANUAL( AUTOMATED BLOOD COUNTS AND DIFF.) APPENDIX B-3 CHRONIC KIDNEY DISEASE STAGING PER NKF: MALE GFR INTERPRETATION: 20-49 YRS: >60 mL/min Normal 50-59 YRS: >56 mL/min Normal 60-69 YRS: >49 mL/min Normal 70-79 YRS: >42 mL/min Normal 80 and above >35 mL/min Normal FEMALE GRF INTERPRETATION: 20-39 YRS: >60 mL/min Normal 40-49 YRS: >58 mL/min Normal 50-59 YRS: >51 mL/min Normal 60-69 YRS: >45 mL/min Normal 70-79 YRS: >39 mL/min Normal 80 and above >32 mL/min NormalCLASSIFICATION CHOLESTEROL FOR ADULTS CHILDREN/ADOLESCENTS* DESIRABLE: <200 MG/DL <170 MG/DL BORDER-LINE HIGH RISK: 200-239 MG/DL 170-199 MG/DL HIGH RISK: >240 MG/DL >200 MG/DL CLASS. FOR PRIMARY LDL CHOL PREVENTION: LDL CHOL-CHILD/ADOLESCENTS* DESIRABLE: <130 MG/DL <110 MG/DL BORDERLINE-HIGH RISK: 130- 159 MG/DL 110-129 MG/DL HIGH RISK: >160 MG/DL >130 MG/DL *CHILDREN AND ADOLESCENTS REPRESENTS INDIVIDUALA AGED 2-19 YEARS EXCLUSIVE. PLT 160 10E3/uL 140-440 [facility] ([facility] NORMAL RANGES Age WBC RBC HGB HCT MCV PLT Adult M 4.1-10.9 4.20-6.30 12.0-18.0 37.0-51.0 80-97 140-440 Adult F 4.1-10.9 4.04-5.48 12.0-18.0 37.0-51.0 80-97 140-440 0 -1 Yr 5.0-20.0 3.9-5.9 15-18 MV: 44 MV: 91 MV: 277 2-9 Yr. 6.0-17.0 3.8-5.4 11-13 MV: 37 MV: 78 MV: 300 10 Yrs. 5.0-13.0 3.8-5.4 12-15 MV: 39 MV: 80 MV: 250 NOTE: * FOR ADULT BLACK MALES AND FEMALES, NORMAL WBC IS 2.9-7.7 K/ML * FOR ADULT BLACK MALES AND FEMALES, NORMAL RBC,HGB, AND HCT IS 5% LESS SOURCE FOR DATA: [employer] 1800 [employer]PERATION MANUAL( AUTOMATED BLOOD COUNTS AND DIFF.) APPENDIX B-3 CHRONIC KIDNEY DISEASE STAGING PER NKF: MALE GFR INTERPRETATION: 20-49 YRS: >60 mL/min Normal 50-59 YRS: >56 mL/min Normal 60-69 YRS: >49 mL/min Normal 70-79 YRS: >42 mL/min Normal 80 and above >35 mL/min Normal FEMALE GRF INTERPRETATION: 20-39 YRS: >60 mL/min Normal 40-49 YRS: >58 mL/min Normal 50-59 YRS: >51 mL/min Normal 60-69 YRS: >45 mL/min Normal 70-79 YRS: >39 mL/min Normal 80 and above >32 mL/min NormalCLASSIFICATION CHOLESTEROL FOR ADULTS CHILDREN/ADOLESCENTS* DESIRABLE: <200 MG/DL <170 MG/DL BORDER-LINE HIGH RISK: 200-239 MG/DL 170-199 MG/DL HIGH RISK: >240 MG/DL >200 MG/DL CLASS. FOR PRIMARY LDL CHOL PREVENTION: LDL CHOL-CHILD/ADOLESCENTS* DESIRABLE: <130 MG/DL <110 MG/DL BORDERLINE-HIGH RISK: 130- 159 MG/DL 110-129 MG/DL HIGH RISK: >160 MG/DL >130 MG/DL *CHILDREN AND ADOLESCENTS REPRESENTS INDIVIDUALA AGED 2-19 YEARS EXCLUSIVE. Lym% 24.4 % 10.0-58.5 [facility] NORMAL RANGES Age WBC RBC HGB HCT MCV PLT Adult M 4.1-10.9 4.20-6.30 12.0-18.0 37.0-51.0 80-97 140-440 Adult F 4.1-10.9 4.04-5.48 12.0-18.0 37.0-51.0 80-97 140-440 0 -1 Yr 5.0-20.0 3.9-5.9 15-18 MV: 44 MV: 91 MV: 277 2-9 Yr. 6.0-17.0 3.8-5.4 11-13 MV: 37 MV: 78 MV: 300 10 Yrs. 5.0-13.0 3.8-5.4 12-15 MV: 39 MV: 80 MV: 250 NOTE: * FOR ADULT BLACK MALES AND FEMALES, NORMAL WBC IS 2.9-7.7 K/ML * FOR ADULT BLACK MALES AND FEMALES, NORMAL RBC,HGB, AND HCT IS 5% LESS SOURCE FOR DATA: [employer] 1800 OPERATION MANUAL( AUTOMATED BLOOD COUNTS AND DIFF.) APPENDIX B-3 CHRONIC KIDNEY DISEASE STAGING PER NKF: MALE GFR INTERPRETATION: 20-49 YRS: >60 mL/min Normal 50-59 YRS: >56 mL/min Normal 60-69 YRS: >49 mL/min Normal 70-79 YRS: >42 mL/min Normal 80 and above >35 mL/min Normal FEMALE GRF INTERPRETATION: 20-39 YRS: >60 mL/min Normal 40-49 YRS: >58 mL/min Normal 50-59 YRS: >51 mL/min Normal 60-69 YRS: >45 mL/min Normal 70-79 YRS: >39 mL/min Normal 80 and above >32 mL/min NormalCLASSIFICATION CHOLESTEROL FOR ADULTS CHILDREN/ADOLESCENTS* DESIRABLE: <200 MG/DL <170 MG/DL BORDER-LINE HIGH RISK: 200-239 MG/DL 170-199 MG/DL HIGH RISK: >240 MG/DL >200 MG/DL CLASS. FOR PRIMARY LDL CHOL PREVENTION: LDL CHOL-CHILD/ADOLESCENTS* DESIRABLE: <130 MG/DL <110 MG/DL BORDERLINE-HIGH RISK: 130- 159 MG/DL 110-129 MG/DL HIGH RISK: >160 MG/DL >130 MG/DL *CHILDREN AND ADOLESCENTS REPRESENTS INDIVIDUALA AGED 2-19 YEARS EXCLUSIVE. Neut% 70.0 % 37.0-92.0 [facility] ([facility] NORMAL RANGES Age WBC RBC HGB HCT MCV PLT Adult M 4.1-10.9 4.20-6.30 12.0-18.0 37.0-51.0 80-97 140-440 Adult F 4.1-10.9 4.04-5.48 12.0-18.0 37.0-51.0 80-97 140-440 0 -1 Yr 5.0-20.0 3.9-5.9 15-18 MV: 44 MV: 91 MV: 277 2-9 Yr. 6.0-17.0 3.8-5.4 11-13 MV: 37 MV: 78 MV: 300 10 Yrs. 5.0-13.0 3.8-5.4 12-15 MV: 39 MV: 80 MV: 250 NOTE: * FOR ADULT BLACK MALES AND FEMALES, NORMAL WBC IS 2.9-7.7 K/ML * FOR ADULT BLACK MALES AND FEMALES, NORMAL RBC,HGB, AND HCT IS 5% LESS SOURCE FOR DATA: [employer] 1800 OPERATION MANUAL( AUTOMATED BLOOD COUNTS AND DIFF.) APPENDIX B-3 CHRONIC KIDNEY DISEASE STAGING PER NKF: MALE GFR INTERPRETATION: 20-49 YRS: >60 mL/min Normal 50-59 YRS: >56 mL/min Normal 60-69 YRS: >49 mL/min Normal 70-79 YRS: >42 mL/min Normal 80 and above >35 mL/min Normal FEMALE GRF INTERPRETATION: 20-39 YRS: >60 mL/min Normal 40-49 YRS: >58 mL/min Normal 50-59 YRS: >51 mL/min Normal 60-69 YRS: >45 mL/min Normal 70-79 YRS: >39 mL/min Normal 80 and above >32 mL/min NormalCLASSIFICATION CHOLESTEROL FOR ADULTS CHILDREN/ADOLESCENTS* DESIRABLE: <200 MG/DL <170 MG/DL BORDER-LINE HIGH RISK: 200-239 MG/DL 170-199 MG/DL HIGH RISK: >240 MG/DL >200 MG/DL CLASS. FOR PRIMARY LDL CHOL PREVENTION: LDL CHOL-CHILD/ADOLESCENTS* DESIRABLE: <130 MG/DL <110 MG/DL BORDERLINE-HIGH RISK: 130- 159 MG/DL 110-129 MG/DL HIGH RISK: >160 MG/DL >130 MG/DL *CHILDREN AND ADOLESCENTS REPRESENTS INDIVIDUALA AGED 2-19 YEARS EXCLUSIVE. MXD% 5.6 % 0.1-24.0 [facility] ([facility] NORMAL RANGES Age WBC RBC HGB HCT MCV PLT Adult M 4.1-10.9 4.20-6.30 12.0-18.0 37.0-51.0 80-97 140-440 Adult F 4.1-10.9 4.04-5.48 12.0-18.0 37.0-51.0 80-97 140-440 0 -1 Yr 5.0-20.0 3.9-5.9 15-18 MV: 44 MV: 91 MV: 277 2-9 Yr. 6.0-17.0 3.8-5.4 11-13 MV: 37 MV: 78 MV: 300 10 Yrs. 5.0-13.0 3.8-5.4 12-15 MV: 39 MV: 80 MV: 250 NOTE: * FOR ADULT BLACK MALES AND FEMALES, NORMAL WBC IS 2.9-7.7 K/ML * FOR ADULT BLACK MALES AND FEMALES, NORMAL RBC,HGB, AND HCT IS 5% LESS SOURCE FOR DATA: [employer] 1800 OPERATION MANUAL( AUTOMATED BLOOD COUNTS AND DIFF.) APPENDIX B-3 CHRONIC KIDNEY DISEASE STAGING PER NKF: MALE GFR INTERPRETATION: 20-49 YRS: >60 mL/min Normal 50-59 YRS: >56 mL/min Normal 60-69 YRS: >49 mL/min Normal 70-79 YRS: >42 mL/min Normal 80 and above >35 mL/min Normal FEMALE GRF INTERPRETATION: 20-39 YRS: >60 mL/min Normal 40-49 YRS: >58 mL/min Normal 50-59 YRS: >51 mL/min Normal 60-69 YRS: >45 mL/min Normal 70-79 YRS: >39 mL/min Normal 80 and above >32 mL/min NormalCLASSIFICATION CHOLESTEROL FOR ADULTS CHILDREN/ADOLESCENTS* DESIRABLE: <200 MG/DL <170 MG/DL BORDER-LINE HIGH RISK: 200-239 MG/DL 170-199 MG/DL HIGH RISK: >240 MG/DL >200 MG/DL CLASS. FOR PRIMARY LDL CHOL PREVENTION: LDL CHOL-CHILD/ADOLESCENTS* DESIRABLE: <130 MG/DL <110 MG/DL BORDERLINE-HIGH RISK: 130- 159 MG/DL 110-129 MG/DL HIGH RISK: >160 MG/DL >130 MG/DL *CHILDREN AND ADOLESCENTS REPRESENTS INDIVIDUALA AGED 2-19 YEARS EXCLUSIVE. Lym# 1.9 10E3/uL 0.6-4.1 [facility] ([facility] NORMAL RANGES Age WBC RBC HGB HCT MCV PLT Adult M 4.1-10.9 4.20-6.30 12.0-18.0 37.0-51.0 80-97 140-440 Adult F 4.1-10.9 4.04-5.48 12.0-18.0 37.0-51.0 80-97 140-440 0 -1 Yr 5.0-20.0 3.9-5.9 15-18 MV: 44 MV: 91 MV: 277 2-9 Yr. 6.0-17.0 3.8-5.4 11-13 MV: 37 MV: 78 MV: 300 10 Yrs. 5.0-13.0 3.8-5.4 12-15 MV: 39 MV: 80 MV: 250 NOTE: * FOR ADULT BLACK MALES AND FEMALES, NORMAL WBC IS 2.9-7.7 K/ML * FOR ADULT BLACK MALES AND FEMALES, NORMAL RBC,HGB, AND HCT IS 5% LESS SOURCE FOR DATA: [employer] 1800 OPERATION MANUAL( AUTOMATED BLOOD COUNTS AND DIFF.) APPENDIX B-3 CHRONIC KIDNEY DISEASE STAGING PER NKF: MALE GFR INTERPRETATION: 20-49 YRS: >60 mL/min Normal 50-59 YRS: >56 mL/min Normal 60-69 YRS: >49 mL/min Normal 70-79 YRS: >42 mL/min Normal 80 and above >35 mL/min Normal FEMALE GRF INTERPRETATION: 20-39 YRS: >60 mL/min Normal 40-49 YRS: >58 mL/min Normal 50-59 YRS: >51 mL/min Normal 60-69 YRS: >45 mL/min Normal 70-79 YRS: >39 mL/min Normal 80 and above >32 mL/min NormalCLASSIFICATION CHOLESTEROL FOR ADULTS CHILDREN/ADOLESCENTS* DESIRABLE: <200 MG/DL <170 MG/DL BORDER-LINE HIGH RISK: 200-239 MG/DL 170-199 MG/DL HIGH RISK: >240 MG/DL >200 MG/DL CLASS. FOR PRIMARY LDL CHOL PREVENTION: LDL CHOL-CHILD/ADOLESCENTS* DESIRABLE: <130 MG/DL <110 MG/DL BORDERLINE-HIGH RISK: 130- 159 MG/DL 110-129 MG/DL HIGH RISK: >160 MG/DL >130 MG/DL *CHILDREN AND ADOLESCENTS REPRESENTS INDIVIDUALA AGED 2-19 YEARS EXCLUSIVE. Neut# 5.5 % 2.0-7.8 [facility] ([facility] NORMAL RANGES Age WBC RBC HGB HCT MCV PLT Adult M 4.1-10.9 4.20-6.30 12.0-18.0 37.0-51.0 80-97 140-440 Adult F 4.1-10.9 4.04-5.48 12.0-18.0 37.0-51.0 80-97 140-440 0 -1 Yr 5.0-20.0 3.9-5.9 15-18 MV: 44 MV: 91 MV: 277 2-9 Yr. 6.0-17.0 3.8-5.4 11-13 MV: 37 MV: 78 MV: 300 10 Yrs. 5.0-13.0 3.8-5.4 12-15 MV: 39 MV: 80 MV: 250 NOTE: * FOR ADULT BLACK MALES AND FEMALES, NORMAL WBC IS 2.9-7.7 K/ML * FOR ADULT BLACK MALES AND FEMALES, NORMAL RBC,HGB, AND HCT IS 5% LESS SOURCE FOR DATA: [employer] 1800 OPERATION MANUAL( AUTOMATED BLOOD COUNTS AND DIFF.) APPENDIX B-3 CHRONIC KIDNEY DISEASE STAGING PER NKF: MALE GFR INTERPRETATION: 20-49 YRS: >60 mL/min Normal 50-59 YRS: >56 mL/min Normal 60-69 YRS: >49 mL/min Normal 70-79 YRS: >42 mL/min Normal 80 and above >35 mL/min Normal FEMALE GRF INTERPRETATION: 20-39 YRS: >60 mL/min Normal 40-49 YRS: >58 mL/min Normal 50-59 YRS: >51 mL/min Normal 60-69 YRS: >45 mL/min Normal 70-79 YRS: >39 mL/min Normal 80 and above >32 mL/min NormalCLASSIFICATION CHOLESTEROL FOR ADULTS CHILDREN/ADOLESCENTS* DESIRABLE: <200 MG/DL <170 MG/DL BORDER-LINE HIGH RISK: 200-239 MG/DL 170-199 MG/DL HIGH RISK: >240 MG/DL >200 MG/DL CLASS. FOR PRIMARY LDL CHOL PREVENTION: LDL CHOL-CHILD/ADOLESCENTS* DESIRABLE: <130 MG/DL <110 MG/DL BORDERLINE-HIGH RISK: 130- 159 MG/DL 110-129 MG/DL HIGH RISK: >160 MG/DL >130 MG/DL *CHILDREN AND ADOLESCENTS REPRESENTS INDIVIDUALA AGED 2-19 YEARS EXCLUSIVE. MXD# 0.4 10E3/uL 0.0-1.8 [facility] ([facility] NORMAL RANGES Age WBC RBC HGB HCT MCV PLT Adult M 4.1-10.9 4.20-6.30 12.0-18.0 37.0-51.0 80-97 140-440 Adult F 4.1-10.9 4.04-5.48 12.0-18.0 37.0-51.0 80-97 140-440 0 -1 Yr 5.0-20.0 3.9-5.9 15-18 MV: 44 MV: 91 MV: 277 2-9 Yr. 6.0-17.0 3.8-5.4 11-13 MV: 37 MV: 78 MV: 300 10 Yrs. 5.0-13.0 3.8-5.4 12-15 MV: 39 MV: 80 MV: 250 NOTE: * FOR ADULT BLACK MALES AND FEMALES, NORMAL WBC IS 2.9-7.7 K/ML * FOR ADULT BLACK MALES AND FEMALES, NORMAL RBC,HGB, AND HCT IS 5% LESS SOURCE FOR DATA: [employer] 1800 OPERATION MANUAL( AUTOMATED BLOOD COUNTS AND DIFF.) APPENDIX B-3 CHRONIC KIDNEY DISEASE STAGING PER NKF: MALE GFR INTERPRETATION: 20-49 YRS: >60 mL/min Normal 50-59 YRS: >56 mL/min Normal 60-69 YRS: >49 mL/min Normal 70-79 YRS: >42 mL/min Normal 80 and above >35 mL/min Normal FEMALE GRF INTERPRETATION: 20-39 YRS: >60 mL/min Normal 40-49 YRS: >58 mL/min Normal 50-59 YRS: >51 mL/min Normal 60-69 YRS: >45 mL/min Normal 70-79 YRS: >39 mL/min Normal 80 and above >32 mL/min NormalCLASSIFICATION CHOLESTEROL FOR ADULTS CHILDREN/ADOLESCENTS* DESIRABLE: <200 MG/DL <170 MG/DL BORDER-LINE HIGH RISK: 200-239 MG/DL 170-199 MG/DL HIGH RISK: >240 MG/DL >200 MG/DL CLASS. FOR PRIMARY LDL CHOL PREVENTION: LDL CHOL-CHILD/ADOLESCENTS* DESIRABLE: <130 MG/DL <110 MG/DL BORDERLINE-HIGH RISK: 130- 159 MG/DL 110-129 MG/DL HIGH RISK: >160 MG/DL >130 MG/DL *CHILDREN AND ADOLESCENTS REPRESENTS INDIVIDUALA AGED 2-19 YEARS EXCLUSIVE. MPV 11.0 fL 9.0-13.0 [facility] ([facility] NORMAL RANGES Age WBC RBC HGB HCT MCV PLT Adult M 4.1-10.9 4.20-6.30 12.0-18.0 37.0-51.0 80-97 140-440 Adult F 4.1-10.9 4.04-5.48 12.0-18.0 37.0-51.0 80-97 140-440 0 -1 Yr 5.0-20.0 3.9-5.9 15-18 MV: 44 MV: 91 MV: 277 2-9 Yr. 6.0-17.0 3.8-5.4 11-13 MV: 37 MV: 78 MV: 300 10 Yrs. 5.0-13.0 3.8-5.4 12-15 MV: 39 MV: 80 MV: 250 NOTE: * FOR ADULT BLACK MALES AND FEMALES, NORMAL WBC IS 2.9-7.7 K/ML * FOR ADULT BLACK MALES AND FEMALES, NORMAL RBC,HGB, AND HCT IS 5% LESS SOURCE FOR DATA: [employer] 1800 OPERATION MANUAL( AUTOMATED BLOOD COUNTS AND DIFF.) APPENDIX B-3 CHRONIC KIDNEY DISEASE STAGING PER NKF: MALE GFR INTERPRETATION: 20-49 YRS: >60 mL/min Normal 50-59 YRS: >56 mL/min Normal 60-69 YRS: >49 mL/min Normal 70-79 YRS: >42 mL/min Normal 80 and above >35 mL/min Normal FEMALE GRF INTERPRETATION: 20-39 YRS: >60 mL/min Normal 40-49 YRS: >58 mL/min Normal 50-59 YRS: >51 mL/min Normal 60-69 YRS: >45 mL/min Normal 70-79 YRS: >39 mL/min Normal 80 and above >32 mL/min NormalCLASSIFICATION CHOLESTEROL FOR ADULTS CHILDREN/ADOLESCENTS* DESIRABLE: <200 MG/DL <170 MG/DL BORDER-LINE HIGH RISK: 200-239 MG/DL 170-199 MG/DL HIGH RISK: >240 MG/DL >200 MG/DL CLASS. FOR PRIMARY LDL CHOL PREVENTION: LDL CHOL-CHILD/ADOLESCENTS* DESIRABLE: <130 MG/DL <110 MG/DL BORDERLINE-HIGH RISK: 130- 159 MG/DL 110-129 MG/DL HIGH RISK: >160 MG/DL >130 MG/DL *CHILDREN AND ADOLESCENTS REPRESENTS INDIVIDUALA AGED 2-19 YEARS EXCLUSIVE. ID Date Data Source [id number] 01/12/2020 03:59:00 PM EST [facility] ([facility] Name Value Range Interpretation Code Description Data Tammi rce(s) Supporting Document(s) Prostate specific Ag [Mass/volume] in Serum or Plasma 1.25 ng/mL 0.0- 4.0 [facility] ([facility] ID Date Data Source [id number] 12/28/2019 11:45:00 [place] [address] OPERATIVE SUMMARYNAME: LISA Stanford DATE OF : 1950TTENDING PHYS: Shannon Burnett MD DATE: 12/28/19 MR#: [id number] PROCEDURE: 12/28/2019PREOPERATIVE DIAGNOSIS: Age-related nuclear cataract, right eye.POSTOPERATIVE DIAGNOSIS: Age-related nuclear cataract, right eye.PROCEDURE PERFORMED: Phacoemulsification of posterior chamber with intraocular lensimplantation right eye.ANESTHESIA: Topical sedation.LENS USED: AUOOTO 18.5 diopters.DETAILS OF PROCEDURE: The eye was prepped and draped in the usual fashion. Lidspeculum was placed in the lid. A stab incision was made to the anterior chamber with asuperblade. 1% non-preserved lidocaine was instilled and viscoelastic instilled. The eye wasrefixated, and a 2.4 mm Keratome made a clear corneal and temporal limbal incision. The lens wasthen hydrodissected, and then it was grooved in two meridians at the phacoemulsification. The lenswas scrapped into four quadrants. Each quadrant was in good phacoemulsification. The remainingcortex was removed with I&A unit. The capsular bag was refilled with viscoelastic and theposterior chamber and intraocular lens were inserted into the capsular bag with no difficulty. Anyremaining viscoelastic was removed with the I&A, and the wound was hydrated and balanced saltand ceftriaxone were instilled. The patient tolerated the procedure well, and went to the recoveryroom in stable condition.DD: Shannon Burnett MD 12/28/19 11:30DT: LILLIAN 12/28/19 11:44DS: Shannon Burnett MD 01/03/20 13:08 1 Name Value Range Interpretation Code Description Data Tammi rce(s) Supporting Document(s) ID Date Data Source [id number] 12/14/2019 09:25:00 [place] [address] OPERATIVE SUMMARYNAME: LISA Stanford DATE OF : 1950TTENDING PHYS: Shannon Burnett MD DATE: 12/14/19 MR#: [id number] OF PROCEDURE: 12/14/2019PREOPERATIVE DIAGNOSIS: Age-related nuclear cataract, left eye.POSTOPERATIVE DIAGNOSIS: Age-related nuclear cataract, left eye.PROCEDURE PERFORMED: Phacoemulsification of posterior chamber with intraocular lensimplantation left eye.ANESTHESIA: Topical sedation.LENS USED: AUOOTO 20.0 diopters.DETAILS OF PROCEDURE: The eye was prepped and draped in the usual fashion. Lidspeculum was placed in the lid. A stab incision was made to the anterior chamber with asuperblade. 1% non-preserved lidocaine was instilled and viscoelastic instilled. The eye wasrefixated, and a 2.4 mm Keratome made a clear corneal and temporal limbal incision. The lens wasthen hydrodissected, and then it was grooved in two meridians at the phacoemulsification. The lenswas scrapped into four quadrants. Each quadrant was in good phacoemulsification. The remainingcortex was removed with I&A unit. The capsular bag was refilled with viscoelastic and theposterior chamber and intraocular lens were inserted into the capsular bag with no difficulty. Anyremaining viscoelastic was removed with the I&A, and the wound was hydrated and balanced saltand ceftriaxone were instilled. The patient tolerated the procedure well, and went to the recoveryroom in stable condition.DD: Shannon Burnett MD 12/14/19 09:15DT: LILLIAN 12/14/19 09:24DS: Shannon Burnett MD 01/03/20 13:08 1 Name Value Range Interpretation Code Description Data Tammi rce(s) Supporting Document(s) ID Date Data Source [id number] 12/26/2019 10:50:00 AM EDT [facility] ([facility]) Name Value Range Interpretation Code Description Data Tammi rce(s) Supporting Document(s) Surgical pathology study Laboratory test result [facility] ([facility]) FINAL DIAGNOSIS Nasal polyp, left, excision: Inflamed edematous sinonasal mucosa with abundant neutrophils, lymphocytes and eosinophils. Negative for malignancy. 12/28/2019 - 1518 CLINICAL DIAGNOSIS Nasal polyp 12/27/2019 - 1328 GROSS DIAGNOSIS Received in formalin labeled "nasal polyp left nare" and consists of a fragment of tissue 1 x 0.5 x 0.2 cm. All in one. -OA 12/28/2019 - 1518 Signed ÁLVARO MILES MD 12/28/2019 1520 ID Date Data Source [id number] 12/23/2019 10:47:00 AM EDT [facility] Name Value Range Interpretation Code Description Data Tammi rce(s) Supporting Document(s) SARS-CoV-2 (COVID19) [facility] This lab was ordered by [facility] and reported by [employer]. Procedure Social History Code Duration Value Status Description Data Source(s ) Smoking 12/27/2020 12:00:00 AM EDT Current Smoker completed Curre nt Smoker eCW1 ([facility]) Smoking 12/27/2020 12:00:00 AM EDT Current Smoker completed Curre nt Smoker eCW1 ([facility]) Smoking 06/28/2020 12:00:00 AM EDT Current Smoker completed Curre nt Smoker eCW1 ([facility]) Smoking 06/28/2020 12:00:00 AM EDT Current Smoker completed Curre nt Smoker eCW1 ([facility]) Smoking 06/28/2020 12:00:00 AM EDT Current Smoker completed Curre nt Smoker eCW1 ([facility]) Smoking 06/28/2020 12:00:00 AM EDT Current Smoker completed Curre nt Smoker eCW1 ([facility]) Smoking 06/28/2020 12:00:00 AM EDT Current Smoker completed Curre nt Smoker eCW1 ([facility]) Smoking 06/28/2020 12:00:00 AM EDT Current Smoker completed Curre nt Smoker eCW1 ([facility]) Smoking 06/28/2020 12:00:00 AM EDT Current Smoker completed Curre nt Smoker eCW1 ([facility]) Smoking 06/28/2020 12:00:00 AM EDT Current Smoker completed Curre nt Smoker eCW1 ([facility]) Smoking 06/28/2020 12:00:00 AM EDT Current Smoker completed Curre nt Smoker eCW1 ([facility]) Smoking 06/28/2020 12:00:00 AM EDT Current Smoker completed Curre nt Smoker eCW1 ([facility]) Smoking 06/28/2020 12:00:00 AM EDT Current Smoker completed Curre nt Smoker eCW1 ([facility]) Smoking 04/05/2020 12:00:00 AM EST Current Smoker completed Curre nt Smoker eCW1 ([facility]) Smoking 04/05/2020 12:00:00 AM EST Current Smoker completed Curre nt Smoker eCW1 ([facility]) Smoking 04/05/2020 12:00:00 AM EST Current Smoker completed Curre nt Smoker eCW1 ([facility]) Smoking 04/05/2020 12:00:00 AM EST Current Smoker completed Curre nt Smoker eCW1 ([facility]) Smoking 04/05/2020 12:00:00 AM EST Current Smoker completed Curre nt Smoker eCW1 ([facility]) Smoking 04/05/2020 12:00:00 AM EST Current Smoker completed Curre nt Smoker eCW1 ([facility]) Smoking 04/05/2020 12:00:00 AM EST Current Smoker completed Curre nt Smoker eCW1 ([facility]) Smoking 04/05/2020 12:00:00 AM EST Current Smoker completed Curre nt Smoker eCW1 ([facility]) Smoking 01/05/2020 12:00:00 AM EST Current Smoker completed Curre nt Smoker eCW1 ([facility]) Smoking 01/05/2020 12:00:00 AM EST Current Smoker completed Curre nt Smoker eCW1 ([facility]) Smoking 01/05/2020 12:00:00 AM EST Current Smoker completed Curre nt Smoker eCW1 ([facility]) Smoking 01/05/2020 12:00:00 AM EST Current Smoker completed Curre nt Smoker eCW1 ([facility]) Smoking 01/05/2020 12:00:00 AM EST Current Smoker completed Curre nt Smoker eCW1 ([facility]) Smoking 01/05/2020 12:00:00 AM EST Current Smoker completed Curre nt Smoker eCW1 ([facility]) Smoking 01/05/2020 12:00:00 AM EST Current Smoker completed Curre nt Smoker eCW1 ([facility]) Smoking 12/30/2019 12:00:00 AM EDT Current Smoker completed Curre nt Smoker eCW1 ([facility]) Vital Signs ID Date Data Source [id number] Name Value Range Interpretation Code Description Data Source(s) Body weight 140 [lb_av] 140 [lb_av] [facility] Body height 67 [in_i] 67 [in_i] eCW1 ([facility]) Body mass index (BMI) [Ratio] 21.92 kg/m2 21.92 kg/m2 eCW1 ([facility]) Heart rate 76 /min 76 /min eCW1 ([facility]) Respiratory rate 18 /min 18 /min eCW1 ([facility]) Body temperature 98.6 [degF] 98.6 [degF] eCW1 ( [facility]) Systolic blood pressure 130 mm[Hg] 130 mm[Hg] e CW1 ([facility]) Diastolic blood pressure 72 mm[Hg] 72 mm[Hg] eCW1 ([facility]) Systolic blood pressure 136 mm[Hg] 136 mm[Hg] M EDENT ([facility], ) Diastolic blood pressure 74 mm[Hg] 74 mm[Hg] [facility] ([facility], ) Body height 67 [in_i] 67 [in_i] [facility] ([facility], ) 5'7" Body weight 145.00 [lb_av] 145.00 [lb_av] MEDEN T ([facility], ) Body mass index (BMI) [Ratio] 22.7 kg/m2 22.7 k g/m2 [facility] ([facility]) [place] body weight 148 [lb_av] 148 [lb_av] MEDEN T ([facility]) Body weight 65.772 kg 65.772 kg [facility] ([facility]) Body surface area Derived from formula 1.76 m2 1.76 m2 [facility] Systolic blood pressure 152 mm[Hg] 152 mm[Hg] M EDENT ([facility] Diastolic blood pressure 74 mm[Hg] 74 mm[Hg] [facility] ([facility] Body temperature 97.5 [degF] 97.5 [degF] [facility] ([facility] Heart rate 60 /min 60 /min [facility] ([facility] Respiratory rate 18 /min 18 /min [facility] ( [facility] Body height 67 [in_i] 67 [in_i] [facility] ([facility] 5'7" Body weight 140.00 [lb_av] 140.00 [lb_av] MEDEN T ([facility] [place] body weight 148 [lb_av] 148 [lb_av] MED[facility] T ([facility] Body mass index (BMI) [Ratio] 21.9 kg/m2 21.9 k g/m2 [facility] ([facility] Oxygen saturation in Arterial blood by Pulse oximetry 98 % 98 % [facility] ([facility] Systolic blood pressure 118 mm[Hg] 118 mm[Hg] M EDENT ([facility] Diastolic blood pressure 60 mm[Hg] 60 mm[Hg] [facility] ([facility] Body temperature 98.2 [degF] 98.2 [degF] [facility] ([facility] Heart rate 72 /min 72 /min [facility] ([facility] Respiratory rate 16 /min 16 /min [facility] ( [facility] Body height 67 [in_i] 67 [in_i] [facility] ([facility] 5'7" Body weight 142.00 [lb_av] 142.00 [lb_av] MEDEN T ([facility] [place] body weight 148 [lb_av] 148 [lb_av] MED[facility] T ([facility] Body mass index (BMI) [Ratio] 22.2 kg/m2 22.2 k g/m2 [facility] ([facility] Oxygen saturation in Arterial blood by Pulse oximetry 98 % 98 % [facility] ([facility] Body weight 136.6 [lb_av] 136.6 [lb_av] eCW1 ([facility]placed by [facility]) Body height 67 [in_i] 67 [in_i] eCW1 ([facility]) Body mass index (BMI) [Ratio] 21.39 kg/m2 21.39 kg/m2 eCW1 ([facility]) Heart rate 86 /min 86 /min eCW1 ([facility]) Respiratory rate 18 /min 18 /min eCW1 ([facility]) Body temperature 98.0 [degF] 98.0 [degF] eCW1 ( [facility]) Systolic blood pressure 148 mm[Hg] 148 mm[Hg] e CW1 ([facility]) Diastolic blood pressure 76 mm[Hg] 76 mm[Hg] eCW1 ([facility]) Body height 67 [in_i] 67 [in_i] [facility], ) 5'7" Body weight 140.00 [lb_av] 140.00 [lb_av] MED[facility] T ([facility], ) Body mass index (BMI) [Ratio] 21.9 kg/m2 21.9 k g/m2 [facility] ([facility], ) [place] body weight 148 [lb_av] 148 [lb_av] MED[facility] T ([facility], ) Body weight 63.504 kg 63.504 kg [facility] ([facility], ) Body surface area Derived from formula 1.74 m2 1.74 m2 [facility] ([facility]) Body height 67 [in_i] 67 [in_i] [facility] ([facility]) 5'7" Body weight 140.00 [lb_av] 140.00 [lb_av] MED[facility] T ([facility]) Body mass index (BMI) [Ratio] 21.9 kg/m2 21.9 k g/m2 [facility] ([facility]) [place] body weight 148 [lb_av] 148 [lb_av] MED[facility] T ([facility]) Body weight 63.504 kg 63.504 kg [facility] ([facility]) Body surface area Derived from formula 1.74 m2 1.74 m2 [facility] ([facility]) Body weight 63.504 kg 63.504 kg [facility] ([facility]) Body surface area Derived from formula 1.74 m2 1.74 m2 [facility] ([facility]) Body height 67 [in_i] 67 [in_i] [facility] ([facility]) 5'7" Body weight 140.00 [lb_av] 140.00 [lb_av] MED[facility] T ([facility]) Body mass index (BMI) [Ratio] 21.9 kg/m2 21.9 k g/m2 [facility] ([facility]) [place] body weight 148 [lb_av] 148 [lb_av] MED[facility] T ([facility]) Body mass index (BMI) [Ratio] 21.9 kg/m2 21.9 k g/m2 [facility] ([facility]) Body weight 140.00 [lb_av] 140.00 [lb_av] MED[facility] T ([facility]) [place] body weight 148 [lb_av] 148 [lb_av] MED[facility] T ([facility]) Body weight 63.504 kg 63.504 kg [facility] ([facility]) Body surface area Derived from formula 1.74 m2 1.74 m2 [facility] ([facility]) Body height 67 [in_i] 67 [in_i] [facility] ([facility]) 5'7" Respiratory rate 16 /min 16 /min [facility] ( [facility] Diastolic blood pressure 60 mm[Hg] 60 mm[Hg] [facility] ([facility] [place] body weight 148 [lb_av] 148 [lb_av] MED[facility] T ([facility] Body mass index (BMI) [Ratio] 21.3 kg/m2 21.3 k g/m2 [facility] ([facility] Systolic blood pressure 128 mm[Hg] 128 mm[Hg] M EDENT ([facility] Body temperature 97.3 [degF] 97.3 [degF] [facility] ([facility] Heart rate 61 /min 61 /min [facility] ([facility] Body height 67 [in_i] 67 [in_i] [facility] ([facility] 5'7" Body weight 136.00 [lb_av] 136.00 [lb_av] MEDEN T ([facility] Oxygen saturation in Arterial blood by Pulse oximetry 96 % 96 % [facility] ([facility] Body height 67 [in_i] 67 [in_i] [facility] ([facility]) 5'7" Body weight 140.00 [lb_av] 140.00 [lb_av] MED[facility] T ([facility]) Body mass index (BMI) [Ratio] 21.9 kg/m2 21.9 k g/m2 [facility] ([facility]) [place] body weight 148 [lb_av] 148 [lb_av] MED[facility] T ([facility]) Body weight 63.504 kg 63.504 [facility]) Body surface area Derived from formula 1.74 m2 1.74 m2 [facility] ([facility]) Body mass index (BMI) [Ratio] 21.1 kg/m2 21.1 k g/m2 [facility] ([facility] Body weight 135.00 [lb_av] 135.00 [lb_av] MED[facility] T ([facility] [place] body weight 148 [lb_av] 148 [lb_av] MED[facility] T ([facility] Systolic blood pressure 112 mm[Hg] 112 mm[Hg] M EDENT ([facility] Diastolic blood pressure 78 mm[Hg] 78 mm[Hg] [facility] ([facility] Body temperature 97.2 [degF] 97.2 [degF] [facility] ([facility] Heart rate 62 /min 62 /min [facility] ([facility] Respiratory rate 18 /min 18 /min [facility] ( [facility] Body height 67 [in_i] 67 [in_i] [facility] ([facility] 5'7" Body weight 138.2 [lb_av] 138.2 [lb_av] eCW1 (Replaced by [facility]) Body height 67 [in_i] 67 [in_i] eCW1 ([facility]) Body mass index (BMI) [Ratio] 21.64 kg/m2 21.64 kg/m2 eCW1 ([facility]) Heart rate 89 /min 89 /min eCW1 ([facility]) Respiratory rate 18 /min 18 /min eCW1 ([facility]) Body temperature 97.2 [degF] 97.2 [degF] eCW1 ( [facility]) Systolic blood pressure 138 mm[Hg] 138 mm[Hg] e CW1 ([facility]) Diastolic blood pressure 72 mm[Hg] 72 mm[Hg] eCW1 ([facility]) Heart rate 60 /min 60 /min [facility] ([facility] Respiratory rate 16 /min 16 /min [facility] ( [facility] Body height 67 [in_i] 67 [in_i] [facility] ([facility] 5'7" Body weight 135.00 [lb_av] 135.00 [lb_av] MEDEN T ([facility] [place] body weight 148 [lb_av] 148 [lb_av] MEDEN T ([facility] Body mass index (BMI) [Ratio] 21.1 kg/m2 21.1 k g/m2 [facility] ([facility] Oxygen saturation in Arterial blood by Pulse oximetry 99 % 99 % [facility] ([facility] Body temperature 98.3 [degF] 98.3 [degF] [facility] ([facility] Systolic blood pressure 138 mm[Hg] 138 mm[Hg] M EDENT ([facility] Diastolic blood pressure 80 mm[Hg] 80 mm[Hg] [facility] ([facility] Body height 67 [in_i] 67 [in_i] [facility] 5'7" Body weight 140.00 [lb_av] 140.00 [lb_av] MEDEN T ([facility]) Body mass index (BMI) [Ratio] 21.9 kg/m2 21.9 k g/m2 [facility] ([facility]) [place] body weight 148 [lb_av] 148 [lb_av] MEDEN T ([facility]) Body weight 63.504 kg 63.504 kg [facility] ([facility]) Body surface area Derived from formula 1.74 m2 1.74 m2 [facility] ([facility]) [place] body weight 148 [lb_av] 148 [lb_av] MEDEN T ([facility] Oxygen saturation in Arterial blood by Pulse oximetry 99 % 99 % [facility] ([facility] Body mass index (BMI) [Ratio] 21.5 kg/m2 21.5 k g/m2 [facility] ([facility] Systolic blood pressure 126 mm[Hg] 126 mm[Hg] M EDENT ([facility] [facility] Diastolic blood pressure 88 mm[Hg] 88 mm[Hg] MEDENT ([facility] Body temperature 98.3 [degF] 98.3 [degF] MEDENT ([facility] Heart rate 62 /min 62 /min MEDENT ([facility] Respiratory rate 18 /min 18 /min MEDENT ( [facility] Body height 67 [in_i] 67 [in_i] MEDENT ([facility] 5'7" Body weight 137.00 [lb_av] 137.00 [lb_av] MEDEN T ([facility] Body temperature 96.9 [degF] 96.9 [degF] MEDENT ([facility]) Body weight 139.6 [lb_av] 139.6 [lb_av] eCW1 (Replaced by [facility]) Body height 67 [in_i] 67 [in_i] eCW1 ([facility]) Body mass index (BMI) [Ratio] 21.86 kg/m2 21.86 kg/m2 eCW1 ([facility]) Heart rate 66 /min 66 /min eCW1 ([facility]) Respiratory rate 18 /min 18 /min eCW1 ([facility]) Body temperature 97.7 [degF] 97.7 [degF] eCW1 ( [facility]) Systolic blood pressure 120 mm[Hg] 120 mm[Hg] e CW1 ([facility]) Diastolic blood pressure 78 mm[Hg] 78 mm[Hg] eCW1 ([facility]) Body height 67 [in_i] 67 [in_i] MEDENT ([facility], ) 5'7" Body weight 140.00 [lb_av] 140.00 [lb_av] MEDEN T ([facility], ) Body mass index (BMI) [Ratio] 21.9 kg/m2 21.9 k g/m2 [facility] ([facility], ) [place] body weight 148 [lb_av] 148 [lb_av] MEDEN T ([facility], ) Body weight 63.504 kg 63.504 kg [facility] ([facility], ) Body surface area Derived from formula 1.74 m2 1.74 m2 [facility] ([facility], ) Oxygen saturation in Arterial blood by Pulse oximetry 99 % 99 % MEDENT ([facility] Systolic blood pressure 142 mm[Hg] 142 mm[Hg] M EDENT ([facility] Diastolic blood pressure 72 mm[Hg] 72 mm[Hg] MEDENT ([facility] Body temperature 97.6 [degF] 97.6 [degF] MEDENT ([facility] Heart rate 52 /min 52 /min MED[facility] ([facility] Respiratory rate 18 /min 18 /min MEDENT ( [facility] Body height 67 [in_i] 67 [in_i] [facility] 5'7" Body weight 139.00 [lb_av] 139.00 [lb_av] MEDEN T ([facility] [place] body weight 148 [lb_av] 148 [lb_av] MEDEN T ([facility] Body mass index (BMI) [Ratio] 21.8 kg/m2 21.8 k g/m2 MEDENT ([facility] Systolic blood pressure 148 mm[Hg] 148 mm[Hg] M EDENT ([facility] Diastolic blood pressure 84 mm[Hg] 84 mm[Hg] MEDENT ([facility] Systolic blood pressure 148 mm[Hg] 148 mm[Hg] M EDENT ([facility] Diastolic blood pressure 84 mm[Hg] 84 mm[Hg] MEDENT ([facility] Systolic blood pressure 142 mm[Hg] 142 mm[Hg] M EDENT ([facility] Diastolic blood pressure 72 mm[Hg] 72 mm[Hg] MEDENT ([facility] Body temperature 97.6 [degF] 97.6 [degF] MEDENT ([facility] Heart rate 52 /min 52 /min MEDENT ([facility] Respiratory rate 18 /min 18 /min MEDENT ( [facility] Body height 67 [in_i] 67 [in_i] [facility] 5'7" Body weight 139.00 [lb_av] 139.00 [lb_av] MEDEN T ([facility] [place] body weight 148 [lb_av] 148 [lb_av] MEDEN T ([facility] Body mass index (BMI) [Ratio] 21.8 kg/m2 21.8 k g/m2 MEDENT ([facility] Oxygen saturation in Arterial blood by Pulse oximetry 99 % 99 % MEDENT ([facility] [place] body weight 148 [lb_av] 148 [lb_av] MEDEN T ([facility], ) Body height 67 [in_i] 67 [in_i] MEDENT ([facility]) 5'7" Body weight 140.00 [lb_av] 140.00 [lb_av] MEDEN T ([facility]) Body mass index (BMI) [Ratio] 21.9 kg/m2 21.9 k g/m2 MEDENT ([facility]) Body weight 63.504 kg 63.504 kg MEDENT ([facility]) Body weight 140.00 [lb_av] 140.00 [lb_av] MEDEN T ([facility]) Body height 67 [in_i] 67 [in_i] MEDENT ([facility]) 5'7" Body mass index (BMI) [Ratio] 21.9 kg/m2 21.9 k g/m2 MEDENT ([facility]) [place] body weight 148 [lb_av] 148 [lb_av] MEDEN T ([facility]) Body weight 63.504 kg 63.504 kg MEDENT ([facility]) Body temperature 96.8 [degF] 96.8 [degF] MEDENT ([facility]) Body height 67 [in_i] 67 [in_i] MEDENT ([facility]) 5'7" Body weight 179.00 [lb_av] 179.00 [lb_av] MEDEN T ([facility]) Body mass index (BMI) [Ratio] 28.0 kg/m2 28.0 k g/m2 MEDENT ([facility]) ID Date Data Source [id number] 01/04/2020 02:31:41 PM EST [facility] Hospital Name Value Range Interpretation Code Description Data Source(s) WEIGHT RECORDED 140.00 pounds 140.00 pounds [facility] Height 67 Inches 067 Inches [facility] ID Date Data Source [id number] 01/03/2020 01:08:33 PM EST [facility] Hospital Name Value Range Interpretation Code Description Data Source(s) WEIGHT RECORDED 140.00 pounds 140.00 pounds [facility] Height 67 Inches 067 Inches [facility] Patient Treatment Plan of Care Planned Activity Planned Date Details Description Data Source (s) oxyCODONE HCl ER 20 MG 02/07/2021 12:00:00 AM EST eCW1 ([facility]) Acetaminophen 325 MG / Hydrocodone Bitartrate 5 MG Ora l Tablet 02/07/2021 12:00:00 AM EST eCW1 ([facility]) oxyCODONE HCl ER 20 MG 12/27/2020 12:00:00 AM EDT eCW1 ([facility]) Acetaminophen 325 MG / Hydrocodone Bitartrate 5 MG Ora l Tablet 12/27/2020 12:00:00 AM EDT eCW1 ([facility]) oxyCODONE HCl ER 20 MG 12/07/2020 12:00:00 AM EDT eCW1 ([facility]) Acetaminophen 325 MG / Hydrocodone Bitartrate 5 MG Ora l Tablet 12/07/2020 12:00:00 AM EDT eCW1 ([facility]) oxyCODONE HCl ER 20 MG 11/09/2020 12:00:00 AM EDT eCW1 ([facility]) Acetaminophen 325 MG / Hydrocodone Bitartrate 5 MG Ora l Tablet 11/09/2020 12:00:00 AM EDT eCW1 ([facility]) oxyCODONE HCl ER 20 MG 10/11/2020 12:00:00 AM EDT eCW1 ([facility]) Acetaminophen 325 MG / Hydrocodone Bitartrate 5 MG Ora l Tablet 10/11/2020 12:00:00 AM EDT eCW1 ([facility]) Acetaminophen 325 MG / Hydrocodone Bitartrate 5 MG Ora l Tablet 09/06/2020 12:00:00 AM EDT eCW1 ([facility]) oxyCODONE HCl ER 20 MG 09/06/2020 12:00:00 AM EDT eCW1 ([facility]) Acetaminophen 325 MG / Hydrocodone Bitartrate 5 MG Ora l Tablet 08/16/2020 12:00:00 AM EDT eCW1 ([facility]) Acetaminophen 325 MG / Hydrocodone Bitartrate 5 MG Ora l Tablet 08/06/2020 12:00:00 AM EDT eCW1 ([facility]) Acetaminophen 325 MG / Hydrocodone Bitartrate 5 MG Ora l Tablet 08/06/2020 12:00:00 AM EDT eCW1 ([facility]) Acetaminophen 325 MG / Hydrocodone Bitartrate 5 MG Ora l Tablet 08/06/2020 12:00:00 AM EDT eCW1 ([facility]) Acetaminophen 325 MG / Hydrocodone Bitartrate 5 MG Ora l Tablet 08/06/2020 12:00:00 AM EDT eCW1 ([facility]) oxyCODONE HCl ER 20 MG 08/06/2020 12:00:00 AM EDT eCW1 ([facility]) Acetaminophen 325 MG / Hydrocodone Bitartrate 5 MG Ora l Tablet 08/06/2020 12:00:00 AM EDT eCW1 ([facility]) OxyCODONE HCl ER 20 MG 08/06/2020 12:00:00 AM EDT eCW1 ([facility]) Acetaminophen 325 MG / Hydrocodone Bitartrate 5 MG Ora l Tablet 08/06/2020 12:00:00 AM EDT eCW1 ([facility]) OxyCODONE HCl ER 20 MG 08/06/2020 12:00:00 AM EDT eCW1 ([facility]) Acetaminophen 325 MG / Hydrocodone Bitartrate 5 MG Ora l Tablet 08/06/2020 12:00:00 AM EDT eCW1 ([facility]) Acetaminophen 325 MG / Hydrocodone Bitartrate 5 MG Ora l Tablet 08/06/2020 12:00:00 AM EDT eCW1 ([facility]) OxyCODONE HCl ER 20 MG 08/06/2020 12:00:00 AM EDT eCW1 ([facility]) Acetaminophen 325 MG / Hydrocodone Bitartrate 5 MG Ora l Tablet 07/17/2020 12:00:00 AM EDT eCW1 ([facility]) Acetaminophen 325 MG / Hydrocodone Bitartrate 5 MG Ora l Tablet 07/17/2020 12:00:00 AM EDT eCW1 ([facility]) Acetaminophen 325 MG / Hydrocodone Bitartrate 5 MG Ora l Tablet 07/17/2020 12:00:00 AM EDT eCW1 ([facility]) Acetaminophen 325 MG / Hydrocodone Bitartrate 5 MG Ora l Tablet 07/17/2020 12:00:00 AM EDT eCW1 ([facility]) Acetaminophen 325 MG / Hydrocodone Bitartrate 5 MG Ora l Tablet 06/13/2020 12:00:00 AM EDT eCW1 ([facility]) OxyCODONE HCl ER 20 MG 05/31/2020 12:00:00 AM EDT eCW1 ([facility]) Acetaminophen 325 MG / Hydrocodone Bitartrate 5 MG Ora l Tablet 05/16/2020 12:00:00 AM EDT eCW1 ([facility]) OxyCODONE HCl ER 20 MG 05/02/2020 12:00:00 AM EST eCW1 ([facility]) OxyCODONE HCl ER 20 MG 05/02/2020 12:00:00 AM EST eCW1 ([facility]) [place] 5-325 MG 04/20/2020 12:00:00 AM EST eCW1 ([facility]) [place] 5-325 MG 04/20/2020 12:00:00 AM EST eCW1 ([facility]) Acetaminophen 325 MG / Hydrocodone Bitartrate 5 MG Ora l Tablet 04/20/2020 12:00:00 AM EST eCW1 ([facility]) [place] 5-325 MG 04/20/2020 12:00:00 AM EST eCW1 ([facility]) Acetaminophen 325 MG / Hydrocodone Bitartrate 5 MG Ora l Tablet 04/20/2020 12:00:00 AM EST eCW1 ([facility]) [place] 5-325 MG 04/20/2020 12:00:00 AM EST eCW1 ([facility]) Acetaminophen 325 MG / Hydrocodone Bitartrate 5 MG Ora l Tablet 04/20/2020 12:00:00 AM EST eCW1 ([facility]) [place] 5-325 MG 04/20/2020 12:00:00 AM EST eCW1 ([facility]) [place] 5-325 MG 04/20/2020 12:00:00 AM EST eCW1 ([facility]) Acetaminophen 325 MG / Hydrocodone Bitartrate 5 MG Ora l Tablet 04/20/2020 12:00:00 AM EST eCW1 ([facility]) OxyCODONE HCl ER 20 MG 04/19/2020 12:00:00 AM EST eCW1 ([facility]) OxyCODONE HCl ER 20 MG 04/19/2020 12:00:00 AM EST eCW1 ([facility]) OxyCODONE HCl ER 20 MG 04/19/2020 12:00:00 AM EST eCW1 ([facility]) Acetaminophen 325 MG / Hydrocodone Bitartrate 5 MG Ora l Tablet [[place]] 03/19/2020 12:00:00 AM EST eCW1 ([facility]) OxyCODONE HCl ER 20 MG 03/16/2020 12:00:00 AM EST eCW1 ([facility]) OxyCODONE HCl ER 20 MG 03/16/2020 12:00:00 AM EST eCW1 ([facility]) OxyCODONE HCl ER 20 MG 03/01/2020 12:00:00 AM EST eCW1 ([facility]) OxyCODONE HCl ER 20 MG 03/01/2020 12:00:00 AM EST eCW1 ([facility]) Acetaminophen 325 MG / Hydrocodone Bitartrate 5 MG Ora l Tablet [[place]] 02/10/2020 12:00:00 AM EST eCW1 ([facility]) Acetaminophen 325 MG / Hydrocodone Bitartrate 5 MG Ora l Tablet [[place]] 02/10/2020 12:00:00 AM EST eCW1 ([facility]) Acetaminophen 325 MG / Hydrocodone Bitartrate 5 MG Ora l Tablet [[place]] 02/10/2020 12:00:00 AM EST eCW1 ([facility]) Acetaminophen 325 MG / Hydrocodone Bitartrate 5 MG Ora l Tablet [[place]] 02/10/2020 12:00:00 AM EST eCW1 ([facility]) OxyCODONE HCl ER 20 MG 01/31/2020 12:00:00 AM EST eCW1 ([facility]) OxyCODONE HCl ER 20 MG 01/31/2020 12:00:00 AM EST eCW1 ([facility]) Acetaminophen 325 MG / Hydrocodone Bitartrate 5 MG Ora l Tablet [[place]] 01/05/2020 12:00:00 AM EST eCW1 ([facility]) Acetaminophen 325 MG / Hydrocodone Bitartrate 5 MG Ora l Tablet [[place]] 01/05/2020 12:00:00 AM EST eCW1 ([facility]) OxyCODONE HCl ER 20 MG 12/30/2019 12:00:00 AM EDT eCW1 ([facility]) Acetaminophen 325 MG / Hydrocodone Bitartrate 5 MG Ora l Tablet [[place]] 12/13/2019 12:00:00 AM EDT eCW1 ([facility]) Acetaminophen 325 MG / Hydrocodone Bitartrate 5 MG Ora l Tablet [[place]] 12/13/2019 12:00:00 AM EDT eCW1 ([facility])
--- OUTSIDE RECORDS SUMMARY | 2021-02-08 20:03 | CCD ---
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 If you continue you may have access to information: Regarding HIV / AIDS; Provided by facilities licensed or operated by the [facility] Office of Mental Health; or Provided by the [facility] Office for People With Developmental Disabilities. If such information is present, then the following [facility] mandated warning applies: This information has been [...] law may result in a fine or senior living sentence or both. A general authorization for the release of medical or other information is NOT sufficient authorization for further disc losure. Allergies and Adverse Reactions Type Description Substance Reaction Status Data Source(s ) No Known Environmental Allergies No Known Environmental Al lergies [facility] No Known Food Allergies No Known Food Allergies [facility] Propensity to adverse reactions NSAID NSAID [facility] No Known Drug Allergies No Known Drug Allergies [facility] Family History Family Member Name Family Member Gender Family Member Status Date o f Status Description Data Source(s) Unknown Unknown Problem MEDENT ([facility] grandmother Unknown Male Problem MEDENT ([facility]) Unknown Unknown Problem MEDENT ([facility]) Unknown Female Problem MEDENT ([facility]) Unknown Female Problem MEDENT ([facility]) Unknown Female Problem MEDENT ([facility]) Encounters Encounter Providers Location Date Indications Data Source(s ) [place] [address] [facility] [address] 02/05/2021 12:00:00 AM EST eCW1 ([facility]) [place] [address] [facility] [address] 12/27/2020 12:00:00 AM EDT eCW1 ([facility]) Unknown [address] [facility] [place] [address] 12/07/2020 12:00:00 AM EDT eCW1 ([facility]) Outpatient Attender: SHERRON Banks/Dora/Oneil jara/Jose 11/27/2020 10:30:00 AM EDT MEDENT ([facility] [place] [address] [facility] [address] 11/08/2020 12:00:00 AM EDT eCW1 [facility] Outpatient Attender: [facility] Office 11/01/2020 01:30:0 0 PM EDT MEDENT ([facility] Unknown [address] [facility] [place] [address] 10/10/2020 12:00:00 AM EDT eCW1 ([facility]) [place] [address] [facility] [address] 09/04/2020 12:00:00 AM EDT eCW1 [facility]) Unknown [address] [facility] [place] [address] 08/15/2020 12:00:00 AM EDT eCW1 [facility]) Unknown [address] [facility] [place] [address] 08/06/2020 12:00:00 AM EDT eCW1 ([facility]) [place] [address] [facility] [address] 08/06/2020 12:00:00 AM EDT eCW1 ([facility]) Unknown [address] [facility] [place] [address] 08/02/2020 12:00:00 AM EDT eCW1 [facility]) Outpatient Attender: [facility] Office 07/26/2020 01:30:0 0 PM EDT MED[facility] ([facility] [place] [address] [facility] [address] 07/17/2020 12:00:00 AM EDT [facility]CW1 [facility]) [place] [address] [facility] [address] 06/28/2020 12:00:00 AM EDT [facility]CW1 [facility] [place] [address] [facility] [address] 06/27/2020 12:00:00 AM EDT [facility]CW[facility] [place] [place] [address] [facility] [address] 06/13/2020 12:00:00 AM EDT eCW1 ([facility]) Outpatient Attender: Elías Banks/Dora/Parish/Re indl 05/24/2020 10:00:00 AM EDT MED[facility] ([facility] [place] [address] [facility] [address] 05/16/2020 12:00:00 AM EDT eCW1 [facility]) Outpatient Attender: Elías Banks/Dora/Parish/Re indl 05/14/2020 03:00:00 PM EDT MEDENT ([facility]) Outpatient Attender: CIRO DAVIS [facility] Office 04/30 09:00:00 AM EST MEDENT ([facility] Outpatient Attender: Mega Carr PAConsultant: Tisha laws 05/02/2020 07:19:00 AM EST - 05/02/2020 08:19:00 AM EST [facility] Patient discharged. [place] [address] [facility] [address] 05/02/2020 12:00:00 AM EST eCW1 ([facility]) Outpatient Attender: Mega Carr [facility] Office 04/2020 10:15:00 AM EST MEDENT ([facility] Outpatient Attender: Elías Banks/Dora/Parish/Re indl 04/27/2020 12:00:00 PM EST MED[facility] ([facility] [place] [address] [facility] [address] 04/20/2020 12:00:00 AM EST eCW1 [facility] Unknown [address] [facility] [place] [address] 04/20/2020 12:00:00 AM EST eCW1 [facility]) Outpatient Attender: [facility] Office 04/19/2020 12:15:0 0 PM EST MEDENT ([facility] Unknown [address] [facility] [place] [address] 04/18/2020 12:00:00 AM EST eCW1 ([facility]) Outpatient [address] [facility] [place] [address] 04/05/2020 12:00:00 AM EST eCW1 ([facility]) Unknown [address] [facility] [place] [address] 04/04/2020 12:00:00 AM EST eCW1 ([facility]) Outpatient Attender: [facility] Office 03/22/2020 01:00:0 0 PM EST MEDENT ([facility] Unknown [address] [facility] [place] [address] 03/19/2020 12:00:00 AM EST eCW1 ([facility]) Unknown [address] [facility] [place] [address] 03/15/2020 12:00:00 AM EST eCW1 ([facility]) Unknown [address] [facility] [place] [address] 03/12/2020 12:00:00 AM EST eCW1 ([facility]) Outpatient Attender: Elías Banks/Dora/Parish/Re indl 03/06/2020 12:00:00 PM EST [facility] ([facility] [place] [address] [facility] [address] 03/01/2020 12:00:00 AM EST eCW1 ([facility]) [place] [address] [facility] [address] 02/09/2020 12:00:00 AM EST eCW1 ([facility]) Unknown [address] [facility] [address] 01/30/2020 12:00:00 AM EST eCW1 ([facility]) Outpatient Attender: Tisha [facility] Office 01/12/2020 02:20:0 0 PM EST MEDENT ([facility] Outpatient Attender: ARIANA WATKINS Physical Therapy 01/11/2020 0 3:30:00 PM EST MEDENT ([facility]) Outpatient [address] [facility] [place] [address] 01/05/2020 12:00:00 AM EST eCW1 ([facility]) Office Visit Attender: Elías Banks/Dora/Parish/Re indl 01/04/2020 10:15:00 AM EST [facility] ([facility] [place] [address] [facility] [address] 12/30/2019 12:00:00 AM EDT eCW1 ([facility]) Outpatient Attender: ARIANA WATKINS Physical Therapy 12/29/2019 0 5:15:00 PM EDT MEDENT ([facility]) Outpatient Attender: Shannon Burnett MDConsultant: Tisha [facility] 12/28/2019 08:00:00 AM EDT - 12/28/2019 11:58:00 AM EDT [facility] Patient discharged. Outpatient Attender: Jud WATKINS [facility] 12/27/2019 11:15:00 AM EDT MEDENT ([facility] Outpatient Attender: Elías Banks/Dora/Parish/Re indl 12/23/2019 11:15:00 AM EDT MEDENT ([facility] Outpatient Attender: Shannon Burnett MDConsultant: Tisha [facility] 12/14/2019 06:45:00 AM EDT - 12/14/2019 09:44:00 AM EDT [facility] Patient discharged. [place] [address] [facility] [address] 12/13/2019 12:00:00 AM EDT eCW1 ([facility]) OFFICE OUTPATIENT NEW 30 MINUTES Attender: ARIANA WATKINS Physic al Therapy 12/12/2019 11:15:00 AM EDT MEDENT ([facility]) Immunizations Vaccine Date Status Description Data Source(s) New in 2012. IIV4 11/01/2020 01:32:00 PM EDT completed MEDENT ([facility] COVID-19 VACCINE, MRNA-1273, LNP-S (MODERNA)/PF 05/26/2020 1 2:00:00 AM EDT completed [facility] COVID-19 VACCINE Moderna 05/22/2020 12:00:00 AM EDT completed [facility] Vaccine Series Complete: YESThis Data wa s Submitted to [facility] Via [employer] Data. COVID-19 VACCINE Moderna 04/27/2020 12:00:00 AM EST completed [facility] Vaccine Series Complete: NOThis Data was Submitted to [facility] [employer] Data. COVID-19 VACCINE, MRNA-1273, LNP-S (MODERNA)/PF 04/27/2020 1 2:00:00 AM EST completed [facility] Medications Medication Brand Name Start Date Product Form Dose Route Admi nistrative Instructions Pharmacy Instructions Status Indications Reaction Description Data Source(s) oxyCODONE HCl ER 20 MG oxyCODONE HCl ER 20 MG 02/07/2021 12:00:00 A M EST 1.0 {tablet} active oxyCODONE HCl ER 20 MG eCW1 ([facility]) Acetaminophen 325 MG / Hydrocodone Kalia trate 5 MG Oral Tablet HYDROcodone- Acetaminophen 5-325 MG HYDROcodone-Acetaminophen 5-325 MG 02/07/2021 12:00:00 AM EST 1.0 {tablet_as_needed} active HYDROcodone-Acetaminophen 5-325 MG eCW1 ([facility]) Acetaminophen 325 MG / Hydrocodone Kalia trate 5 MG Oral Tablet HYDROcodone- Acetaminophen 5-325 MG HYDROcodone-Acetaminophen 5-325 MG 12/27/2020 12:00:00 AM EDT 1.0 {tablet_as_needed} active HYDROcodone-Acetaminophen 5-325 MG eCW1 ([facility]) oxyCODONE HCl ER 20 MG oxyCODONE HCl ER 20 MG 12/27/2020 12:00:00 A M EDT 1.0 {tablet} active oxyCODONE HCl ER 20 MG eCW1 ([facility]) oxyCODONE HCl ER 20 MG oxyCODONE HCl ER 20 MG 12/07/2020 12:00:00 A M EDT 1.0 {tablet} active oxyCODONE HCl ER 20 MG eCW1 ([facility]) Acetaminophen 325 MG / Hydrocodone Kalia trate 5 MG Oral Tablet HYDROcodone- Acetaminophen 5-325 MG HYDROcodone-Acetaminophen 5-325 MG 12/07/2020 12:00:00 AM EDT 1.0 {tablet_as_needed} active HYDROcodone-Acetaminophen 5-325 MG eCW1 ([facility]) oxyCODONE HCl ER 20 MG oxyCODONE HCl ER 20 MG 11/09/2020 12:00:00 A M EDT 1.0 {tablet} active oxyCODONE HCl ER 20 MG eCW1 ([facility]) Acetaminophen 325 MG / Hydrocodone Kalia trate 5 MG Oral Tablet HYDROcodone- Acetaminophen 5-325 MG HYDROcodone-Acetaminophen 5-325 MG 11/09/2020 12:00:00 AM EDT 1.0 {tablet_as_needed} active HYDROcodone-Acetaminophen 5-325 MG eCW1 ([facility]) oxyCODONE HCl ER 20 MG oxyCODONE HCl ER 20 MG 10/11/2020 12:00:00 A M EDT 1.0 {tablet} active oxyCODONE HCl ER 20 MG eCW1 ([facility]) Acetaminophen 325 MG / Hydrocodone Kalia trate 5 MG Oral Tablet HYDROcodone- Acetaminophen 5-325 MG HYDROcodone-Acetaminophen 5-325 MG 10/11/2020 12:00:00 AM EDT 1.0 {tablet_as_needed} active HYDROcodone-Acetaminophen 5-325 MG eCW1 ([facility]) Benazepril hydrochloride 20 MG / Hydrochlorothiazide 1 2.5 MG Oral Tablet Benazepril HCL/Hydrochlorothiazide 09/13/2020 12:00:00 AM EDT active MEDENT ([facility] oxyCODONE HCl ER 20 MG oxyCODONE HCl ER 20 MG 09/06/2020 12:00:00 A M EDT 1.0 {tablet} active oxyCODONE HCl ER 20 MG eCW1 ([facility]) Acetaminophen 325 MG / Hydrocodone Kalia trate 5 MG Oral Tablet HYDROcodone- Acetaminophen 5-325 MG HYDROcodone-Acetaminophen 5-325 MG 09/06/2020 12:00:00 AM EDT 1.0 {tablet_as_needed} active HYDROcodone-Acetaminophen 5-325 MG eCW1 ([facility]) Acetaminophen 325 MG / Hydrocodone Kalia trate 5 MG Oral Tablet HYDROcodone- Acetaminophen 5-325 MG HYDROcodone-Acetaminophen 5-325 MG 08/16/2020 12:00:00 AM EDT 1.0 {tablet_as_needed} active HYDROcodone-Acetaminophen 5-325 MG eCW1 ([facility]) Acetaminophen 325 MG / Hydrocodone Kalia trate 5 MG Oral Tablet Hydrocodone- Acetaminophen 5-325 MG Hydrocodone-Acetaminophen 5-325 MG 08/06/2020 12:00:00 AM EDT active Hydrocodone-Aceta minophen 5-325 MG eCW1 ([facility]) Acetaminophen 325 MG / Hydrocodone Kalia trate 5 MG Oral Tablet HYDROcodone- Acetaminophen 5-325 MG HYDROcodone-Acetaminophen 5-325 MG 08/06/2020 12:00:00 AM EDT active HYDROcodone-Aceta minophen 5-325 MG eCW1 ([facility]) Acetaminophen 325 MG / Hydrocodone Kalia trate 5 MG Oral Tablet HYDROcodone- Acetaminophen 5-325 MG HYDROcodone-Acetaminophen 5-325 MG 08/06/2020 12:00:00 AM EDT active HYDROcodone-Aceta minophen 5-325 MG eCW1 ([facility]) oxyCODONE HCl ER 20 MG oxyCODONE HCl ER 20 MG 08/06/2020 12:00:00 A M EDT 1.0 {tablet} active oxyCODONE HCl ER 20 MG eCW1 ([facility]) Acetaminophen 325 MG / Hydrocodone Kalia trate 5 MG Oral Tablet HYDROcodone- Acetaminophen 5-325 MG HYDROcodone-Acetaminophen 5-325 MG 08/06/2020 12:00:00 AM EDT active HYDROcodone-Aceta minophen 5-325 MG eCW1 ([facility]) OxyCODONE HCl ER 20 MG OxyCODONE HCl ER 20 MG 08/06/2020 12:00:00 A M EDT 1.0 {tablet} active OxyCODONE HCl ER 20 MG eCW1 ([facility]) Acetaminophen 325 MG / Hydrocodone Kalia trate 5 MG Oral Tablet HYDROcodone- Acetaminophen 5-325 MG HYDROcodone-Acetaminophen 5-325 MG 08/06/2020 12:00:00 AM EDT active HYDROcodone-Aceta minophen 5-325 MG eCW1 ([facility]) Acetaminophen 325 MG / Hydrocodone Kalia trate 5 MG Oral Tablet Hydrocodone- Acetaminophen 5-325 MG Hydrocodone-Acetaminophen 5-325 MG 08/06/2020 12:00:00 AM EDT active Hydrocodone-Aceta minophen 5-325 MG eCW1 ([facility]) OxyCODONE HCl ER 20 MG OxyCODONE HCl ER 20 MG 08/06/2020 12:00:00 A M EDT 1.0 {tablet} active OxyCODONE HCl ER 20 MG eCW1 ([facility]) Acetaminophen 325 MG / Hydrocodone Kalia trate 5 MG Oral Tablet Hydrocodone- Acetaminophen 5-325 MG Hydrocodone-Acetaminophen 5-325 MG 08/06/2020 12:00:00 AM EDT active Hydrocodone-Aceta minophen 5-325 MG eCW1 ([facility]) Acetaminophen 325 MG / Hydrocodone Kalia trate 5 MG Oral Tablet HYDROcodone- Acetaminophen 5-325 MG HYDROcodone-Acetaminophen 5-325 MG 08/06/2020 12:00:00 AM EDT active HYDROcodone-Aceta minophen 5-325 MG eCW1 ([facility]) OxyCODONE HCl ER 20 MG OxyCODONE HCl ER 20 MG 08/06/2020 12:00:00 A M EDT 1.0 {tablet} active OxyCODONE HCl ER 20 MG eCW1 ([facility]) Acetaminophen 325 MG / Hydrocodone Kalia trate 5 MG Oral Tablet Hydrocodone- Acetaminophen 5-325 MG Hydrocodone-Acetaminophen 5-325 MG 07/17/2020 12:00:00 AM EDT 1.0 {tablet_as_needed} active Hydrocodone-Acetaminophen 5-325 MG eCW1 ([facility]) Acetaminophen 325 MG / Hydrocodone Kalia trate 5 MG Oral Tablet Hydrocodone- Acetaminophen 5-325 MG Hydrocodone-Acetaminophen 5-325 MG 07/17/2020 12:00:00 AM EDT 1.0 {tablet_as_needed} active Hydrocodone-Acetaminophen 5-325 MG eCW1 ([facility]) Acetaminophen 325 MG / Hydrocodone Kalia trate 5 MG Oral Tablet Hydrocodone- Acetaminophen 5-325 MG Hydrocodone-Acetaminophen 5-325 MG 07/17/2020 12:00:00 AM EDT 1.0 {tablet_as_needed} active eCW1 ([facility]) Acetaminophen 325 MG / Hydrocodone Kalia trate 5 MG Oral Tablet Hydrocodone- Acetaminophen 5-325 MG Hydrocodone-Acetaminophen 5-325 MG 07/17/2020 12:00:00 AM EDT 1.0 {tablet_as_needed} active Hydrocodone-Acetaminophen 5-325 MG eCW1 ([facility]) OxyCODONE HCl ER 20 MG OxyCODONE HCl ER 20 MG 06/28/2020 12:00:00 A M EDT 1.0 {tablet} active eCW1 ([facility]) OxyCODONE HCl ER 20 MG OxyCODONE HCl ER 20 MG 06/28/2020 12:00:00 A M EDT 1.0 {tablet} active OxyCODONE HCl ER 20 MG eCW1 ([facility]) OxyCODONE HCl ER 20 MG OxyCODONE HCl ER 20 MG 06/28/2020 12:00:00 A M EDT 1.0 {tablet} active OxyCODONE HCl ER 20 MG eCW1 ([facility]) Acetaminophen 325 MG / Hydrocodone Kalia trate 5 MG Oral Tablet Hydrocodone- Acetaminophen 5-325 MG Hydrocodone-Acetaminophen 5-325 MG 06/13/2020 12:00:00 AM EDT 1.0 {tablet_as_needed} active Hydrocodone-Acetaminophen 5-325 MG eCW1 ([facility]) Acetaminophen 325 MG / Hydrocodone Kalia trate 5 MG Oral Tablet Hydrocodone- Acetaminophen 5-325 MG Hydrocodone-Acetaminophen 5-325 MG 06/13/2020 12:00:00 AM EDT 1.0 {tablet_as_needed} active Hydrocodone-Acetaminophen 5-325 MG eCW1 ([facility]) Acetaminophen 325 MG / Hydrocodone Kalia trate 5 MG Oral Tablet Hydrocodone- Acetaminophen 5-325 MG Hydrocodone-Acetaminophen 5-325 MG 06/13/2020 12:00:00 AM EDT 1.0 {tablet_as_needed} active Hydrocodone-Acetaminophen 5-325 MG eCW1 ([facility]) OxyCODONE HCl ER 20 MG OxyCODONE HCl ER 20 MG 05/31/2020 12:00:00 A M EDT 1.0 {tablet} active OxyCODONE HCl ER 20 MG eCW1 ([facility]) Acetaminophen 325 MG / Hydrocodone Kalia trate 5 MG Oral Tablet Hydrocodone- Acetaminophen 5-325 MG Hydrocodone-Acetaminophen 5-325 MG 05/16/2020 12:00:00 AM EDT 1.0 {tablet_as_needed} active Hydrocodone-Acetaminophen 5-325 MG eCW1 ([facility]) ammonium lactate 120 MG/ML Topical Cream Ammonium Lactate 05/09/2020 12:00:00 AM EST active MEDENT ([facility] Doxycycline Monohydrate 100 MG Oral Capsule Doxycycline [place] hydrate 05/07/2020 12:00:00 AM EST ORAL active M EDENT ([facility], ) Ibuprofen 800 MG Oral Tablet [Ibu] Ibu 05/07/2020 12:00:00 AM EST ORAL active MEDENT ([facility], ) OxyCODONE HCl ER 20 MG OxyCODONE HCl ER 20 MG 05/02/2020 12:00:00 A M EST 1.0 {tablet} active OxyCODONE HCl ER 20 MG eCW1 ([facility]) OxyCODONE HCl ER 20 MG OxyCODONE HCl ER 20 MG 05/02/2020 12:00:00 A M EST 1.0 {tablet} active OxyCODONE HCl ER 20 MG eCW1 ([facility]) Acetaminophen 325 MG / Hydrocodone Kalia trate 5 MG Oral Tablet Hydrocodone- Acetaminophen 5-325 MG Hydrocodone-Acetaminophen 5-325 MG 04/20/2020 12:00:00 AM EST 1.0 {tablet_as_needed} active Hydrocodone-Acetaminophen 5-325 MG eCW1 ([facility]) [place] 5-325 MG UNK 04/20/2020 12:00:00 AM EST active [place] 5-325 MG eCW1 ([facility]) [place] 5-325 MG UNK 04/20/2020 12:00:00 AM EST active [place] 5-325 MG eCW1 ([facility]) [place] 5-325 MG UNK 04/20/2020 12:00:00 AM EST active [place] 5-325 MG eCW1 ([facility]) [place] 5-325 MG UNK 04/20/2020 12:00:00 AM EST active [place] 5-325 MG eCW1 ([facility]) Acetaminophen 325 MG / Hydrocodone Kalia trate 5 MG Oral Tablet Hydrocodone- Acetaminophen 5-325 MG Hydrocodone-Acetaminophen 5-325 MG 04/20/2020 12:00:00 AM EST 1.0 {tablet_as_needed} active Hydrocodone-Acetaminophen 5-325 MG eCW1 ([facility]) Acetaminophen 325 MG / Hydrocodone Kalia trate 5 MG Oral Tablet Hydrocodone- Acetaminophen 5-325 MG Hydrocodone-Acetaminophen 5-325 MG 04/20/2020 12:00:00 AM EST 1.0 {tablet_as_needed} active Hydrocodone-Acetaminophen 5-325 MG eCW1 ([facility]) [place] 5-325 MG UNK 04/20/2020 12:00:00 AM EST active [place] 5-325 MG eCW1 ([facility]) [place] 5-325 MG UNK 04/20/2020 12:00:00 AM EST act carlita eCW1 ([facility]) [place] 5-325 MG UNK 04/20/2020 12:00:00 AM EST active [place] 5-325 MG eCW1 ([facility]) Acetaminophen 325 MG / Hydrocodone Kalia trate 5 MG Oral Tablet Hydrocodone- Acetaminophen 5-325 MG Hydrocodone-Acetaminophen 5-325 MG 04/20/2020 12:00:00 AM EST 1.0 {tablet_as_needed} active Hydrocodone-Acetaminophen 5-325 MG eCW1 ([facility]) [place] 5-325 MG UNK 04/20/2020 12:00:00 AM EST active [place] 5-325 MG eCW1 ([facility]) [place] 5-325 MG UNK 04/20/2020 12:00:00 AM EST active [place] 5-325 MG eCW1 ([facility]) OxyCODONE HCl ER 20 MG OxyCODONE HCl ER 20 MG 04/19/2020 12:00:00 A M EST 1.0 {tablet} active OxyCODONE HCl ER 20 MG eCW1 ([facility]) OxyCODONE HCl ER 20 MG OxyCODONE HCl ER 20 MG 04/19/2020 12:00:00 A M EST 1.0 {tablet} active OxyCODONE HCl ER 20 MG eCW1 ([facility]) OxyCODONE HCl ER 20 MG OxyCODONE HCl ER 20 MG 04/19/2020 12:00:00 A M EST 1.0 {tablet} active OxyCODONE HCl ER 20 MG eCW1 ([facility]) OxyCODONE HCl ER 20 MG OxyCODONE HCl ER 20 MG 04/04/2020 12:00:00 A M EST 1.0 {tablet} active OxyCODONE HCl ER 20 MG eCW1 ([facility]) OxyCODONE HCl ER 20 MG OxyCODONE HCl ER 20 MG 04/04/2020 12:00:00 A M EST 1.0 {tablet} active OxyCODONE HCl ER 20 MG eCW1 ([facility]) Acetaminophen 325 MG / Hydrocodone Kalia trate 5 MG Oral Tablet [[place]] [place] 5- 325 MG [place] 5-325 MG 03/19/2020 12:00:00 AM EST a ctive [place] 5- 325 MG eCW1 ([facility]) Acetaminophen 325 MG / Hydrocodone Kalia trate 5 MG Oral Tablet [[place]] [place] 5- 325 MG [place] 5-325 MG 03/19/2020 12:00:00 AM EST a ctive [place] 5- 325 MG eCW1 ([facility]) Acetaminophen 325 MG / Hydrocodone Kalia trate 5 MG Oral Tablet [[place]] [place] 5- 325 MG [place] 5-325 MG 03/19/2020 12:00:00 AM EST a ctive [place] 5- 325 MG eCW1 ([facility]) OxyCODONE HCl ER 20 MG OxyCODONE HCl ER 20 MG 03/16/2020 12:00:00 A M EST 1.0 {tablet} active OxyCODONE HCl ER 20 MG eCW1 ([facility]) OxyCODONE HCl ER 20 MG OxyCODONE HCl ER 20 MG 03/16/2020 12:00:00 A M EST 1.0 {tablet} active OxyCODONE HCl ER 20 MG eCW1 ([facility]) OxyCODONE HCl ER 20 MG OxyCODONE HCl ER 20 MG 03/01/2020 12:00:00 A M EST 1.0 {tablet} active OxyCODONE HCl ER 20 MG eCW1 ([facility]) OxyCODONE HCl ER 20 MG OxyCODONE HCl ER 20 MG 03/01/2020 12:00:00 A M EST 1.0 {tablet} active OxyCODONE HCl ER 20 MG eCW1 ([facility]) Acetaminophen 325 MG / Hydrocodone Kalia trate 5 MG Oral Tablet [[place]] [place] 5- 325 MG [place] 5-325 MG 02/10/2020 12:00:00 AM EST a ctive [place] 5- 325 MG eCW1 ([facility]) Acetaminophen 325 MG / Hydrocodone Kalia trate 5 MG Oral Tablet [[place]] [place] 5- 325 MG [place] 5-325 MG 02/10/2020 12:00:00 AM EST a ctive [place] 5- 325 MG eCW1 ([facility]) Acetaminophen 325 MG / Hydrocodone Kalia trate 5 MG Oral Tablet [[place]] [place] 5- 325 MG [place] 5-325 MG 02/10/2020 12:00:00 AM EST a ctive [place] 5- 325 MG eCW1 ([facility]) Acetaminophen 325 MG / Hydrocodone Kalia trate 5 MG Oral Tablet [[place]] [place] 5- 325 MG [place] 5-325 MG 02/10/2020 12:00:00 AM EST a ctive [place] 5- 325 MG eCW1 ([facility]) OxyCODONE HCl ER 20 MG OxyCODONE HCl ER 20 MG 01/31/2020 12:00:00 A M EST 1.0 {tablet} active OxyCODONE HCl ER 20 MG eCW1 ([facility]) OxyCODONE HCl ER 20 MG OxyCODONE HCl ER 20 MG 01/31/2020 12:00:00 A M EST 1.0 {tablet} active OxyCODONE HCl ER 20 MG eCW1 ([facility]) Acetaminophen 325 MG / Hydrocodone Kalia trate 5 MG Oral Tablet [[place]] [place] 5- 325 MG [place] 5-325 MG 01/05/2020 12:00:00 AM EST a ctive [place] 5- 325 MG eCW1 ([facility]) Acetaminophen 325 MG / Hydrocodone Kalia trate 5 MG Oral Tablet [[place]] [place] 5- 325 MG [place] 5-325 MG 01/05/2020 12:00:00 AM EST a ctive [place] 5- 325 MG eCW1 ([facility]) OxyCODONE HCl ER 20 MG OxyCODONE HCl ER 20 MG 12/30/2019 12:00:00 A M EDT 1.0 {tablet} active OxyCODONE HCl ER 20 MG eCW1 ([facility]) Cephalexin 500 MG Oral Capsule [Keflex] Keflex 12/29/2019 12:00:0 0 AM EDT ORAL active [facility] ([facility] ) Benazepril hydrochloride 20 MG / Hydrochlorothiazide 1 2.5 MG Oral Tablet Benazepril Hydrochloride/Hydrochlorothiazide 12/27/2019 12:00:00 AM EDT ORAL active [facility] ([facility] Acetaminophen 325 MG / Hydrocodone Kalia trate 5 MG Oral Tablet [[place]] [place] 5- 325 MG [place] 5-325 MG 12/13/2019 12:00:00 AM EDT a ctive [place] 5- 325 MG eCW1 ([facility]) Acetaminophen 325 MG / Hydrocodone Kalia trate 5 MG Oral Tablet [[place]] [place] 5- 325 MG [place] 5-325 MG 12/13/2019 12:00:00 AM EDT a ctive [place] 5- 325 MG eCW1 ([facility]) Insurance Providers Payer name Policy type / Coverage type Policy ID Covered green party ID Covered green party's relationship to pickering Policy Pickering Plan Information [employer] Compensation [id number] Self [employer] Compensation [id number] Self [id number] Medicare Medicare Primary [id number] Self [id number] MEDICARE COMPLETE [id number] SP [id number] MEDICARE [id number] SP [id number] A MEDICARE [id number] Domonique [id number] A [employer] Compensation [id number] Self [id number] Medicare [place] Med[place] Part B [id number] Self 1 [id number] Medicare [place] Medigap Part B .[id number] Self Medicare [place] Medigap Part B [id number] Self 1 [id number] [facility] Commercial [id number]. [id number] Self [id number] [facility]) Commercial [id number] Self [facility]) Commercial [id number] Self [id number] [employer] Commercial [id number] Se lf [id number] COMMERCIAL GENERIC U [id number] Self [id number] TODAYS OPTIONS [id number] SP [id number] WELLCARE MEDICARE HMO G [id number] Self [id number] [employer] MEDICARE HMO G [id number] Self [id number] [employer] Commercial [id number] Self [id number] ANSI-Not a Secondary Insurance [id number] ANSI-Not a Secondary Insurance [id number] ANSI-Not a Secondary Insurance [id number] Today's Options/[employer] Commercial [id number] Self [id number] ANSI-Not a Secondary Insurance [id number] Today's Options Medicare Commercial [id number] Self [id number] ANSI-Not a Secondary Insurance [id number] ANSI-Not a Secondary Insurance [id number] ANSI-Not a Secondary Insurance [id number] ANSI-Not a Secondary Insurance [id number] ANSI-Not a Secondary Insurance [id number] Today's Options Medicare Commercial [id number] Self [id number] [facility] [id number] ANSI-Not a Secondary Insurance [id number] ANSI-Not a Secondary Insurance [id number] ANSI-Not a Secondary Insurance [id number] Today's Options Ppo Commercial [id number] Self [id number] Today's Options Ppo Commercial [id number] Self [id number] Today's Options Medicare Commercial [id number] Self [id number] TODAYS OPTION -O/P [id number] 18 [id number] ANSI-Not a Secondary Insurance [id number] ANSI-Not a Secondary Insurance [id number] Today's Options Commercial [id number] [id number] Self [id number] ANSI-Not a Secondary Insurance [id number] [facility] [id number] ANSI-Not a Secondary Insurance [id number] AETNA MEDICARE -O/P [id number] ANSI-Not a Secondary Insurance [id number] ANSI-Not a Secondary Insurance [id number] ANSI-Not a Secondary Insurance [id number] AETNA -O/P [id number] MEDICARE PART A-O/P [id number] 18 [id number] MEDICARE PART A-O/P [id number] 18 [id number] [employer] Workers Compensation [id number] Self 1 [id number] [employer] Workers Compensation [id number] Self 1 [id number] [employer] Workers Compensation [id number] Self MEDICARE COMPLETE-[facility] O [id number] S [id number] MEDICARE COMPLETE-[facility] O [id number] S [id number] MEDICARE C [id number] S [id number] A Medicare Medicare Primary [id number] Self ONE CALL CARE MANAGEMENT O [id number] S [id number] MEDICARE -O/P [id number] 18 [id number] ANSI-Not a Secondary Insurance [id number] WELLCARE [id number] SP [id number] WELLCARE [id number] SP [id number] [employer] CLAIMS [id number] SP [id number] [employer] CLAIMS [id number] SP [id number] WELLCARE [id number] SP [id number] WELLCARE -O/P [id number] 18 [id number] WELLCARE [id number] SP [id number] WELLCARE -O/P [id number] 18 [id number] MEDICARE [id number] SP [id number] TODAYS OPTIONS [id number] SP [id number] ANSI-Not a Secondary Insurance [id number] ANSI-Not a Secondary Insurance [id number] ANSI-Not a Secondary Insurance [id number] ANSI-Not a Secondary Insurance [id number] ANSI-Not a Secondary Insurance [id number] ANSI-Not a Secondary Insurance [id number] ANSI-Not a Secondary Insurance [id number] ANSI-Not a Secondary Insurance [id number] Problems, Conditions, and Diagnoses Code Display Name Description Problem Type Effective Dates Data Source(s) [id number] Abdominal aortic ectasia Abdominal aortic ectasia Diag nosis 05/02/2020 07:19:00 AM EST [facility] H2511 Age-related nuclear cataract, right eye Age-related nuclear cataract, right eye Diagnosis 12/28/2019 08:00:00 AM EDT [facility] H2512 Age-related nuclear cataract, left eye A ge-related nuclear cataract, left eye Diagnosis 12/14/2019 06:45:00 AM EDT [facility] M72.2 Plantar fascial fibromatosis Plantar fascial fibromato sis Problem 05/21/2020 12:00:00 AM EDT [facility] ([facility] I73.9 Peripheral vascular disease Peripheral vascular diseas e Problem 05/01/2020 12:00:00 AM EST [facility] ([facility] Z79.4 Long-term current use of insulin Long-term current use of insulin Problem 05/01/2020 12:00:00 AM EST [facility] ([facility] ) [id number] Chronic kidney disease stage 3 Chronic kidney disease stage 3 Problem 04/01/2020 12:00:00 AM EST MED[facility] ([facility] ) L84 Corns and callosities Corns and callosities Problem 12/15/2019 12:00:00 AM EDT [facility] ([facility] B35.1 Onychomycosis Onychomycosis Problem 12/15/2019 12:00:00 [...] 25 MINUTES 11/27/2020 12:00:00 AM EDT MED[facility] ([facility]) OFFICE OUTPATIENT VISIT 25 MINUTES 11/01/2020 12:00:00 AM EDT MED[facility] ([facility] DEBRIDEMENT NAIL ANY METHOD 10/19/2020 12:00:00 AM EDT [facility] ([facility] OFFICE OUTPATIENT VISIT 25 MINUTES 07/26/2020 12:00:00 AM EDT MED[facility] ([facility] DEBRIDEMENT NAIL ANY METHOD 07/17/2020 12:00:00 AM EDT [facility] ([facility] OFFICE OUTPATIENT VISIT 15 MINUTES 05/24/2020 12:00:00 AM EDT MED[facility] ([facility]) OFFICE OUTPATIENT VISIT 10 MINUTES 05/14/2020 12:00:00 AM EDT MED[facility] ([facility]) PARING/CUTTING BENIGN HYPERKERATOTIC LESION 2-4 2020 12:00:00 AM EST [facility] ([facility] DEBRIDEMENT NAIL ANY METHOD 05/09/2020 12:00:00 AM EST [facility] ([facility] OFFICE OUTPATIENT VISIT 15 MINUTES 05/09/2020 12:00:00 AM EST [facility] ([facility] Endoscopy Nasal/Sinus Surgical W/ Ethmoidectomy Total 05/07/2020 12:00:00 AM EST MEDENT ([facility]) Endoscopy Nasal/Sinus Surgical Remove Tissue From Maxillary Sinus 05/07/2020 12:00:00 AM EST MEDENT ([facility]) Electrocardiogram Complete 03/22/2020 12:00:00 AM EST MED[facility] ([facility] DEBRIDEMENT NAIL ANY METHOD 6/> 03/06/2020 12:00:00 AM EST MED[facility] ([facility] EXCISION NASAL POLYP SIMPLE 12/26/2019 12:00:00 AM EDT MED[facility] ([facility] ) MRI Upper Extremity Any Joint 12/16/2019 12:00:00 AM E DT MEDENT ([facility] ) MRI Upper Extremity Any Joint 12/16/2019 12:00:00 AM E DT MED[facility] ([facility] ) FX Ulna Proximal End (eg:Olecranon or Coronoid Proc) W/O Man ipula 12/12/2019 12:00:00 AM EDT [facility] ([facility] ) Results ID Date Data Source [id number] 10/05/2020 10:14:00 AM EDT [facility] ([facility] Name Value Range Interpretation Code Description Data Tammi rce(s) Supporting Document(s) Uric Acid 5.6 2.6-6 [facility] ([facility]) ID Date Data Source [id number] 10/05/2020 10:14:00 AM EDT [facility] ([facility]) Name Value Range Interpretation Code Description Data Tammi rce(s) Supporting Document(s) White Blood Count 8.1 5.0-10.0 [facility] ([facility]) Platelets 159 172-450 [facility] ([facility]) Red Blood Count 4.09 4.70-6.10 [facility] ([facility]) Hemoglobin 13.3 14.0-18.0 [facility] ([facility]) Hematocrit 39.2 42.0-52.0 [facility] ([facility]) ID Date Data Source [id number] 10/05/2020 10:14:00 AM EDT [facility] ([facility]) Name Value Range Interpretation Code Description Data Tammi rce(s) Supporting Document(s) Glucose 165 70-106 [facility] ([facility]) Blood Urea Nitrogen 30.1 7-18 [facility] ([facility]) Creatinine 1.6 0.55-1.3 [facility] ([facility] [...] 28.0 21-32 [facility] ([facility]) Phosphorus 3.3 2.5-4.9 [facility] Albumin 3.4 3.2-5.2 [facility] ID Date Data Source [id number] 07/24/2020 10:40:00 AM EDT [facility] ([facility]) Name Value Range Interpretation Code Description Data Tammi rce(s) Supporting Document(s) Magnesium Level 2.02 1.6-2.6 [facility] ID Date Data Source [id number] 07/24/2020 10:40:00 AM EDT [facility] ([facility]) Name Value Range Interpretation Code Description Data Tammi rce(s) Supporting Document(s) White Blood Count 7.9 5.0-10.0 [facility] Red Blood Count 3.61 4.70-6.10 [facility] Hemoglobin 11.7 14.0-18.0 [facility] ([facility]) Platelets 168 172-450 [facility] Hematocrit 35.6 42.0-52.0 [facility] ([facility]) ID Date Data Source [id number] 07/24/2020 10:40:00 AM EDT [facility] ([facility]) Name Value Range Interpretation Code Description Data Tammi rce(s) Supporting Document(s) Glucose 157 70-106 [facility] [place] Creatinine 1.8 0.55-1.3 [facility] ([facility]) Blood Urea Nitrogen 23.5 7-18 [facility] ([facility]) Sodium 145.3 135-145 [facility] [place] Glomerular filtration rate/1.73 sq M.pre dicted [Volume Rate/Area] in Serum or Plasma by Creatinine-based formula (MDRD) 38 [facility] ([facility]) Chloride 110.2 94-110 [facility] ([facility]) Potassium 4.44 3.5-5.3 [facility] ([facility]) Carbon Dioxide 24.3 20-32 [facility] ([facility]) Phosphorus 3.6 [facility] ([facility]) Calcium 8.3 8.5-10.1 [facility] ([facility]) Albumin 3.4 3.2-5.2 [facility] ([facility]) ID Date Data Source [id number] 06/13/2020 01:04:00 PM EDT [facility] ([facility]) Name Value Range Interpretation Code Description Data Tammi rce(s) Supporting Document(s) Magnesium Level 2.00 [facility] ([facility]) ID Date Data Source [id number] 06/13/2020 01:04:00 PM EDT [facility] ([facility]) Name Value Range Interpretation Code Description Data Tammi rce(s) Supporting Document(s) White Blood Count 10.1 4.3-10.9 [facility] ([facility]) Platelets 215 130-400 [facility] ([facility]) Red Blood Count 3.95 4.70-6.20 [facility] ([facility]) Hemoglobin 12.9 13.0-17.0 [facility]) Hematocrit 39.0 39.0-50.0 [facility] ([facility]) ID Date Data Source [id number] 06/13/2020 01:04:00 PM EDT [facility] ([facility]) Name Value Range Interpretation Code Description Data [...] [facility] [place]) ID Date Data Source [id number] 05/08/2020 11:33:00 AM [facility] [address] [place] [address] PHONE: [phone] FAX: [phone] Name .................. : LISA Stanford Acct Number.................. : [id number] ROOM. ................. : Number ................... : [id number] Stay type ............. : O/P Discharge Date......... ... : 05/02/20 Admit Date ....... .. : 05/02/20 Admit Phys .................... : [facility] Date of ....... : 1950 Family Phys ................... : INGRIS THOMSON Phone .................. : [phone] Age ................................ : 69 Film# .................. .:[id number] Sex ................................. : M Unsigned transcriptions are preliminary reports and do not represent a medical or legal document US ABD COMPLETE [id number] COMPLETE:05/02/20 07:59 KNB 5457 (REASON FOR ABDOMEN: [...] JACQUES via fax Page 1 of 2 [facility] [address] [place] [address] PHONE: [phone] FAX: [phone] Name .................. : LISA Stanford Acct Number.................. : [id number] ROOM. ................. : MR Number ................... : [id number] Stay type ............. : O/P Discharge Date......... ... : 05/02/20 Admit Date ......... : 05/02/20 Admit Phys .................... : [facility] Date of ....... : 1950 Family Phys ................... : INGRIS JONESKHALIF Phone .................. : [phone] Age .... ............................ : 69 Film# .................. .:[id number] Sex ................................. : M Unsigned transcriptions are preliminary reports and do not represent a medical or legal document US ABD COMPLETE [id number] COMPLETE:05/02/20 07:59 KNB 5457 (REASON FOR ABDOMEN: Abdominal aortic ectasia, check kidneys as well Copy for: INGRIS TISHA via fax Copy for: 710 MED REC Page 2 of 2 Name Value Range Interpretation Code Description Data Tammi rce(s) Supporting Document(s) ID Date Data Source [id number] 05/07/2020 12:15:00 PM EST [facility] ([facility] Name Value Range Interpretation Code Description Data Tammi rce(s) Supporting Document(s) Glucose [Mass/volume] in Capillary blood by Glucometer 97 mg/dL 80-115 Normal (applies to non-numeric results) [facility] ID Date Data Source [id number] 05/07/2020 12:15:00 PM EST [facility] ([facility]) Name Value Range Interpretation Code Description Data Tammi rce(s) Supporting Document(s) Glucose [Mass/volume] in Capillary blood by Glucometer 97 mg/dL 80-115 Normal (applies to non-numeric results) [facility] ID Date Data Source [id number] 05/07/2020 11:52:00 AM EST [facility] ([facility]) Name Value Range Interpretation Code Description Data Tammi rce(s) Supporting Document(s) Surgical pathology study Laboratory test result [facility] ([facility]) FINAL DIAGNOSIS Submitted as "ethmoid polyp", excision: Inflamed edematous sinonasal mucosa with plasma cells, lymphocytes, neutrophils and fragments of bone. Negative for malignancy. 05/08/2020 - 1017 CLINICAL DIAGNOSIS Chronic sinusitis 05/07/2020 - 1513 GROSS DIAGNOSIS Received in formalin labeled "ethmoid polyp" and consists of fragments of tissue, 4 x 3 x 1 cm in aggregate. Head Of Art sections submitted in one. -OA 05/08/2020 - 1017 Signed ÁLVARO MILES MD 05/08/2020 1018 ID Date Data Source [id number] 05/07/2020 09:25:00 AM EST [facility] ([facility] Name Value Range Interpretation Code Description Data Tammi rce(s) Supporting Document(s) Glucose [Mass/volume] in Capillary blood by Glucometer 94 mg/dL 80-115 Normal (applies to non-numeric results) [facility] ID Date Data Source [id number] 05/07/2020 09:25:00 AM EST [facility] Name Value Range Interpretation Code Description Data Tammi rce(s) Supporting Document(s) Glucose [Mass/volume] in Capillary blood by Glucometer 94 mg/dL 80-115 Normal (applies to non-numeric results) [facility] ([facility], ) ID Date Data Source [id number] 05/02/2020 02:00:00 PM EST [facility] Name Value Range Interpretation Code Description Data Tammi rce(s) Supporting Document(s) SARS coronavirus [address] [facility] [place] This lab was ordered by [facility] and reported by [facility]. ID Date Data Source [id number] 04/19/2020 01:43:00 PM EST [facility] ([facility] Name Value Range Interpretation Code Description Data Tammi rce(s) Supporting Document(s) Hemoglobin A1c/Hemoglobin.total in Blood 6.3 % 4.50-6.20 Above high normal [facility] ([facility] ID Date Data Source [id number] 04/19/2020 01:43:00 PM EST [facility] ([facility]amil y [...] YEARS EXCLUSIVE. BUN/Creatinine Ratio 14.7 CALC [facility] ([facility] CHRONIC KIDNEY DISEASE STAGING [...] 19.7 mmol/L 22.0-29.0 Below low normal [facility] ([facility] CHRONIC KIDNEY DISEASE STAGING [...] EXCLUSIVE. Na 142 mmol/L 136-145 [facility] ([facility] CHRONIC KIDNEY DISEASE STAGING [...] YEARS EXCLUSIVE. Anion Gap 14 mmol/L [facility] CHRONIC KIDNEY DISEASE STAGING [...] YEARS EXCLUSIVE. K 3.6 mmol/L 3.5-5.1 [facility] ([facility] CHRONIC KIDNEY DISEASE [...] INDIVIDUALA AGED 2-19 YEARS EXCLUSIVE. eGFR Non-Afr. [place]er 33 # [facility] ([facility] [...] 2-19 YEARS EXCLUSIVE. ID Date Data Source [id number] 04/19/2020 01:43:00 PM EST [facility] ([facility] Name Value Range [...] YEARS EXCLUSIVE. Trig 140 mg/dL 35-200 [facility] ([facility] CHRONIC KIDNEY DISEASE STAGING PER [...] YEARS EXCLUSIVE. Cho/HDL Ratio 3.0 CALC MED[facility]AL ([facility] CHRONIC KIDNEY DISEASE STAGING [...] 2-19 YEARS EXCLUSIVE. ID Date Data Source [id number] 03/22/2020 02:40:00 PM EST [facility] ([facility] Name Value Range Interpretation Code Description Data Tammi rce(s) Supporting Document(s) Glu 160 mg/dL 70-110 Above high normal [facility] ([facility] NORMAL RANGES Age WBC [...] HCT IS 5% LESS SOURCE FOR DATA: Dash Hudson 1800 OPERATION MANUAL( AUTOMATED BLOOD COUNTS AND [...] >32 mL/min Normal BUN/Creatinine Ratio 19.6 Calc [facility] NORMAL RANGES Age WBC [...] HCT IS 5% LESS SOURCE FOR DATA: Dash Hudson 1800 OPERATION MANUAL( AUTOMATED BLOOD COUNTS AND [...] BUN 41 mg/dL 8-23 Above high normal [facility] NORMAL RANGES Age WBC [...] HCT IS 5% LESS SOURCE FOR DATA: Dash Hudson 1800 OPERATION MANUAL( AUTOMATED BLOOD COUNTS AND [...] HCT IS 5% LESS SOURCE FOR DATA: Dash Hudson 1800 OPERATION MANUAL( AUTOMATED BLOOD COUNTS AND [...] HCT IS 5% LESS SOURCE FOR DATA: Dash Hudson 1800 OPERATION MANUAL( AUTOMATED BLOOD COUNTS AND [...] >32 mL/min Normal K 4.0 mmol/L 3.5-5.1 [facility] NORMAL RANGES Age WBC [...] HCT IS 5% LESS SOURCE FOR DATA: Dash Hudson 1800 OPERATION MANUAL( AUTOMATED BLOOD COUNTS AND [...] Co2 15.9 mmol/L 22.0-29.0 Below low normal [facility] NORMAL RANGES Age WBC [...] HCT IS 5% LESS SOURCE FOR DATA: Dash Hudson 1800 OPERATION MANUAL( AUTOMATED BLOOD COUNTS AND [...] mmol/L 98.0-107.0 Above high normal [facility] ([facility] NORMAL RANGES Age WBC [...] HCT IS 5% LESS SOURCE FOR DATA: Dash Hudson 1800 OPERATION MANUAL( AUTOMATED BLOOD COUNTS AND [...] >32 mL/min Normal CA 8.8 mg/dL 8.6-10.2 [facility] NORMAL RANGES Age WBC [...] TP 6.1 g/dL 6.6-8.7 Below low normal [facility] ( [facility] NORMAL RANGES Age WBC [...] HCT IS 5% LESS SOURCE FOR DATA: Dash Hudson 1800 OPERATION MANUAL( AUTOMATED BLOOD COUNTS AND [...] >32 mL/min Normal Alb 4.0 g/dL 3.5-5.2 [facility] ([facility] NORMAL RANGES Age [...] HCT IS 5% LESS SOURCE FOR DATA: Dash Hudson 1800 OPERATION MANUAL( AUTOMATED BLOOD COUNTS AND [...] >32 mL/min Normal A/G Ratio 1.9 Calc [facility] ([facility] NORMAL RANGES Age [...] HCT IS 5% LESS SOURCE FOR DATA: Dash Hudson 1800 OPERATION MANUAL( AUTOMATED BLOOD COUNTS AND [...] >32 mL/min Normal Alp 112.6 U/L 40-129 [facility] ([facility] NORMAL [...] HCT IS 5% LESS SOURCE FOR DATA: Dash Hudson 1800 OPERATION MANUAL( AUTOMATED BLOOD COUNTS AND [...] HCT IS 5% LESS SOURCE FOR DATA: Dash Hudson 1800 OPERATION MANUAL( AUTOMATED BLOOD COUNTS AND [...] Normal Alt (SGPT) 10 U/L 0-41 [facility] NORMAL RANGES Age WBC [...] HCT IS 5% LESS SOURCE FOR DATA: Dash Hudson 1800 OPERATION MANUAL( AUTOMATED BLOOD COUNTS AND [...] mL/min Normal Ast (Sgot) 10 U/L 0-40 [facility] NORMAL RANGES Age WBC [...] HCT IS 5% LESS SOURCE FOR DATA: Dash Hudson 1800 OPERATION MANUAL( AUTOMATED BLOOD COUNTS AND [...] >32 mL/min Normal Anion Gap 14 mmol/L [facility] ([facility] NORMAL RANGES Age WBC [...] HCT IS 5% LESS SOURCE FOR DATA: Dash Hudson 1800 OPERATION MANUAL( AUTOMATED BLOOD COUNTS AND [...] mL/min Normal Osmolality-Calculated 292.3 Calc [facility] ([facility] NORMAL RANGES Age WBC [...] HCT IS 5% LESS SOURCE FOR DATA: Dash Hudson 1800 OPERATION MANUAL( AUTOMATED BLOOD COUNTS AND [...] >32 mL/min Normal Tbili 0.26 mg/dL 0.0-1.2 [facility] ([facility] NORMAL RANGES Age WBC RBC [...] mL/min Normal eGFR 36 # [facility] ( [facility] NORMAL RANGES Age WBC [...] HCT IS 5% LESS SOURCE FOR DATA: Dash Hudson 1800 OPERATION MANUAL( AUTOMATED BLOOD COUNTS AND [...] and above >32 mL/min Normal eGFR Non-Afr. [place] Islander 31 # [facility] ([facility] [...] HCT IS 5% LESS SOURCE FOR DATA: Dash Hudson 1800 OPERATION MANUAL( AUTOMATED BLOOD COUNTS AND [...] >32 mL/min Normal ID Date Data Source [id number] 03/22/2020 02:40:00 PM EST [facility] ([facility] Name Value Range Interpretation [...] HCT IS 5% LESS SOURCE FOR DATA: Dash Hudson 1800 OPERATION MANUAL( AUTOMATED BLOOD COUNTS AND [...] HCT IS 5% LESS SOURCE FOR DATA: Dash Hudson 1800 OPERATION MANUAL( AUTOMATED BLOOD COUNTS AND [...] HCT IS 5% LESS SOURCE FOR DATA: Dash Hudson 1800 OPERATION MANUAL( AUTOMATED BLOOD COUNTS AND [...] >32 mL/min Normal HCT 39.5 % 37.0-51.0 [facility] ([facility] NORMAL RANGES [...] HCT IS 5% LESS SOURCE FOR DATA: Dash Hudson 1800 OPERATION MANUAL( AUTOMATED BLOOD COUNTS AND [...] MCV 97.8 fL 80.0-97.0 Above high normal [facility] ([facility] NORMAL RANGES Age WBC [...] HCT IS 5% LESS SOURCE FOR DATA: Dash Hudson 1800 OPERATION MANUAL( AUTOMATED BLOOD COUNTS AND [...] >32 mL/min Normal PLT 153 10E3/uL 140-440 [facility] ([facility] NORMAL RANGES Age WBC RBC HGB [...] HCT IS 5% LESS SOURCE FOR DATA: Dash Hudson 1800 OPERATION MANUAL( AUTOMATED BLOOD COUNTS AND [...] MCH 32.7 pg 26.0-32.0 Above high normal [facility] ([facility] NORMAL RANGES Age [...] HCT IS 5% LESS SOURCE FOR DATA: Personaling DYN 1800 OPERATION MANUAL( AUTOMATED BLOOD COUNTS [...] >32 mL/min Normal MCHC 33.4 g/dL 31.0-36.0 [facility] ([facility] NORMAL RANGES Age WBC [...] HCT IS 5% LESS SOURCE FOR DATA: Dash Hudson 1800 OPERATION MANUAL( AUTOMATED BLOOD COUNTS AND [...] >32 mL/min Normal Lym% 11.3 % 10.0-58.5 [facility] ([facility] NORMAL [...] HCT IS 5% LESS SOURCE FOR DATA: Dash Hudson 1800 OPERATION MANUAL( AUTOMATED BLOOD COUNTS AND [...] >32 mL/min Normal RDW-CV 13.6 % 11.5-14.5 [facility] ([facility] NORMAL RANGES Age WBC [...] HCT IS 5% LESS SOURCE FOR DATA: Dash Hudson 1800 OPERATION MANUAL( AUTOMATED BLOOD COUNTS AND [...] mL/min Normal Lym# 1.2 10E3/uL 0.6-4.1 [facility] ([facility] NORMAL RANGES Age WBC RBC [...] HCT IS 5% LESS SOURCE FOR DATA: Dash Hudson 1800 OPERATION MANUAL( AUTOMATED BLOOD COUNTS AND [...] HCT IS 5% LESS SOURCE FOR DATA: Dash Hudson 1800 OPERATION MANUAL( AUTOMATED BLOOD COUNTS AND [...] >32 mL/min Normal MXD% 6.9 % 0.1-24.0 [facility] ([facility] NORMAL [...] HCT IS 5% LESS SOURCE FOR DATA: Dash Hudson 1800 OPERATION MANUAL( AUTOMATED BLOOD COUNTS AND [...] mL/min Normal MXD# 0.7 10E3/uL 0.0-1.8 [facility] ([facility] NORMAL RANGES Age WBC RBC [...] HCT IS 5% LESS SOURCE FOR DATA: Dash Hudson 1800 OPERATION MANUAL( AUTOMATED BLOOD COUNTS AND [...] Neut# 8.7 % 2.0-7.8 Above high normal [facility] ([facility] NORMAL RANGES Age WBC [...] HCT IS 5% LESS SOURCE FOR DATA: Dash Hudson 1800 OPERATION MANUAL( AUTOMATED BLOOD COUNTS AND [...] >32 mL/min Normal MPV 11.2 fL 9.0-13.0 [facility] ([facility] NORMAL RANGES Age WBC [...] >32 mL/min Normal ID Date Data Source [id number] 01/19/2020 12:46:00 PM EST [facility] ([facility] Name Value Range Interpretation [...] Little GFR Left</content>
<content>ESRD GFR <15 on CHEMICAL EDUCATOR</content>
<content></content> Carbon Dioxide Level 20 meq/L 21-32 Below low normal [facility] ([facility] Anion Gap 8 meq/L 8-16 Normal (applies to non-numeric resul ts) [facility] ([facility] Chloride Level 120 meq/L 98-107 Above high normal [facility] ([facility] Ast/Sgot 17 U/L 7-37 Normal (applies to non-numeric resul ts) [facility] ([facility] Calcium Level 8.6 mg/dL 8.8-10.2 Below low normal [facility] ([facility] Alkaline Phosphatase 131 U/L 45-117 Above high normal [facility] ([facility] Bilirubin,Total 0.5 mg/dL 0.2-1.0 Normal (applies to non-numeric results) [facility] ([facility] Alt/SGPT 18 U/L 12-78 Normal (applies to non-numeric resul ts) [facility] ([facility] Total Protein 6.4 GM/DL 6.4-8.2 Normal (applies to non-numeric re sults) [facility] ([facility] Albumin 3.4 GM/DL 3.2-5.2 Normal (applies to non-numeric resul ts) [facility] ([facility] Albumin/Globulin Ratio 1.1 Normal (applies to non-n umeric results) [facility] ([facility] ID Date Data Source [id number] 01/19/2020 12:46:00 PM EST [facility] ([facility] Name Value Range Interpretation Code Description Data Tammi rce(s) Supporting Document(s) Carcinoembryonic Ag [Mass/volume] in Serum or Plasma 6.3 ng/mL Above high normal [facility] ([facility] ) THE CEA ASSAY [...] [facility] ([facility] Performed at: [address] [id number] [place] Builder: Zoie Bergman MD, Phone: [phone] ID Date Data Source [id number] 01/19/2020 11:14:00 AM EST [facility] ([facility] Name Value Range Interpretation Code Description Data Tammi rce(s) Supporting Document(s) White Blood Count 9.1 10 4.0-10.0 Normal (applies to non-numeri c results) [facility] ([facility] Red Blood Count 4.29 [...] % 36.0-66.0 Above high normal [facility] ([facility] Lymph % 19.1 % 24.0-44.0 Below low normal [facility] ( [facility] Eos % 1.8 % 0.0-3.0 Normal (applies to non-numeric resul ts) [facility] ([facility] [place] % 7.3 % 0.0-5.0 Above high normal [facility] ([facility] Baso % 1.0 % 0.0-1.0 Normal (applies to non-numeric resul ts) [facility] ([facility] Immature Granulocyte % 0.3 % 0-3.0 Normal (applies to non-n umeric results) [facility] ([facility] Nucleated Red Blood Cell % 0.0 % 0-0 Normal (applies to n on-numeric results) [facility] ([facility] Neutrophils # 6.4 10 1.5-8.5 Normal (applies to non-numeric re sults) [facility] ([facility] Lymph # 1.7 10 1.5-5.0 Normal (applies to non-numeric resul ts) [facility] ([facility] [place] # 0.7 10 0.0-0.8 Normal (applies to non-numeric resul ts) [facility] ([facility] Eos # 0.2 10 0.0-0.5 Normal (applies to non-numeric resul ts) [facility] ([facility] Baso # 0.1 10 0.0-0.2 Normal (applies to non-numeric resul ts) [facility] ([facility] ID Date Data Source [id number] 01/19/2020 11:14:00 AM EST [facility] ([facility] Name Value Range Interpretation Code Description Data Tammi rce(s) Supporting Document(s) Total Iron Binding Capacity 272 ug/dL 250-450 Norm al (applies to non-numeric results) [facility] ([facility] ) Iron (Fe) 66 ug/dL 65-175 Normal (applies to non-numeric resul ts) [facility] ([facility] Percent Saturation 24.3 % 19.7-50.0 Normal (applies to non-numer ic results) [facility] ([facility] ID Date Data Source [id number] 01/19/2020 11:14:00 AM EST [facility] ([facility] Name Value Range Interpretation Code Description Data Tammi rce(s) Supporting Document(s) Ferritin [Mass/volume] in Serum or Plasma 88 ng/mL 26-388 Normal (applies to non-numeric results) [facility] ([facility]) <content>note:<nlbl:demographic_changed> </content>
<content></content> ID Date Data Source [id number] 01/12/2020 04:31:00 PM EST [facility] ([facility] Name Value Range Interpretation Code Description Data Tammi rce(s) Supporting Document(s) Hemoglobin A1c/Hemoglobin.total in Blood 6.3 % 4.50-6.20 Above high normal [facility] ([facility] ID Date Data Source [id number] 01/12/2020 04:00:00 PM EST [facility] ([facility] Name Value Range Interpretation Code Description Data Tammi rce(s) Supporting Document(s) Creatine kinase [Enzymatic activity/volume] in Serum or Plasma 64 U /L 39-308 [facility] ([facility] NORMAL RANGES Age WBC [...] HCT IS 5% LESS SOURCE FOR DATA: Dash Hudson 1800 OPERATION MANUAL( AUTOMATED BLOOD COUNTS AND [...] 2-19 YEARS EXCLUSIVE. ID Date Data Source [id number] 01/12/2020 04:00:00 PM EST [facility] ([facility] Name Value Range [...] HCT IS 5% LESS SOURCE FOR DATA: Dash Hudson 1800 OPERATION MANUAL( AUTOMATED BLOOD COUNTS AND [...] in Serum or Plasma 35 mg/dL 35-55 [facility] NORMAL RANGES Age [...] HCT IS 5% LESS SOURCE FOR DATA: Dash Hudson 1800 OPERATION MANUAL( AUTOMATED BLOOD COUNTS AND [...] HCT IS 5% LESS SOURCE FOR DATA: Dash Hudson 1800 OPERATION MANUAL( AUTOMATED BLOOD COUNTS AND [...] LDL_C 53 Calc 75-129 Below low normal [facility] ( [facility] NORMAL RANGES Age WBC [...] HCT IS 5% LESS SOURCE FOR DATA: Dash Hudson 1800 OPERATION MANUAL( AUTOMATED BLOOD COUNTS AND [...] 2-19 YEARS EXCLUSIVE. Cho/HDL Ratio 3.0 CALC [facility] ([facility] NORMAL RANGES Age WBC RBC HGB [...] HCT IS 5% LESS SOURCE FOR DATA: Dash Hudson 1800 OPERATION MANUAL( AUTOMATED BLOOD COUNTS AND [...] 2-19 YEARS EXCLUSIVE. ID Date Data Source [id number] 01/12/2020 04:00:00 PM EST [facility] ([facility] Name Value Range Interpretation [...] HCT IS 5% LESS SOURCE FOR DATA: Dash Hudson 1800 OPERATION MANUAL( AUTOMATED BLOOD COUNTS AND [...] 38 mg/dL 8-23 Above high normal [facility] ([facility] NORMAL RANGES Age WBC [...] HCT IS 5% LESS SOURCE FOR DATA: Personaling DYN 1800 OPERATION MANUAL( AUTOMATED BLOOD COUNTS [...] HCT IS 5% LESS SOURCE FOR DATA: Dash Hudson 1800 OPERATION MANUAL( AUTOMATED BLOOD COUNTS AND [...] YEARS EXCLUSIVE. BUN/Creatinine Ratio 19.5 CALC [facility] ([facility] NORMAL RANGES Age WBC [...] HCT IS 5% LESS SOURCE FOR DATA: Dash Hudson 1800 OPERATION MANUAL( AUTOMATED BLOOD COUNTS AND [...] 2-19 YEARS EXCLUSIVE. K 3.7 mmol/L 3.5-5.1 [facility] ([facility] NORMAL RANGES Age WBC [...] HCT IS 5% LESS SOURCE FOR DATA: Personaling DYN 1800 OPERATION MANUAL( AUTOMATED BLOOD COUNTS [...] 2-19 YEARS EXCLUSIVE. Na 143 mmol/L 136-145 [facility] NORMAL RANGES [...] HCT IS 5% LESS SOURCE FOR DATA: Dash Hudson 1800 OPERATION MANUAL( AUTOMATED BLOOD COUNTS AND [...] Co2 18.9 mmol/L 22.0-29.0 Below low normal [facility] ([facility] NORMAL RANGES Age WBC [...] HCT IS 5% LESS SOURCE FOR DATA: Personaling DYN 1800 OPERATION MANUAL( AUTOMATED BLOOD COUNTS [...] HCT IS 5% LESS SOURCE FOR DATA: Dash Hudson 1800 OPERATION MANUAL( AUTOMATED BLOOD COUNTS AND [...] HCT IS 5% LESS SOURCE FOR DATA: Personaling DYN 1800 OPERATION MANUAL( AUTOMATED BLOOD COUNTS [...] 2-19 YEARS EXCLUSIVE. CA 8.9 mg/dL 8.6-10.2 [facility] ([facility] NORMAL RANGES Age [...] HCT IS 5% LESS SOURCE FOR DATA: Dash Hudson 1800 OPERATION MANUAL( AUTOMATED BLOOD COUNTS AND [...] 2-19 YEARS EXCLUSIVE. Alb 4.0 g/dL 3.5-5.2 [facility] ([facility] NORMAL RANGES [...] HCT IS 5% LESS SOURCE FOR DATA: Dash Hudson 1800 OPERATION MANUAL( AUTOMATED BLOOD COUNTS AND [...] HCT IS 5% LESS SOURCE FOR DATA: Dash Hudson 1800 OPERATION MANUAL( AUTOMATED BLOOD COUNTS AND [...] Alp 135.0 U/L 40-129 Above high normal [facility] ([facility] NORMAL RANGES Age WBC [...] HCT IS 5% LESS SOURCE FOR DATA: Dash Hudson 1800 OPERATION MANUAL( AUTOMATED BLOOD COUNTS AND [...] HCT IS 5% LESS SOURCE FOR DATA: Dash Hudson 1800 OPERATION MANUAL( AUTOMATED BLOOD COUNTS AND [...] HCT IS 5% LESS SOURCE FOR DATA: Dash Hudson 1800 OPERATION MANUAL( AUTOMATED BLOOD COUNTS AND [...] YEARS EXCLUSIVE. Alt (SGPT) 21 U/L 0-41 [facility] ([facility] NORMAL RANGES Age WBC RBC [...] IS 5% LESS SOURCE FOR DATA: [employer] 1800 OPERATION MANUAL( AUTOMATED BLOOD COUNTS AND [...] HCT IS 5% LESS SOURCE FOR DATA: Dash Hudson 1800 OPERATION MANUAL( AUTOMATED BLOOD COUNTS AND [...] HCT IS 5% LESS SOURCE FOR DATA: Dash Hudson 1800 OPERATION MANUAL( AUTOMATED BLOOD COUNTS AND [...] 2-19 YEARS EXCLUSIVE. Tbili 0.24 mg/dL 0.0-1.2 [facility] ([facility] NORMAL RANGES Age WBC RBC [...] IS 5% LESS SOURCE FOR DATA: [employer] 1800 OPERATION MANUAL( AUTOMATED BLOOD COUNTS AND [...] INDIVIDUALA AGED 2-19 YEARS EXCLUSIVE. eGFR Non-Afr. [place] Islander 35 # [facility] ([facility] [...] HCT IS 5% LESS SOURCE FOR DATA: Dash Hudson 1800 OPERATION MANUAL( AUTOMATED BLOOD COUNTS AND [...] HCT IS 5% LESS SOURCE FOR DATA: Dash Hudson 1800 OPERATION MANUAL( AUTOMATED BLOOD COUNTS AND [...] 2-19 YEARS EXCLUSIVE. ID Date Data Source [id number] 01/12/2020 04:00:00 PM EST [facility] ([facility] Name Value Range Interpretation Code Description Data Tammi rce(s) Supporting Document(s) WBC 7.8 10E3/uL 4.1-10.9 [facility] ([facility] NORMAL RANGES Age WBC RBC [...] HCT IS 5% LESS SOURCE FOR DATA: Dash Hudson 1800 OPERATION MANUAL( AUTOMATED BLOOD COUNTS AND [...] RBC 4.19 10E6/uL 4.20-6.30 Below low normal [facility] ([facility] NORMAL RANGES Age [...] HCT IS 5% LESS SOURCE FOR DATA: Dash Hudson 1800 OPERATION MANUAL( AUTOMATED BLOOD COUNTS AND [...] HCT IS 5% LESS SOURCE FOR DATA: Dash Hudson 1800 OPERATION MANUAL( AUTOMATED BLOOD COUNTS AND [...] HCT IS 5% LESS SOURCE FOR DATA: Personaling DYN 1800 OPERATION MANUAL( AUTOMATED BLOOD COUNTS [...] HCT IS 5% LESS SOURCE FOR DATA: Dash Hudson 1800 OPERATION MANUAL( AUTOMATED BLOOD COUNTS AND [...] HCT IS 5% LESS SOURCE FOR DATA: Dash Hudson 1800 OPERATION MANUAL( AUTOMATED BLOOD COUNTS AND [...] 2-19 YEARS EXCLUSIVE. MCHC 33.1 g/dL 31.0-36.0 [facility] ([facility] NORMAL RANGES [...] HCT IS 5% LESS SOURCE FOR DATA: Dash Hudson 1800 OPERATION MANUAL( AUTOMATED BLOOD COUNTS AND [...] HCT IS 5% LESS SOURCE FOR DATA: Dash Hudson 1800 OPERATION MANUAL( AUTOMATED BLOOD COUNTS AND [...] 2-19 YEARS EXCLUSIVE. PLT 160 10E3/uL 140-440 [facility] ([facility] NORMAL RANGES Age WBC RBC HGB [...] HCT IS 5% LESS SOURCE FOR DATA: Dash Hudson 1800 OPERATION MANUAL( AUTOMATED BLOOD COUNTS AND [...] 2-19 YEARS EXCLUSIVE. Lym% 24.4 % 10.0-58.5 [facility] ([facility] NORMAL RANGES [...] HCT IS 5% LESS SOURCE FOR DATA: Dash Hudson 1800 OPERATION MANUAL( AUTOMATED BLOOD COUNTS AND [...] HCT IS 5% LESS SOURCE FOR DATA: Dash Hudson 1800 OPERATION MANUAL( AUTOMATED BLOOD COUNTS AND [...] 2-19 YEARS EXCLUSIVE. MXD% 5.6 % 0.1-24.0 [facility] ([facility] NORMAL [...] 2-19 YEARS EXCLUSIVE. Lym# 1.9 10E3/uL 0.6-4.1 [facility] ([facility] NORMAL RANGES Age WBC RBC [...] HCT IS 5% LESS SOURCE FOR DATA: Dash Hudson 1800 OPERATION MANUAL( AUTOMATED BLOOD COUNTS AND [...] HCT IS 5% LESS SOURCE FOR DATA: Dash Hudson 1800 OPERATION MANUAL( AUTOMATED BLOOD COUNTS AND [...] 2-19 YEARS EXCLUSIVE. MXD# 0.4 10E3/uL 0.0-1.8 [facility] ([facility] NORMAL RANGES Age WBC RBC [...] HCT IS 5% LESS SOURCE FOR DATA: Dash Hudson 1800 OPERATION MANUAL( AUTOMATED BLOOD COUNTS AND [...] 2-19 YEARS EXCLUSIVE. MPV 11.0 fL 9.0-13.0 [facility] ([facility] NORMAL [...] HCT IS 5% LESS SOURCE FOR DATA: Dash Hudson 1800 OPERATION MANUAL( AUTOMATED BLOOD COUNTS AND [...] 2-19 YEARS EXCLUSIVE. ID Date Data Source [id number] 01/12/2020 03:59:00 PM EST [facility] ([facility] Name Value Range Interpretation Code Description Data Tammi rce(s) Supporting Document(s) Prostate specific Ag [Mass/volume] in Serum or Plasma 1.25 ng/mL 0.0- 4.0 [facility] ([facility] ID Date Data Source [id number] 12/28/2019 11:45:00 [place] [address] OPERATIVE SUMMARYNAME: LISA Stanford DATE OF : 1950TTEND[birth year] PHYS: Shannon Burnett MD DATE: 12/28/19 MR#: [id number] PROCEDURE: 12/28/2019PREOPERATIVE DIAGNOSIS: Age-related nuclear cataract, [...] rce(s) Supporting Document(s) ID Date Data Source [id number] 12/14/2019 09:25:00 [place] [address] OPERATIVE SUMMARYNAME: LISA Stanford DATE OF : 1950TTENDING PHYS: Shannon Burnett MD DATE: 12/14/19 MR#: [id number] PROCEDURE: 12/14/2019PREOPERATIVE DIAGNOSIS: Age-related nuclear cataract, [...] rce(s) Supporting Document(s) ID Date Data Source [id number] 12/26/2019 10:50:00 AM EDT [facility] ([facility] Name Value Range Interpretation Code Description Data Tammi rce(s) Supporting Document(s) Surgical pathology study Laboratory test result [facility] ([facility] FINAL DIAGNOSIS Nasal polyp, left, excision: [...] MD 12/28/2019 1520 ID Date Data Source [id number] 12/23/2019 10:47:00 AM EDT [facility] Name Value Range Interpretation Code Description Data Tammi rce(s) Supporting Document(s) SARS-CoV-2 (COVID19) [facility] This lab was ordered by [facility] and reported by [employer]. Procedure Social History Code Duration Value Status Description Data Source(s ) Smoking 12/27/2020 12:00:00 AM EDT Current Smoker completed Curre nt Smoker eCW1 ([facility]) Smoking 12/27/2020 12:00:00 AM EDT Current Smoker completed Curre nt Smoker eCW1 ([facility]) Smoking 06/28/2020 12:00:00 AM EDT Current Smoker completed Curre nt Smoker eCW1 ([facility]) Smoking 06/28/2020 12:00:00 AM EDT Current Smoker completed Curre nt Smoker eCW1 ([facility]) Smoking 06/28/2020 12:00:00 AM EDT Current Smoker completed Curre nt Smoker eCW1 ([facility]) Smoking 06/28/2020 12:00:00 AM EDT Current Smoker completed Curre nt Smoker eCW1 ([facility]) Smoking 06/28/2020 12:00:00 AM EDT Current Smoker completed Curre nt Smoker eCW1 ([facility]) Smoking 06/28/2020 12:00:00 AM EDT Current Smoker completed Curre nt Smoker eCW1 ([facility]) Smoking 06/28/2020 12:00:00 AM EDT Current Smoker completed Curre nt Smoker eCW1 ([facility]) Smoking 06/28/2020 12:00:00 AM EDT Current Smoker completed Curre nt Smoker eCW1 ([facility]) Smoking 06/28/2020 12:00:00 AM EDT Current Smoker completed Curre nt Smoker eCW1 ([facility]) Smoking 06/28/2020 12:00:00 AM EDT Current Smoker completed Curre nt Smoker eCW1 ([facility]) Smoking 06/28/2020 12:00:00 AM EDT Current Smoker completed Curre nt Smoker eCW1 ([facility]) Smoking 04/05/2020 12:00:00 AM EST Current Smoker completed Curre nt Smoker eCW1 ([facility]) Smoking 04/05/2020 12:00:00 AM EST Current Smoker completed Curre nt Smoker eCW1 ([facility]) Smoking 04/05/2020 12:00:00 AM EST Current Smoker completed Curre nt Smoker eCW1 ([facility]) Smoking 04/05/2020 12:00:00 AM EST Current Smoker completed Curre nt Smoker eCW1 ([facility]) Smoking 04/05/2020 12:00:00 AM EST Current Smoker completed Curre nt Smoker eCW1 ([facility]) Smoking 04/05/2020 12:00:00 AM EST Current Smoker completed Curre nt Smoker eCW1 ([facility]) Smoking 04/05/2020 12:00:00 AM EST Current Smoker completed Curre nt Smoker eCW1 ([facility]) Smoking 04/05/2020 12:00:00 AM EST Current Smoker completed Curre nt Smoker eCW1 ([facility]) Smoking 01/05/2020 12:00:00 AM EST Current Smoker completed Curre nt Smoker eCW1 ([facility]) Smoking 01/05/2020 12:00:00 AM EST Current Smoker completed Curre nt Smoker eCW1 ([facility]) Smoking 01/05/2020 12:00:00 AM EST Current Smoker completed Curre nt Smoker eCW1 ([facility]) Smoking 01/05/2020 12:00:00 AM EST Current Smoker completed Curre nt Smoker eCW1 ([facility]) Smoking 01/05/2020 12:00:00 AM EST Current Smoker completed Curre nt Smoker eCW1 ([facility]) Smoking 01/05/2020 12:00:00 AM EST Current Smoker completed Curre nt Smoker eCW1 ([facility]) Smoking 01/05/2020 12:00:00 AM EST Current Smoker completed Curre nt Smoker eCW1 ([facility]) Smoking 12/30/2019 12:00:00 AM EDT Current Smoker completed Curre nt Smoker eCW1 ([facility]) Vital Signs ID Date Data Source [id number] Name Value Range Interpretation Code Description Data Source(s) Body weight 140 [lb_av] 140 [lb_av] eCW1 ([facility]) Body height 67 [in_i] 67 [in_i] eCW1 ([facility]) Body mass index (BMI) [Ratio] 21.92 kg/m2 21.92 kg/m2 eCW1 ([facility]) Heart rate 76 /min 76 /min eCW1 ([facility]) Respiratory rate 18 /min 18 /min eCW1 ([facility]) Body temperature 98.6 [degF] 98.6 [degF] eCW1 ( [facility]) Systolic blood pressure 130 mm[Hg] 130 mm[Hg] e CW1 ([facility]) Diastolic blood pressure 72 mm[Hg] 72 mm[Hg] eCW1 ([facility]) Systolic blood pressure 136 mm[Hg] 136 mm[Hg] M EDENT ([facility], ) Diastolic blood pressure 74 mm[Hg] 74 mm[Hg] MEDENT ([facility], ) Body height 67 [in_i] 67 [in_i] MEDENT ([facility], ) 5'7" Body weight 145.00 [lb_av] 145.00 [lb_av] MEDEN T ([facility], ) Body mass index (BMI) [Ratio] 22.7 kg/m2 22.7 k g/m2 MEDENT ([facility]) [place] body weight 148 [lb_av] 148 [lb_av] MEDEN T ([facility]) Body weight 65.772 kg 65.772 kg MEDENT ([facility]) Body surface area Derived from formula 1.76 m2 1.76 m2 [facility] Systolic blood pressure 152 mm[Hg] 152 mm[Hg] M EDENT ([facility] Body temperature 97.5 [degF] 97.5 [degF] MEDENT ([facility] Heart rate 60 /min 60 /min MEDENT ([facility] Respiratory rate 18 /min 18 /min MEDENT ( [facility] Body height 67 [in_i] 67 [in_i] MEDENT ([facility] 5'7" Body weight 140.00 [lb_av] 140.00 [lb_av] MEDEN T ([facility] [place] body weight 148 [lb_av] 148 [lb_av] MEDEN T ([facility] Body mass index (BMI) [Ratio] 21.9 kg/m2 21.9 k g/m2 MEDENT ([facility] Oxygen saturation in Arterial blood by Pulse oximetry 98 % 98 % MEDENT ([facility] Diastolic blood pressure 74 mm[Hg] 74 mm[Hg] MEDENT ([facility] Systolic blood pressure 118 mm[Hg] 118 mm[Hg] M EDENT ([facility] Diastolic blood pressure 60 mm[Hg] 60 mm[Hg] MEDENT ([facility] Body temperature 98.2 [degF] 98.2 [degF] MEDENT ([facility] Heart rate 72 /min 72 /min MEDENT ([facility] Respiratory rate 16 /min 16 /min MEDENT ( [facility] Body height 67 [in_i] 67 [in_i] MEDENT ([facility] 5'7" Body weight 142.00 [lb_av] 142.00 [lb_av] MEDEN T ([facility] [place] body weight 148 [lb_av] 148 [lb_av] MEDEN T ([facility] Body mass index (BMI) [Ratio] 22.2 kg/m2 22.2 k g/m2 MEDENT ([facility] Oxygen saturation in Arterial blood by Pulse oximetry 98 % 98 % MEDENT ([facility] Body weight 136.6 [lb_av] 136.6 [lb_av] eCW1 ([facility]) Body height 67 [in_i] 67 [in_i] eCW1 ([facility]) Body mass index (BMI) [Ratio] 21.39 kg/m2 21.39 kg/m2 eCW1 ([facility]) Heart rate 86 /min 86 /min eCW1 ([facility]) Respiratory rate 18 /min 18 /min eCW1 ([facility]) Body temperature 98.0 [degF] 98.0 [degF] eCW1 ( [facility]) Systolic blood pressure 148 mm[Hg] 148 mm[Hg] e CW1 ([facility]) Diastolic blood pressure 76 mm[Hg] 76 mm[Hg] eCW1 ([facility]) Body height 67 [in_i] 67 [in_i] [facility] 5'7" Body weight 140.00 [lb_av] 140.00 [lb_av] MEDEN T ([facility], ) Body mass index (BMI) [Ratio] 21.9 kg/m2 21.9 k g/m2 [facility] ) [place] body weight 148 [lb_av] 148 [lb_av] MEDEN T ([facility], ) Body weight 63.504 kg 63.504 kg [facility] ([facility], ) Body surface area Derived from formula 1.74 m2 1.74 m2 [facility] ([facility]) Body height 67 [in_i] 67 [in_i] MEDENT ([facility]) 5'7" Body weight 140.00 [lb_av] 140.00 [lb_av] MEDEN T ([facility]) Body mass index (BMI) [Ratio] 21.9 kg/m2 21.9 k g/m2 [facility] ([facility]) [place] body weight 148 [lb_av] 148 [lb_av] MEDEN T ([facility]) Body weight 63.504 kg 63.504 kg MEDENT ([facility]) Body surface area Derived from formula 1.74 m2 1.74 m2 [facility] ([facility]) Body weight 63.504 kg 63.504 kg [facility] ([facility]) Body surface area Derived from formula 1.74 m2 1.74 m2 [facility] ([facility]) Body height 67 [in_i] 67 [in_i] [facility] 5'7" Body weight 140.00 [lb_av] 140.00 [lb_av] MEDEN T ([facility]) Body mass index (BMI) [Ratio] 21.9 kg/m2 21.9 k g/m2 [facility] ([facility]) [place] body weight 148 [lb_av] 148 [lb_av] MEDEN T ([facility]) Body weight 140.00 [lb_av] 140.00 [lb_av] MEDEN T ([facility]) Body mass index (BMI) [Ratio] 21.9 kg/m2 21.9 k g/m2 [facility] ([facility]) Body weight 63.504 kg 63.504 kg [facility]) [place] body weight 148 [lb_av] 148 [lb_av] MEDEN T ([facility]) Body surface area Derived from formula 1.74 m2 1.74 m2 [facility] ([facility]) Body height 67 [in_i] 67 [in_i] [facility] 5'7" Respiratory rate 16 /min 16 /min MEDENT ( [facility] Diastolic blood pressure 60 mm[Hg] 60 mm[Hg] MEDENT ([facility] [place] body weight 148 [lb_av] 148 [lb_av] MEDEN T ([facility] Body mass index (BMI) [Ratio] 21.3 kg/m2 21.3 k g/m2 [facility] ([facility] Systolic blood pressure 128 mm[Hg] 128 mm[Hg] M EDENT ([facility] Body temperature 97.3 [degF] 97.3 [degF] MEDENT ([facility] Heart rate 61 /min 61 /min MEDENT ([facility] Body height 67 [in_i] 67 [in_i] MEDENT ([facility] 5'7" Body weight 136.00 [lb_av] 136.00 [lb_av] MEDEN T ([facility] Oxygen saturation in Arterial blood by Pulse oximetry 96 % 96 % MEDENT ([facility] Body height 67 [in_i] 67 [in_i] MEDENT ([facility]) 5'7" Body weight 140.00 [lb_av] 140.00 [lb_av] MEDEN T ([facility]) Body mass index (BMI) [Ratio] 21.9 kg/m2 21.9 k g/m2 MEDENT ([facility]) [place] body weight 148 [lb_av] 148 [lb_av] MEDEN T ([facility]) Body weight 63.504 kg [facility] Body surface area Derived from formula 1.74 m2 1.74 m2 [facility] ([facility]) [place] body weight 148 [lb_av] 148 [lb_av] MEDEN T ([facility] Body mass index (BMI) [Ratio] 21.1 kg/m2 21.1 k g/m2 MEDENT ([facility] Body weight 135.00 [lb_av] 135.00 [...] Body height 67 [in_i] 67 [in_i] MEDENT ([facility] 5'7" Body weight 138.2 [lb_av] 138.2 [lb_av] eCW1 ([facility]) Body height 67 [in_i] 67 [in_i] eCW1 ([facility]) Body mass index (BMI) [Ratio] 21.64 kg/m2 21.64 kg/m2 eCW1 ([facility]) Heart rate 89 /min 89 /min eCW1 ([facility]) Respiratory rate 18 /min 18 /min eCW1 ([facility]) Body temperature 97.2 [degF] 97.2 [degF] eCW1 ( [facility]) Systolic blood pressure 138 mm[Hg] 138 mm[Hg] e CW1 ([facility]) Diastolic blood pressure 72 mm[Hg] 72 mm[Hg] eCW1 ([facility]) Heart rate 60 /min 60 /min MEDENT ([facility] Respiratory rate 16 /min 16 /min MEDENT ( [facility] Body height 67 [in_i] 67 [in_i] MEDENT ([facility] 5'7" Body weight 135.00 [lb_av] 135.00 [lb_av] MEDEN T ([facility] [place] body weight 148 [lb_av] 148 [lb_av] MEDEN T ([facility] Body mass index (BMI) [Ratio] 21.1 kg/m2 21.1 k g/m2 MEDENT ([facility] Oxygen saturation in Arterial blood by Pulse oximetry 99 % 99 % MEDENT ([facility] Body temperature 98.3 [degF] 98.3 [degF] MEDENT ([facility] Systolic blood pressure 138 mm[Hg] 138 mm[Hg] M EDENT ([facility] Diastolic blood pressure 80 mm[Hg] 80 mm[Hg] MEDENT ([facility] Body height 67 [in_i] 67 [in_i] [facility] 5'7" Body weight 140.00 [lb_av] 140.00 [lb_av] MEDEN T ([facility]) Body mass index (BMI) [Ratio] 21.9 kg/m2 21.9 k g/m2 [facility]) [place] body weight 148 [lb_av] 148 [lb_av] MEDEN T ([facility]) Body weight 63.504 kg 63.504 kg [facility] ([facility]) Body surface area Derived from formula 1.74 m2 1.74 m2 [facility] ([facility]) [place] body weight 148 [lb_av] 148 [lb_av] MEDEN T ([facility] Oxygen saturation in Arterial blood by Pulse oximetry 99 % 99 % MEDENT ([facility] Body mass index (BMI) [Ratio] 21.5 kg/m2 21.5 k g/m2 MEDENT ([facility] Systolic blood pressure 126 mm[Hg] 126 mm[Hg] M EDENT ([facility] Diastolic blood pressure 88 mm[Hg] 88 mm[Hg] MEDENT ([facility] Body temperature 98.3 [degF] 98.3 [degF] MEDENT ([facility] Heart rate 62 /min 62 /min MEDENT ([facility] Respiratory rate 18 /min 18 /min MEDENT ( [facility] Body height 67 [in_i] 67 [in_i] MEDENT ([facility] 5'7" Body weight 137.00 [lb_av] 137.00 [lb_av] MEDEN T ([facility] Body temperature 96.9 [degF] 96.9 [degF] MEDENT ([facility]) Body weight 139.6 [lb_av] 139.6 [lb_av] eCW1 ([facility]) Body height 67 [in_i] 67 [in_i] eCW1 ([facility]) Body mass index (BMI) [Ratio] 21.86 kg/m2 21.86 kg/m2 eCW1 ([facility]) Heart rate 66 /min 66 /min eCW1 ([facility]) Respiratory rate 18 /min 18 /min eCW1 ([facility]) Body temperature 97.7 [degF] 97.7 [degF] eCW1 ( [facility]) Systolic blood pressure 120 mm[Hg] 120 mm[Hg] e CW1 ([facility]) Diastolic blood pressure 78 mm[Hg] 78 mm[Hg] eCW1 ([facility]) Body height 67 [in_i] 67 [in_i] MEDENT ([facility], ) 5'7" Body weight 140.00 [lb_av] 140.00 [lb_av] MEDEN T ([facility], ) Body mass index (BMI) [Ratio] 21.9 kg/m2 21.9 k g/m2 [facility] ([facility], ) [place] body weight 148 [lb_av] 148 [lb_av] MEDEN T ([facility], ) Body weight 63.504 kg 63.504 kg [facility] ([facility], ) Body surface area Derived from formula 1.74 m2 1.74 m2 [facility] ([facility], ) Oxygen saturation in Arterial blood by Pulse oximetry 99 % 99 % MEDENT ([facility] Systolic blood pressure 148 mm[Hg] 148 mm[Hg] M EDENT ([facility] Diastolic blood pressure 84 mm[Hg] 84 mm[Hg] MEDENT ([facility] Systolic blood pressure 142 mm[Hg] 142 mm[Hg] M EDENT ([facility] Diastolic blood pressure 72 mm[Hg] 72 mm[Hg] MEDENT ([facility] Body temperature 97.6 [degF] 97.6 [degF] MEDENT ([facility] Heart rate 52 /min 52 /min MEDENT ([facility] Respiratory rate 18 /min 18 /min MEDENT ( [facility] Body height 67 [in_i] 67 [in_i] MEDENT ([facility] 5'7" Body weight 139.00 [lb_av] 139.00 [lb_av] MEDEN T ([facility] [place] body weight 148 [lb_av] 148 [lb_av] MEDEN T ([facility] Body mass index (BMI) [Ratio] 21.8 kg/m2 21.8 k g/m2 MEDENT ([facility] Body weight 139.00 [lb_av] 139.00 [lb_av] MEDEN T ([facility] Systolic blood pressure 148 mm[Hg] 148 mm[Hg] M EDENT ([facility] [place] body weight 148 [lb_av] 148 [lb_av] MEDEN T ([facility] Diastolic blood pressure 84 mm[Hg] 84 mm[Hg] MEDENT ([facility] Body mass index (BMI) [Ratio] 21.8 kg/m2 21.8 k g/m2 MEDENT ([facility] Oxygen saturation in Arterial blood by Pulse oximetry 99 % 99 % MEDENT ([facility] Systolic blood pressure 142 mm[Hg] 142 mm[Hg] M EDENT ([facility] Diastolic blood pressure 72 mm[Hg] 72 mm[Hg] MEDENT ([facility] Body temperature 97.6 [degF] 97.6 [degF] MEDENT ([facility] Heart rate 52 /min 52 /min MEDENT ([facility] Respiratory rate 18 /min 18 /min MEDENT ( [facility] Body height 67 [in_i] 67 [in_i] MEDENT ([facility] 5'7" [place] body weight 148 [lb_av] 148 [lb_av] MEDEN T ([facility]) Body height 67 [in_i] 67 [in_i] MEDENT ([facility]) 5'7" Body weight 140.00 [lb_av] 140.00 [lb_av] MEDEN T ([facility]) Body mass index (BMI) [Ratio] 21.9 kg/m2 21.9 k g/m2 MEDENT ([facility]) Body weight 63.504 kg 63.504 kg MED[facility] ([facility]) Body height 67 [in_i] 67 [in_i] MEDENT ([facility]) 5'7" [place] body weight 148 [lb_av] 148 [lb_av] MEDEN T ([facility]) Body mass index (BMI) [Ratio] 21.9 kg/m2 21.9 k g/m2 MEDENT ([facility]) Body weight 140.00 [lb_av] 140.00 [lb_av] MEDEN T ([facility]) Body weight 63.504 kg 63.504 kg [facility] ([facility]) Body temperature 96.8 [degF] 96.8 [degF] MEDENT ([facility]) Body height 67 [in_i] 67 [in_i] MEDENT ([facility]) 5'7" Body weight 179.00 [lb_av] 179.00 [lb_av] MEDEN T ([facility]) Body mass index (BMI) [Ratio] 28.0 kg/m2 28.0 k g/m2 MEDENT ([facility]) ID Date Data Source [id number] 01/04/2020 02:31:[address] [facility] Name Value Range Interpretation Code Description Data Source(s) WEIGHT RECORDED 140.00 pounds 140.00 pounds [facility] Height 67 Inches 067 Inches [facility] ID Date Data Source [id number] 01/03/2020 01:08:[address] [facility] Name Value Range Interpretation Code Description Data Source(s) WEIGHT RECORDED 140.00 pounds 140.00 pounds [facility] Height 67 Inches 067 Inches [facility] Patient Treatment Plan of Care Planned Activity Planned Date Details Description Data Source (s) oxyCODONE HCl ER 20 MG 02/07/2021 12:00:00 AM EST eCW1 ([facility]) Acetaminophen 325 MG / Hydrocodone Bitartrate 5 MG O[facility] Tablet 02/07/2021 12:00:00 AM EST eCW1 ([facility]) oxyCODONE HCl ER 20 MG 12/27/2020 12:00:00 AM EDT eCW1 ([facility]) Acetaminophen 325 MG / Hydrocodone Bitartrate 5 MG Ora [facility] Tablet 12/27/2020 12:00:00 AM EDT eCW1 ([facility]) oxyCODONE HCl ER 20 MG 12/07/2020 12:00:00 AM EDT eCW1 ([facility]) Acetaminophen 325 MG / Hydrocodone Bitartrate 5 MG Ora [facility] Tablet 12/07/2020 12:00:00 AM EDT eCW1 ([facility]) oxyCODONE HCl ER 20 MG 11/09/2020 12:00:00 AM EDT eCW1 ([facility]) Acetaminophen 325 MG / Hydrocodone Bitartrate 5 MG Ora [facility] Tablet 11/09/2020 12:00:00 AM EDT eCW1 ([facility]) oxyCODONE HCl ER 20 MG 10/11/2020 12:00:00 AM EDT eCW1 ([facility]) Acetaminophen 325 MG / Hydrocodone Bitartrate 5 MG Ora [facility] Tablet 10/11/2020 12:00:00 AM EDT eCW1 ([facility]) Acetaminophen 325 MG / Hydrocodone Bitartrate 5 MG Ora [facility] Tablet 09/06/2020 12:00:00 AM EDT eCW1 ([facility]) oxyCODONE HCl ER 20 MG 09/06/2020 12:00:00 AM EDT eCW1 ([facility]) Acetaminophen 325 MG / Hydrocodone Bitartrate 5 MG Ora [facility] Tablet 08/16/2020 12:00:00 AM EDT eCW1 ([facility]) Acetaminophen 325 MG / Hydrocodone Bitartrate 5 MG Ora l Tablet 08/06/2020 12:00:00 AM EDT eCW1 ([facility]) Acetaminophen 325 MG / Hydrocodone Bitartrate 5 MG Ora l Tablet 08/06/2020 12:00:00 AM EDT eCW1 ([facility]) Acetaminophen 325 MG / Hydrocodone Bitartrate 5 MG Ora l Tablet 08/06/2020 12:00:00 AM EDT eCW1 ([facility]) Acetaminophen 325 MG / Hydrocodone Bitartrate 5 MG Ora l Tablet 08/06/2020 12:00:00 AM EDT eCW1 ([facility]) oxyCODONE HCl ER 20 MG 08/06/2020 12:00:00 AM EDT eCW1 ([facility]) Acetaminophen 325 MG / Hydrocodone Bitartrate 5 MG Ora l Tablet 08/06/2020 12:00:00 AM EDT eCW1 ([facility]) OxyCODONE HCl ER 20 MG 08/06/2020 12:00:00 AM EDT eCW1 ([facility]) Acetaminophen 325 MG / Hydrocodone Bitartrate 5 MG Ora l Tablet 08/06/2020 12:00:00 AM EDT eCW1 ([facility]) OxyCODONE HCl ER 20 MG 08/06/2020 12:00:00 AM EDT eCW1 ([facility]) Acetaminophen 325 MG / Hydrocodone Bitartrate 5 MG Ora l Tablet 08/06/2020 12:00:00 AM EDT eCW1 ([facility]) Acetaminophen 325 MG / Hydrocodone Bitartrate 5 MG Ora l Tablet 08/06/2020 12:00:00 AM EDT eCW1 ([facility]) OxyCODONE HCl ER 20 MG 08/06/2020 12:00:00 AM EDT eCW1 ([facility]) Acetaminophen 325 MG / Hydrocodone Bitartrate 5 MG Ora l Tablet 07/17/2020 12:00:00 AM EDT eCW1 ([facility]) Acetaminophen 325 MG / Hydrocodone Bitartrate 5 MG Ora l Tablet 07/17/2020 12:00:00 AM EDT eCW1 ([facility]) Acetaminophen 325 MG / Hydrocodone Bitartrate 5 MG Ora l Tablet 07/17/2020 12:00:00 AM EDT eCW1 ([facility]) Acetaminophen 325 MG / Hydrocodone Bitartrate 5 MG Ora l Tablet 07/17/2020 12:00:00 AM EDT eCW1 ([facility]) Acetaminophen 325 MG / Hydrocodone Bitartrate 5 MG Ora l Tablet 06/13/2020 12:00:00 AM EDT eCW1 ([facility]) OxyCODONE HCl ER 20 MG 05/31/2020 12:00:00 AM EDT eCW1 ([facility]) Acetaminophen 325 MG / Hydrocodone Bitartrate 5 MG Ora l Tablet 05/16/2020 12:00:00 AM EDT eCW1 ([facility]) OxyCODONE HCl ER 20 MG 05/02/2020 12:00:00 AM EST eCW1 ([facility]) OxyCODONE HCl ER 20 MG 05/02/2020 12:00:00 AM EST eCW1 ([facility]) [place] 5-325 MG 04/20/2020 12:00:00 AM EST eCW1 ([facility]) [place] 5-325 MG 04/20/2020 12:00:00 AM EST eCW1 ([facility]) Acetaminophen 325 MG / Hydrocodone Bitartrate 5 MG Ora l Tablet 04/20/2020 12:00:00 AM EST eCW1 ([facility]) [place] 5-325 MG 04/20/2020 12:00:00 AM EST eCW1 ([facility]) Acetaminophen 325 MG / Hydrocodone Bitartrate 5 MG Ora l Tablet 04/20/2020 12:00:00 AM EST eCW1 ([facility]) [place] 5-325 MG 04/20/2020 12:00:00 AM EST eCW1 ([facility]) Acetaminophen 325 MG / Hydrocodone Bitartrate 5 MG Ora l Tablet 04/20/2020 12:00:00 AM EST eCW1 ([facility]) [place] 5-325 MG 04/20/2020 12:00:00 AM EST eCW1 ([facility]) [place] 5-325 MG 04/20/2020 12:00:00 AM EST eCW1 ([facility]) Acetaminophen 325 MG / Hydrocodone Bitartrate 5 MG Ora l Tablet 04/20/2020 12:00:00 AM EST eCW1 ([facility]) OxyCODONE HCl ER 20 MG 04/19/2020 12:00:00 AM EST eCW1 ([facility]) OxyCODONE HCl ER 20 MG 04/19/2020 12:00:00 AM EST eCW1 ([facility]) OxyCODONE HCl ER 20 MG 04/19/2020 12:00:00 AM EST eCW1 ([facility]) Acetaminophen 325 MG / Hydrocodone Bitartrate 5 MG Ora l Tablet [[place]] 03/19/2020 12:00:00 AM EST eCW1 ([facility]) OxyCODONE HCl ER 20 MG 03/16/2020 12:00:00 AM EST eCW1 ([facility]) OxyCODONE HCl ER 20 MG 03/16/2020 12:00:00 AM EST eCW1 ([facility]) OxyCODONE HCl ER 20 MG 03/01/2020 12:00:00 AM EST eCW1 ([facility]) OxyCODONE HCl ER 20 MG 03/01/2020 12:00:00 AM EST eCW1 ([facility]) Acetaminophen 325 MG / Hydrocodone Bitartrate 5 MG Ora l Tablet [[place]] 02/10/2020 12:00:00 AM EST eCW1 ([facility]) Acetaminophen 325 MG / Hydrocodone Bitartrate 5 MG Ora l Tablet [[place]] 02/10/2020 12:00:00 AM EST eCW1 ([facility]) Acetaminophen 325 MG / Hydrocodone Bitartrate 5 MG Ora l Tablet [[place]] 02/10/2020 12:00:00 AM EST eCW1 ([facility]) Acetaminophen 325 MG / Hydrocodone Bitartrate 5 MG Ora l Tablet [[place]] 02/10/2020 12:00:00 AM EST eCW1 ([facility]) OxyCODONE HCl ER 20 MG 01/31/2020 12:00:00 AM EST eCW1 ([facility]) OxyCODONE HCl ER 20 MG 01/31/2020 12:00:00 AM EST eCW1 ([facility]) Acetaminophen 325 MG / Hydrocodone Bitartrate 5 MG Ora l Tablet [[place]] 01/05/2020 12:00:00 AM EST eCW1 ([facility]) Acetaminophen 325 MG / Hydrocodone Bitartrate 5 MG Ora l Tablet [[place]] 01/05/2020 12:00:00 AM EST eCW1 ([facility]) OxyCODONE HCl ER 20 MG 12/30/2019 12:00:00 AM EDT eCW1 ([facility]) Acetaminophen 325 MG / Hydrocodone Bitartrate 5 MG Ora l Tablet [[place]] 12/13/2019 12:00:00 AM EDT eCW1 ([facility]) Acetaminophen 325 MG / Hydrocodone Bitartrate 5 MG Ora l Tablet [[place]] 12/13/2019 12:00:00 AM EDT eCW1 ([facility])
== END 2021-02-08 20:08 | disposition left against medical advice (07) ==
LOC: M ED 19:04
DX: Z53.21 Procedure and treatment not carried out due to patient leaving prior to being seen by health care provider (principal)

== ENCOUNTER → 2021-03-28 | Outpatient (CLI) | payer MEDICARE ==
[~2021-03-28] MED LIST changes: +AMLO25TA PO; +BRIM1OPD OP; +FERA1TAB PO; +LIDOCAINE 1% MDV 20ML VIAL As Ordered ONE; +MIDAZOLAM INJ 2MG/2ML VIAL (J2250 PER 1MG) As Ordered ONE; +NS 1,000 ML IV SCH; -OMEP-221 PO; +OMEP40CA5 PO; +TIZA10TA PO; -TIZA4TAB4 PO; +diphenhydrAMINE 50MG/ML VIAL (J1200) As Ordered ONE; +fentaNYL 100 MCG/2 ML INJECTION (J3010) As Ordered ONE
[2021-03-28 10:27] VITALS: BP 171/78
== END ==
LOC: M IRPRO 06:31
PROVIDERS: ATTEND Radiology Diagnostic Radiology
DX: N18.9 Chronic kidney disease, unspecified (principal); Z79.899 Other long term (current) drug therapy
CPT/HCPCS: 50200; 77012; 88300; 99152; 99153; J2250; J3010

== ENCOUNTER 2021-08-15 16:07 | Emergency (ER) | payer MEDICARE, OTHER ==
[~2021-08-15] VITALS: Ht 167.6 cm; Wt 63.6 kg
[~2021-08-15 16:07] MED LIST changes: -LIDOCAINE 1% MDV 20ML VIAL As Ordered ONE; -MIDAZOLAM INJ 2MG/2ML VIAL (J2250 PER 1MG) As Ordered ONE; -NS 1,000 ML IV SCH; -diphenhydrAMINE 50MG/ML VIAL (J1200) As Ordered ONE; -fentaNYL 100 MCG/2 ML INJECTION (J3010) As Ordered ONE
[2021-08-15] MEDS ORDERED: MORPHINE 4 MG/ML 1ML VIAL/SYRINGE IV ONE (17:00)
[2021-08-15 17:22] LABS: HEMATOCRIT 33.8 % (42.0-52.0); MEAN CORPUSCULAR HEMOGLOBIN 32.2 pg (27.0-33.0); MEAN CORPUSCULAR HGB CONC 32.5 g/dl (32.0-36.5); MEAN CORPUSCULAR VOLUME 98.8 fl (80.0-96.0); PLATELET COUNT, AUTOMATED 133 10^3/uL (150-450); RED BLOOD COUNT 3.42 10^6/uL (4.30-6.10); WHITE BLOOD COUNT 6.5 10^3/uL (4.0-10.0)
[2021-08-15 17:42] LABS: ALBUMIN 3.2 GM/DL (3.2-5.2); BILIRUBIN,DIRECT 0.1 MG/DL (0.0-0.2); BILIRUBIN,TOTAL 0.3 MG/DL (0.2-1.0); CALCIUM LEVEL 8.2 MG/DL (8.8-10.2); CREATININE FOR GFR 1.88 MG/DL (0.70-1.30); POTASSIUM SERUM 3.9 MEQ/L (3.5-5.1); TOTAL PROTEIN 6.3 GM/DL (6.4-8.2)
[2021-08-15 18:10] LABS: ATYPICAL LYMPH 5 % (0-5); LYMPHOCYTES 20 % (16-44); MONOCYTES 8 % (0-5); NEUTROPHILS 67 % (28-66); PLATELET ESTIMATE NORMAL (NORMAL)
[2021-08-15 21:26] LABS: RSV AMPLIFICATION NEGATIVE (NEGATIVE)
[2021-08-15] MEDS ORDERED: VALA1TAB5 PO (21:38)
[2021-08-15] MEDS ORDERED: valACYclovir HCL 500 MG TAB PO ONE (21:40)
[2021-08-15 21:45] VITALS: BP 184/79
== END 2021-08-15 22:10 | disposition home or self-care (01) ==
LOC: M ED 16:07
DX: B02.9 Zoster without complications (principal); E11.9 Type 2 diabetes mellitus without complications; I10 Essential (primary) hypertension; Z86.73 Personal history of transient ischemic attack (TIA), and cerebral infarction without residual deficits; E78.5 Hyperlipidemia, unspecified; J44.9 Chronic obstructive pulmonary disease, unspecified; G35 Multiple sclerosis; Z85.038 Personal history of other malignant neoplasm of large intestine; F17.200 Nicotine dependence, unspecified, uncomplicated; Z79.4 Long term (current) use of insulin; Z79.899 Other long term (current) drug therapy; Z79.891 Long term (current) use of opiate analgesic
CPT/HCPCS: 74176; 80048; 80076; 81001; 83605; 83690; 85025; 87040; 87086; 87631; 93005; 93041; 96374; 99285; J2270

== ENCOUNTER → 2021-09-06 | Outpatient (REF) | payer MEDICARE, OTHER ==
[~2021-09-06] MED LIST changes: +VALA1TAB5 PO
[2021-09-06 18:02] LABS: APPEARANCE, URINE HAZY (CLEAR); BACTERIA, URINE AUTO NEGATIVE (NEGATIVE); BILIRUBIN, URINE AUTO NEGATIVE (NEGATIVE); BLOOD, URINE BLOOD NEGATIVE (NEGATIVE); COLOR, URINE YELLOW (YELLOW); GLUCOSE, URINE (UA) AUTO NEGATIVE (NEGATIVE); KETONE, URINE AUTO NEGATIVE (NEGATIVE); LEUKOCYTE ESTERASE, URINE AUTO TRACE (NEGATIVE); MUCUS, URINE SMALL (NEGATIVE); NITRITE, URINE AUTO NEGATIVE (NEGATIVE); PROTEIN, URINE AUTO 2+ mg/dL (NEGATIVE); RBC, URINE AUTO 1 /HPF (0-3); SPECIFIC GRAVITY URINE AUTO 1.015 (1.002-1.035); SQUAMOUS EPITHELIAL CELL UR AU 1 /HPF (0-6); UROBILINOGEN, URINE AUTO 0.2 mg/dL (0.0-2.0); WBC, URINE AUTO 1 /HPF (0-3)
== END ==
LOC: M SMT 16:45
PROVIDERS: ATTEND Nurse Practitioner Women's Health
DX: R31.29 Other microscopic hematuria (principal)

== ENCOUNTER 2021-10-03 14:46 | Emergency (ER) | payer MEDICARE, OTHER ==
[~2021-10-03] VITALS: Ht 170.2 cm; Wt 64.5 kg
[2021-10-03 17:20] LABS: BASO # 0.1 10^3/uL (0.0-0.2); EOS # 0.2 10^3/uL (0.0-0.5); EOS % 1.9 % (0.0-3.0); HEMATOCRIT 34.6 % (42.0-52.0); HEMOGLOBIN 11.2 g/dl (13.5-17.5); LYMPH % 24.5 % (24.0-44.0); MEAN CORPUSCULAR HEMOGLOBIN 33.2 pg (27.0-33.0); MEAN CORPUSCULAR HGB CONC 32.4 g/dl (32.0-36.5); MEAN CORPUSCULAR VOLUME 102.7 fl (80.0-96.0); MONO # 0.7 10^3/uL (0.0-0.8); MONO % 8.3 % (2.0-8.0); NEUTROPHILS # 5.2 10^3/uL (1.5-8.5); NEUTROPHILS % 63.9 % (36.0-66.0); PLATELET COUNT, AUTOMATED 159 10^3/uL (150-450); RED BLOOD COUNT 3.37 10^6/uL (4.30-6.10); WHITE BLOOD COUNT 8.1 10^3/uL (4.0-10.0)
[2021-10-03 17:57] LABS: ALBUMIN 3.3 GM/DL (3.2-5.2); BILIRUBIN,TOTAL 0.2 MG/DL (0.2-1.0); CREATININE FOR GFR 1.8 MG/DL (0.70-1.30); GLOMERULAR FILTRATION RATE 39.9 (>42); POTASSIUM SERUM 4.2 MEQ/L (3.5-5.1); TOTAL PROTEIN 6.4 GM/DL (6.4-8.2)
[2021-10-03] MEDS ORDERED: ISOVUE-370 76% 100ML VIAL As Ordered ONE (18:05)
[2021-10-03 20:20] LABS: RSV AMPLIFICATION NEGATIVE (NEGATIVE)
[2021-10-04 08:52] VITALS: BP 153/76
== END 2021-10-04 08:53 | disposition short-term general hospital (02) ==
LOC: M ED 14:46
DX: G83.4 Cauda equina syndrome (principal); E11.9 Type 2 diabetes mellitus without complications; I10 Essential (primary) hypertension; E78.5 Hyperlipidemia, unspecified; R00.1 Bradycardia, unspecified; J44.9 Chronic obstructive pulmonary disease, unspecified; F41.9 Anxiety disorder, unspecified; F32.9 Major depressive disorder, single episode, unspecified; Z86.73 Personal history of transient ischemic attack (TIA), and cerebral infarction without residual deficits; F17.200 Nicotine dependence, unspecified, uncomplicated; M48.061 Spinal stenosis, lumbar region without neurogenic claudication; M25.78 Osteophyte, vertebrae; Z79.4 Long term (current) use of insulin; Z79.899 Other long term (current) drug therapy
CPT/HCPCS: 70450; 72132; 80053; 85025; 87631; 99285; Q9967

== ENCOUNTER → 2021-10-18 | Outpatient (REF) | payer MEDICARE ==
[2021-10-18 14:03] LABS: APPEARANCE, URINE MANUAL CLEAR (CLEAR); COLOR, URINE MANUAL YELLOW (YELLOW)
[2021-10-18 14:06] LABS: GLUCOSE, URINE (UA) MANUAL NEGATIVE (NEGATIVE); PH,URINE MAN 5.5 UNITS (5.0 - 7.0); PROTEIN, URINE MANUAL 2+ mg/dL (NEGATIVE)
[2021-10-18 14:07] LABS: BILIRUBIN, URINE MANUAL NEGATIVE (NEGATIVE); BLOOD URINE MANUAL NEGATIVE (NEGATIVE); KETONE, URINE MANUAL NEGATIVE (NEGATIVE); LEUKOCYTE ESTERASE, URINE MAN TRACE (NEGATIVE); NITRITE, URINE MANUAL NEGATIVE (NEGATIVE); UROBILINOGEN, URINE MANUAL NORMAL (NORMAL)
[2021-10-18 14:26] LABS: RBC, URINE 0-1 /hpf (0-3); SQUAMOUS EPITHELIAL CELL URINE SMALL AMOUNT /hpf (SMALL AMT)
[2021-10-18 14:27] LABS: BACTERIA, URINE SMALL AMOUNT; HYALINE CAST, URINE NONE SEEN /lpf (0-1); MUCUS, URINE SMALL AMOUNT (NEGATIVE); URIC ACID CRYSTALS, URINE MOD AMOUNT /hpf
== END ==
LOC: M SMT 13:02
PROVIDERS: ATTEND Urology
DX: R31.29 Other microscopic hematuria (principal)

== ENCOUNTER → 2021-12-04 | Outpatient (CLI) | payer MEDICARE ==
[~2021-12-04] MED LIST changes: +OYST500T91 PO; +TAMS1CAP17 PO
== END ==
LOC: M LABSMTC 09:31
PROVIDERS: ATTEND Anesthesiology
DX: Z01.812 Encounter for preprocedural laboratory examination (principal); Z20.822 Contact with and (suspected) exposure to COVID-19

== ENCOUNTER 2021-12-09 06:05 | Day surgery (SDC) | payer MEDICARE ==
[~2021-12-09] VITALS: Ht 170.2 cm; Wt 65.5 kg
[~2021-12-09 06:05] MED LIST changes: +NS 1,000 ML IV ONE
[2021-12-09] MEDS ORDERED: propofoL 200 MG/20 ML VIAL As Ordered ONE ×2 (07:55→08:09)
[2021-12-09] MEDS ORDERED: LIDOCAINE 2% 100MG/5ML SDV (FOR ANES.) As Ordered ONE (07:55)
[2021-12-09 08:35] VITALS: BP 145/70
== END 2021-12-09 08:45 | disposition home or self-care (01) ==
LOC: M OPP 06:05
PROVIDERS: ATTEND Internal Medicine Gastroenterology
DX: Z85.038 Personal history of other malignant neoplasm of large intestine (principal); Z86.010 Personal history of colon polyps; K64.4 Residual hemorrhoidal skin tags; K64.8 Other hemorrhoids; K57.30 Diverticulosis of large intestine without perforation or abscess without bleeding; Z98.0 Intestinal bypass and anastomosis status; F17.200 Nicotine dependence, unspecified, uncomplicated; Z79.02 Long term (current) use of antithrombotics/antiplatelets; Z79.4 Long term (current) use of insulin; Z79.891 Long term (current) use of opiate analgesic; Z79.899 Other long term (current) drug therapy; G35 Multiple sclerosis; I12.9 Hypertensive chronic kidney disease with stage 1 through stage 4 chronic kidney disease, or unspecified chronic kidney disease; E78.00 Pure hypercholesterolemia, unspecified; F41.9 Anxiety disorder, unspecified; F32.9 Major depressive disorder, single episode, unspecified; J44.9 Chronic obstructive pulmonary disease, unspecified; N18.30 Chronic kidney disease, stage 3 unspecified; Z90.49 Acquired absence of other specified parts of digestive tract; Z86.73 Personal history of transient ischemic attack (TIA), and cerebral infarction without residual deficits

== ENCOUNTER → 2022-02-03 | Outpatient (CLI) | payer OTHER ==
[~2022-02-03] MED LIST changes: +CLOP75TA99 PO; -NS 1,000 ML IV ONE; -PLAV1TAB2 PO
== END ==
LOC: M RAD 10:44
PROVIDERS: ATTEND Physical Medicine & Rehabilitation
DX: M51.16 Intervertebral disc disorders with radiculopathy, lumbar region (principal); M47.896 Other spondylosis, lumbar region
CPT/HCPCS: 78306; A9503

== ENCOUNTER → 2022-06-06 | Outpatient (CLI) | payer OTHER, MEDICARE ==
[~2022-06-06] MED LIST changes: +DOCU100C16; +INSU100I6 SC; -LEVE1INJ5 SC
== END ==
LOC: M PLALAB 09:25
PROVIDERS: ATTEND Physical Medicine & Rehabilitation
DX: M51.36 Other intervertebral disc degeneration, lumbar region (principal); M48.062 Spinal stenosis, lumbar region with neurogenic claudication

== ENCOUNTER → 2022-12-10 | Outpatient (REF) | payer OTHER, MEDICARE ==
[~2022-12-10] MED LIST changes: +MIRT-84 PO; -REME15TA2 PO; -ROPI2TAB3; -ROPI2TAB3 PO; +ROPI2TAB46; +ROPI2TAB46 PO
[2022-12-10 18:48] LABS: TOTAL PROTEIN,RANDOM URINE 171.1 MG/DL (0.0-14.0)
== END ==
LOC: M LAB REF 17:40
PROVIDERS: ATTEND Nurse Practitioner Family
DX: R80.9 Proteinuria, unspecified (principal)

== ENCOUNTER → 2023-05-14 | Outpatient (REF) | payer OTHER, MEDICARE ==
[2023-05-14 14:25] LABS: APPEARANCE, URINE HAZY (CLEAR); BACTERIA, URINE AUTO NEGATIVE (NEGATIVE); BILIRUBIN, URINE AUTO NEGATIVE (NEGATIVE); BLOOD, URINE BLOOD NEGATIVE (NEGATIVE); COLOR, URINE YELLOW (YELLOW); GLUCOSE, URINE (UA) AUTO NEGATIVE (NEGATIVE); KETONE, URINE AUTO NEGATIVE (NEGATIVE); LEUKOCYTE ESTERASE, URINE AUTO NEGATIVE (NEGATIVE); MUCUS, URINE SMALL (NEGATIVE); NITRITE, URINE AUTO NEGATIVE (NEGATIVE); PROTEIN, URINE AUTO 3+ mg/dL (NEGATIVE); RBC, URINE AUTO 1 /HPF (0-3); SQUAMOUS EPITHELIAL CELL UR AU 1 /HPF (0-6); UROBILINOGEN, URINE AUTO 0.2 mg/dL (0.0-2.0); WBC, URINE AUTO 1 /HPF (0-3)
== END ==
LOC: M SMT 13:30
PROVIDERS: ATTEND Urology
DX: R31.29 Other microscopic hematuria (principal)

== ENCOUNTER 2023-05-28 08:58 | Outpatient (RCR) | payer OTHER, MEDICARE | END 2023-05-31 | LOC: M PT 08:58 | PROVIDERS: ATTEND Physical Medicine & Rehabilitation | DX: M47.897 Other spondylosis, lumbosacral region (principal) ==

== ENCOUNTER 2023-06-04 09:08 | Outpatient (RCR) | payer OTHER, MEDICARE ==
[~2023-06-04 09:08] MED LIST changes: +ACET250T18; +ACET250T18 PO; -ACET250T2; -ACET250T2 PO
== END 2023-06-30 ==
LOC: M PT 09:08
PROVIDERS: ATTEND Physical Medicine & Rehabilitation
DX: M47.897 Other spondylosis, lumbosacral region (principal)

== ENCOUNTER 2023-08-06 14:58 | Inpatient (IN) | payer MEDICARE, OTHER ==
[~2023-08-06] VITALS: Ht 170.2 cm; Wt 63.6 kg
[~2023-08-06 14:58] MED LIST changes: +BYST1TAB2 PO; -BYST5TAB2 PO
[2023-08-06] MEDS ORDERED: AMLO2.5T3 (15:21)
[2023-08-06 16:53] LABS: BASO # 0.1 10^3/uL (0.0-0.2); BASO % 0.9 % (0.0-1.0); EOS # 0.1 10^3/uL (0.0-0.5); EOS % 1.7 % (0.0-3.0); HEMATOCRIT 35.8 % (42.0-52.0); HEMOGLOBIN 11.9 g/dl (13.5-17.5); LYMPH # 1.8 10^3/uL (1.5-5.0); LYMPH % 22.9 % (24.0-44.0); MEAN CORPUSCULAR HEMOGLOBIN 33.4 pg (27.0-33.0); MEAN CORPUSCULAR HGB CONC 33.2 g/dl (32.0-36.5); MEAN CORPUSCULAR VOLUME 100.6 fl (80.0-96.0); MONO # 0.6 10^3/uL (0.0-0.8); NEUTROPHILS # 5.1 10^3/uL (1.5-8.5); NEUTROPHILS % 65.6 % (36.0-66.0); PLATELET COUNT, AUTOMATED 127 10^3/uL (150-450); RED BLOOD COUNT 3.56 10^6/uL (4.30-6.10); WHITE BLOOD COUNT 7.7 10^3/uL (4.0-10.0)
[2023-08-06 17:24] LABS: ALBUMIN 2.9 G/DL (3.2-5.2); ALKALINE PHOSPHATASE 109 U/L (46-116); ALT/SGPT 10 U/L (7.0-40); AST/SGOT < 8 U/L (<34); BILIRUBIN,TOTAL 0.2 MG/DL (0.3-1.2); BLOOD UREA NITROGEN 53 MG/DL (9-23); CALCIUM LEVEL 7.9 MG/DL (8.3-10.6); CARBON DIOXIDE LEVEL 25 MMOL/L (20-31); CHLORIDE LEVEL 122 MMOL/L (98-107); CREATININE FOR GFR 3.63 MG/DL (0.70-1.30); GLOMERULAR FILTRATION RATE 17.7 (>42); GLUCOSE, FASTING 156 MG/DL (74-106); POTASSIUM SERUM 5.2 MMOL/L (3.5-5.1); SODIUM LEVEL 146 MMOL/L (136-145); TOTAL PROTEIN 5.3 G/DL (5.7-8.2)
[2023-08-06] MEDS: NS 1,000 ML IV ONE (23:57)
[2023-08-07] MEDS ORDERED: MED REC IN PROGRESS XX SCH (00:25)
[2023-08-07] MEDS ORDERED: AMLO1TAB25 PO (00:50)
[2023-08-07] MEDS ORDERED: HOME MED LIST COMPLETE! XX SCH (00:50)
[2023-08-07] MEDS ORDERED: ACETAMINOPHEN TAB 650MG DOSE (2X325MG) PO PRN (02:25)
[2023-08-07] MEDS ORDERED: NICOTINE 21MG/24HR 1 EA TRANSDERMAL TD PRN (02:25)
[2023-08-07] MEDS: NS 1,000 ML IV SCH (03:49)
[2023-08-07 08:38] LABS: HEMATOCRIT 32.4 % (42.0-52.0); MEAN CORPUSCULAR HEMOGLOBIN 33.8 pg (27.0-33.0); MEAN CORPUSCULAR VOLUME 99.7 fl (80.0-96.0); PLATELET COUNT, AUTOMATED 130 10^3/uL (150-450); RED BLOOD COUNT 3.25 10^6/uL (4.30-6.10); WHITE BLOOD COUNT 7.2 10^3/uL (4.0-10.0)
[2023-08-07 08:59] LABS: INR 1.08; PARTIAL THROMBOPLASTIN TIME 32.1 SECONDS (24.8-34.2); PROTHROMBIN TIME 13.7 SECONDS (12.5-14.5)
[2023-08-07 09:18] LABS: PROCALCITONIN <0.04 ng/ml
[2023-08-07 09:23] LABS: ALBUMIN 2.7 G/DL (3.2-5.2); ALKALINE PHOSPHATASE 99 U/L (46-116); ALT/SGPT < 9 U/L (7.0-40); AST/SGOT 9 U/L (<34); BILIRUBIN,TOTAL 0.3 MG/DL (0.3-1.2); BLOOD UREA NITROGEN 47 MG/DL (9-23); CALCIUM LEVEL 7.6 MG/DL (8.3-10.6); CARBON DIOXIDE LEVEL 21 MMOL/L (20-31); CHLORIDE LEVEL 123 MMOL/L (98-107); CREATININE FOR GFR 3.19 MG/DL (0.70-1.30); GLOMERULAR FILTRATION RATE 20.5 (>42); GLUCOSE, FASTING 78 MG/DL (74-106); MAGNESIUM LEVEL 2.5 MG/DL (1.8-2.4); POTASSIUM SERUM 4.2 MMOL/L (3.5-5.1); SODIUM LEVEL 145 MMOL/L (136-145); TOTAL PROTEIN 4.8 G/DL (5.7-8.2)
[2023-08-07] MEDS: DULoxetine 30MG CAPSULE (CYMBALTA) PO SCH (09:42)
[2023-08-07] MEDS: DOCUSATE SODIUM 100MG CAPSULE PO SCH (09:42)
[2023-08-07] MEDS: TAMSULOSIN 0.4 MG CAP PO SCH (09:42)
[2023-08-07] MEDS: ATORVASTATIN 20 MG TAB PO SCH (09:42)
[2023-08-07] MEDS: amLODIPine 5 MG TAB PO SCH ×2 (10:07→21:11)
[2023-08-07] MEDS: HEPARIN SOD (PORCINE) 5000UNITS/ML 1ML VIAL/SYRINGE SC SCH (10:33)
[2023-08-07] MEDS: rOPINIRole 1MG TAB PO SCH (10:33)
[2023-08-07 14:10] VITALS: BP 184/70; TEMP 97.5; O2SAT 98
[2023-08-07 14:43] VITALS: BP 182/72
[2023-08-07] MEDS: **hydrALAZINE HCL** 25 MG TAB PO SCH (17:24)
[2023-08-07 18:06] VITALS: O2SAT 95
[2023-08-07 18:10] VITALS: BP 181/75
[2023-08-07 21:09] VITALS: BP 144/58; TEMP 98.1; O2SAT 97
[2023-08-07] MEDS: CLOPIDOGREL 75 MG TAB PO SCH (21:11)
[2023-08-08 05:37] VITALS: BP 165/69; TEMP 97.7; O2SAT 96
[2023-08-08 07:13] LABS: HEMATOCRIT 33.1 % (42.0-52.0); HEMOGLOBIN 11.2 g/dl (13.5-17.5); MEAN CORPUSCULAR HEMOGLOBIN 33.6 pg (27.0-33.0); MEAN CORPUSCULAR HGB CONC 33.8 g/dl (32.0-36.5); MEAN CORPUSCULAR VOLUME 99.4 fl (80.0-96.0); PLATELET COUNT, AUTOMATED 102 10^3/uL (150-450); RED BLOOD COUNT 3.33 10^6/uL (4.30-6.10); WHITE BLOOD COUNT 5.6 10^3/uL (4.0-10.0)
[2023-08-08 07:47] LABS: ALBUMIN 2.4 G/DL (3.2-5.2); ALKALINE PHOSPHATASE 99 U/L (46-116); ALT/SGPT < 9 U/L (7.0-40); AST/SGOT < 8 U/L (<34); BILIRUBIN,TOTAL 0.3 MG/DL (0.3-1.2); BLOOD UREA NITROGEN 42 MG/DL (9-23); CALCIUM LEVEL 7.8 MG/DL (8.3-10.6); CARBON DIOXIDE LEVEL 24 MMOL/L (20-31); CHLORIDE LEVEL 122 MMOL/L (98-107); CREATININE FOR GFR 2.87 MG/DL (0.70-1.30); GLOMERULAR FILTRATION RATE 23.2 (>42); GLUCOSE, FASTING 88 MG/DL (74-106); MAGNESIUM LEVEL 2.4 MG/DL (1.8-2.4); POTASSIUM SERUM 4.6 MMOL/L (3.5-5.1); SODIUM LEVEL 146 MMOL/L (136-145); TOTAL PROTEIN 4.5 G/DL (5.7-8.2)
[2023-08-08 09:00] VITALS: BP_SYST 131; BP_SYST 147; BP_SYST 161; BP_DIAS 60; BP_DIAS 67; BP_DIAS 71
[2023-08-08 12:00] VITALS: BP 163/67; TEMP 97.5; O2SAT 96
[2023-08-08 20:13] VITALS: BP 150/66; TEMP 98.2; O2SAT 97
[2023-08-08 21:45] VITALS: BP_SYST 144; BP_SYST 157; BP_SYST 164; BP_DIAS 61; BP_DIAS 63; BP_DIAS 93
[2023-08-08 23:28] VITALS: BP 140/65; O2SAT 98
[2023-08-09 05:32] VITALS: BP 144/63; TEMP 97.9; O2SAT 98
[2023-08-09 09:00] VITALS: BP_SYST 127; BP_SYST 130; BP_SYST 145; BP_DIAS 53; BP_DIAS 60; BP_DIAS 64
[2023-08-09 09:41] LABS: BASO # 0.1 10^3/uL (0.0-0.2); BASO % 1.1 % (0.0-1.0); EOS # 0.1 10^3/uL (0.0-0.5); EOS % 2.2 % (0.0-3.0); HEMATOCRIT 33.8 % (42.0-52.0); HEMOGLOBIN 11.3 g/dl (13.5-17.5); LYMPH # 1.5 10^3/uL (1.5-5.0); LYMPH % 23.6 % (24.0-44.0); MEAN CORPUSCULAR HEMOGLOBIN 33.2 pg (27.0-33.0); MEAN CORPUSCULAR HGB CONC 33.4 g/dl (32.0-36.5); MEAN CORPUSCULAR VOLUME 99.4 fl (80.0-96.0); MONO # 0.5 10^3/uL (0.0-0.8); NEUTROPHILS # 4.2 10^3/uL (1.5-8.5); NEUTROPHILS % 64.8 % (36.0-66.0); PLATELET COUNT, AUTOMATED 110 10^3/uL (150-450); WHITE BLOOD COUNT 6.4 10^3/uL (4.0-10.0)
[2023-08-09 10:11] LABS: CREATININE FOR GFR 2.89 MG/DL (0.70-1.30); POTASSIUM SERUM 4.6 MMOL/L (3.5-5.1)
[2023-08-09] MEDS: NS 1,000 ML IV ONE (11:05)
[2023-08-09] MEDS ORDERED: HYDR50TA47 PO (11:44)
[2023-08-09 12:00] VITALS: BP 163/67; TEMP 97.5; O2SAT 98
[2023-08-09 14:03] VITALS: BP 180/74
[2023-08-09] MEDS: **hydrALAZINE** 50 MG TAB PO ONE (14:03)
[2023-08-09 14:38] VITALS: BP 158/62
[2023-08-09 15:02] VITALS: BP 158/64
== END 2023-08-09 15:11 | disposition home or self-care (01) | DRG 684 ==
LOC: M ED 14:58 → M ED INP 08-07 02:23 → M MSPAV 08-07 14:13
PROVIDERS: ADMIT Internal Medicine; ATTEND Internal Medicine Nephrology
DX: N17.9 Acute kidney failure, unspecified (principal); I12.9 Hypertensive chronic kidney disease with stage 1 through stage 4 chronic kidney disease, or unspecified chronic kidney disease; N18.30 Chronic kidney disease, stage 3 unspecified; E11.40 Type 2 diabetes mellitus with diabetic neuropathy, unspecified; G35 Multiple sclerosis; E78.00 Pure hypercholesterolemia, unspecified; I95.1 Orthostatic hypotension; R29.6 Repeated falls; E11.22 Type 2 diabetes mellitus with diabetic chronic kidney disease; J44.9 Chronic obstructive pulmonary disease, unspecified; R53.1 Weakness; D50.9 Iron deficiency anemia, unspecified; E78.5 Hyperlipidemia, unspecified; K29.70 Gastritis, unspecified, without bleeding; I65.29 Occlusion and stenosis of unspecified carotid artery; Z86.73 Personal history of transient ischemic attack (TIA), and cerebral infarction without residual deficits; Z85.038 Personal history of other malignant neoplasm of large intestine; Z79.899 Other long term (current) drug therapy; F32.A Depression, unspecified; Z98.41 Cataract extraction status, right eye; Z98.42 Cataract extraction status, left eye; F41.9 Anxiety disorder, unspecified; F17.200 Nicotine dependence, unspecified, uncomplicated

== ENCOUNTER → 2023-08-26 | Outpatient (CLI) | payer MEDICARE ==
[~2023-08-26] MED LIST changes: +AMLO1TAB25 PO; +AMLO2.5T3; +HYDR50TA47 PO
== END ==
LOC: M WUC 12:25
PROVIDERS: ATTEND Nurse Practitioner Family
DX: R05.3 Chronic cough (principal)

== ENCOUNTER → 2023-10-06 | Outpatient (CLI) | payer OTHER, MEDICARE ==
[~2023-10-06] MED LIST changes: +PROHANCE 279.3MG/ML 15ML VIAL ONE
== END ==
LOC: M PLAIMG 08:14
PROVIDERS: ATTEND Physical Medicine & Rehabilitation
DX: M47.897 Other spondylosis, lumbosacral region (principal); M51.26 Other intervertebral disc displacement, lumbar region; M48.061 Spinal stenosis, lumbar region without neurogenic claudication
CPT/HCPCS: 72158; A9576

== ENCOUNTER → 2023-10-08 | Outpatient (REF) | payer OTHER, MEDICARE ==
[~2023-10-08] MED LIST changes: -PROHANCE 279.3MG/ML 15ML VIAL ONE
[2023-10-09 18:12] LABS: TOTAL PROTEIN,RANDOM URINE 1225.1 MG/DL (0.0-14.0)
[2023-10-12 07:07] LABS: CREATININE,RANDOM URINE 123.9 MG/DL
== END ==
LOC: M LAB REF 16:41
PROVIDERS: ATTEND Nurse Practitioner Family
DX: R80.9 Proteinuria, unspecified (principal)

== ENCOUNTER → 2023-10-22 | Outpatient (REF) | payer OTHER, MEDICARE ==
[2023-10-22 18:55] LABS: ALBUMIN 2.7 G/DL (3.2-5.2); ALKALINE PHOSPHATASE 102 U/L (46-116); ALT/SGPT 12 U/L (7.0-40); AST/SGOT 12 U/L (<34); BILIRUBIN,DIRECT < 0.1 MG/DL (<0.4); BILIRUBIN,TOTAL 0.2 MG/DL (0.3-1.2); IRON (FE) 68 UG/DL (65-175); TOTAL IRON BINDING CAPACITY 200 UG/DL (250-425); TOTAL PROTEIN 5.1 G/DL (5.7-8.2)
[2023-10-22 18:57] LABS: FERRITIN 127.1 NG/ML (10.5-307.3)
== END ==
LOC: M LAB REF 17:04
PROVIDERS: ATTEND Nurse Practitioner Family
DX: D50.9 Iron deficiency anemia, unspecified (principal); E88.09 Other disorders of plasma-protein metabolism, not elsewhere classified

== ENCOUNTER 2023-11-16 22:08 | Inpatient (IN) | payer MEDICARE, OTHER ==
[~2023-11-16] VITALS: Ht 170.2 cm; Wt 62.5 kg
[2023-11-16 22:45] LABS: BASO # 0.1 10^3/uL (0.0-0.2); BASO % 0.6 % (0.0-1.0); EOS # 0.2 10^3/uL (0.0-0.5); HEMATOCRIT 27.1 % (42.0-52.0); HEMOGLOBIN 9.1 g/dl (13.5-17.5); LYMPH # 1.6 10^3/uL (1.5-5.0); LYMPH % 20.4 % (24.0-44.0); MEAN CORPUSCULAR HEMOGLOBIN 33.7 pg (27.0-33.0); MEAN CORPUSCULAR HGB CONC 33.6 g/dl (32.0-36.5); MEAN CORPUSCULAR VOLUME 100.4 fl (80.0-96.0); MONO # 0.8 10^3/uL (0.0-0.8); MONO % 9.7 % (2.0-8.0); NEUTROPHILS # 5.2 10^3/uL (1.5-8.5); PLATELET COUNT, AUTOMATED 128 10^3/uL (150-450); WHITE BLOOD COUNT 7.8 10^3/uL (4.0-10.0)
[2023-11-16 23:15] LABS: LIPASE 100 U/L (12-53)
[2023-11-16 23:18] LABS: ALBUMIN 2.7 G/DL (3.2-5.2); ALKALINE PHOSPHATASE 103 U/L (46-116); ALT/SGPT 14 U/L (7.0-40); AST/SGOT 10 U/L (<34); BILIRUBIN,DIRECT < 0.1 MG/DL (<0.4); BILIRUBIN,TOTAL < 0.2 MG/DL (0.3-1.2); BLOOD UREA NITROGEN 45 MG/DL (9-23); CALCIUM LEVEL 7.8 MG/DL (8.3-10.6); CARBON DIOXIDE LEVEL 23 MMOL/L (20-31); CHLORIDE LEVEL 122 MMOL/L (98-107); CREATININE FOR GFR 3.43 MG/DL (0.70-1.30); GLOMERULAR FILTRATION RATE 18.9 (>42); GLUCOSE, FASTING 128 MG/DL (74-106); POTASSIUM SERUM 4.8 MMOL/L (3.5-5.1); SODIUM LEVEL 145 MMOL/L (136-145); TOTAL PROTEIN 5.2 G/DL (5.7-8.2)
[2023-11-17] MEDS ORDERED: DULO1CAP6 PO (07:33)
[2023-11-17] MEDS ORDERED: POTA10PO PO (07:33)
[2023-11-17] MEDS ORDERED: TOUJ1.2I SC (07:33)
[2023-11-17] MEDS ORDERED: CALC-190 PO (07:33)
[2023-11-17] MEDS ORDERED: CALC1CAP31 PO (07:33)
[2023-11-17] MEDS ORDERED: FURO20TA2 PO (07:33)
[2023-11-17] MEDS: NS 1,000 ML IV ONE (08:04)
[2023-11-17] MEDS ORDERED: HYDR50TA46 PO (08:41)
[2023-11-17] MEDS ORDERED: MM S100C PO (08:43)
[2023-11-17] MEDS ORDERED: ONDANSETRON 4MG 2ML VIAL IV PRN (08:45)
[2023-11-17] MEDS ORDERED: DOXA2TAB61 PO (08:51)
[2023-11-17] MEDS ORDERED: GLUCOSE 4 GM CHEW PO PRN (09:00)
[2023-11-17] MEDS ORDERED: GLUCAGON INJ 1MG VIAL SC PRN (09:00)
[2023-11-17] MEDS ORDERED: DEXTROSE 50% 50ML SYRINGE IV PRN (09:00)
[2023-11-17] MEDS ORDERED: HOME MED LIST COMPLETE! XX SCH (09:05)
[2023-11-17] MEDS: **hydrALAZINE** 50 MG TAB PO ONE (09:16)
[2023-11-17] MEDS: oxyCODONE 5MG TAB PO ONE (09:17)
[2023-11-17] MEDS: TAMSULOSIN 0.4 MG CAP PO SCH (10:02)
[2023-11-17] MEDS: CLOPIDOGREL 75 MG TAB PO SCH (10:02)
[2023-11-17] MEDS: OMEPRAZOLE 20MG CAP PO SCH (10:03)
[2023-11-17] MEDS: DULoxetine 30MG CAPSULE (CYMBALTA) PO SCH (10:03)
[2023-11-17] MEDS: ASCORBIC ACID 500 MG TAB PO SCH (10:03)
[2023-11-17] MEDS: rOPINIRole 2MG TAB PO SCH (10:56)
[2023-11-17] MEDS: FERROUS GLUCONATE 324 MG TAB PO SCH (10:57)
[2023-11-17] MEDS: CALCIUM/VITAMIN D 500 MG TAB PO SCH (10:57)
[2023-11-17] MEDS ORDERED: oxyCODONE 5MG TAB PO PRN (12:00)
[2023-11-17] MEDS ORDERED: MORPHINE 2 MG/ML 1ML VIAL IV PRN (12:40)
[2023-11-17] MEDS: INSULIN LISPRO (NovoLOG) PER UNIT SC SCH ×2 (13:33→20:58)
[2023-11-17 14:38] LABS: FOLATE 9.89 NG/ML (>5.4); VITAMIN B12 LEVEL 399 PG/ML (211-911)
[2023-11-17] MEDS: **hydrALAZINE** 50 MG TAB PO SCH (15:14)
[2023-11-17] MEDS: ACETAMINOPHEN 500 MG TAB PO SCH (15:15)
[2023-11-17 19:58] VITALS: BP 174/79; TEMP 98.3; O2SAT 96
[2023-11-17] MEDS: ATORVASTATIN 20 MG TAB PO SCH (20:58)
[2023-11-18] VITALS (9 sets, daily range): BP systolic 157–192; BP diastolic 56–79; TEMP 97.3–98.6; O2SAT 95–98
[2023-11-18 04:23] LABS: HEMOGLOBIN 8.1 g/dl (13.5-17.5); MEAN CORPUSCULAR HEMOGLOBIN 32.9 pg (27.0-33.0); MEAN CORPUSCULAR HGB CONC 32.4 g/dl (32.0-36.5); MEAN CORPUSCULAR VOLUME 101.6 fl (80.0-96.0); PLATELET COUNT, AUTOMATED 106 10^3/uL (150-450); RED BLOOD COUNT 2.46 10^6/uL (4.30-6.10); WHITE BLOOD COUNT 5.4 10^3/uL (4.0-10.0)
[2023-11-18 04:36] LABS: BLOOD UREA NITROGEN 43 MG/DL (9-23); CALCIUM LEVEL 7.3 MG/DL (8.3-10.6); CARBON DIOXIDE LEVEL 23 MMOL/L (20-31); CHLORIDE LEVEL 123 MMOL/L (98-107); CHOLESTEROL LEVEL 97 MG/DL (<200); CHOLESTEROL RISK RATIO 2.51 (<5); CREATININE FOR GFR 3.25 MG/DL (0.70-1.30); GLOMERULAR FILTRATION RATE 20.1 (>42); GLUCOSE, FASTING 86 MG/DL (74-106); HDL CHOLESTEROL 38.5 MG/DL (>40); LDL CHOLESTEROL 44.5 MG/DL (<100); NON-HDL-C 58.5 MG/DL; POTASSIUM SERUM 4.7 MMOL/L (3.5-5.1); SODIUM LEVEL 143 MMOL/L (136-145); TRIGLYCERIDES LEVEL 70 MG/DL (<150)
[2023-11-18] MEDS: OMEPRAZOLE 20MG CAP PO SCH (08:55)
[2023-11-18] MEDS ORDERED: **hydrALAZINE** 50 MG TAB PO SCH (12:00)
[2023-11-18] MEDS: FERRIC CARBOXYMALTOSE INJ 750 MG, VIAL MATE ADAPTER 1 EACH in NS 250 ML IV ONE (13:24)
[2023-11-18] MEDS: DARBEPOETIN 100MCG/0.5ML *NON-DIALYSIS* SYRINGE SC SCH (13:54)
[2023-11-18] MEDS: **hydrALAZINE HCL** 25 MG TAB PO SCH (13:57)
[2023-11-18] MEDS: ISOSORBIDE DIN (ISORDIL) 10MG TAB PO SCH (14:45)
[2023-11-19] VITALS (7 sets, daily range): BP systolic 146–183; BP diastolic 54–80; TEMP 97.4–98.6; O2SAT 93–98
[2023-11-19 08:03] LABS: HEMATOCRIT 24.1 % (42.0-52.0); MEAN CORPUSCULAR HEMOGLOBIN 33.6 pg (27.0-33.0); MEAN CORPUSCULAR HGB CONC 33.2 g/dl (32.0-36.5); MEAN CORPUSCULAR VOLUME 101.3 fl (80.0-96.0); PLATELET COUNT, AUTOMATED 110 10^3/uL (150-450); RED BLOOD COUNT 2.38 10^6/uL (4.30-6.10)
[2023-11-19 08:25] LABS: CALCIUM LEVEL 7.7 MG/DL (8.3-10.6); CREATININE FOR GFR 3.26 MG/DL (0.70-1.30)
[2023-11-19] MEDS: ISOSORBIDE MONONITRATE 10MG TABLET PO SCH (13:31)
[2023-11-19] MEDS: SENOKOT S TAB PO SCH (13:34)
[2023-11-19] MEDS: BISACODYL 10MG SUPP PR SCH (13:34)
[2023-11-19] MEDS ORDERED: ISOS1TAB12 PO (13:52)
[2023-11-19] MEDS ORDERED: HYDR50TA46 PO (13:52)
[2023-11-19] MEDS ORDERED: **hydrALAZINE** 50 MG TAB PO SCH (14:00)
[2023-11-19] MEDS: ISOSORBIDE DIN. (ISORDIL) 30 MG TAB PO ONE (14:53)
[2023-11-19] MEDS: **hydrALAZINE** 50 MG TAB PO SCH (14:58)
[2023-11-19] MEDS ORDERED: HYDR100T PO (15:10)
[2023-11-19] MEDS ORDERED: ISOS1TAB36 PO (15:10)
[2023-11-19] MEDS ORDERED: SELF1KIT MC (15:12)
[2023-11-19] MEDS ORDERED: MIRALAX *UNIT DOSE* 17GM PACKET PO SCH (21:00)
== END 2023-11-19 18:34 | disposition home or self-care (01) | DRG 683 ==
LOC: M ED 22:08 → M ED INP 11-17 08:36 → M PCU 11-17 20:05
PROVIDERS: ADMIT General Practice; ATTEND General Practice
DX: N17.9 Acute kidney failure, unspecified (principal); E87.0 Hyperosmolality and hypernatremia; N18.4 Chronic kidney disease, stage 4 (severe); I95.1 Orthostatic hypotension; G35 Multiple sclerosis; E11.22 Type 2 diabetes mellitus with diabetic chronic kidney disease; I12.9 Hypertensive chronic kidney disease with stage 1 through stage 4 chronic kidney disease, or unspecified chronic kidney disease; E78.5 Hyperlipidemia, unspecified; D50.9 Iron deficiency anemia, unspecified; M21.372 Foot drop, left foot; R26.89 Other abnormalities of gait and mobility; R29.6 Repeated falls; F41.9 Anxiety disorder, unspecified; F32.A Depression, unspecified; E11.42 Type 2 diabetes mellitus with diabetic polyneuropathy; J44.9 Chronic obstructive pulmonary disease, unspecified; F17.210 Nicotine dependence, cigarettes, uncomplicated; D63.1 Anemia in chronic kidney disease; Z79.899 Other long term (current) drug therapy; Z98.42 Cataract extraction status, left eye; Z86.73 Personal history of transient ischemic attack (TIA), and cerebral infarction without residual deficits; Z98.41 Cataract extraction status, right eye; I65.29 Occlusion and stenosis of unspecified carotid artery; D41.02 Neoplasm of uncertain behavior of left kidney

== ENCOUNTER → 2023-11-23 | Outpatient (REF) | payer MEDICARE ==
[~2023-11-23] MED LIST changes: +CALC-190 PO; +CALC1CAP31 PO; +DOXA2TAB61 PO; +DULO1CAP6 PO; +FURO20TA2 PO; +HYDR100T PO; +HYDR50TA46 PO; +ISOS1TAB12 PO; +ISOS1TAB36 PO; +MM S100C PO; +POTA10PO PO; +SELF1KIT MC
== END ==
LOC: M LAB REF 16:16
PROVIDERS: ATTEND Student in an Organized Health Care Education/Training Program
DX: L02.413 Cutaneous abscess of right upper limb (principal)

== ENCOUNTER 2023-12-10 22:09 | Inpatient (IN) | payer MEDICARE ==
[~2023-12-10] VITALS: Ht 170.2 cm; Wt 63.5 kg
[2023-12-10 22:51] LABS: VENOUS BASE EXCESS -7.6 (-2.0-2.0); VENOUS HCO3 16.5 MMOL/L (23.0-27.0); VENOUS O2 SATURATION 96.8 % (60.0-80.0); VENOUS PARTIAL PRESSURE CO2 28.9 mmHg (38.0-50.0); VENOUS PARTIAL PRESSURE O2 98.6 mmHg (30.0-50.0); VENOUS PH 7.375 UNITS (7.330-7.430); VENOUS STANDARD HCO3 18.2 MMOL/L; VENOUS TOTAL CO2 17.4 MMOL/L (24.0-28.0)
[2023-12-10 22:58] LABS: BASO % 0.4 % (0.0-1.0); EOS % 0.8 % (0.0-3.0); HEMATOCRIT 26.9 % (42.0-52.0); HEMOGLOBIN 8.8 g/dl (13.5-17.5); LYMPH # 0.5 10^3/uL (1.5-5.0); LYMPH % 10.6 % (24.0-44.0); MEAN CORPUSCULAR HEMOGLOBIN 33.2 pg (27.0-33.0); MEAN CORPUSCULAR HGB CONC 32.7 g/dl (32.0-36.5); MEAN CORPUSCULAR VOLUME 101.5 fl (80.0-96.0); MONO # 0.5 10^3/uL (0.0-0.8); MONO % 9.4 % (2.0-8.0); NEUTROPHILS % 78.2 % (36.0-66.0); RED BLOOD COUNT 2.65 10^6/uL (4.30-6.10); WHITE BLOOD COUNT 5.1 10^3/uL (4.0-10.0)
[2023-12-10 23:19] LABS: CK-MB VALUE MASS 2.5 NG/ML (<3.6)
[2023-12-10 23:20] LABS: MB/CK RELATIVE INDEX 4.31 (< OR =4)
[2023-12-10 23:52] LABS: PLATELET COUNT, AUTOMATED 90 10^3/uL (150-450)
[2023-12-11] MEDS: hydrALAZINE 20MG/ML 1ML VIAL IV ONE (00:16)
[2023-12-11 00:24] LABS: ALBUMIN 2.7 G/DL (3.2-5.2); BILIRUBIN,DIRECT 0.1 MG/DL (<0.4); BILIRUBIN,TOTAL 0.2 MG/DL (0.3-1.2); CALCIUM LEVEL 7.7 MG/DL (8.3-10.6); CREATININE FOR GFR 3.39 MG/DL (0.70-1.30); GLOMERULAR FILTRATION RATE 19.1 (>42); POTASSIUM SERUM 5.1 MMOL/L (3.5-5.1); TOTAL PROTEIN 5.6 G/DL (5.7-8.2)
[2023-12-11] MEDS ORDERED: ALBUTEROL 90 MCG/ACT 8GM HFA INHALER INH PRN (03:20)
[2023-12-11] MEDS ORDERED: NICOTINE 21MG/24HR 1 EA TRANSDERMAL TD PRN (03:20)
[2023-12-11] MEDS ORDERED: ACETAMINOPHEN 325 MG TAB PO PRN (03:20)
[2023-12-11] MEDS: **hydrALAZINE** 50 MG TAB PO ONE ×2 (04:12→18:49)
[2023-12-11] MEDS ORDERED: GLUCAGON INJ 1MG VIAL SC PRN (04:20)
[2023-12-11] MEDS ORDERED: DEXTROSE 50% 50ML SYRINGE IV PRN (04:20)
[2023-12-11] MEDS ORDERED: GLUCOSE 4 GM CHEW PO PRN (04:20)
[2023-12-11] MEDS: REMDESIVIR 200 MG in NS 250 ML IV ONE (06:45)
[2023-12-11 07:31] LABS: D-DIMER QUANT 2.33 ug/mL (<0.5); INR 1.19; PARTIAL THROMBOPLASTIN TIME 42.3 SECONDS (24.8-34.2); PROTHROMBIN TIME 14.8 SECONDS (12.5-14.5)
[2023-12-11 07:33] LABS: C REACTIVE PROTEIN QUANTITATIV 9.9 MG/DL (<1.0); MAGNESIUM LEVEL 2.4 MG/DL (1.8-2.4)
[2023-12-11 07:35] LABS: PERCENT SATURATION 9.1 % (19.7-50.0)
[2023-12-11 07:37] LABS: FERRITIN 542.4 NG/ML (10.5-307.3)
[2023-12-11 07:47] LABS: PROCALCITONIN 0.14 ng/ml
[2023-12-11] MEDS ORDERED: ISOS1TAB36 PO (08:15)
[2023-12-11] MEDS ORDERED: HYDR100T26 PO (08:15)
[2023-12-11] MEDS ORDERED: HOME MED LIST COMPLETE! XX SCH (08:20)
[2023-12-11] MEDS: COMBIVENT RESPIMAT 100-20MCG INHALER 4GM INH SCH (08:24)
[2023-12-11] MEDS: DOCUSATE SODIUM 100MG CAPSULE PO SCH (08:32)
[2023-12-11] MEDS: INSULIN LISPRO (NovoLOG) PER UNIT SC SCH ×2 (08:32→21:00)
[2023-12-11] MEDS: DULoxetine 30MG CAPSULE (CYMBALTA) PO SCH (12:33)
[2023-12-11] MEDS: ATORVASTATIN 20 MG TAB PO SCH (12:34)
[2023-12-11] MEDS: TAMSULOSIN 0.4 MG CAP PO SCH (12:34)
[2023-12-11] MEDS: FUROSEMIDE 20 MG TAB PO SCH (12:34)
[2023-12-11] MEDS: CLOPIDOGREL 75 MG TAB PO SCH (12:34)
[2023-12-11] MEDS: ISOSORBIDE MON. (IMDUR) 60MG XR TAB PO SCH (13:12)
[2023-12-11] MEDS: rOPINIRole 1MG TAB PO SCH (13:12)
[2023-12-11] MEDS: CALCITRIOL 0.25 MCG CAP (S0169) PO SCH (13:12)
[2023-12-11] MEDS ORDERED: IRON SUCROSE 200 MG in NS 100 ML IV SCH (13:30)
[2023-12-11 14:31] LABS: CALCIUM LEVEL 7.8 MG/DL (8.3-10.6); CREATININE FOR GFR 3.41 MG/DL (0.70-1.30); POTASSIUM SERUM 5.3 MMOL/L (3.5-5.1)
[2023-12-11] MEDS: PANTOPRAZOLE 40MG TAB (PROTONIX) PO SCH (14:43)
[2023-12-11] MEDS: IRON SUCROSE 100MG 5ML VIAL IV SCH (15:54)
[2023-12-11 17:15] VITALS: BP 182/69; TEMP 98.8; O2SAT 96
[2023-12-11] MEDS: **hydrALAZINE** 50 MG TAB PO SCH (18:37)
[2023-12-11] MEDS: DOXAZOSIN MESYLATE 1 MG TAB PO SCH (18:37)
[2023-12-11] MEDS: DOXAZOSIN MESYLATE 1 MG TAB PO ONE (18:49)
[2023-12-11 20:00] VITALS: BP 167/64; TEMP 98.2; O2SAT 91
[2023-12-11] MEDS: rOPINIRole 2MG TAB PO SCH (21:27)
[2023-12-12 04:00] VITALS: BP 156/61; TEMP 98.1; O2SAT 94
[2023-12-12] MEDS: REMDESIVIR 100 MG in NS 100 ML IV SCH (05:59)
[2023-12-12 06:07] LABS: HEMATOCRIT 25.2 % (42.0-52.0); HEMOGLOBIN 8.2 g/dl (13.5-17.5); LYMPH # 0.8 10^3/uL (1.5-5.0); LYMPH % 14.2 % (24.0-44.0); MEAN CORPUSCULAR HEMOGLOBIN 32.7 pg (27.0-33.0); MEAN CORPUSCULAR HGB CONC 32.5 g/dl (32.0-36.5); MEAN CORPUSCULAR VOLUME 100.4 fl (80.0-96.0); MONO # 0.5 10^3/uL (0.0-0.8); MONO % 9.6 % (2.0-8.0); NEUTROPHILS # 4.1 10^3/uL (1.5-8.5); NEUTROPHILS % 75.6 % (36.0-66.0); RED BLOOD COUNT 2.51 10^6/uL (4.30-6.10); WHITE BLOOD COUNT 5.4 10^3/uL (4.0-10.0)
[2023-12-12 06:25] LABS: PLATELET COUNT, AUTOMATED 88 10^3/uL (150-450)
[2023-12-12 06:30] LABS: CALCIUM LEVEL 7.7 MG/DL (8.3-10.6); CREATININE FOR GFR 3.57 MG/DL (0.70-1.30); MAGNESIUM LEVEL 2.5 MG/DL (1.8-2.4); POTASSIUM SERUM 4.9 MMOL/L (3.5-5.1)
[2023-12-12] MEDS: SODIUM BICARBONATE 325 MG TAB PO SCH ×2 (09:08→17:55)
[2023-12-12] MEDS: OMEPRAZOLE 20MG CAP PO SCH (09:08)
[2023-12-12 14:30] VITALS: BP 166/56
[2023-12-12] MEDS: **hydrALAZINE** 50 MG TAB PO SCH (15:15)
[2023-12-12 20:00] VITALS: BP 123/62; TEMP 98.2; O2SAT 93
[2023-12-12 21:00] VITALS: BP 166/62
[2023-12-13] VITALS (8 sets, daily range): BP systolic 156–163; BP diastolic 48–58; TEMP 97.7–98.6; O2SAT 93–96
[2023-12-13 05:04] LABS: BASO % 0.2 % (0.0-1.0); HEMOGLOBIN 8.1 g/dl (13.5-17.5); LYMPH # 0.7 10^3/uL (1.5-5.0); LYMPH % 13.6 % (24.0-44.0); MEAN CORPUSCULAR HEMOGLOBIN 32.8 pg (27.0-33.0); MEAN CORPUSCULAR HGB CONC 32.4 g/dl (32.0-36.5); MEAN CORPUSCULAR VOLUME 101.2 fl (80.0-96.0); MONO # 0.4 10^3/uL (0.0-0.8); MONO % 8.6 % (2.0-8.0); RED BLOOD COUNT 2.47 10^6/uL (4.30-6.10); WHITE BLOOD COUNT 5.1 10^3/uL (4.0-10.0)
[2023-12-13 05:09] LABS: PLATELET COUNT, AUTOMATED 87 10^3/uL (150-450)
[2023-12-13 05:30] LABS: CALCIUM LEVEL 7.5 MG/DL (8.3-10.6); CREATININE FOR GFR 3.73 MG/DL (0.70-1.30); GLOMERULAR FILTRATION RATE 17.1 (>42); MAGNESIUM LEVEL 2.5 MG/DL (1.8-2.4); POTASSIUM SERUM 4.7 MMOL/L (3.5-5.1)
[2023-12-13] MEDS: FERRIC CARBOXYMALTOSE INJ 750 MG, VIAL MATE ADAPTER 1 EACH in NS 100 ML IV ONE (14:00)
[2023-12-13] MEDS: **hydrALAZINE** 50 MG TAB PO SCH (17:08)
[2023-12-13] MEDS: SODIUM BICARBONATE 325 MG TAB PO SCH (17:08)
[2023-12-14 04:00] VITALS: BP 159/52; TEMP 98.6; O2SAT 92
[2023-12-14 05:19] LABS: HEMATOCRIT 25.3 % (42.0-52.0); HEMOGLOBIN 8.4 g/dl (13.5-17.5); LYMPH # 0.8 10^3/uL (1.5-5.0); LYMPH % 15.9 % (24.0-44.0); MEAN CORPUSCULAR HEMOGLOBIN 33.3 pg (27.0-33.0); MEAN CORPUSCULAR HGB CONC 33.2 g/dl (32.0-36.5); MEAN CORPUSCULAR VOLUME 100.4 fl (80.0-96.0); MONO # 0.5 10^3/uL (0.0-0.8); MONO % 9.1 % (2.0-8.0); NEUTROPHILS # 3.7 10^3/uL (1.5-8.5); RED BLOOD COUNT 2.52 10^6/uL (4.30-6.10)
[2023-12-14 05:25] LABS: PLATELET COUNT, AUTOMATED 94 10^3/uL (150-450)
[2023-12-14 05:38] LABS: CALCIUM LEVEL 7.8 MG/DL (8.3-10.6); CREATININE FOR GFR 3.92 MG/DL (0.70-1.30); GLOMERULAR FILTRATION RATE 16.2 (>42); MAGNESIUM LEVEL 2.3 MG/DL (1.8-2.4); POTASSIUM SERUM 4.3 MMOL/L (3.5-5.1)
[2023-12-14 12:00] VITALS: BP 157/56; TEMP 98.2; O2SAT 94
[2023-12-14] MEDS ORDERED: CEFD1CAP9 PO (13:57)
[2023-12-14] MEDS ORDERED: MINO2.5T PO (13:57)
[2023-12-14] MEDS ORDERED: DOXY-440 PO (13:57)
[2023-12-14] MEDS ORDERED: SODI325T9 PO (13:57)
== END 2023-12-14 15:22 | disposition home health service (06) | DRG 178 ==
LOC: M ED 22:09 → M ED INP 12-11 03:16 → M MSPAV 12-11 17:12
PROVIDERS: ADMIT Internal Medicine; ATTEND Hospitalist
DX: U07.1 COVID-19 (principal); J44.1 Chronic obstructive pulmonary disease with (acute) exacerbation; N17.9 Acute kidney failure, unspecified; E87.20 Acidosis, unspecified; N18.4 Chronic kidney disease, stage 4 (severe); E87.0 Hyperosmolality and hypernatremia; E11.40 Type 2 diabetes mellitus with diabetic neuropathy, unspecified; F32.A Depression, unspecified; E11.22 Type 2 diabetes mellitus with diabetic chronic kidney disease; I12.9 Hypertensive chronic kidney disease with stage 1 through stage 4 chronic kidney disease, or unspecified chronic kidney disease; D50.9 Iron deficiency anemia, unspecified; E78.5 Hyperlipidemia, unspecified; N40.0 Benign prostatic hyperplasia without lower urinary tract symptoms; F17.200 Nicotine dependence, unspecified, uncomplicated; G35 Multiple sclerosis; E87.5 Hyperkalemia; E11.65 Type 2 diabetes mellitus with hyperglycemia; F41.9 Anxiety disorder, unspecified; Z86.73 Personal history of transient ischemic attack (TIA), and cerebral infarction without residual deficits; Z79.899 Other long term (current) drug therapy; Z98.41 Cataract extraction status, right eye; Z98.42 Cataract extraction status, left eye; Z85.038 Personal history of other malignant neoplasm of large intestine; Z79.4 Long term (current) use of insulin; I65.29 Occlusion and stenosis of unspecified carotid artery; N28.1 Cyst of kidney, acquired

== ENCOUNTER 2024-01-08 14:20 | Inpatient (IN) | payer MEDICARE ==
[~2024-01-08 14:20] MED LIST changes: +ADV100INH INH; +CEFD1CAP9 PO; +D3 H10002 PO; +DOXY-440 PO; +HYDR100T26 PO; +MINO2.5T PO; +POTA10PO; +SODI325T9 PO
[2024-01-08 15:06] LABS: BASO % 0.3 % (0.0-1.0); EOS # 0.1 10^3/uL (0.0-0.5); HEMOGLOBIN 7.6 g/dl (13.5-17.5); LYMPH # 0.7 10^3/uL (1.5-5.0); LYMPH % 12.2 % (24.0-44.0); MEAN CORPUSCULAR HEMOGLOBIN 33.8 pg (27.0-33.0); MEAN CORPUSCULAR VOLUME 102.2 fl (80.0-96.0); MONO # 0.8 10^3/uL (0.0-0.8); MONO % 13.2 % (2.0-8.0); NEUTROPHILS # 4.4 10^3/uL (1.5-8.5); NEUTROPHILS % 72.8 % (36.0-66.0); PLATELET COUNT, AUTOMATED 106 10^3/uL (150-450); RED BLOOD COUNT 2.25 10^6/uL (4.30-6.10)
[2024-01-08 15:19] LABS: ABG BASE EXCESS 1.4 (-2.0-2.0); ABG HCO3 25.8 MMOL/L (22.0-26.0); ABG PARTIAL PRESSURE CO2 40.2 mmHg (35.0-45.0); ABG PARTIAL PRESSURE O2 81.5 mmHg (75.0-100.0); ABG STANDARD HCO3 25.7 MMOL/L. (22.0-26.0); ABG TOTAL CO2 27.1 MMOL/L (23.0-31.0); ABG pH (ARTERIAL) 7.426 UNITS (7.350-7.450)
[2024-01-08 15:45] LABS: BILIRUBIN,DIRECT 0.1 MG/DL (<0.4); BILIRUBIN,TOTAL 0.3 MG/DL (0.3-1.2); CALCIUM LEVEL 7.3 MG/DL (8.3-10.6); CREATININE FOR GFR 3.37 MG/DL (0.70-1.30); GLOMERULAR FILTRATION RATE 19.2 (>42); POTASSIUM SERUM 3.9 MMOL/L (3.5-5.1); TOTAL PROTEIN 4.8 G/DL (5.7-8.2)
[2024-01-08] MEDS: FUROSEMIDE 40MG/4ML VIAL IV ONE (18:32)
[2024-01-08] MEDS ORDERED: MOM 30ML SUSPENSION UDC PO PRN (19:35)
[2024-01-08] MEDS ORDERED: HOME MED LIST COMPLETE! XX SCH (19:35)
[2024-01-08] MEDS ORDERED: MAALOX 30 ML SUSP *UDC PO PRN (19:35)
[2024-01-08 20:08] LABS: PHOSPHORUS LEVEL 2.6 MG/DL (2.4-5.1)
[2024-01-08 20:33] VITALS: BP 171/77; TEMP 97.3; O2SAT 96
[2024-01-08 20:45] LABS: INR 1.11; PARTIAL THROMBOPLASTIN TIME 35.9 SECONDS (24.8-34.2); PROTHROMBIN TIME 14.6 SECONDS (12.5-14.5)
[2024-01-08 20:46] LABS: HEMOGLOBIN A1c 5.2 % (4.0-6.0)
[2024-01-08 20:53] VITALS: BP 182/81; TEMP 97.2; O2SAT 95
[2024-01-08] MEDS: ADVAIR HFA 45/21MCG INHALER INH SCH (20:56)
[2024-01-08] MEDS: IPRATROPIUM 0.5MG/ALBUTEROL 2.5MG INH SOL UD 3ML (DUONEB) NEB SCH (20:56)
[2024-01-08 21:50] VITALS: BP 166/68; TEMP 98.1; O2SAT 95
[2024-01-08 22:00] VITALS: O2SAT 95
[2024-01-08] MEDS: guaiFENesin ER TABLET 600 MG TAB PO SCH (22:01)
[2024-01-08] MEDS: SODIUM BICARBONATE 325 MG TAB PO SCH (22:01)
[2024-01-08] MEDS: DOCUSATE SODIUM 100MG CAPSULE PO SCH (22:01)
[2024-01-08] MEDS: **hydrALAZINE** 50 MG TAB PO SCH (22:03)
[2024-01-08] MEDS: TAMSULOSIN 0.4 MG CAP PO SCH (22:04)
[2024-01-08] MEDS: NICOTINE 21MG/24HR 1 EA TRANSDERMAL TD ONE (22:04)
[2024-01-08] MEDS: CALCIUM GLUCONATE 1,000 MG in DEXTROSE 5% (D5W) MINI-BAG PLU 100 ML IV ONE (22:05)
[2024-01-08] MEDS: rOPINIRole 2MG TAB PO SCH (22:23)
[2024-01-08] MEDS: DOXAZOSIN MESYLATE 1 MG TAB PO SCH (22:24)
[2024-01-08 23:20] VITALS: BP 145/99; TEMP 98; O2SAT 96
[2024-01-09] VITALS (14 sets, daily range): BP systolic 130–175; BP diastolic 48–75; TEMP 97.5–98.1; O2SAT 80–98
[2024-01-09 02:06] LABS: HEMATOCRIT 25.1 % (42.0-52.0); HEMOGLOBIN 8.4 g/dl (13.5-17.5)
[2024-01-09 02:22] LABS: CALCIUM LEVEL 7.5 MG/DL (8.3-10.6); CREATININE FOR GFR 3.35 MG/DL (0.70-1.30); GLOMERULAR FILTRATION RATE 19.4 (>42); POTASSIUM SERUM 4.3 MMOL/L (3.5-5.1)
[2024-01-09 05:47] LABS: HEMATOCRIT 26.8 % (42.0-52.0); HEMOGLOBIN 8.7 g/dl (13.5-17.5); MEAN CORPUSCULAR HEMOGLOBIN 32.6 pg (27.0-33.0); MEAN CORPUSCULAR HGB CONC 32.5 g/dl (32.0-36.5); MEAN CORPUSCULAR VOLUME 100.4 fl (80.0-96.0); PLATELET COUNT, AUTOMATED 100 10^3/uL (150-450); RED BLOOD COUNT 2.67 10^6/uL (4.30-6.10); WHITE BLOOD COUNT 6.2 10^3/uL (4.0-10.0)
[2024-01-09 06:27] LABS: ALBUMIN 2.2 G/DL (3.2-5.2); BILIRUBIN,TOTAL 0.4 MG/DL (0.3-1.2); CALCIUM LEVEL 7.8 MG/DL (8.3-10.6); CREATININE FOR GFR 3.45 MG/DL (0.70-1.30); GLOMERULAR FILTRATION RATE 18.7 (>42); PHOSPHORUS LEVEL 3.8 MG/DL (2.4-5.1); POTASSIUM SERUM 4.4 MMOL/L (3.5-5.1)
[2024-01-09 08:27] LABS: HEMATOCRIT 27.1 % (42.0-52.0); HEMOGLOBIN 8.9 g/dl (13.5-17.5)
[2024-01-09] MEDS: ISOSORBIDE MON. (IMDUR) 60MG XR TAB PO SCH (08:48)
[2024-01-09] MEDS: CLOPIDOGREL 75 MG TAB PO SCH (08:49)
[2024-01-09] MEDS: VITAMIN D 1,000 INTERNATIONAL UNITS TABLET PO SCH (08:49)
[2024-01-09] MEDS: DULoxetine 30MG CAPSULE (CYMBALTA) PO SCH (08:49)
[2024-01-09] MEDS: ATORVASTATIN 20 MG TAB PO SCH (08:50)
[2024-01-09] MEDS: FERROUS GLUCONATE 324 MG TAB PO SCH (08:50)
[2024-01-09] MEDS: POTASSIUM CHLORIDE 10MEQ SR TABLET PO SCH (08:50)
[2024-01-09] MEDS: FUROSEMIDE 20MG/2ML VIAL IV SCH ×2 (08:50→16:35)
[2024-01-09] MEDS: OMEPRAZOLE 20MG CAP PO SCH (08:50)
[2024-01-09 09:04] LABS: CALCIUM LEVEL 7.8 MG/DL (8.3-10.6); CREATININE FOR GFR 3.48 MG/DL (0.70-1.30); GLOMERULAR FILTRATION RATE 18.5 (>42); POTASSIUM SERUM 4.4 MMOL/L (3.5-5.1)
[2024-01-09 14:46] LABS: CALCIUM LEVEL 7.5 MG/DL (8.3-10.6); CREATININE FOR GFR 3.53 MG/DL (0.70-1.30); GLOMERULAR FILTRATION RATE 18.2 (>42); POTASSIUM SERUM 4.5 MMOL/L (3.5-5.1)
[2024-01-09 20:39] LABS: CALCIUM LEVEL 7.4 MG/DL (8.3-10.6); CREATININE FOR GFR 3.52 MG/DL (0.70-1.30); GLOMERULAR FILTRATION RATE 18.3 (>42); POTASSIUM SERUM 4.2 MMOL/L (3.5-5.1)
[2024-01-10] VITALS (7 sets, daily range): BP systolic 151–168; BP diastolic 42–60; TEMP 98–98.8; O2SAT 86–94
[2024-01-10 02:50] LABS: CALCIUM LEVEL 7.2 MG/DL (8.3-10.6); CREATININE FOR GFR 3.56 MG/DL (0.70-1.30); GLOMERULAR FILTRATION RATE 18.1 (>42); POTASSIUM SERUM 4.3 MMOL/L (3.5-5.1)
[2024-01-10 08:12] LABS: BASO % 0.2 % (0.0-1.0); EOS # 0.1 10^3/uL (0.0-0.5); EOS % 1.7 % (0.0-3.0); HEMATOCRIT 24.7 % (42.0-52.0); HEMOGLOBIN 7.9 g/dl (13.5-17.5); LYMPH # 0.8 10^3/uL (1.5-5.0); LYMPH % 14.1 % (24.0-44.0); MEAN CORPUSCULAR HEMOGLOBIN 32.2 pg (27.0-33.0); MEAN CORPUSCULAR VOLUME 100.8 fl (80.0-96.0); MONO # 0.6 10^3/uL (0.0-0.8); MONO % 11.1 % (2.0-8.0); NEUTROPHILS # 3.9 10^3/uL (1.5-8.5); NEUTROPHILS % 72.5 % (36.0-66.0); PLATELET COUNT, AUTOMATED 108 10^3/uL (150-450); RED BLOOD COUNT 2.45 10^6/uL (4.30-6.10); WHITE BLOOD COUNT 5.3 10^3/uL (4.0-10.0)
[2024-01-10 08:51] LABS: ALBUMIN 2.2 G/DL (3.2-5.2); CALCIUM LEVEL 7.6 MG/DL (8.3-10.6); CREATININE FOR GFR 3.59 MG/DL (0.70-1.30); GLOMERULAR FILTRATION RATE 17.9 (>42); PERCENT SATURATION 26.1 % (19.7-50.0)
[2024-01-10 08:54] LABS: FERRITIN 800.9 NG/ML (10.5-307.3)
[2024-01-10] MEDS: FERRIC CARBOXYMALTOSE INJ 750 MG in SODIUM CHLORIDE 0.9% INJ 100 ML IV ONE (13:15)
[2024-01-11] VITALS: BP 153/53; TEMP 99; O2SAT 89
[2024-01-11 04:00] VITALS: BP 155/55; TEMP 99.3; O2SAT 92
[2024-01-11 06:04] LABS: BASO % 0.5 % (0.0-1.0); EOS # 0.1 10^3/uL (0.0-0.5); EOS % 1.1 % (0.0-3.0); HEMATOCRIT 23.6 % (42.0-52.0); HEMOGLOBIN 7.7 g/dl (13.5-17.5); LYMPH # 0.8 10^3/uL (1.5-5.0); LYMPH % 13.2 % (24.0-44.0); MEAN CORPUSCULAR HEMOGLOBIN 32.9 pg (27.0-33.0); MEAN CORPUSCULAR HGB CONC 32.6 g/dl (32.0-36.5); MEAN CORPUSCULAR VOLUME 100.9 fl (80.0-96.0); MONO # 0.6 10^3/uL (0.0-0.8); MONO % 10.9 % (2.0-8.0); NEUTROPHILS # 4.2 10^3/uL (1.5-8.5); NEUTROPHILS % 73.9 % (36.0-66.0); PLATELET COUNT, AUTOMATED 114 10^3/uL (150-450); RED BLOOD COUNT 2.34 10^6/uL (4.30-6.10); WHITE BLOOD COUNT 5.7 10^3/uL (4.0-10.0)
[2024-01-11 06:23] LABS: C REACTIVE PROTEIN QUANTITATIV 4.3 MG/DL (<1.0)
[2024-01-11 06:25] LABS: ALBUMIN 2.1 G/DL (3.2-5.2); BILIRUBIN,TOTAL 0.2 MG/DL (0.3-1.2); CALCIUM LEVEL 7.3 MG/DL (8.3-10.6); CREATININE FOR GFR 3.66 MG/DL (0.70-1.30); GLOMERULAR FILTRATION RATE 17.5 (>42); PHOSPHORUS LEVEL 3.6 MG/DL (2.4-5.1); TOTAL PROTEIN 4.8 G/DL (5.7-8.2)
[2024-01-11 08:00] VITALS: BP 163/60; TEMP 99.4; O2SAT 90
[2024-01-11] MEDS: CALCITRIOL 0.25 MCG CAP (S0169) PO SCH (08:31)
[2024-01-11] MEDS: DARBEPOETIN 200MCG/0.4ML *NON-DIALYSIS* SYRINGE SC SCH (10:03)
[2024-01-11 12:00] VITALS: BP 163/56; TEMP 98.8; O2SAT 93
[2024-01-11 14:19] LABS: HEPATITIS B SURFACE ANTIBODY NEGATIVE (POSITIVE)
[2024-01-11 14:30] LABS: HEPATITIS B SURFACE ANTIGEN NEGATIVE (NEGATIVE)
[2024-01-11 14:52] LABS: HEPATITIS C VIRUS ABY INDEX < 0.02 INDEX (<0.8)
[2024-01-11 14:52] LABS: MB/CK RELATIVE INDEX 1.88 (< OR =4)
[2024-01-11 14:53] LABS: CK-MB VALUE MASS 1.2 NG/ML (<3.6); MB/CK RELATIVE INDEX 2.3 (< OR =4)
[2024-01-11 14:53] LABS: HEPATITIS B CORE ANTIBODY IGM NEGATIVE (NEGATIVE)
[2024-01-11 19:38] LABS: CK-MB VALUE MASS 1.5 NG/ML (<3.6)
[2024-01-11 19:41] LABS: MB/CK RELATIVE INDEX 2.88 (< OR =4)
[2024-01-11 21:30] VITALS: BP 127/49; TEMP 99.7; O2SAT 94
[2024-01-11 23:30] VITALS: BP 121/47; TEMP 99.7; O2SAT 96
[2024-01-12] VITALS (9 sets, daily range): BP systolic 92–123; BP diastolic 41–56; TEMP 98.1–99.3; O2SAT 89–95
[2024-01-12 05:28] LABS: BASO % 0.3 % (0.0-1.0); EOS % 0.7 % (0.0-3.0); HEMATOCRIT 21.6 % (42.0-52.0); LYMPH # 0.7 10^3/uL (1.5-5.0); LYMPH % 12.9 % (24.0-44.0); MEAN CORPUSCULAR HGB CONC 32.4 g/dl (32.0-36.5); MEAN CORPUSCULAR VOLUME 101.9 fl (80.0-96.0); MONO # 0.6 10^3/uL (0.0-0.8); MONO % 11.2 % (2.0-8.0); NEUTROPHILS # 4.3 10^3/uL (1.5-8.5); NEUTROPHILS % 74.4 % (36.0-66.0); PLATELET COUNT, AUTOMATED 102 10^3/uL (150-450); RED BLOOD COUNT 2.12 10^6/uL (4.30-6.10); WHITE BLOOD COUNT 5.7 10^3/uL (4.0-10.0)
[2024-01-12 05:48] LABS: ALBUMIN 1.8 G/DL (3.2-5.2); CALCIUM LEVEL 6.8 MG/DL (8.3-10.6); CREATININE FOR GFR 3.91 MG/DL (0.70-1.30); GLOMERULAR FILTRATION RATE 16.2 (>42); PHOSPHORUS LEVEL 3.3 MG/DL (2.4-5.1); POTASSIUM SERUM 3.7 MMOL/L (3.5-5.1)
[2024-01-12] MEDS ORDERED: LIDOCAINE 1% SDV 5ML VIAL SC PRN (06:00)
[2024-01-12] MEDS ORDERED: HEPARIN 1,000UNITS/ML 10ML VIAL (FOR RADIOLOGY & DIALYSIS ONLY) IV PRN (06:00)
[2024-01-12] MEDS ORDERED: SODIUM CHLORIDE 0.9% 1000 ML IV PRN (06:00)
[2024-01-12] MEDS ORDERED: HEPARIN 1,000UNITS/ML 10ML VIAL (FOR RADIOLOGY & DIALYSIS ONLY) As Ordered ONE (08:27)
[2024-01-12] MEDS ORDERED: LIDOCAINE 1% MDV 20ML VIAL As Ordered ONE (08:27)
[2024-01-12] MEDS ORDERED: ceFAZolin 2 GM/D5W 50 ML IV BAG As Ordered ONE (08:37)
[2024-01-12 08:46] LABS: HEMOGLOBIN 7.1 g/dl (13.5-17.5); MEAN CORPUSCULAR HEMOGLOBIN 32.6 pg (27.0-33.0); MEAN CORPUSCULAR HGB CONC 32.3 g/dl (32.0-36.5); MEAN CORPUSCULAR VOLUME 100.9 fl (80.0-96.0); PLATELET COUNT, AUTOMATED 109 10^3/uL (150-450); RED BLOOD COUNT 2.18 10^6/uL (4.30-6.10); WHITE BLOOD COUNT 5.6 10^3/uL (4.0-10.0)
[2024-01-12] MEDS: ceFAZolin SOD 2 GM in IV 1 EA IV ONE (08:47)
[2024-01-12] MEDS: HEPARIN 1,000UNITS/ML 10ML VIAL (FOR RADIOLOGY & DIALYSIS ONLY) XX SCH (13:22)
[2024-01-12 18:03] LABS: HEMATOCRIT 25.4 % (42.0-52.0); HEMOGLOBIN 8.2 g/dl (13.5-17.5)
[2024-01-13] VITALS (9 sets, daily range): BP systolic 111–127; BP diastolic 15–56; TEMP 97.9–99; O2SAT 90–97
[2024-01-13] MEDS ORDERED: SODIUM CHLORIDE 0.9% 250ML IV PRN (06:00)
[2024-01-13] MEDS ORDERED: HEPARIN 1,000UNITS/ML 10ML VIAL (FOR RADIOLOGY & DIALYSIS ONLY) IV PRN (06:00)
[2024-01-13] MEDS ORDERED: LIDOCAINE 1% SDV 5ML VIAL SC PRN (06:00)
[2024-01-13 06:42] LABS: ALBUMIN 1.9 G/DL (3.2-5.2); CALCIUM LEVEL 7.1 MG/DL (8.3-10.6); CREATININE FOR GFR 3.42 MG/DL (0.70-1.30); GLOMERULAR FILTRATION RATE 18.9 (>42); PHOSPHORUS LEVEL 4.4 MG/DL (2.4-5.1); POTASSIUM SERUM 3.9 MMOL/L (3.5-5.1)
[2024-01-13 09:55] LABS: HEMATOCRIT 29.8 % (42.0-52.0); HEMOGLOBIN 9.7 g/dl (13.5-17.5); MEAN CORPUSCULAR HEMOGLOBIN 32.7 pg (27.0-33.0); MEAN CORPUSCULAR HGB CONC 32.6 g/dl (32.0-36.5); MEAN CORPUSCULAR VOLUME 100.3 fl (80.0-96.0); PLATELET COUNT, AUTOMATED 108 10^3/uL (150-450); RED BLOOD COUNT 2.97 10^6/uL (4.30-6.10)
[2024-01-13 10:22] LABS: ALBUMIN 2.2 G/DL (3.2-5.2); CALCIUM LEVEL 7.4 MG/DL (8.3-10.6); CREATININE FOR GFR 3.33 MG/DL (0.70-1.30); GLOMERULAR FILTRATION RATE 19.5 (>42); PHOSPHORUS LEVEL 4.5 MG/DL (2.4-5.1); POTASSIUM SERUM 3.7 MMOL/L (3.5-5.1)
[2024-01-13] MEDS: DARBEPOETIN 100MCG/0.5ML *DIALYSIS* SYRINGE IV SCH (12:53)
[2024-01-13] MEDS: HEPARIN 1,000UNITS/ML 10ML VIAL (FOR RADIOLOGY & DIALYSIS ONLY) XX SCH (14:01)
[2024-01-14] VITALS (10 sets, daily range): BP systolic 121–150; BP diastolic 48–64; TEMP 97.6–99; O2SAT 86–98
[2024-01-14] MEDS ORDERED: LIDOCAINE 1% SDV 5ML VIAL SC PRN (06:00)
[2024-01-14] MEDS ORDERED: SODIUM CHLORIDE 0.9% 1000 ML IV PRN (06:00)
[2024-01-14] MEDS ORDERED: HEPARIN 1,000UNITS/ML 10ML VIAL (FOR RADIOLOGY & DIALYSIS ONLY) IV PRN (06:00)
[2024-01-14 06:23] LABS: HEMATOCRIT 27.8 % (42.0-52.0); HEMOGLOBIN 8.9 g/dl (13.5-17.5); MEAN CORPUSCULAR HEMOGLOBIN 31.7 pg (27.0-33.0); MEAN CORPUSCULAR VOLUME 98.9 fl (80.0-96.0); PLATELET COUNT, AUTOMATED 104 10^3/uL (150-450); RED BLOOD COUNT 2.81 10^6/uL (4.30-6.10); WHITE BLOOD COUNT 5.3 10^3/uL (4.0-10.0)
[2024-01-14 07:00] LABS: ALBUMIN 1.9 G/DL (3.2-5.2); CALCIUM LEVEL 7.2 MG/DL (8.3-10.6); CREATININE FOR GFR 2.5 MG/DL (0.70-1.30); GLOMERULAR FILTRATION RATE 27.2 (>42); PHOSPHORUS LEVEL 3.7 MG/DL (2.4-5.1); POTASSIUM SERUM 3.5 MMOL/L (3.5-5.1)
[2024-01-14] MEDS: HEPARIN 1,000UNITS/ML 10ML VIAL (FOR RADIOLOGY & DIALYSIS ONLY) XX SCH (16:37)
[2024-01-14] MEDS: predniSONE 20 MG TAB PO SCH (20:38)
[2024-01-15] VITALS (12 sets, daily range): BP systolic 141–155; BP diastolic 48–67; TEMP 96–99.1; O2SAT 92–98
[2024-01-15 06:04] LABS: HEMATOCRIT 29.1 % (42.0-52.0); HEMOGLOBIN 9.5 g/dl (13.5-17.5); MEAN CORPUSCULAR HEMOGLOBIN 32.3 pg (27.0-33.0); MEAN CORPUSCULAR HGB CONC 32.6 g/dl (32.0-36.5); PLATELET COUNT, AUTOMATED 127 10^3/uL (150-450); RED BLOOD COUNT 2.94 10^6/uL (4.30-6.10); WHITE BLOOD COUNT 4.7 10^3/uL (4.0-10.0)
[2024-01-15 06:40] LABS: CALCIUM LEVEL 7.6 MG/DL (8.3-10.6); CREATININE FOR GFR 1.85 MG/DL (0.70-1.30); GLOMERULAR FILTRATION RATE 38.4 (>42); PHOSPHORUS LEVEL 3.4 MG/DL (2.4-5.1)
[2024-01-15] MEDS ORDERED: NICOTINE POLACRILEX 2 MG GUM PO PRN (12:10)
[2024-01-15] MEDS: NICOTINE 21MG/24HR 1 EA TRANSDERMAL TD SCH (13:06)
[2024-01-15] MEDS: LEVALBUTEROL 1.25MG 0.5ML CONCENTRATE NEB INH PRN (17:33)
[2024-01-15] MEDS: rOPINIRole 1MG TAB PO SCH (20:32)
[2024-01-16] VITALS (9 sets, daily range): BP systolic 150–192; BP diastolic 48–75; TEMP 98.1–99.3; O2SAT 93–99
[2024-01-16 05:53] LABS: HEMATOCRIT 26.7 % (42.0-52.0); HEMOGLOBIN 8.8 g/dl (13.5-17.5); MEAN CORPUSCULAR HEMOGLOBIN 32.6 pg (27.0-33.0); MEAN CORPUSCULAR VOLUME 98.9 fl (80.0-96.0); PLATELET COUNT, AUTOMATED 130 10^3/uL (150-450); WHITE BLOOD COUNT 6.9 10^3/uL (4.0-10.0)
[2024-01-16 06:12] LABS: CALCIUM LEVEL 7.4 MG/DL (8.3-10.6); CREATININE FOR GFR 2.39 MG/DL (0.70-1.30); GLOMERULAR FILTRATION RATE 28.6 (>42); PHOSPHORUS LEVEL 2.7 MG/DL (2.4-5.1); POTASSIUM SERUM 3.4 MMOL/L (3.5-5.1)
[2024-01-16] MEDS ORDERED: HEPARIN 1,000UNITS/ML 10ML VIAL (FOR RADIOLOGY & DIALYSIS ONLY) IV PRN (06:40)
[2024-01-16] MEDS ORDERED: SODIUM CHLORIDE 0.9% 1000 ML IV PRN (06:40)
[2024-01-16] MEDS: DULoxetine 20MG CAP (CYMBALTA) PO SCH (07:47)
[2024-01-16] MEDS: HEPARIN 1,000UNITS/ML 10ML VIAL (FOR RADIOLOGY & DIALYSIS ONLY) XX SCH (09:35)
[2024-01-17] VITALS (10 sets, daily range): BP systolic 162–186; BP diastolic 54–78; TEMP 97.5–100.2; O2SAT 94–96
[2024-01-17 05:55] LABS: HEMATOCRIT 29.7 % (42.0-52.0); HEMOGLOBIN 9.4 g/dl (13.5-17.5); MEAN CORPUSCULAR HGB CONC 31.6 g/dl (32.0-36.5); PLATELET COUNT, AUTOMATED 149 10^3/uL (150-450); RED BLOOD COUNT 2.94 10^6/uL (4.30-6.10); WHITE BLOOD COUNT 8.3 10^3/uL (4.0-10.0)
[2024-01-17 06:28] LABS: CALCIUM LEVEL 8.1 MG/DL (8.3-10.6); CREATININE FOR GFR 1.94 MG/DL (0.70-1.30); GLOMERULAR FILTRATION RATE 36.4 (>42); PHOSPHORUS LEVEL 1.2 MG/DL (2.4-5.1); POTASSIUM SERUM 3.1 MMOL/L (3.5-5.1)
[2024-01-17] MEDS: amLODIPine 5 MG TAB PO SCH (10:06)
[2024-01-17] MEDS: K-PHOS NEUTRAL 250MG TABLET (SOD.PHOSPHATE/POT.PHOSPHATE) PO SCH (16:28)
[2024-01-17] MEDS: INSULIN LISPRO (NovoLOG) PER UNIT SC STA (20:27)
[2024-01-17] MEDS: ACETAMINOPHEN 325 MG TAB PO PRN (20:29)
[2024-01-17] MEDS: INSULIN LISPRO (NovoLOG) PER UNIT SC ONE (23:04)
[2024-01-17] MEDS: ACETAMINOPHEN *IV* 1,000 MG in IV 1 EA IV ONE (23:05)
[2024-01-18] VITALS (7 sets, daily range): BP systolic 155–174; BP diastolic 63–67; TEMP 96.9–98.6; O2SAT 94–98
[2024-01-18 06:05] LABS: HEMATOCRIT 31.4 % (42.0-52.0); MEAN CORPUSCULAR HEMOGLOBIN 31.9 pg (27.0-33.0); MEAN CORPUSCULAR HGB CONC 31.8 g/dl (32.0-36.5); MEAN CORPUSCULAR VOLUME 100.3 fl (80.0-96.0); PLATELET COUNT, AUTOMATED 155 10^3/uL (150-450); RED BLOOD COUNT 3.13 10^6/uL (4.30-6.10); WHITE BLOOD COUNT 10.3 10^3/uL (4.0-10.0)
[2024-01-18 06:34] LABS: ALBUMIN 2.1 G/DL (3.2-5.2); CREATININE FOR GFR 2.34 MG/DL (0.70-1.30); GLOMERULAR FILTRATION RATE 29.3 (>42); PHOSPHORUS LEVEL 1.5 MG/DL (2.4-5.1); POTASSIUM SERUM 3.5 MMOL/L (3.5-5.1)
[2024-01-18] MEDS ORDERED: HEPARIN 1,000UNITS/ML 10ML VIAL (FOR RADIOLOGY & DIALYSIS ONLY) IV PRN (09:55)
[2024-01-18] MEDS ORDERED: SODIUM CHLORIDE 0.9% 1000 ML IV PRN (09:55)
[2024-01-18] MEDS: HEPARIN 1,000UNITS/ML 10ML VIAL (FOR RADIOLOGY & DIALYSIS ONLY) XX SCH (14:11)
[2024-01-19 04:00] VITALS: BP 163/67; TEMP 98.6; O2SAT 98
[2024-01-19] MEDS ORDERED: HEPARIN 1,000UNITS/ML 10ML VIAL (FOR RADIOLOGY & DIALYSIS ONLY) IV PRN (06:00)
[2024-01-19] MEDS ORDERED: SODIUM CHLORIDE 0.9% 1000 ML IV PRN (06:00)
[2024-01-19 06:15] LABS: HEMATOCRIT 28.7 % (42.0-52.0); HEMOGLOBIN 9.3 g/dl (13.5-17.5); MEAN CORPUSCULAR HEMOGLOBIN 32.7 pg (27.0-33.0); MEAN CORPUSCULAR HGB CONC 32.4 g/dl (32.0-36.5); MEAN CORPUSCULAR VOLUME 101.1 fl (80.0-96.0); PLATELET COUNT, AUTOMATED 160 10^3/uL (150-450); RED BLOOD COUNT 2.84 10^6/uL (4.30-6.10); WHITE BLOOD COUNT 10.1 10^3/uL (4.0-10.0)
[2024-01-19 06:51] LABS: CALCIUM LEVEL 7.3 MG/DL (8.3-10.6); CREATININE FOR GFR 2.64 MG/DL (0.70-1.30); GLOMERULAR FILTRATION RATE 25.5 (>42); PHOSPHORUS LEVEL 2.2 MG/DL (2.4-5.1); POTASSIUM SERUM 3.7 MMOL/L (3.5-5.1)
[2024-01-19 08:00] VITALS: BP 172/67; TEMP 98.6; O2SAT 97
[2024-01-19] MEDS: HEPARIN 1,000UNITS/ML 10ML VIAL (FOR RADIOLOGY & DIALYSIS ONLY) XX SCH (11:01)
[2024-01-19 12:30] VITALS: BP 173/67; TEMP 98.6; O2SAT 97
[2024-01-19 16:00] VITALS: BP 171/65; TEMP 98.8; O2SAT 97
[2024-01-19 20:35] VITALS: BP 158/51; TEMP 97.9; O2SAT 97
[2024-01-19 21:00] VITALS: O2SAT 94
[2024-01-20] VITALS (13 sets, daily range): BP systolic 150–179; BP diastolic 44–68; TEMP 98.8–99.3; O2SAT 94–97
[2024-01-20] MEDS ORDERED: SODIUM CHLORIDE 0.9% 250ML IV PRN (06:00)
[2024-01-20] MEDS ORDERED: HEPARIN 1,000UNITS/ML 10ML VIAL (FOR RADIOLOGY & DIALYSIS ONLY) IV PRN (06:00)
[2024-01-20 06:43] LABS: HEMATOCRIT 31.7 % (42.0-52.0); HEMOGLOBIN 9.9 g/dl (13.5-17.5); MEAN CORPUSCULAR HEMOGLOBIN 32.6 pg (27.0-33.0); MEAN CORPUSCULAR HGB CONC 31.2 g/dl (32.0-36.5); MEAN CORPUSCULAR VOLUME 104.3 fl (80.0-96.0); PLATELET COUNT, AUTOMATED 167 10^3/uL (150-450); RED BLOOD COUNT 3.04 10^6/uL (4.30-6.10); WHITE BLOOD COUNT 8.6 10^3/uL (4.0-10.0)
[2024-01-20 07:27] LABS: CALCIUM LEVEL 7.8 MG/DL (8.3-10.6); CREATININE FOR GFR 1.94 MG/DL (0.70-1.30); GLOMERULAR FILTRATION RATE 36.4 (>42); PHOSPHORUS LEVEL 1.4 MG/DL (2.4-5.1); POTASSIUM SERUM 3.3 MMOL/L (3.5-5.1)
[2024-01-20] MEDS: HEPARIN 1,000UNITS/ML 10ML VIAL (FOR RADIOLOGY & DIALYSIS ONLY) XX SCH (15:40)
[2024-01-20] MEDS: K-PHOS NEUTRAL 250MG TABLET (SOD.PHOSPHATE/POT.PHOSPHATE) PO SCH (16:39)
[2024-01-21 01:48] VITALS: BP 168/62
[2024-01-21 03:50] VITALS: BP 170/52; TEMP 98.6; O2SAT 97
[2024-01-21 05:25] VITALS: O2SAT 97
[2024-01-21] MEDS ORDERED: HEPARIN 1,000UNITS/ML 10ML VIAL (FOR RADIOLOGY & DIALYSIS ONLY) IV PRN (06:00)
[2024-01-21] MEDS ORDERED: SODIUM CHLORIDE 0.9% 1000 ML IV PRN (06:00)
[2024-01-21 07:59] VITALS: BP 167/64
[2024-01-21 08:00] VITALS: BP 167/64; TEMP 98.2; O2SAT 100
[2024-01-21] MEDS: HEPARIN 1,000UNITS/ML 10ML VIAL (FOR RADIOLOGY & DIALYSIS ONLY) XX SCH (09:53)
[2024-01-21] MEDS ORDERED: SENN1TAB85 PO (11:54)
[2024-01-21] MEDS ORDERED: IPRA0.00 NEB (11:54)
[2024-01-21] MEDS ORDERED: DULO1CAP4 PO (11:54)
[2024-01-21] MEDS ORDERED: NICO21PAT TD (11:54)
[2024-01-21] MEDS ORDERED: PHOS1TAB3 PO (11:54)
[2024-01-21] MEDS ORDERED: LISI10TA22 PO (11:54)
[2024-01-21] MEDS ORDERED: ROPI1TA PO (11:54)
== END 2024-01-21 12:15 | disposition home or self-care (01) | DRG 291 ==
LOC: EDBD 14:20 → M ED 14:20 → M ED INP 19:34 → M MSPAV 21:35
PROVIDERS: ADMIT Student in an Organized Health Care Education/Training Program; ATTEND Internal Medicine Nephrology
PROC: 30233N1 Transfusion of Nonautologous Red Blood Cells into Peripheral Vein, Percutaneous Approach (ICD-10-PCS; 2024-01-08)
PROC: 02HV33Z Insertion of Infusion Device into Superior Vena Cava, Percutaneous Approach (ICD-10-PCS; 2024-01-12)
PROC: 0JH60XZ Insertion of Tunneled Vascular Access Device into Chest Subcutaneous Tissue and Fascia, Open Approach (ICD-10-PCS; principal; 2024-01-12 08:30)
PROC: 5A1D70Z Performance of Urinary Filtration, Intermittent, Less than 6 Hours Per Day (ICD-10-PCS; 2024-01-18)
DX: I13.2 Hypertensive heart and chronic kidney disease with heart failure and with stage 5 chronic kidney disease, or end stage renal disease (principal); J96.01 Acute respiratory failure with hypoxia; G93.41 Metabolic encephalopathy; N18.6 End stage renal disease; E87.20 Acidosis, unspecified; J44.1 Chronic obstructive pulmonary disease with (acute) exacerbation; E87.0 Hyperosmolality and hypernatremia; N17.9 Acute kidney failure, unspecified; I50.22 Chronic systolic (congestive) heart failure; I25.10 Atherosclerotic heart disease of native coronary artery without angina pectoris; G35 Multiple sclerosis; E87.6 Hypokalemia; D63.1 Anemia in chronic kidney disease; E78.5 Hyperlipidemia, unspecified; Z86.73 Personal history of transient ischemic attack (TIA), and cerebral infarction without residual deficits; G25.81 Restless legs syndrome; F32.A Depression, unspecified; E11.40 Type 2 diabetes mellitus with diabetic neuropathy, unspecified; E11.22 Type 2 diabetes mellitus with diabetic chronic kidney disease; I95.1 Orthostatic hypotension; D50.9 Iron deficiency anemia, unspecified; Z85.038 Personal history of other malignant neoplasm of large intestine; R26.89 Other abnormalities of gait and mobility; Z79.899 Other long term (current) drug therapy; N40.0 Benign prostatic hyperplasia without lower urinary tract symptoms; Z79.4 Long term (current) use of insulin; Z86.16 Personal history of COVID-19

== ENCOUNTER 2024-01-21 09:53 | Inpatient (IN) | payer MEDICARE ==
[~2024-01-21] VITALS: Ht 167.6 cm; Wt 68.9 kg
[~2024-01-21 09:53] MED LIST changes: -ADV100INH INH; +ADVA1AER8 INH
[2024-01-21] MEDS ORDERED: BISACODYL 10MG SUPP PR PRN (11:45)
[2024-01-21] MEDS ORDERED: BISACODYL 5MG TAB PO PRN (11:45)
[2024-01-21] MEDS ORDERED: SIMETHICONE 80MG CHEW TAB PO PRN (11:45)
[2024-01-21] MEDS ORDERED: MOM 30ML SUSPENSION UDC PO PRN (11:45)
[2024-01-21] MEDS ORDERED: MAALOX 30 ML SUSP *UDC PO PRN (11:45)
[2024-01-21] MEDS ORDERED: LISI10TA22 PO (11:54)
[2024-01-21] MEDS ORDERED: ROPI1TA PO (11:54)
[2024-01-21] MEDS ORDERED: SENN1TAB85 PO (11:54)
[2024-01-21] MEDS ORDERED: NICO21PAT TD (11:54)
[2024-01-21] MEDS ORDERED: IPRA0.00 NEB (11:54)
[2024-01-21] MEDS ORDERED: DULO1CAP4 PO (11:54)
[2024-01-21] MEDS ORDERED: PHOS1TAB3 PO (11:54)
[2024-01-21] MEDS ORDERED: LEVALBUTEROL HFA 45MCG/ACT 15GM INHALER INH PRN (11:55)
[2024-01-21 12:10] VITALS: BP 170/72; TEMP 98.9; O2SAT 99
[2024-01-21] MEDS: IPRATROPIUM 0.5MG/ALBUTEROL 2.5MG INH SOL UD 3ML (DUONEB) NEB SCH (13:34)
[2024-01-21] MEDS: K-PHOS NEUTRAL 250MG TABLET (SOD.PHOSPHATE/POT.PHOSPHATE) PO SCH (16:36)
[2024-01-21] MEDS: ADVAIR HFA 45/21MCG INHALER INH SCH (19:27)
[2024-01-21 20:00] VITALS: BP 176/73; TEMP 97.8; O2SAT 98
[2024-01-21] MEDS: DOCUSATE SODIUM 100MG CAPSULE PO SCH (21:00)
[2024-01-21] MEDS: guaiFENesin ER TABLET 600 MG TAB PO SCH (22:27)
[2024-01-21] MEDS: TAMSULOSIN 0.4 MG CAP PO SCH (22:28)
[2024-01-21] MEDS: rOPINIRole 1MG TAB PO SCH (22:28)
[2024-01-22 04:00] VITALS: BP 182/77; TEMP 99.3; O2SAT 98
[2024-01-22 04:20] VITALS: BP 180/68; TEMP 99.9
[2024-01-22] MEDS: ACETAMINOPHEN 325 MG TAB PO PRN (04:33)
[2024-01-22 06:02] LABS: HEMOGLOBIN 10.4 g/dl (13.5-17.5); MEAN CORPUSCULAR HEMOGLOBIN 32.3 pg (27.0-33.0); MEAN CORPUSCULAR HGB CONC 31.5 g/dl (32.0-36.5); MEAN CORPUSCULAR VOLUME 102.5 fl (80.0-96.0); PLATELET COUNT, AUTOMATED 141 10^3/uL (150-450); RED BLOOD COUNT 3.22 10^6/uL (4.30-6.10); WHITE BLOOD COUNT 11.7 10^3/uL (4.0-10.0)
[2024-01-22 06:31] LABS: CALCIUM LEVEL 7.4 MG/DL (8.3-10.6); CREATININE FOR GFR 1.85 MG/DL (0.70-1.30); GLOMERULAR FILTRATION RATE 38.4 (>42); POTASSIUM SERUM 3.4 MMOL/L (3.5-5.1)
[2024-01-22 06:46] LABS: ATYPICAL LYMPH 3 % (0-5); EOSINOPHILS 4 % (0-3); LYMPHOCYTES 10 % (16-44); METAMYELOCYTES 1 % (0-0); MONOCYTES 4 % (0-5); NEUTROPHILS 77 % (28-66); PLATELET ESTIMATE NORMAL (NORMAL); POLYCHROMASIA 1+
[2024-01-22 06:47] LABS: ANISOCYTOSIS 1+
[2024-01-22] MEDS: ATORVASTATIN 20 MG TAB PO SCH (09:20)
[2024-01-22] MEDS: CALCITRIOL 0.25 MCG CAP (S0169) PO SCH (09:20)
[2024-01-22] MEDS: OMEPRAZOLE 20MG CAP PO SCH (09:20)
[2024-01-22] MEDS: DULoxetine 20MG CAP (CYMBALTA) PO SCH (09:21)
[2024-01-22] MEDS: CLOPIDOGREL 75 MG TAB PO SCH (09:21)
[2024-01-22] MEDS: NICOTINE 21MG/24HR 1 EA TRANSDERMAL TD SCH (09:22)
[2024-01-22] MEDS ORDERED: SODIUM CHLORIDE 0.9% 1000 ML IV PRN (10:55)
[2024-01-22] MEDS ORDERED: HEPARIN 1,000UNITS/ML 10ML VIAL (FOR RADIOLOGY & DIALYSIS ONLY) IV PRN (10:55)
[2024-01-22 12:00] VITALS: BP 176/66; TEMP 98.9; O2SAT 99
[2024-01-22] MEDS ORDERED: DEXTROSE 50% 50ML SYRINGE IV PRN (13:10)
[2024-01-22] MEDS ORDERED: GLUCOSE 4 GM CHEW PO PRN (13:10)
[2024-01-22] MEDS ORDERED: GLUCAGON INJ 1MG VIAL SC PRN (13:10)
[2024-01-22] MEDS: HEPARIN 1,000UNITS/ML 10ML VIAL (FOR RADIOLOGY & DIALYSIS ONLY) XX SCH (14:25)
[2024-01-22] MEDS: INSULIN LISPRO (NovoLOG) PER UNIT SC SCH (16:39)
[2024-01-22 20:00] VITALS: BP 168/50; TEMP 99.5; O2SAT 98
[2024-01-23 04:00] VITALS: BP 170/60; TEMP 98.5; O2SAT 92
[2024-01-23 06:37] LABS: BASO # 0.1 10^3/uL (0.0-0.2); BASO % 0.9 % (0.0-1.0); EOS # 0.1 10^3/uL (0.0-0.5); EOS % 1.2 % (0.0-3.0); HEMATOCRIT 31.9 % (42.0-52.0); HEMOGLOBIN 9.8 g/dl (13.5-17.5); LYMPH # 1.1 10^3/uL (1.5-5.0); LYMPH % 9.7 % (24.0-44.0); MEAN CORPUSCULAR HEMOGLOBIN 32.1 pg (27.0-33.0); MEAN CORPUSCULAR HGB CONC 30.7 g/dl (32.0-36.5); MEAN CORPUSCULAR VOLUME 104.6 fl (80.0-96.0); MONO # 1.3 10^3/uL (0.0-0.8); MONO % 10.7 % (2.0-8.0); NEUTROPHILS # 8.1 10^3/uL (1.5-8.5); NEUTROPHILS % 69.3 % (36.0-66.0); PLATELET COUNT, AUTOMATED 142 10^3/uL (150-450); RED BLOOD COUNT 3.05 10^6/uL (4.30-6.10); WHITE BLOOD COUNT 11.7 10^3/uL (4.0-10.0)
[2024-01-23 12:00] VITALS: BP 158/68; TEMP 99.6; O2SAT 99
[2024-01-23] MEDS: ONDANSETRON 4MG TAB PO PRN (15:58)
[2024-01-23 20:00] VITALS: BP 190/68; TEMP 99.2; O2SAT 95
[2024-01-24 00:53] VITALS: TEMP 100.7; O2SAT 98
[2024-01-24 01:45] LABS: VENOUS BASE EXCESS -2.1 (-2.0-2.0); VENOUS PARTIAL PRESSURE CO2 40.8 mmHg (38.0-50.0); VENOUS PARTIAL PRESSURE O2 40.5 mmHg (30.0-50.0); VENOUS PH 7.369 UNITS (7.330-7.430); VENOUS STANDARD HCO3 22.3 MMOL/L; VENOUS TOTAL CO2 24.3 MMOL/L (24.0-28.0)
[2024-01-24 01:52] VITALS: TEMP 98.9
[2024-01-24 02:02] LABS: BASO # 0.1 10^3/uL (0.0-0.2); BASO % 0.6 % (0.0-1.0); EOS # 0.1 10^3/uL (0.0-0.5); EOS % 0.5 % (0.0-3.0); HEMATOCRIT 34.5 % (42.0-52.0); HEMOGLOBIN 10.7 g/dl (13.5-17.5); LYMPH # 0.9 10^3/uL (1.5-5.0); MEAN CORPUSCULAR HEMOGLOBIN 32.3 pg (27.0-33.0); MEAN CORPUSCULAR VOLUME 104.2 fl (80.0-96.0); MONO # 1.4 10^3/uL (0.0-0.8); MONO % 9.7 % (2.0-8.0); NEUTROPHILS % 77.7 % (36.0-66.0); PLATELET COUNT, AUTOMATED 147 10^3/uL (150-450); RED BLOOD COUNT 3.31 10^6/uL (4.30-6.10); WHITE BLOOD COUNT 14.2 10^3/uL (4.0-10.0)
[2024-01-24 02:10] LABS: ERYTHROCYTE SEDIMENTATION RATE 7 mm/hr (0-20)
[2024-01-24 02:11] LABS: C REACTIVE PROTEIN QUANTITATIV 5.3 MG/DL (<1.0)
[2024-01-24 02:13] LABS: ALBUMIN 2.1 G/DL (3.2-5.2); BILIRUBIN,DIRECT 0.1 MG/DL (<0.4); BILIRUBIN,TOTAL 0.4 MG/DL (0.3-1.2); CREATININE FOR GFR 2.06 MG/DL (0.70-1.30); MAGNESIUM LEVEL 1.6 MG/DL (1.8-2.4); POTASSIUM SERUM 3.6 MMOL/L (3.5-5.1)
[2024-01-24 03:37] LABS: PROCALCITONIN 0.13 ng/ml
[2024-01-24 04:00] VITALS: BP 182/78; TEMP 99.5; O2SAT 95
[2024-01-24] MEDS ORDERED: HEPARIN 1,000UNITS/ML 10ML VIAL (FOR RADIOLOGY & DIALYSIS ONLY) IV PRN (06:00)
[2024-01-24] MEDS ORDERED: SODIUM CHLORIDE 0.9% 1000 ML IV PRN (06:00)
[2024-01-24] MEDS ORDERED: LIDOCAINE 1% SDV 5ML VIAL SC PRN (06:00)
[2024-01-24 06:23] LABS: BASO # 0.1 10^3/uL (0.0-0.2); BASO % 0.5 % (0.0-1.0); EOS # 0.1 10^3/uL (0.0-0.5); EOS % 0.7 % (0.0-3.0); HEMATOCRIT 31.5 % (42.0-52.0); HEMOGLOBIN 9.9 g/dl (13.5-17.5); LYMPH # 1.2 10^3/uL (1.5-5.0); LYMPH % 8.9 % (24.0-44.0); MEAN CORPUSCULAR HEMOGLOBIN 32.2 pg (27.0-33.0); MEAN CORPUSCULAR HGB CONC 31.4 g/dl (32.0-36.5); MEAN CORPUSCULAR VOLUME 102.6 fl (80.0-96.0); MONO # 1.4 10^3/uL (0.0-0.8); MONO % 10.5 % (2.0-8.0); NEUTROPHILS % 74.5 % (36.0-66.0); PLATELET COUNT, AUTOMATED 141 10^3/uL (150-450); RED BLOOD COUNT 3.07 10^6/uL (4.30-6.10); WHITE BLOOD COUNT 13.4 10^3/uL (4.0-10.0)
[2024-01-24] MEDS: HEPARIN 1,000UNITS/ML 10ML VIAL (FOR RADIOLOGY & DIALYSIS ONLY) XX SCH (10:47)
[2024-01-24 12:00] VITALS: BP 162/66; TEMP 98.5; O2SAT 99
[2024-01-24] MEDS: amLODIPine 5 MG TAB PO ONE (12:23)
[2024-01-24 19:32] VITALS: BP 150/68; TEMP 99; O2SAT 98
[2024-01-25] VITALS (7 sets, daily range): BP systolic 150–190; BP diastolic 60–80; TEMP 97.9–98.9; O2SAT 97–99
[2024-01-25 06:45] LABS: BASO % 0.4 % (0.0-1.0); EOS # 0.1 10^3/uL (0.0-0.5); EOS % 0.8 % (0.0-3.0); HEMATOCRIT 33.3 % (42.0-52.0); HEMOGLOBIN 10.5 g/dl (13.5-17.5); LYMPH % 10.7 % (24.0-44.0); MEAN CORPUSCULAR HEMOGLOBIN 32.5 pg (27.0-33.0); MEAN CORPUSCULAR HGB CONC 31.5 g/dl (32.0-36.5); MEAN CORPUSCULAR VOLUME 103.1 fl (80.0-96.0); MONO # 1.2 10^3/uL (0.0-0.8); MONO % 12.9 % (2.0-8.0); NEUTROPHILS # 6.3 10^3/uL (1.5-8.5); NEUTROPHILS % 70.1 % (36.0-66.0); PLATELET COUNT, AUTOMATED 152 10^3/uL (150-450); RED BLOOD COUNT 3.23 10^6/uL (4.30-6.10)
[2024-01-25] MEDS: CARVedilol 6.25 MG TAB PO ONE (11:43)
[2024-01-25] MEDS: CARVedilol 6.25 MG TAB PO SCH (20:49)
[2024-01-26 04:00] VITALS: BP 138/70; TEMP 98.4; O2SAT 100
[2024-01-26] MEDS ORDERED: SODIUM CHLORIDE 0.9% 1000 ML IV PRN (06:00)
[2024-01-26] MEDS ORDERED: HEPARIN 1,000UNITS/ML 10ML VIAL (FOR RADIOLOGY & DIALYSIS ONLY) IV PRN (06:00)
[2024-01-26] MEDS ORDERED: LIDOCAINE 1% SDV 5ML VIAL SC PRN (06:00)
[2024-01-26 07:08] VITALS: BP 146/70
[2024-01-26] MEDS: DARBEPOETIN 100MCG/0.5ML *DIALYSIS* SYRINGE IV SCH (13:01)
[2024-01-26] MEDS: HEPARIN 1,000UNITS/ML 10ML VIAL (FOR RADIOLOGY & DIALYSIS ONLY) XX SCH (13:04)
[2024-01-26 19:52] VITALS: BP 151/68; TEMP 98.5; O2SAT 97
[2024-01-27 04:39] VITALS: BP 147/67; TEMP 97.6; O2SAT 96
[2024-01-27 12:00] VITALS: BP 138/62; TEMP 99.4; O2SAT 97
[2024-01-27 20:00] VITALS: BP 168/68; TEMP 99; O2SAT 95
[2024-01-28 04:00] VITALS: BP 140/50; TEMP 100; O2SAT 94
[2024-01-28 12:00] VITALS: BP_SYST 122; BP_SYST 140; BP_DIAS 64; BP_DIAS 67; TEMP 98; TEMP 99.3; O2SAT 93; O2SAT 97
[2024-01-28 20:00] VITALS: BP 158/52; TEMP 99; O2SAT 99
[2024-01-29 04:00] VITALS: BP 160/58; TEMP 99.4; O2SAT 93
[2024-01-29] MEDS ORDERED: SODIUM CHLORIDE 0.9% 1000 ML IV PRN (06:00)
[2024-01-29] MEDS ORDERED: HEPARIN 1,000UNITS/ML 10ML VIAL (FOR RADIOLOGY & DIALYSIS ONLY) IV PRN (06:00)
[2024-01-29] MEDS ORDERED: HEPARIN 1,000UNITS/ML 10ML VIAL (FOR RADIOLOGY & DIALYSIS ONLY) XX SCH (06:00)
[2024-01-29] MEDS ORDERED: LIDOCAINE 1% SDV 5ML VIAL SC PRN (06:00)
[2024-01-29 10:24] LABS: ALBUMIN 1.8 G/DL (3.2-5.2); CALCIUM LEVEL 6.1 MG/DL (8.3-10.6); CREATININE FOR GFR 2.75 MG/DL (0.70-1.30); GLOMERULAR FILTRATION RATE 24.3 (>42); PHOSPHORUS LEVEL 6.6 MG/DL (2.4-5.1); POTASSIUM SERUM 4.2 MMOL/L (3.5-5.1)
[2024-01-29 12:00] VITALS: BP 158/68; TEMP 99; O2SAT 94
[2024-01-29 20:06] VITALS: BP 155/70; TEMP 99.8; O2SAT 96
[2024-01-30 04:00] VITALS: BP 130/76; TEMP 100.2; O2SAT 97
[2024-01-30] MEDS ORDERED: SODIUM CHLORIDE 0.9% 1000 ML IV PRN (06:00)
[2024-01-30] MEDS ORDERED: HEPARIN 1,000UNITS/ML 10ML VIAL (FOR RADIOLOGY & DIALYSIS ONLY) IV PRN (06:00)
[2024-01-30 07:19] VITALS: BP 130/60; TEMP 98.6
[2024-01-30 12:00] VITALS: BP 145/80; TEMP 98.9; O2SAT 98
[2024-01-30] MEDS: HEPARIN 1,000UNITS/ML 10ML VIAL (FOR RADIOLOGY & DIALYSIS ONLY) XX SCH (14:23)
[2024-01-30 20:00] VITALS: BP 144/60; TEMP 100; O2SAT 98
[2024-01-31 04:00] VITALS: BP 155/68; TEMP 99.3; O2SAT 97
[2024-01-31 12:00] VITALS: BP 150/72; TEMP 99.4; O2SAT 98
[2024-01-31 20:00] VITALS: BP 151/52; TEMP 99.4; O2SAT 95
[2024-02-01 05:05] VITALS: BP 168/53; TEMP 99; O2SAT 94
[2024-02-01 07:26] LABS: HEMATOCRIT 31.3 % (42.0-52.0); HEMOGLOBIN 9.9 g/dl (13.5-17.5); MEAN CORPUSCULAR HEMOGLOBIN 32.5 pg (27.0-33.0); MEAN CORPUSCULAR HGB CONC 31.6 g/dl (32.0-36.5); MEAN CORPUSCULAR VOLUME 102.6 fl (80.0-96.0); PLATELET COUNT, AUTOMATED 175 10^3/uL (150-450); RED BLOOD COUNT 3.05 10^6/uL (4.30-6.10); WHITE BLOOD COUNT 8.8 10^3/uL (4.0-10.0)
[2024-02-01 07:38] LABS: ALBUMIN 1.6 G/DL (3.2-5.2); CALCIUM LEVEL 7.4 MG/DL (8.3-10.6); CREATININE FOR GFR 2.4 MG/DL (0.70-1.30); GLOMERULAR FILTRATION RATE 28.5 (>42); PHOSPHORUS LEVEL 4.3 MG/DL (2.4-5.1); POTASSIUM SERUM 4.6 MMOL/L (3.5-5.1)
[2024-02-01] MEDS ORDERED: SODIUM CHLORIDE 0.9% 1000 ML IV PRN (11:00)
[2024-02-01] MEDS ORDERED: HEPARIN 1,000UNITS/ML 10ML VIAL (FOR RADIOLOGY & DIALYSIS ONLY) IV PRN (11:00)
[2024-02-01 12:00] VITALS: BP 112/54; TEMP 98.1; O2SAT 96
[2024-02-01] MEDS ORDERED: CARV6.25 PO (16:13)
[2024-02-01] MEDS ORDERED: ADVA1AER8 INH (16:13)
[2024-02-01] MEDS ORDERED: CALC1CAP31 PO (16:13)
[2024-02-01] MEDS ORDERED: LISI10TA22 PO (16:13)
[2024-02-01] MEDS ORDERED: OXYC-517 PO (16:13)
[2024-02-01] MEDS ORDERED: MUCI600T31 PO (16:13)
[2024-02-01] MEDS: HEPARIN 1,000UNITS/ML 10ML VIAL (FOR RADIOLOGY & DIALYSIS ONLY) XX SCH (18:17)
[2024-02-01 21:00] VITALS: BP 170/70; TEMP 98.9; O2SAT 97
[2024-02-02] MEDS: oxyCODONE 5MG TAB PO PRN (02:26)
[2024-02-02 03:30] VITALS: BP 186/90; TEMP 98.1; O2SAT 94
[2024-02-02 03:40] VITALS: BP 172/64
[2024-02-02 08:34] VITALS: BP 192/82
== END 2024-02-02 12:30 | disposition home health service (06) | DRG 91 ==
LOC: M PM&R 12:10
PROVIDERS: ADMIT Physical Medicine & Rehabilitation; ATTEND Physical Medicine & Rehabilitation
DX: G72.81 Critical illness myopathy (principal); N18.6 End stage renal disease; I13.2 Hypertensive heart and chronic kidney disease with heart failure and with stage 5 chronic kidney disease, or end stage renal disease; I10 Essential (primary) hypertension; J44.9 Chronic obstructive pulmonary disease, unspecified; Z86.73 Personal history of transient ischemic attack (TIA), and cerebral infarction without residual deficits; D63.1 Anemia in chronic kidney disease; F17.210 Nicotine dependence, cigarettes, uncomplicated; E11.40 Type 2 diabetes mellitus with diabetic neuropathy, unspecified; E11.22 Type 2 diabetes mellitus with diabetic chronic kidney disease; F41.9 Anxiety disorder, unspecified; F32.A Depression, unspecified; G25.81 Restless legs syndrome; D50.9 Iron deficiency anemia, unspecified; R33.9 Retention of urine, unspecified; N31.2 Flaccid neuropathic bladder, not elsewhere classified; Z79.899 Other long term (current) drug therapy; Z85.038 Personal history of other malignant neoplasm of large intestine; E83.39 Other disorders of phosphorus metabolism; I25.10 Atherosclerotic heart disease of native coronary artery without angina pectoris; R26.89 Other abnormalities of gait and mobility; G35 Multiple sclerosis; I95.1 Orthostatic hypotension; R42 Dizziness and giddiness; E78.5 Hyperlipidemia, unspecified; I65.23 Occlusion and stenosis of bilateral carotid arteries; D69.6 Thrombocytopenia, unspecified; M48.061 Spinal stenosis, lumbar region without neurogenic claudication

== ENCOUNTER 2024-02-09 11:16 | Emergency (ER) | payer MEDICARE ==
[~2024-02-09] VITALS: Ht 170.2 cm; Wt 63.6 kg
[~2024-02-09 11:16] MED LIST changes: +CARV6.25 PO; +DULO1CAP4 PO; +IPRA0.00 NEB; +LISI10TA22 PO; +MUCI600T31 PO; +NICO21PAT TD; +OXYC-517 PO; +PHOS1TAB3 PO; +ROPI1TA PO; +SENN1TAB85 PO
[2024-02-09 11:45] VITALS: TEMP 96.8
[2024-02-09 12:43] LABS: BASO # 0.1 10^3/uL (0.0-0.2); EOS # 0.4 10^3/uL (0.0-0.5); EOS % 5.1 % (0.0-3.0); HEMATOCRIT 35.9 % (42.0-52.0); HEMOGLOBIN 11.6 g/dl (13.5-17.5); LYMPH # 1.2 10^3/uL (1.5-5.0); LYMPH % 16.4 % (24.0-44.0); MEAN CORPUSCULAR HEMOGLOBIN 32.2 pg (27.0-33.0); MEAN CORPUSCULAR HGB CONC 32.3 g/dl (32.0-36.5); MEAN CORPUSCULAR VOLUME 99.7 fl (80.0-96.0); MONO # 0.8 10^3/uL (0.0-0.8); MONO % 10.7 % (2.0-8.0); NEUTROPHILS # 4.7 10^3/uL (1.5-8.5); NEUTROPHILS % 65.1 % (36.0-66.0); PLATELET COUNT, AUTOMATED 232 10^3/uL (150-450); WHITE BLOOD COUNT 7.3 10^3/uL (4.0-10.0)
[2024-02-09 13:13] LABS: ALBUMIN 2.1 G/DL (3.2-5.2); BILIRUBIN,DIRECT 0.1 MG/DL (<0.4); BILIRUBIN,TOTAL 0.4 MG/DL (0.3-1.2); CALCIUM LEVEL 8.1 MG/DL (8.3-10.6); CREATININE FOR GFR 1.75 MG/DL (0.70-1.30); POTASSIUM SERUM 4.2 MMOL/L (3.5-5.1); TOTAL PROTEIN 5.5 G/DL (5.7-8.2)
[2024-02-09] MEDS ORDERED: ISOS1TAB36 (14:33)
[2024-02-09] MEDS ORDERED: AMLO1TAB25 (14:33)
[2024-02-09] MEDS ORDERED: FURO20TA2 (14:33)
[2024-02-09 16:45] VITALS: BP 193/84; O2SAT 96
== END 2024-02-09 17:53 | disposition home or self-care (01) ==
LOC: M ED 11:16 → EDBD 11:16 → M ED 17:53
DX: R53.1 Weakness (principal); N18.6 End stage renal disease; I10 Essential (primary) hypertension; E11.9 Type 2 diabetes mellitus without complications; J44.9 Chronic obstructive pulmonary disease, unspecified; F41.9 Anxiety disorder, unspecified; F32.A Depression, unspecified; G56.02 Carpal tunnel syndrome, left upper limb; F17.200 Nicotine dependence, unspecified, uncomplicated; Z79.01 Long term (current) use of anticoagulants; Z86.73 Personal history of transient ischemic attack (TIA), and cerebral infarction without residual deficits; Z79.52 Long term (current) use of systemic steroids; Z79.02 Long term (current) use of antithrombotics/antiplatelets; Z79.811 Long term (current) use of aromatase inhibitors; Z79.899 Other long term (current) drug therapy

== ENCOUNTER 2024-02-14 18:01 | Emergency (ER) | payer MEDICARE ==
[~2024-02-14 18:01] MED LIST changes: +AMLO1TAB25; +FURO20TA2; +ISOS1TAB36
[2024-02-14 18:35] VITALS: BP 228/86
[2024-02-14] MEDS: NITROGLYCERIN 0.4MG SUBL TABLET SL PRN (18:35)
[2024-02-14 18:45] LABS: BASO # 0.1 10^3/uL (0.0-0.2); EOS # 0.4 10^3/uL (0.0-0.5); EOS % 4.6 % (0.0-3.0); HEMATOCRIT 37.1 % (42.0-52.0); HEMOGLOBIN 11.8 g/dl (13.5-17.5); LYMPH # 1.3 10^3/uL (1.5-5.0); LYMPH % 14.1 % (24.0-44.0); MEAN CORPUSCULAR HEMOGLOBIN 31.6 pg (27.0-33.0); MEAN CORPUSCULAR HGB CONC 31.8 g/dl (32.0-36.5); MEAN CORPUSCULAR VOLUME 99.2 fl (80.0-96.0); MONO # 0.9 10^3/uL (0.0-0.8); MONO % 9.8 % (2.0-8.0); NEUTROPHILS # 6.6 10^3/uL (1.5-8.5); NEUTROPHILS % 69.8 % (36.0-66.0); PLATELET COUNT, AUTOMATED 190 10^3/uL (150-450); RED BLOOD COUNT 3.74 10^6/uL (4.30-6.10); WHITE BLOOD COUNT 9.4 10^3/uL (4.0-10.0)
[2024-02-14 19:08] LABS: LIPASE 56 U/L (12-53)
[2024-02-14 19:10] LABS: ALBUMIN 2.3 G/DL (3.2-5.2); ALKALINE PHOSPHATASE 114 U/L (40-129); ALT/SGPT 12 U/L (7.0-40); AST/SGOT 18 U/L (<34); BILIRUBIN,DIRECT < 0.1 MG/DL (<0.4); BILIRUBIN,TOTAL 0.3 MG/DL (0.3-1.2); BLOOD UREA NITROGEN 24 MG/DL (9-23); CALCIUM LEVEL 8.3 MG/DL (8.3-10.6); CARBON DIOXIDE LEVEL 32 MMOL/L (20-31); CHLORIDE LEVEL 107 MMOL/L (98-107); CREATININE FOR GFR 2.55 MG/DL (0.70-1.30); GLOMERULAR FILTRATION RATE 26.5 (>42); GLUCOSE, FASTING 137 MG/DL (74-106); POTASSIUM SERUM 3.8 MMOL/L (3.5-5.1); SODIUM LEVEL 143 MMOL/L (136-145); TOTAL PROTEIN 5.6 G/DL (5.7-8.2)
[2024-02-14 19:12] LABS: THYROID STIMULATING HORMONE 1.966 uIU/ML (0.55-4.78)
[2024-02-14 19:14] LABS: CPK CREATINE PHOSPHOKINASE 33 U/L (46-171); MB/CK RELATIVE INDEX 6.06 (< OR =4)
[2024-02-14] MEDS: NS IV ONE (19:30)
[2024-02-14] MEDS: DESMOPRESSIN ACETATE IV ONE (19:30)
[2024-02-14] MEDS: niCARdipine IV 40 MG in IV 1 EA IV SCH (19:40)
[2024-02-15 02:06] VITALS: BP 144/80; TEMP 98.1; O2SAT 90
== END 2024-02-15 02:40 | disposition short-term general hospital (02) ==
LOC: M ED 18:01 → EDBD 18:01 → M ED 02-15 02:40
DX: I62.00 Nontraumatic subdural hemorrhage, unspecified (principal); R07.9 Chest pain, unspecified; E11.9 Type 2 diabetes mellitus without complications; I10 Essential (primary) hypertension; J44.9 Chronic obstructive pulmonary disease, unspecified; N18.6 End stage renal disease; F17.200 Nicotine dependence, unspecified, uncomplicated; Z86.79 Personal history of other diseases of the circulatory system; Z79.811 Long term (current) use of aromatase inhibitors; Z79.02 Long term (current) use of antithrombotics/antiplatelets; Z79.52 Long term (current) use of systemic steroids; Z79.899 Other long term (current) drug therapy
CPT/HCPCS: 70450; 71045; 80048; 80076; 82550; 82553; 83690; 84443; 84484; 85025; 93005; 93041; 94760; 96374; 96375; 99291; 99292; J2597

== ENCOUNTER 2024-11-05 10:17 | Inpatient (IN) | payer MEDICARE ==
[~2024-11-05 10:17] MED LIST changes: -BRIM1OPD OP; -BRIM1OPD OU; +BRIM5DRO25 OP; +BRIM5DRO25 OU; +ISOS10TA69 PO; -ISOS1TAB12 PO
[2024-11-05 10:59] LABS: INR 0.93
[2024-11-05] MEDS: ONDANSETRON 4MG 2ML VIAL IV ONE (11:05)
[2024-11-05] MEDS: NS 500 ML IV ONE (11:07)
[2024-11-05 11:09] LABS: CK-MB VALUE MASS < 1.0 NG/ML (<3.6)
[2024-11-05 11:10] LABS: ALT/SGPT < 9 U/L (7.0-40); AST/SGOT 13 U/L (<34); CALCIUM LEVEL 8.1 MG/DL (8.3-10.6); CARBON DIOXIDE LEVEL 32 MMOL/L (20-31); CHLORIDE LEVEL 101 MMOL/L (98-107); CREATININE FOR GFR 4.38 MG/DL (0.70-1.30); GLOMERULAR FILTRATION RATE 13.5 (>42); POTASSIUM SERUM 3.5 MMOL/L (3.5-5.1); SODIUM LEVEL 144 MMOL/L (136-145)
[2024-11-05 11:17] LABS: CPK CREATINE PHOSPHOKINASE 33 U/L (46-171)
[2024-11-05] MEDS ORDERED: ROPI2TAB46 PO (11:20)
[2024-11-05] MEDS ORDERED: LANS15CA PO (11:22)
[2024-11-05] MEDS ORDERED: FIBE625T PO (11:22)
[2024-11-05] MEDS ORDERED: SEVE800T3 PO (11:24)
[2024-11-05] MEDS ORDERED: LOSA100T46 PO (11:24)
[2024-11-05] MEDS ORDERED: OXYC7.5T3 PO (11:24)
[2024-11-05] MEDS ORDERED: FLOR250C PO (11:24)
[2024-11-05] MEDS ORDERED: FOLI800C PO (11:24)
[2024-11-05] MEDS ORDERED: ONDA4SOL PO (11:25)
[2024-11-05 11:31] LABS: BASO # 0.1 10^3/uL (0.0-0.2); BASO % 0.7 % (0.0-1.0); EOS # 0.1 10^3/uL (0.0-0.5); EOS % 1.1 % (0.0-3.0); LYMPH # 1.3 10^3/uL (1.5-5.0); LYMPH % 12.8 % (24.0-44.0); MONO # 0.9 10^3/uL (0.0-0.8); MONO % 8.4 % (2.0-8.0); NEUTROPHILS # 7.9 10^3/uL (1.5-8.5); NEUTROPHILS % 75.8 % (36.0-66.0); PLATELET COUNT, AUTOMATED 159 10^3/uL (150-450)
[2024-11-05 12:02] LABS: CK-MB VALUE MASS < 1.0 NG/ML (<3.6)
[2024-11-05 12:05] LABS: CPK CREATINE PHOSPHOKINASE 26 U/L (46-171)
[2024-11-05] MEDS: ACETAMINOPHEN *IV* 1,000 MG in IV 1 EA IV ONE (13:24)
[2024-11-05] MEDS ORDERED: MED REC IN PROGRESS XX SCH (14:25)
[2024-11-05] MEDS ORDERED: GLUCOSE 4 GM CHEW PO PRN (15:15)
[2024-11-05] MEDS ORDERED: HYDROMORPHONE HCL 0.5 MG/0.5 ML SYRINGE IV PRN ×2 (15:15→15:35)
[2024-11-05] MEDS ORDERED: HYDROmorphone HCL 2 MG/ML 1 ML VIAL IV PRN (15:15)
[2024-11-05] MEDS ORDERED: GLUCAGON INJ 1 MG VIAL SC PRN (15:15)
[2024-11-05] MEDS ORDERED: DEXTROSE 50% 50 ML SYRINGE IV PRN (15:15)
[2024-11-05] MEDS ORDERED: IPRATROPIUM 0.5 MG/ALBUTEROL 2.5 MG INH SOL UD 3 ML NEB PRN (16:25)
[2024-11-05] MEDS: INSULIN LISPRO (NovoLOG) PER UNIT SC SCH ×2 (16:49→21:00)
[2024-11-05] MEDS: PANTOPRAZOLE 40MG VIAL IV SCH (16:57)
[2024-11-05 17:46] VITALS: BP 158/66; TEMP 98.1; O2SAT 96
[2024-11-05 17:51] LABS: ESTIMATED AVERAGE GLUCOSE 117.0 MG/DL (60-110)
[2024-11-05] MEDS: HYDROMORPHONE HCL 0.5 MG/0.5 ML SYRINGE IV PRN ×2 (17:58→22:27)
[2024-11-05 18:47] VITALS: O2SAT 94
[2024-11-05] MEDS: SYMBICORT 160/4.5MCG INHALER 6GM INH SCH (19:13)
[2024-11-05] MEDS: COMBIVENT RESPIMAT 100-20 MCG INHALER 4 GM INH SCH (19:13)
[2024-11-05 20:44] VITALS: BP 137/64; TEMP 97.7; O2SAT 96
[2024-11-06] VITALS (10 sets, daily range): BP systolic 91–168; BP diastolic 48–88; TEMP 96.8–98.2; O2SAT 17–97
[2024-11-06] MEDS: HYDROMORPHONE HCL 0.5 MG/0.5 ML SYRINGE IV ONE (00:03)
[2024-11-06] MEDS: HYDROmorphone HCL 2 MG/ML 1 ML VIAL IV PRN (03:04)
[2024-11-06 06:44] LABS: BASO # 0.1 10^3/uL (0.0-0.2); BASO % 0.7 % (0.0-1.0); EOS # 0.1 10^3/uL (0.0-0.5); EOS % 1.3 % (0.0-3.0); LYMPH # 1.1 10^3/uL (1.5-5.0); LYMPH % 12.5 % (24.0-44.0); MONO # 0.8 10^3/uL (0.0-0.8); MONO % 8.7 % (2.0-8.0); NEUTROPHILS # 6.7 10^3/uL (1.5-8.5); NEUTROPHILS % 76.0 % (36.0-66.0); PLATELET COUNT, AUTOMATED 178 10^3/uL (150-450)
[2024-11-06 07:18] LABS: ALT/SGPT < 9 U/L (7.0-40); AST/SGOT < 8 U/L (<34); CALCIUM LEVEL 8.3 MG/DL (8.3-10.6); CARBON DIOXIDE LEVEL 30 MMOL/L (20-31); CHLORIDE LEVEL 101 MMOL/L (98-107); CREATININE FOR GFR 5.76 MG/DL (0.70-1.30); GLOMERULAR FILTRATION RATE 9.7 (>42); MAGNESIUM LEVEL 2.0 MG/DL (1.8-2.4); POTASSIUM SERUM 3.8 MMOL/L (3.5-5.1); SODIUM LEVEL 144 MMOL/L (136-145)
[2024-11-06] MEDS ORDERED: LIDOCAINE 2% 100 MG/5 ML SDV (FOR ANES.) As Ordered ONE (08:14)
[2024-11-06] MEDS ORDERED: dexAMETHasone 4 MG/ML 1 ML VIAL As Ordered ONE (08:17)
[2024-11-06] MEDS ORDERED: ONDANSETRON 4MG 2ML VIAL As Ordered ONE (08:17)
[2024-11-06] MEDS: TRANEXAMIC ACID 100 MG/ML 10ML VIAL As Ordered ONE (08:45)
[2024-11-06] MEDS ORDERED: ACETAMINOPHEN 1000MG/100ML IV BAG As Ordered ONE (09:00)
[2024-11-06] MEDS ORDERED: dexmedeTOMIDine (4 MCG/ML) 200 MCG/50 ML BTL As Ordered ONE (09:16)
[2024-11-06] MEDS ORDERED: HYDROMORPHONE HCL 0.5 MG/0.5 ML SYRINGE IV PRN (09:30)
[2024-11-06] MEDS ORDERED: ONDA-83 PO (14:51)
[2024-11-06] MEDS ORDERED: ADVA1AER9 INH (14:51)
[2024-11-06] MEDS ORDERED: FOLI1TAB11 PO (14:51)
[2024-11-06] MEDS ORDERED: DULO1CAP6 PO (15:06)
[2024-11-06] MEDS ORDERED: HOME MED LIST COMPLETE! XX SCH (15:10)
[2024-11-06] MEDS: ceFAZolin SODIUM 2 GM in DEXTROSE 5% (D5W) ADV/MINI-BAG 50 ML IV SCH (16:50)
[2024-11-06] MEDS: SEVELAMER *CARBONate* 800 MG TAB PO SCH (20:58)
[2024-11-06] MEDS: ATORVASTATIN 20 MG TAB PO SCH (20:58)
[2024-11-06] MEDS: FIBER-CON 625 MG TAB PO SCH (20:58)
[2024-11-07 00:10] VITALS: O2SAT 92
[2024-11-07 04:14] VITALS: BP 134/55; TEMP 98.1; O2SAT 92
[2024-11-07] MEDS ORDERED: SODIUM CHLORIDE 0.9% 1000 ML IV PRN (06:00)
[2024-11-07] MEDS ORDERED: HEPARIN 1,000 UNITS/ML 10 ML VIAL (FOR RADIOLOGY & DIALYSIS ONLY) IV PRN (06:00)
[2024-11-07 06:53] LABS: BASO # 0.0 10^3/uL (0.0-0.2); BASO % 0.4 % (0.0-1.0); EOS # 0.1 10^3/uL (0.0-0.5); EOS % 1.0 % (0.0-3.0); LYMPH # 0.9 10^3/uL (1.5-5.0); LYMPH % 8.8 % (24.0-44.0); MONO # 0.8 10^3/uL (0.0-0.8); MONO % 7.1 % (2.0-8.0); NEUTROPHILS # 8.7 10^3/uL (1.5-8.5); NEUTROPHILS % 82.3 % (36.0-66.0); PLATELET COUNT, AUTOMATED 156 10^3/uL (150-450)
[2024-11-07 07:17] LABS: ALT/SGPT < 9 U/L (7.0-40); AST/SGOT 10 U/L (<34); CALCIUM LEVEL 7.9 MG/DL (8.3-10.6); CARBON DIOXIDE LEVEL 26 MMOL/L (20-31); CHLORIDE LEVEL 101 MMOL/L (98-107); CREATININE FOR GFR 6.94 MG/DL (0.70-1.30); GLOMERULAR FILTRATION RATE 7.8 (>42); MAGNESIUM LEVEL 2.2 MG/DL (1.8-2.4); POTASSIUM SERUM 3.9 MMOL/L (3.5-5.1); SODIUM LEVEL 143 MMOL/L (136-145)
[2024-11-07 08:00] VITALS: BP 134/58; TEMP 97.9; O2SAT 90
[2024-11-07] MEDS: FOLIC ACID 1 MG TAB PO SCH (08:10)
[2024-11-07] MEDS: LOSARTAN 50 MG TABLET PO SCH (08:10)
[2024-11-07] MEDS: HEPARIN SOD 5000 UNITS/ML 1 ML VIAL/SYRINGE SQ SCH (09:00)
[2024-11-07 10:04] VITALS: O2SAT 92
[2024-11-07 12:00] VITALS: BP_SYST 115; BP_SYST 137; BP_DIAS 56; BP_DIAS 72; TEMP 98.1; O2SAT 95
[2024-11-07] MEDS: CLOPIDOGREL 75 MG TAB PO SCH (13:31)
[2024-11-07] MEDS: DARBEPOETIN 100 MCG/0.5 ML *DIALYSIS* SYRINGE IV SCH (14:19)
[2024-11-07] MEDS: HEPARIN 1,000 UNITS/ML 10 ML VIAL (FOR RADIOLOGY & DIALYSIS ONLY) XX SCH (14:19)
[2024-11-07] MEDS: HYDROMORPHONE HCL 0.5 MG/0.5 ML SYRINGE IV PRN (17:21)
[2024-11-07 20:24] VITALS: BP 132/60; TEMP 97; O2SAT 93
[2024-11-07] MEDS ORDERED: ASPIRIN 81 MG CHEWABLE TABLET PO SCH (21:00)
[2024-11-08 03:38] VITALS: BP 155/68; TEMP 98.1; O2SAT 94
[2024-11-08 06:29] LABS: BASO # 0.1 10^3/uL (0.0-0.2); BASO % 0.6 % (0.0-1.0); EOS # 0.2 10^3/uL (0.0-0.5); EOS % 2.0 % (0.0-3.0); LYMPH # 0.8 10^3/uL (1.5-5.0); LYMPH % 8.8 % (24.0-44.0); MONO # 0.8 10^3/uL (0.0-0.8); MONO % 8.6 % (2.0-8.0); NEUTROPHILS # 7.5 10^3/uL (1.5-8.5); NEUTROPHILS % 78.9 % (36.0-66.0); PLATELET COUNT, AUTOMATED 172 10^3/uL (150-450)
[2024-11-08 06:55] LABS: ALT/SGPT < 9 U/L (7.0-40); AST/SGOT 10 U/L (<34); CALCIUM LEVEL 8.5 MG/DL (8.3-10.6); CARBON DIOXIDE LEVEL 27 MMOL/L (20-31); CHLORIDE LEVEL 103 MMOL/L (98-107); CREATININE FOR GFR 3.86 MG/DL (0.70-1.30); GLOMERULAR FILTRATION RATE 15.7 (>42); MAGNESIUM LEVEL 1.9 MG/DL (1.8-2.4); POTASSIUM SERUM 4.5 MMOL/L (3.5-5.1); SODIUM LEVEL 140 MMOL/L (136-145)
[2024-11-08] MEDS ORDERED: CLOPIDOGREL 75 MG TAB PO SCH (09:00)
[2024-11-08] MEDS ORDERED: ENOXAPARIN 40 MG/0.4 ML SYRINGE (J1650 PER 10MG) SC SCH (09:00)
[2024-11-09 03:48] VITALS: BP 161/57; TEMP 98.1; O2SAT 94
[2024-11-09] MEDS: PANTOPRAZOLE 40MG TAB PO SCH (06:19)
[2024-11-09 06:55] LABS: BASO # 0.1 10^3/uL (0.0-0.2); BASO % 0.9 % (0.0-1.0); EOS # 0.2 10^3/uL (0.0-0.5); EOS % 2.0 % (0.0-3.0); LYMPH # 1.1 10^3/uL (1.5-5.0); LYMPH % 14.3 % (24.0-44.0); MONO # 0.7 10^3/uL (0.0-0.8); MONO % 9.5 % (2.0-8.0); NEUTROPHILS # 5.4 10^3/uL (1.5-8.5); NEUTROPHILS % 71.5 % (36.0-66.0); PLATELET COUNT, AUTOMATED 172 10^3/uL (150-450)
[2024-11-09] MEDS ORDERED: SODIUM CHLORIDE 0.9% 1000 ML IV PRN (07:25)
[2024-11-09] MEDS ORDERED: HEPARIN 1,000 UNITS/ML 10 ML VIAL (FOR RADIOLOGY & DIALYSIS ONLY) IV PRN (07:25)
[2024-11-09 07:28] LABS: ALT/SGPT < 9 U/L (7.0-40); AST/SGOT 11 U/L (<34); CALCIUM LEVEL 8.6 MG/DL (8.3-10.6); CARBON DIOXIDE LEVEL 25 MMOL/L (20-31); CHLORIDE LEVEL 102 MMOL/L (98-107); CREATININE FOR GFR 5.57 MG/DL (0.70-1.30); GLOMERULAR FILTRATION RATE 10.1 (>42); MAGNESIUM LEVEL 2.2 MG/DL (1.8-2.4); POTASSIUM SERUM 4.8 MMOL/L (3.5-5.1); SODIUM LEVEL 141 MMOL/L (136-145)
[2024-11-09] MEDS: HEPARIN 1,000 UNITS/ML 10 ML VIAL (FOR RADIOLOGY & DIALYSIS ONLY) XX SCH (09:34)
[2024-11-09 15:50] VITALS: BP 136/68; TEMP 96.8; O2SAT 96
[2024-11-09] MEDS: LIDOCAINE 5% PATCH TD SCH (21:05)
[2024-11-09] MEDS: RAMELTEON 8 MG TAB PO PRN (21:06)
[2024-11-10 05:16] VITALS: BP 131/57; TEMP 97.9; O2SAT 97
[2024-11-10] MEDS: SEVELAMER *CARBONate* 800 MG TAB PO SCH (14:10)
[2024-11-10] MEDS: MIRALAX *UNIT DOSE* 17 GM PACKET PO SCH (15:16)
[2024-11-10] MEDS: ACETAMINOPHEN 325 MG TAB PO PRN (18:26)
[2024-11-10] MEDS: SENNOSIDES/DOCUSATE SODIUM 8.6 MG/50MG TAB PO SCH (21:12)
[2024-11-11 05:56] VITALS: BP 131/73; TEMP 97.9; O2SAT 96
[2024-11-11] MEDS ORDERED: SODIUM CHLORIDE 0.9% 1000 ML IV PRN (06:00)
[2024-11-11] MEDS ORDERED: HEPARIN 1,000 UNITS/ML 10 ML VIAL (FOR RADIOLOGY & DIALYSIS ONLY) IV PRN (06:00)
[2024-11-11] MEDS: HEPARIN 1,000 UNITS/ML 10 ML VIAL (FOR RADIOLOGY & DIALYSIS ONLY) XX SCH (10:08)
[2024-11-11 12:55] VITALS: BP 127/76; TEMP 97.5; O2SAT 90
[2024-11-12 06:04] VITALS: BP 122/48; TEMP 98.1; O2SAT 97
[2024-11-13 03:10] VITALS: BP 142/54; TEMP 98.1; O2SAT 95
[2024-11-13 13:52] VITALS: BP 132/64; O2SAT 97
[2024-11-13 14:21] VITALS: O2SAT 98
[2024-11-13] MEDS ORDERED: ISOVUE-370 76% 100 ML VIAL As Ordered ONE (15:55)
[2024-11-13] MEDS: DICYCLOMINE 10 MG CAP PO PRN (15:58)
[2024-11-13] MEDS: CYCLOBENZAPRINE 5 MG TABLET PO ONE (15:58)
[2024-11-13] MEDS: BISACODYL 10 MG SUPP PR ONE (16:51)
[2024-11-13] MEDS: MOM 30 ML SUSPENSION UDC PO PRN (17:20)
[2024-11-13] MEDS: MORPHINE 4 MG/ML 1 ML VIAL IV ONE (17:21)
[2024-11-13 20:05] LABS: BASO # 0.1 10^3/uL (0.0-0.2); BASO % 0.5 % (0.0-1.0); EOS # 0.1 10^3/uL (0.0-0.5); EOS % 0.5 % (0.0-3.0); LYMPH # 1.2 10^3/uL (1.5-5.0); LYMPH % 8.8 % (24.0-44.0); MONO # 1.2 10^3/uL (0.0-0.8); MONO % 8.9 % (2.0-8.0); NEUTROPHILS # 10.3 10^3/uL (1.5-8.5); NEUTROPHILS % 78.6 % (36.0-66.0); PLATELET COUNT, AUTOMATED 202 10^3/uL (150-450)
[2024-11-13 20:33] LABS: CALCIUM LEVEL 8.1 MG/DL (8.3-10.6); CARBON DIOXIDE LEVEL 24.0 MMOL/L (20-31); CHLORIDE LEVEL 102.0 MMOL/L (98-107); CREATININE FOR GFR 6.16 MG/DL (0.70-1.30); GLOMERULAR FILTRATION RATE 9.0 (>42); POTASSIUM SERUM 4.9 MMOL/L (3.5-5.1); SODIUM LEVEL 135.0 MMOL/L (136-145)
[2024-11-14 04:35] VITALS: BP 112/46; TEMP 97.5; O2SAT 96
[2024-11-14] MEDS ORDERED: SODIUM CHLORIDE 0.9% 1000 ML IV PRN (06:00)
[2024-11-14] MEDS ORDERED: HEPARIN 1,000 UNITS/ML 10 ML VIAL (FOR RADIOLOGY & DIALYSIS ONLY) IV PRN (06:00)
[2024-11-14] MEDS: HEPARIN 1,000 UNITS/ML 10 ML VIAL (FOR RADIOLOGY & DIALYSIS ONLY) XX SCH (11:34)
[2024-11-14 12:30] VITALS: BP 130/48; TEMP 98.1; O2SAT 77
[2024-11-14 20:21] VITALS: BP 110/78; TEMP 97.9; O2SAT 92
[2024-11-15 04:00] VITALS: BP 115/46; TEMP 97.7; O2SAT 98
[2024-11-15 06:28] LABS: BASO # 0.1 10^3/uL (0.0-0.2); BASO % 0.7 % (0.0-1.0); EOS # 0.1 10^3/uL (0.0-0.5); EOS % 1.1 % (0.0-3.0); LYMPH # 1.4 10^3/uL (1.5-5.0); LYMPH % 12.1 % (24.0-44.0); MONO # 0.9 10^3/uL (0.0-0.8); MONO % 8.3 % (2.0-8.0); NEUTROPHILS # 8.3 10^3/uL (1.5-8.5); NEUTROPHILS % 73.1 % (36.0-66.0); PLATELET COUNT, AUTOMATED 199 10^3/uL (150-450)
[2024-11-15 13:00] VITALS: BP 126/62; TEMP 97.9; O2SAT 93
[2024-11-15 20:21] VITALS: BP 120/44; TEMP 98.1; O2SAT 96
[2024-11-16] VITALS (7 sets, daily range): BP systolic 112–135; BP diastolic 45–52; TEMP 97.7–101.9; O2SAT 89–99
[2024-11-16] MEDS ORDERED: SODIUM CHLORIDE 0.9% 1000 ML IV PRN (06:00)
[2024-11-16] MEDS ORDERED: HEPARIN 1,000 UNITS/ML 10 ML VIAL (FOR RADIOLOGY & DIALYSIS ONLY) IV PRN (06:00)
[2024-11-16] MEDS: HEPARIN 1,000 UNITS/ML 10 ML VIAL (FOR RADIOLOGY & DIALYSIS ONLY) XX SCH (10:38)
[2024-11-16] MEDS ORDERED: ACETAMINOPHEN *IV* 1,000 MG in IV 1 EA IV ONE (19:50)
[2024-11-16 20:15] LABS: PLATELET COUNT, AUTOMATED 277 10^3/uL (150-450)
[2024-11-16 20:49] LABS: ALT/SGPT < 9 U/L (7.0-40); AST/SGOT 44 U/L (<34); CALCIUM LEVEL 8.7 MG/DL (8.3-10.6); CARBON DIOXIDE LEVEL 22 MMOL/L (20-31); CHLORIDE LEVEL 96 MMOL/L (98-107); CREATININE FOR GFR 2.87 MG/DL (0.70-1.30); GLOMERULAR FILTRATION RATE 22.4 (>42); POTASSIUM SERUM 4.1 MMOL/L (3.5-5.1); SODIUM LEVEL 132 MMOL/L (136-145)
[2024-11-16] MEDS: ACETAMINOPHEN *IV* 1,000 MG in IV 1 EA IV ONE (22:38)
[2024-11-16] MEDS: ONDANSETRON 4MG 2ML VIAL IV PRN (22:55)
[2024-11-16] MEDS: PIPERACILLIN/TAZOBACTAM SOD 4.5 GM in DEXTROSE 5% (D5W) ADV/MINI-BAG 50 ML IV SCH (23:16)
[2024-11-17 00:25] VITALS: BP 114/78; TEMP 99.4; O2SAT 95
[2024-11-17] MEDS: LR 1,000 ML IV SCH (00:32)
[2024-11-17 01:05] VITALS: O2SAT 91
[2024-11-17 04:40] VITALS: BP 100/44; TEMP 97.8; O2SAT 94
[2024-11-17 07:42] LABS: PLATELET COUNT, AUTOMATED 209 10^3/uL (150-450)
[2024-11-17 08:42] LABS: BASOPHILS 1 % (0-1); LYMPHOCYTES 18 % (16-44); MONOCYTES 4 % (0-5); NEUTROPHILS 77 % (28-66); PLATELET ESTIMATE NORMAL (NORMAL)
[2024-11-17 09:17] LABS: ALT/SGPT < 9 U/L (7.0-40); AST/SGOT 37 U/L (<34); C REACTIVE PROTEIN QUANTITATIV 23.88 MG/DL (<1.0); CALCIUM LEVEL 8.2 MG/DL (8.3-10.6); CARBON DIOXIDE LEVEL 26 MMOL/L (20-31); CHLORIDE LEVEL 98 MMOL/L (98-107); CREATININE FOR GFR 3.63 MG/DL (0.70-1.30); GLOMERULAR FILTRATION RATE 16.9 (>42); MAGNESIUM LEVEL 2.1 MG/DL (1.8-2.4); POTASSIUM SERUM 3.9 MMOL/L (3.5-5.1); SODIUM LEVEL 136 MMOL/L (136-145)
[2024-11-17 12:00] VITALS: BP 131/49; TEMP 97.7; O2SAT 94
[2024-11-17 13:45] LABS: KETONE, URINE AUTO RFX NEGATIVE (NEGATIVE); NITRITE, URINE AUTO RFX NEGATIVE (NEGATIVE); RBC, URINE AUTO RFX 26 /HPF (0-3); SQUAM EPITHELIAL CELL UR AURFX 1 /HPF (0-6)
[2024-11-17 13:50] LABS: LEUKOCYTE ESTERASE UR AUTO RFX 1+ (NEGATIVE); WBC, URINE AUTO RFX 84 /HPF (0-3)
[2024-11-17 21:01] VITALS: BP 104/41; TEMP 97.5; O2SAT 93
[2024-11-17 23:46] VITALS: O2SAT 93
[2024-11-18 04:35] VITALS: BP 102/41; TEMP 97.7; O2SAT 93
[2024-11-18] MEDS ORDERED: HEPARIN 1,000 UNITS/ML 10 ML VIAL (FOR RADIOLOGY & DIALYSIS ONLY) IV PRN (06:00)
[2024-11-18] MEDS ORDERED: SODIUM CHLORIDE 0.9% 1000 ML IV PRN (06:00)
[2024-11-18 06:10] VITALS: BP 100/48
[2024-11-18 08:54] LABS: BASO # 0.1 10^3/uL (0.0-0.2); BASO % 1.0 % (0.0-1.0); EOS # 0.2 10^3/uL (0.0-0.5); EOS % 2.5 % (0.0-3.0); LYMPH # 1.3 10^3/uL (1.5-5.0); LYMPH % 13.9 % (24.0-44.0); MONO # 0.7 10^3/uL (0.0-0.8); MONO % 8.0 % (2.0-8.0); NEUTROPHILS # 6.2 10^3/uL (1.5-8.5); NEUTROPHILS % 67.9 % (36.0-66.0); PLATELET COUNT, AUTOMATED 213 10^3/uL (150-450)
[2024-11-18 09:41] LABS: ALT/SGPT < 9 U/L (7.0-40); AST/SGOT 29 U/L (<34); C REACTIVE PROTEIN QUANTITATIV 17.90 MG/DL (<1.0); CALCIUM LEVEL 8.2 MG/DL (8.3-10.6); CARBON DIOXIDE LEVEL 27 MMOL/L (20-31); CHLORIDE LEVEL 96 MMOL/L (98-107); CREATININE FOR GFR 4.84 MG/DL (0.70-1.30); GLOMERULAR FILTRATION RATE 12.0 (>42); MAGNESIUM LEVEL 2.2 MG/DL (1.8-2.4); POTASSIUM SERUM 3.7 MMOL/L (3.5-5.1); SODIUM LEVEL 134 MMOL/L (136-145)
[2024-11-18] MEDS: HEPARIN 1,000 UNITS/ML 10 ML VIAL (FOR RADIOLOGY & DIALYSIS ONLY) XX SCH (10:15)
[2024-11-18 13:13] VITALS: BP 95/69; TEMP 97.9; O2SAT 96
[2024-11-18 20:18] VITALS: BP 112/48; TEMP 98.1; O2SAT 96
[2024-11-19 03:56] VITALS: BP 114/62; TEMP 98.1; O2SAT 95
[2024-11-19 06:34] LABS: PLATELET COUNT, AUTOMATED 234 10^3/uL (150-450)
[2024-11-19 07:03] LABS: ALT/SGPT < 9 U/L (7.0-40); AST/SGOT 25 U/L (<34); CALCIUM LEVEL 8.2 MG/DL (8.3-10.6); CARBON DIOXIDE LEVEL 30 MMOL/L (20-31); CHLORIDE LEVEL 96 MMOL/L (98-107); CREATININE FOR GFR 3.23 MG/DL (0.70-1.30); GLOMERULAR FILTRATION RATE 19.5 (>42); MAGNESIUM LEVEL 2.0 MG/DL (1.8-2.4); POTASSIUM SERUM 3.6 MMOL/L (3.5-5.1); SODIUM LEVEL 136 MMOL/L (136-145)
[2024-11-19 07:29] LABS: BASOPHILS 1 % (0-1); EOSINOPHILS 2 % (0-3); LYMPHOCYTES 13 % (16-44); METAMYELOCYTES 2 % (0-0); MONOCYTES 3 % (0-5); MYELOCYTES 3 % (0-0); NEUTROPHILS 76 % (28-66)
[2024-11-19 07:31] LABS: PLATELET CLUMPS SMALL AMT; PLATELET ESTIMATE NORMAL (NORMAL)
[2024-11-19] MEDS: LOSARTAN 25 MG TAB PO SCH (08:07)
[2024-11-19 08:14] LABS: C REACTIVE PROTEIN QUANTITATIV 13.95 MG/DL (<1.0)
[2024-11-19] MEDS ORDERED: AUGMENTIN 875 MG TAB PO SCH (09:00)
[2024-11-19 11:51] VITALS: BP 115/81; TEMP 97.9; O2SAT 98
[2024-11-19 12:00] LABS: PHOSPHORUS LEVEL 2.8 MG/DL (2.4-5.1)
[2024-11-19] MEDS: AUGMENTIN 500 MG TAB PO SCH (12:18)
[2024-11-19 20:33] VITALS: BP 126/49; TEMP 98.1; O2SAT 96
[2024-11-20 03:52] VITALS: BP 129/49; TEMP 97.8; O2SAT 94
[2024-11-20 06:30] LABS: BASO # 0.1 10^3/uL (0.0-0.2); BASO % 1.0 % (0.0-1.0); EOS # 0.3 10^3/uL (0.0-0.5); EOS % 2.9 % (0.0-3.0); LYMPH # 1.4 10^3/uL (1.5-5.0); LYMPH % 16.5 % (24.0-44.0); MONO # 0.7 10^3/uL (0.0-0.8); MONO % 7.6 % (2.0-8.0); NEUTROPHILS # 5.5 10^3/uL (1.5-8.5); NEUTROPHILS % 63.9 % (36.0-66.0); PLATELET COUNT, AUTOMATED 226 10^3/uL (150-450)
[2024-11-20 06:48] LABS: ALT/SGPT < 9 U/L (7.0-40); AST/SGOT 22 U/L (<34); CALCIUM LEVEL 8.1 MG/DL (8.3-10.6); CARBON DIOXIDE LEVEL 24 MMOL/L (20-31); CHLORIDE LEVEL 98 MMOL/L (98-107); CREATININE FOR GFR 4.73 MG/DL (0.70-1.30); GLOMERULAR FILTRATION RATE 12.3 (>42); MAGNESIUM LEVEL 2.1 MG/DL (1.8-2.4); POTASSIUM SERUM 3.7 MMOL/L (3.5-5.1); SODIUM LEVEL 135 MMOL/L (136-145)
[2024-11-20 08:00] VITALS: BP 151/59; TEMP 97.6; O2SAT 97
[2024-11-20 11:00] VITALS: BP 152/58; TEMP 97.9; O2SAT 97
[2024-11-20 11:14] LABS: IRON (FE) 26 UG/DL (65-175); PERCENT SATURATION 19.4 % (19.7-50.0)
[2024-11-20 20:27] VITALS: BP 136/47; TEMP 98.1; O2SAT 100
[2024-11-21 05:32] VITALS: BP 130/54; TEMP 97.3; O2SAT 97
[2024-11-21] MEDS ORDERED: HEPARIN 1,000 UNITS/ML 10 ML VIAL (FOR RADIOLOGY & DIALYSIS ONLY) IV PRN (06:15)
[2024-11-21] MEDS ORDERED: SODIUM CHLORIDE 0.9% 1000 ML IV PRN (06:15)
[2024-11-21] MEDS: HEPARIN 1,000 UNITS/ML 10 ML VIAL (FOR RADIOLOGY & DIALYSIS ONLY) XX SCH (08:31)
[2024-11-21] MEDS: IRON SUCROSE 100 MG/5 ML VIAL IV SCH (08:32)
[2024-11-21 12:00] VITALS: BP 125/58; TEMP 98.1; O2SAT 94
[2024-11-21 19:49] VITALS: BP 110/45; TEMP 98.1; O2SAT 96
[2024-11-22 03:15] VITALS: BP 137/58; TEMP 97.9; O2SAT 96
[2024-11-22 12:12] VITALS: BP 140/58; TEMP 97.9; O2SAT 96
[2024-11-22 20:07] VITALS: BP 141/57; TEMP 97.9; O2SAT 97
[2024-11-23 03:30] VITALS: BP 144/52; TEMP 97.7; O2SAT 96
[2024-11-23] MEDS ORDERED: SODIUM CHLORIDE 0.9% 1000 ML IV PRN (06:00)
[2024-11-23] MEDS ORDERED: HEPARIN 1,000 UNITS/ML 10 ML VIAL (FOR RADIOLOGY & DIALYSIS ONLY) IV PRN (06:00)
[2024-11-23] MEDS: HEPARIN 1,000 UNITS/ML 10 ML VIAL (FOR RADIOLOGY & DIALYSIS ONLY) XX SCH (08:59)
[2024-11-23 11:43] VITALS: BP 125/67; TEMP 97.9; O2SAT 97
[2024-11-24 03:38] VITALS: BP 141/52; TEMP 97.7; O2SAT 99
[2024-11-24] MEDS ORDERED: VARIBAR PUDDING 40% w/v 230ML TUBE As Ordered ONE (11:25)
[2024-11-24] MEDS ORDERED: E-Z-PAQUE 96% w/w SUSP 176 GM BTL As Ordered ONE (11:25)
[2024-11-24] MEDS ORDERED: VARIBAR NECTAR 40% w/v 240ML SUSP BTL As Ordered ONE (11:25)
[2024-11-24] MEDS ORDERED: BARIUM SULFATE 700 MG TABLET As Ordered ONE (11:25)
[2024-11-25 04:00] VITALS: BP 135/60; TEMP 97.7; O2SAT 95
[2024-11-25] MEDS ORDERED: HEPARIN 1,000 UNITS/ML 10 ML VIAL (FOR RADIOLOGY & DIALYSIS ONLY) XX SCH (06:00)
[2024-11-25] MEDS ORDERED: SODIUM CHLORIDE 0.9% 1000 ML IV PRN (06:00)
[2024-11-25] MEDS: HEPARIN 1,000 UNITS/ML 10 ML VIAL (FOR RADIOLOGY & DIALYSIS ONLY) IV PRN (08:34)
[2024-11-26 03:35] VITALS: BP 123/54; TEMP 97.9; O2SAT 97
[2024-11-26] MEDS ORDERED: HEPARIN 1,000 UNITS/ML 10 ML VIAL (FOR RADIOLOGY & DIALYSIS ONLY) IV PRN (06:00)
[2024-11-26] MEDS ORDERED: SODIUM CHLORIDE 0.9% 1000 ML IV PRN (06:00)
[2024-11-26] MEDS ORDERED: HEPARIN 1,000 UNITS/ML 10 ML VIAL (FOR RADIOLOGY & DIALYSIS ONLY) XX SCH (06:00)
[2024-11-27 03:39] VITALS: BP 114/52; TEMP 97.9; O2SAT 98
[2024-11-27 09:07] VITALS: BP 120/50
[2024-11-28 03:51] VITALS: BP 147/56; TEMP 98.1; O2SAT 96
[2024-11-28] MEDS ORDERED: HEPARIN 1,000 UNITS/ML 10 ML VIAL (FOR RADIOLOGY & DIALYSIS ONLY) IV PRN (06:00)
[2024-11-28] MEDS ORDERED: LIDOCAINE 1% SDV 5 ML VIAL SC PRN (06:00)
[2024-11-28] MEDS ORDERED: SODIUM CHLORIDE 0.9% 1000 ML IV PRN (06:00)
[2024-11-28] MEDS: HEPARIN 1,000 UNITS/ML 10 ML VIAL (FOR RADIOLOGY & DIALYSIS ONLY) XX SCH (15:26)
[2024-11-29 03:27] VITALS: BP 145/46; TEMP 97.5; O2SAT 95
[2024-11-30 03:31] VITALS: BP 148/51; TEMP 98.2; O2SAT 92
[2024-11-30] MEDS ORDERED: SODIUM CHLORIDE 0.9% 1000 ML IV PRN (06:00)
[2024-11-30] MEDS ORDERED: LIDOCAINE 1% SDV 5 ML VIAL SC PRN (06:00)
[2024-11-30] MEDS ORDERED: HEPARIN 1,000 UNITS/ML 10 ML VIAL (FOR RADIOLOGY & DIALYSIS ONLY) IV PRN (06:00)
[2024-11-30] MEDS: HEPARIN 1,000 UNITS/ML 10 ML VIAL (FOR RADIOLOGY & DIALYSIS ONLY) XX SCH (08:59)
[2024-12-01 03:55] VITALS: BP 122/90; TEMP 97; O2SAT 98
[2024-12-01 08:39] VITALS: BP 159/78; TEMP 97.5; O2SAT 97
[2024-12-02 06:00] VITALS: BP 152/59; TEMP 97.8; O2SAT 96
[2024-12-02] MEDS ORDERED: HEPARIN 1,000 UNITS/ML 10 ML VIAL (FOR RADIOLOGY & DIALYSIS ONLY) IV PRN (06:00)
[2024-12-02] MEDS ORDERED: SODIUM CHLORIDE 0.9% 1000 ML IV PRN (06:00)
[2024-12-02] MEDS: HEPARIN 1,000 UNITS/ML 10 ML VIAL (FOR RADIOLOGY & DIALYSIS ONLY) XX SCH (09:39)
[2024-12-02 20:13] VITALS: BP 110/53; TEMP 98; O2SAT 98
[2024-12-03 04:47] VITALS: BP 138/62; TEMP 97.9; O2SAT 99
[2024-12-04 05:21] VITALS: BP 146/54; TEMP 98.1; O2SAT 99
[2024-12-04 16:26] LABS: PLATELET COUNT, AUTOMATED 196 10^3/uL (150-450)
[2024-12-04 17:01] LABS: ALT/SGPT < 9 U/L (7.0-40); AST/SGOT < 8 U/L (<34); CALCIUM LEVEL 8.6 MG/DL (8.3-10.6); CARBON DIOXIDE LEVEL 27 MMOL/L (20-31); CHLORIDE LEVEL 99 MMOL/L (98-107); CREATININE FOR GFR 5.72 MG/DL (0.70-1.30); GLOMERULAR FILTRATION RATE 9.8 (>42); POTASSIUM SERUM 4.5 MMOL/L (3.5-5.1); SODIUM LEVEL 138 MMOL/L (136-145)
[2024-12-05] MEDS ORDERED: HEPARIN 1,000 UNITS/ML 10 ML VIAL (FOR RADIOLOGY & DIALYSIS ONLY) IV PRN (06:00)
[2024-12-05] MEDS ORDERED: SODIUM CHLORIDE 0.9% 1000 ML IV PRN (06:00)
[2024-12-05 06:06] VITALS: BP 141/54; TEMP 97.9; O2SAT 97
[2024-12-05] MEDS: HEPARIN 1,000 UNITS/ML 10 ML VIAL (FOR RADIOLOGY & DIALYSIS ONLY) XX SCH (09:54)
[2024-12-05] MEDS: INSULIN LISPRO (NovoLOG) PER UNIT SC SCH (21:00)
[2024-12-06 03:45] VITALS: BP 133/54; TEMP 97.9; O2SAT 98
[2024-12-06] MEDS: INSULIN LISPRO (NovoLOG) PER UNIT SC SCH (08:21)
[2024-12-06 08:23] VITALS: BP 149/66
[2024-12-06] MEDS ORDERED: VENTAER INH (09:47)
[2024-12-06] MEDS ORDERED: SYMB80INH INH (09:47)
[2024-12-06] MEDS ORDERED: ADVA1AER9 INH (12:14)
== END 2024-12-06 14:06 | disposition home or self-care (01) | DRG 480 ==
LOC: M ED 10:17 → EDBD 10:17 → M ED INP 14:29 → M MSPAV 17:46
PROVIDERS: ADMIT Internal Medicine; ATTEND Internal Medicine
PROC: 0QS734Z Reposition Left Upper Femur with Internal Fixation Device, Percutaneous Approach (ICD-10-PCS; principal; 2024-11-06 08:00)
PROC: 5A1D70Z Performance of Urinary Filtration, Intermittent, Less than 6 Hours Per Day (ICD-10-PCS; 2024-11-27)
DX: S72.145A Nondisplaced intertrochanteric fracture of left femur, initial encounter for closed fracture (principal); N18.6 End stage renal disease; J18.9 Pneumonia, unspecified organism; G93.41 Metabolic encephalopathy; R45.851 Suicidal ideations; I12.0 Hypertensive chronic kidney disease with stage 5 chronic kidney disease or end stage renal disease; M51.06 Intervertebral disc disorders with myelopathy, lumbar region; J44.9 Chronic obstructive pulmonary disease, unspecified; F32.A Depression, unspecified; E11.40 Type 2 diabetes mellitus with diabetic neuropathy, unspecified; E11.22 Type 2 diabetes mellitus with diabetic chronic kidney disease; E78.5 Hyperlipidemia, unspecified; K21.9 Gastro-esophageal reflux disease without esophagitis; D63.1 Anemia in chronic kidney disease; Z86.73 Personal history of transient ischemic attack (TIA), and cerebral infarction without residual deficits; M48.02 Spinal stenosis, cervical region; D72.829 Elevated white blood cell count, unspecified; N31.2 Flaccid neuropathic bladder, not elsewhere classified; I65.29 Occlusion and stenosis of unspecified carotid artery; Z79.899 Other long term (current) drug therapy; W18.30XA Fall on same level, unspecified, initial encounter; Y92.009 Unspecified place in unspecified non-institutional (private) residence as the place of occurrence of the external cause; M81.0 Age-related osteoporosis without current pathological fracture; F17.210 Nicotine dependence, cigarettes, uncomplicated; F41.9 Anxiety disorder, unspecified; G25.81 Restless legs syndrome

== ENCOUNTER → 2024-12-20 | Outpatient (CLI) | payer MEDICARE ==
[~2024-12-20] MED LIST changes: +ADVA1AER9 INH; +FIBE625T PO; +FLOR250C PO; +FOLI1TAB11 PO; +FOLI800C PO; +LANS15CA PO; +LOSA100T46 PO; +ONDA-83 PO; +ONDA4SOL PO; +OXYC7.5T3 PO; +SEVE800T3 PO; +SYMB80INH INH; +VENTAER INH
== END ==
LOC: M SOG 07:18
PROVIDERS: ATTEND Physician Assistant
DX: S72.042A Displaced fracture of base of neck of left femur, initial encounter for closed fracture (principal); X58.XXXA Exposure to other specified factors, initial encounter; Y92.9 Unspecified place or not applicable

== ENCOUNTER → 2025-01-18 | Outpatient (CLI) | payer MEDICARE, MEDICAID | LOC: M RAD 12:22 | PROVIDERS: ATTEND Surgery | DX: L89.624 Pressure ulcer of left heel, stage 4 (principal); R68.89 Other general symptoms and signs; I70.202 Unspecified atherosclerosis of native arteries of extremities, left leg ==

== ENCOUNTER → 2025-02-03 | Outpatient (CLI) | payer MEDICARE, MEDICAID | LOC: M SOG 07:34 | PROVIDERS: ATTEND Physician Assistant | DX: S72.042A Displaced fracture of base of neck of left femur, initial encounter for closed fracture (principal); W18.30XA Fall on same level, unspecified, initial encounter; Y92.009 Unspecified place in unspecified non-institutional (private) residence as the place of occurrence of the external cause ==

== ENCOUNTER → 2025-02-13 | Outpatient (POV) | payer MEDICARE, MEDICAID ==
[~2025-02-13] MED LIST changes: +ACET-683 PO; +DULC5TAB PO
== END ==
LOC: M IRPOV 14:00
PROVIDERS: ATTEND Registered Nurse School
DX: E11.51 Type 2 diabetes mellitus with diabetic peripheral angiopathy without gangrene (principal); I73.9 Peripheral vascular disease, unspecified; L97.529 Non-pressure chronic ulcer of other part of left foot with unspecified severity; E11.622 Type 2 diabetes mellitus with other skin ulcer; F17.210 Nicotine dependence, cigarettes, uncomplicated; Z79.899 Other long term (current) drug therapy; Z96.1 Presence of intraocular lens; Z79.891 Long term (current) use of opiate analgesic